=== PATIENT | male | born 1990 | race Caucasian/White ===

== ENCOUNTER 2017-02-11 18:38 | Emergency (ER) | payer BC ==
[~2017-02-11] VITALS: Ht 188 cm; Wt 75.0 kg
[~2017-02-11 18:38] MED LIST: AMLO5 PO; BUME1TAB PO; HYDRA50 PO; LABE200 PO; LEVO50TA4 PO; OMEG1CAP53 PO; PRAV10 PO; SEVEL800 PO; VITA-13 PO; ZOFR4TAB3 PO
[2017-02-11 18:39] VITALS: BP 164/92; PULSE 80; RESP 16; TEMP 97.8; O2SAT 96
[2017-02-11 19:00] VITALS: PULSE 76; RESP 16; O2SAT 98
[2017-02-11] MEDS ORDERED: SODIUM CHLOR 0.9% 1000 ML INJ 1,000 ML IV SCH (19:08)
[2017-02-11] MEDS ORDERED: PROCHLORPERAZINE INJ 10 MG/2 ML VIAL IVS ONE (19:15)
[2017-02-11] MEDS ORDERED: ONDANSETRON HCL 4 MG/2 ML VIAL IVP ONE (19:15)
[2017-02-11] MEDS ORDERED: SODIUM CHLORIDE 0.9% FLUSH 10 ML FLUSH IV FLUSH PRN (19:15)
[2017-02-11] MEDS ORDERED: diphenhydrAMINE HCL 50 MG/ML VIAL IV PUSH ONE (19:15)
--- NOTE | 2017-02-11 19:40 | PD ---
HPI Chief Complaint: GI Complaint Time Seen by Provider: 19:00 Travel History International Travel<30 days: No Contact w/Intl Traveler<30days: No Traveled to known affect area: No [facility] Past Medical History Cancer: No Cardiovascular Problems: No Diabetes: No Diminished Hearing: No Endocrine: No Genitourinary: Yes (Iga Nephropathy) Hepatitis: No Hiatal Hernia: No Immune Disorder: No Musculoskeletal: No Neurologic: No Psychiatric: No Reproductive: No Respiratory: No Immunizations Current: Yes Renal Failure: Yes (chronic kidney disease Stage III) Thyroid Disease: No Past Surgical History Abdominal Surgery: Yes (PD CATHETER PLACEMENT) AICD: No Cardiac Surgery: No Ear Surgery: No Endocrine Surgery: No Eye Surgery: No Genitourinary Surgery: No Gynecologic Surgery: No Joint Replacement: No Oral Surgery: No Pacemaker: No Thoracic Surgery: No Other Surgery: Yes Social History Alcohol Use: Yes ("COUPLE TIMES PER WEEK") Tobacco Use: No (2 years, quit 3 years ago) Substance Use: No Allergies-Medications (Allergen,Severity, Reaction): Coded Allergies: Keflex (Verified Allergy, Unknown, UNKNOWN- A CHILD, 02/11/17) Reported Meds & Prescriptions Reported Meds & Active Scripts Active Reported Vyvanse (Lisdexamfetamine Dimesylate) 30 Mg Cap 30 Mg PO DAILY Velphoro (Sucroferric Oxyhydroxide) 500 Mg Chew 500 Mg CHEW TIDPC Renvela (Sevelamer Carbonate) 800 Mg Tab 240 Mg PO TID Pravastatin 10 Mg Tab 10 Mg PO DAILY [id number] Ethyl Esters 1 Gm Cap 2 Gm PO BID Levothyroxine (Levothyroxine Sodium) 50 Mcg Tab 50 Mcg PO DAILY Labetalol (Labetalol HCl) 300 Mg Tab 300 Mg PO BID Hydralazine (Hydralazine HCl) 50 Mg Tab 50 Mg PO TID Take with a meal Bumetanide 2 Mg Tab 2 Mg PO DAILY Amlodipine (Amlodipine Besylate) 5 Mg Tab 5 Mg PO BID Data Data Last Documented VS Vital Signs Date Time Temp Pulse Resp B/P Pulse Ox O2 Delivery O2 Flow Rate FiO2 02/11/17 19:00 76 16 98 Room Air 02/11/17 18:39 97.8 164/92 Orders Complete Blood Count With Diff (02/11/17 19:08) Comprehensive Metabolic Panel (02/11/17 19:08) Lipase (02/11/17 19:08) Iv Access Insert/Monitor (02/11/17 19:08) Ecg Monitoring (02/11/17 19:08) Oximetry (02/11/17 19:08) Ondansetron Inj (Zofran Inj) (02/11/17 19:15) Sodium Chlor 0.9% 1000 Ml Inj (Ns 1000 M (02/11/17 19:08) Sodium Chloride 0.9% Flush (Ns Flush) (02/11/17 19:15) Magnesium (Mg) (02/11/17 19:08) Phosphorus (Po4) (02/11/17 19:08) Prochlorperazine Inj (Compazine Inj) (02/11/17 19:15) Diphenhydramine Inj (Benadryl Inj) (02/11/17 19:15) Ct Brain W/O Iv Contrast(Rout) (02/11/17 ) Electrocardiogram (02/11/17 ) Sodium Polysty Sulfate Liq (Kayexalate L (02/11/17 20:45) Labs Laboratory Tests Test 02/11/17 19:30 White Blood Count 5.5 TH/MM3 Red Blood Count 2.68 MIL/MM3 Hemoglobin 7.8 GM/DL Hematocrit 24.1 % Mean Corpuscular Volume 90.1 FL Mean Corpuscular Hemoglobin 29.0 PG Mean Corpuscular Hemoglobin 32.2 % Concent Red Cell Distribution Width 14.8 % Platelet Count 153 TH/MM3 Mean Platelet Volume 8.2 FL Neutrophils (%) (Auto) 71.6 % Lymphocytes (%) (Auto) 14.1 % Monocytes (%) (Auto) 11.9 % Eosinophils (%) (Auto) 1.8 % Basophils (%) (Auto) 0.6 % Neutrophils # (Auto) 3.9 TH/MM3 Lymphocytes # (Auto) 0.8 TH/MM3 Monocytes # (Auto) 0.6 TH/MM3 Eosinophils # (Auto) 0.1 TH/MM3 Basophils # (Auto) 0.0 TH/MM3 CBC Comment DIFF FINAL Differential Comment Sodium Level 141 MEQ/L Potassium Level 5.9 MEQ/L Chloride Level 100 MEQ/L Carbon Dioxide Level 26.3 MEQ/L Anion Gap 15 MEQ/L Blood Urea Nitrogen 80 MG/DL Creatinine 22.38 MG/DL Estimat Glomerular Filtration 3 ML/MIN Rate Random Glucose 99 MG/DL Calcium Level 8.8 MG/DL Phosphorus Level 8.3 MG/DL Magnesium Level 3.6 MG/DL Total Bilirubin 0.5 MG/DL Aspartate Amino Transf 10 U/L (AST/SGOT) Alanine Aminotransferase 29 U/L (ALT/SGPT) Alkaline Phosphatase 59 U/L Total Protein 7.1 GM/DL Albumin 3.7 GM/DL Lipase 396 U/L MDM Scripts Promethazine Supp (Phenergan Supp)12.5 Mg Supp12.5 Mg RECTAL Q6H PRN (NAUSEA OR VOMITING) #12 SUPP Ref 0 Prov:Balbir Delgadillo MD 02/11/17 Balbir Delgadillo MD Feb 11, 2017 19:40
[2017-02-11 19:55] LABS: AUTOMATED NEUTROPHIL # 3.9 TH/MM3 (1.8-7.7); BASOPHIL % 0.6 % (0.0-2.0); EOSINOPHIL # 0.1 TH/MM3 (0-0.4); EOSINOPHIL % 1.8 % (0.0-4.0); HEMATOCRIT 24.1 % (39.0-51.0); HEMO FLAGS DIFF FINAL; LYMPH % 14.1 % (9.0-44.0); LYMPHOCYTE # 0.8 TH/MM3 (1.0-4.8); MEAN CELL VOLUME 90.1 FL (80.0-100.0); MEAN CORPUSCULAR HGB CONC 32.2 % (32.0-36.0); MONO % 11.9 % (0.0-8.0); NEUT % 71.6 % (16.0-70.0); PLATELET COUNT 153 TH/MM3 (150-450); RED BLOOD COUNT 2.68 MIL/MM3 (4.50-5.90); RED CELL DISTRIBUTION WIDTH 14.8 % (11.6-17.2); WHITE BLOOD COUNT 5.5 TH/MM3 (4.0-11.0)
[2017-02-11 20:21] LABS: ALKALINE PHOSPHATASE 59 U/L (45-117); ALT (GPT) 29 U/L (12-78); ANION GAP 15 MEQ/L (5-15); AST (GOT) 10 U/L (15-37); BICARBONATE 26.3 MEQ/L (21.0-32.0); BLOOD UREA NITROGEN 80 MG/DL (7-18); CHLORIDE 100 MEQ/L (98-107); GLOMERULAR FILTRATION RATE 3 ML/MIN (>89); MAGNESIUM 3.6 MG/DL (1.5-2.5); POTASSIUM 5.9 MEQ/L (3.5-5.1); SODIUM (NA) 141 MEQ/L (136-145); TOTAL BILIRUBIN ADULT 0.5 MG/DL (0.2-1.0)
[2017-02-11] MEDS ORDERED: HYDR50TA15 PO (20:29)
[2017-02-11] MEDS ORDERED: LEVO50TA4 PO (20:29)
[2017-02-11] MEDS ORDERED: AMLO5TAB2 PO (20:29)
[2017-02-11] MEDS ORDERED: LABE300T PO (20:29)
[2017-02-11] MEDS ORDERED: OMEG1CAP28 PO (20:29)
[2017-02-11] MEDS ORDERED: VYVA30CA5 PO (20:29)
[2017-02-11] MEDS ORDERED: PRAV10TA PO (20:29)
[2017-02-11] MEDS ORDERED: SUCR5CHW CHEW (20:29)
[2017-02-11] MEDS ORDERED: BUME2TAB PO (20:29)
[2017-02-11] MEDS ORDERED: SEVEL800 PO (20:29)
--- NOTE | 2017-02-11 20:29 | RADRPT ---
EXAM DATE/TIME: 02/11/2017 19:58 [facility] COMPARISON: CT BRAIN W/O CONTRAST, December 25, 2015, 16:20. INDICATIONS : Nausea and vomiting with headache and neck pain. RADIATION DOSE: 35.04 CTDIvol (mGy) MEDICAL HISTORY : Chronic kidney disease stage 3. SURGICAL HISTORY : None. ENCOUNTER: Initial ACUITY: 1 day PAIN SCALE: 7/10 LOCATION: cranial TECHNIQUE: Multiple contiguous axial images were obtained of the head. Using automated exposure control and adj ustment of the mA and/or kV according to patient size, radiation dose was kept as low as reasonably a chievable to obtain optimal diagnostic quality images. FINDINGS: CEREBRUM: The ventricles are normal for age. No evidence of midline shift, mass lesion, hemorrhage or acute in farction. No extra-axial fluid collections are seen. POSTERIOR FOSSA: The cerebellum and brainstem are intact. The 4th ventricle is midline. The cerebellopontine angle i s unremarkable. EXTRACRANIAL: The visualized portion of the orbits is intact. SKULL: The calvaria is intact. No evidence of skull fracture. CONCLUSION: Normal examination for a patient of this age. No significant change has occurred. Mikael Castillo MD on February 11, 2017 at 20:26 Board Certified Radiologist. This report was verified electronically.
[2017-02-11] MEDS ORDERED: SODIUM POLYSTYRENE SULFONATE SUSP 15 GM/60 ML CUP PO ONE (20:45)
[2017-02-11] MEDS ORDERED: PROM2SUP RECTAL (20:45)
--- NOTE | 2017-02-11 20:45 | PD ---
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 Patient states has been doing his dialysis. No fevers, no abdominal pain. Patient states his effluent fluid has been clear. Patient states had seen his provider engagement executive Dr. Davis earlier this week and was told his Cr was in excess of 20 and his potassium was 6. Patient states has tried some zofran at home and had minimal relief. States symptoms for past day or so. PFSH Past Medical History Cancer: No Cardiovascular Problems: No Diabetes: No Diminished Hearing: No Endocrine: No Genitourinary: Yes (Iga Nephropathy) Hepatitis: No Hiatal Hernia: No Immune Disorder: No Musculoskeletal: No Neurologic: No Psychiatric: No Reproductive: No Respiratory: No Immunizations Current: Yes Renal Failure: Yes (chronic kidney disease Stage III) Thyroid Disease: No Past Surgical History Abdominal Surgery: Yes (PD CATHETER PLACEMENT) AICD: No Cardiac Surgery: No Ear Surgery: No Endocrine Surgery: No Eye Surgery: No Genitourinary Surgery: No Gynecologic Surgery: No Joint Replacement: No Oral Surgery: No Pacemaker: No Thoracic Surgery: No Other Surgery: Yes Social History Alcohol Use: Yes ("COUPLE TIMES PER WEEK") Tobacco Use: No (2 years, quit 3 years ago) Substance Use: No Allergies-Medications (Allergen,Severity, Reaction): Coded Allergies: Keflex (Verified Allergy, Unknown, UNKNOWN- A CHILD, 02/11/17) Reported Meds & Prescriptions Reported Meds & Active Scripts Active Phenergan (Promethazine HCl) 25 Mg Tab 25 Mg PO Q6H PRN Phenergan Supp (Promethazine HCl) 12.5 Mg Supp 12.5 Mg RECTAL Q6H PRN Reported Vyvanse (Lisdexamfetamine Dimesylate) 30 Mg Cap 30 Mg PO DAILY Velphoro (Sucroferric Oxyhydroxide) 500 Mg Chew 500 Mg CHEW TIDPC Renvela (Sevelamer Carbonate) 800 Mg Tab 240 Mg PO TID Pravastatin 10 Mg Tab 10 Mg PO DAILY [id number]-6-Hiqy Ethyl Esters 1 Gm Cap 2 Gm PO BID Levothyroxine (Levothyroxine Sodium) 50 Mcg Tab 50 Mcg PO DAILY Labetalol (Labetalol HCl) 300 Mg Tab 300 Mg PO BID Hydralazine (Hydralazine HCl) 50 Mg Tab 50 Mg PO TID Take with a meal Bumetanide 2 Mg Tab 2 Mg PO DAILY Amlodipine (Amlodipine Besylate) 5 Mg Tab 5 Mg PO BID Review of Systems Except as stated in HPI: all other systems reviewed are Neg Physical Exam Narrative GENERAL: WD/WN in nad SKIN: Warm and dry. HEAD: Atraumatic. Normocephalic. EYES: Pupils equal and round. No scleral icterus. No injection or drainage. ENT: No nasal bleeding or discharge. Mucous membranes pink and moist. NECK: Trachea midline. No JVD. Kerning's and brudzinski signs negative. No nuchal rigidity. CARDIOVASCULAR: Regular rate and rhythm. RESPIRATORY: No accessory muscle use. Clear to auscultation. Breath sounds equal bilaterally. GASTROINTESTINAL: Abdomen soft, non-tender, nondistended. Hepatic and splenic margins not palpable. Peritoneal dialysis catheter c/d/i MUSCULOSKELETAL: Extremities without clubbing, cyanosis, or edema. No obvious deformities. NEUROLOGICAL: Awake and alert. No obvious cranial nerve deficits. Motor grossly within normal limits. Five out of 5 muscle strength in the arms and legs. Normal speech. PSYCHIATRIC: Appropriate mood and affect; insight and judgment normal. Data Data Last Documented VS Vital Signs Date Time Temp Pulse Resp B/P Pulse Ox O2 Delivery O2 Flow Rate FiO2 02/11/17 19:00 76 16 98 Room Air 02/11/17 18:39 97.8 164/92 Orders Complete Blood Count With Diff (02/11/17 19:08) Comprehensive Metabolic Panel (02/11/17 19:08) Lipase (02/11/17 19:08) Iv Access Insert/Monitor (02/11/17 19:08) Ecg Monitoring (02/11/17 19:08) Oximetry (02/11/17 19:08) Ondansetron Inj (Zofran Inj) (02/11/17 19:15) Sodium Chlor 0.9% 1000 Ml Inj (Ns 1000 M (02/11/17 19:08) Sodium Chloride 0.9% Flush (Ns Flush) (02/11/17 19:15) Magnesium (Mg) (02/11/17 19:08) Phosphorus (Po4) (02/11/17 19:08) Prochlorperazine Inj (Compazine Inj) (02/11/17 19:15) Diphenhydramine Inj (Benadryl Inj) (02/11/17 19:15) Ct Brain W/O Iv Contrast(Rout) (02/11/17 ) Electrocardiogram (02/11/17 ) Sodium Polysty Sulfate Liq (Kayexalate L (02/11/17 20:45) Labs Laboratory Tests Test 02/11/17 19:30 White Blood Count 5.5 TH/MM3 Red Blood Count 2.68 MIL/MM3 Hemoglobin 7.8 GM/DL Hematocrit 24.1 % Mean Corpuscular Volume 90.1 FL Mean Corpuscular Hemoglobin 29.0 PG Mean Corpuscular Hemoglobin 32.2 % Concent Red Cell Distribution Width 14.8 % Platelet Count 153 TH/MM3 Mean Platelet Volume 8.2 FL Neutrophils (%) (Auto) 71.6 % Lymphocytes (%) (Auto) 14.1 % Monocytes (%) (Auto) 11.9 % Eosinophils (%) (Auto) 1.8 % Basophils (%) (Auto) 0.6 % Neutrophils # (Auto) 3.9 TH/MM3 Lymphocytes # (Auto) 0.8 TH/MM3 Monocytes # (Auto) 0.6 TH/MM3 Eosinophils # (Auto) 0.1 TH/MM3 Basophils # (Auto) 0.0 TH/MM3 CBC Comment DIFF FINAL Differential Comment Sodium Level 141 MEQ/L Potassium Level 5.9 MEQ/L Chloride Level 100 MEQ/L Carbon Dioxide Level 26.3 MEQ/L Anion Gap 15 MEQ/L Blood Urea Nitrogen 80 MG/DL Creatinine 22.38 MG/DL Estimat Glomerular Filtration 3 ML/MIN Rate Random Glucose 99 MG/DL Calcium Level 8.8 MG/DL Phosphorus Level 8.3 MG/DL Magnesium Level 3.6 MG/DL Total Bilirubin 0.5 MG/DL Aspartate Amino Transf 10 U/L (AST/SGOT) Alanine Aminotransferase 29 U/L (ALT/SGPT) Alkaline Phosphatase 59 U/L Total Protein 7.1 GM/DL Albumin 3.7 GM/DL Lipase 396 U/L [facility] Medical Decision Making Medical Screen Exam Complete: Yes Emergency Medical Condition: Yes Interpretation(s) EKG shows NSR normal axis with normal intervals. Mildly promiant T Waves in V3 and V4. Otherwise no significant STT abnormlaties. Borderline EKG. Differential Diagnosis Electrolyte abnormalities, pancreatitis, gastritis, gastroenteritis Narrative Course Patient roomed in ED. Benadryl, compazine and zofran given. Fluids cautiously. Labs show Cr of 22, K 5.9 BUN of 80. Hbg of 7.8 Last [address] 02/11/17 0000 Signed Impressions: Service Date/Time: Saturday, February 11, 2017 19:58 - CONCLUSION: Normal examination for a patient of this age. No significant change has occurred. Mikael Castillo MD Discussed with Dr. Shi admissions rn for Dr. Davis the above results and EKG findings. He states patient needs to continue doing home dialysis. No ndication for emergent admission from a nephrology standpoint according to Dr. Shi. Patient abdomen is benign, remainder of his physicial exam WNL Patient stable for discharge. Given Kayexelate prior to discharge at recommendation of Dr. Shi. DIscussed with patient who is feeling better and he wants to go home. Diagnosis Primary Impression: Nausea & vomiting Qualified Code: R11.2 - Nausea and vomiting, intractability of vomiting not specified, unspecified vomiting type Additional Impressions: Headache Hyperkalemia Additional Instructions: Per Dr. Miles Blanco or peritoneal dialysis tonight as scheduled. Follow-up with Dr. Davis on Monday by phone. Med/Other Pt SpecificInfo: Prescription(s) given Scripts Promethazine (Phenergan)25 Mg Tab25 Mg PO Q6H PRN (Nausea/Vomiting) #12 TAB Ref 0 Prov:Balbir Delgadillo MD 02/11/17 Promethazine Supp (Phenergan Supp)12.5 Mg Supp12.5 Mg RECTAL Q6H PRN (NAUSEA OR VOMITING) #12 SUPP Ref 0 Prov:Balbir Delgadillo MD 02/11/17 Disposition: 01 DISCHARGE HOME Condition: Stable Balbir Delgadillo MD Feb 11, 2017 20:45
[2017-02-11] MEDS ORDERED: PROM25TA5 PO (20:50)
--- NOTE | 2017-02-12 14:54 | EKG ---
Date Performed: 02/11/2017 Time Performed: 20:39:15 PTAGE: 26 years EKG: Sinus rhythm Since previous tracing, no significant change noted NORMAL ECG PREVIOUS TRACING : 12/25/2015 17.17 DOCTOR: Darnell Loera Interpretating Date/Time 02/12/2017 14:53:26
[2017-03-09] MEDS ORDERED: AMBI5TAB PO (14:18)
[2017-03-09] MEDS ORDERED: BUPR100T4 PO (14:18)
[2017-03-29] MEDS ORDERED: LOSA100T PO (12:44)
[2017-03-29] MEDS ORDERED: HYDR-3801 PO (12:44)
[2017-03-29] MEDS ORDERED: TEST1INJ3 IM (12:44)
== END 2017-02-11 21:12 | disposition home or self-care (01) ==
LOC: NEPA 18:38
DX: R11.2 Nausea with vomiting, unspecified (principal); E87.5 Hyperkalemia; N18.3 Chronic kidney disease, stage 3 (moderate)
CPT/HCPCS: 70450; 80053; 83690; 83735; 84100; 85025; 93005; 96361; 96374; 96375; 99284; J0780; J1200; J2405; J7030

== ENCOUNTER 2017-03-06 13:21 | Emergency (ER) | payer BC ==
[~2017-03-06] VITALS: Ht 188 cm; Wt 77.7 kg
[~2017-03-06 13:21] MED LIST changes: -AMLO5 PO; +AMLO5TAB2 PO; -BUME1TAB PO; +BUME2TAB PO; +HYDR50TA15 PO; -HYDRA50 PO; -LABE200 PO; +LABE300T PO; +OMEG1CAP28 PO; -OMEG1CAP53 PO; -PRAV10 PO; +PRAV10TA PO; +PROM25TA5 PO; +PROM2SUP RECTAL; +SUCR5CHW CHEW; -VITA-13 PO; +VYVA30CA5 PO; -ZOFR4TAB3 PO
[2017-03-06 13:39] VITALS: BP 146/101; PULSE 73; RESP 16; TEMP 98.7; O2SAT 98
[2017-03-06] MEDS ORDERED: SODIUM CHLORIDE 0.9% FLUSH 10 ML FLUSH IV FLUSH PRN (14:15)
--- NOTE | 2017-03-06 14:33 | PD ---
HPI Chief Complaint: Abdominal Pain Time Seen by Provider: 14:14 Travel History International Travel<30 days: No Contact w/Intl Traveler<30days: No Traveled to known affect area: No History of Present Illness HPI 26-year-old male with history of peritoneal dialysis due to IgA nephropathy, follows up with Dr. Davis, presents to the ER today for 3 days history of nausea, fatigue, left-sided abdominal pain, bloating, which he currently rates at an 8 out of 10. He denies any fevers or any other symptoms. He states that initially he thought that the symptoms was do the fact that he was not able to dialyze out enough fluids, and he tried a higher concentration dialysis fluid without significant improvement last night. He had talked to his dialysis clinic and they had told him to look at the dialysate, and see if it has any cloudiness. He states he looked any was not cloudy, and they stated to him that they do not think that this is secondary to a peritoneal dialysis infection. Modifying Factors: None Associated Signs & Symptoms: Nausea, malaise, left lower quadrant abdominal pain , abdominal bloating Risk Factors: On peritoneal dialysis PFSH Past Medical History Cancer: No Cardiovascular Problems: Yes (htn on meds) Diabetes: No Dialysis: Yes (peritoneal) Diminished Hearing: No Endocrine: No Genitourinary: Yes (Iga Nephropathy) Hepatitis: No Hiatal Hernia: No Immune Disorder: No Musculoskeletal: No Neurologic: No Psychiatric: No Reproductive: No Respiratory: No Immunizations Current: Yes Renal Failure: Yes (chronic kidney disease Stage III) Thyroid Disease: No Influenza Vaccination: Yes ?: Not Past Surgical History Abdominal Surgery: Yes (PD CATHETER PLACEMENT) AICD: No Cardiac Surgery: No Ear Surgery: No Endocrine Surgery: No Eye Surgery: No Genitourinary Surgery: No Gynecologic Surgery: No Joint Replacement: No Oral Surgery: No Pacemaker: No Thoracic Surgery: No Other Surgery: Yes Social History Alcohol Use: Yes ("COUPLE TIMES PER WEEK") Tobacco Use: No (2 years, quit 3 years ago) Substance Use: No Allergies-Medications (Allergen,Severity, Reaction): Coded Allergies: Keflex (Verified Allergy, Unknown, UNKNOWN- A CHILD, 03/06/17) Reported Meds & Prescriptions Reported Meds & Active Scripts Active Reported Vyvanse (Lisdexamfetamine Dimesylate) 30 Mg Cap 30 Mg PO DAILY Velphoro (Sucroferric Oxyhydroxide) 500 Mg Chew 500 Mg CHEW TIDPC Renvela (Sevelamer Carbonate) 800 Mg Tab 240 Mg PO TID Pravastatin 10 Mg Tab 10 Mg PO DAILY Rhyej-3-Awyk Ethyl Esters 1 Gm Cap 2 Gm PO BID Levothyroxine (Levothyroxine Sodium) 50 Mcg Tab 50 Mcg PO DAILY Labetalol (Labetalol HCl) 300 Mg Tab 300 Mg PO BID Hydralazine (Hydralazine HCl) 50 Mg Tab 50 Mg PO TID Take with a meal Bumetanide 2 Mg Tab 2 Mg PO DAILY Amlodipine (Amlodipine Besylate) 5 Mg Tab 5 Mg PO BID Review of Systems Except as stated in HPI: all other systems reviewed are Neg Physical Exam Narrative GENERAL: Young white male patient who is well-developed, awake, alert, oriented 3. SKIN: Focused skin assessment warm/dry. HEAD: Atraumatic. Normocephalic. EYES: Pupils equal and round. No scleral icterus. No injection or drainage. ENT: No nasal bleeding or discharge. Mucous membranes pink and moist. NECK: Trachea midline. No JVD. CARDIOVASCULAR: Regular rate and rhythm. No murmur appreciated. RESPIRATORY: No accessory muscle use. Clear to auscultation. Breath sounds equal bilaterally. GASTROINTESTINAL: Abdomen soft, mild left lower quadrant tenderness without guarding or rebound, nondistended. Hepatic and splenic margins not palpable. . Peritoneal dialysis port in place with no surrounding erythema or drainage. MUSCULOSKELETAL: No obvious deformities. No clubbing. No cyanosis. No edema. NEUROLOGICAL: Awake and alert. No obvious cranial nerve deficits. Motor grossly within normal limits. Normal speech. PSYCHIATRIC: Appropriate mood and affect; insight and judgment normal. Data Data Last Documented VS Vital Signs Date Time Temp Pulse Resp B/P Pulse Ox O2 Delivery O2 Flow Rate FiO2 03/06/17 15:04 67 18 168/97 98 Room Air 03/06/17 13:39 98.7 Orders Complete Blood Count With Diff (03/06/17 14:14) Comprehensive Metabolic Panel (03/06/17 14:14) Lipase (03/06/17 14:14) Iv Access Insert/Monitor (03/06/17 14:14) Ecg Monitoring (03/06/17 14:14) Oximetry (03/06/17 14:14) Sodium Chloride 0.9% Flush (Ns Flush) (03/06/17 14:15) Influenzae A/B Antigen (03/06/17 14:14) Morphine Inj (Morphine Inj) (03/06/17 14:45) Ondansetron Inj (Zofran Inj) (03/06/17 14:45) Ct Abd/Pel W/O Iv Contrast (03/06/17 14:33) Labs Laboratory Tests Test 03/06/17 14:20 White Blood Count 6.3 TH/MM3 Red Blood Count 2.89 MIL/MM3 Hemoglobin 9.5 GM/DL Hematocrit 28.7 % Mean Corpuscular Volume 99.3 FL Mean Corpuscular Hemoglobin 32.8 PG Mean Corpuscular Hemoglobin 33.0 % Concent Red Cell Distribution Width 19.0 % Platelet Count 199 TH/MM3 Mean Platelet Volume 7.4 FL Neutrophils (%) (Auto) 69.4 % Lymphocytes (%) (Auto) 15.0 % Monocytes (%) (Auto) 12.6 % Eosinophils (%) (Auto) 2.3 % Basophils (%) (Auto) 0.7 % Neutrophils # (Auto) 4.5 TH/MM3 Lymphocytes # (Auto) 0.9 TH/MM3 Monocytes # (Auto) 0.8 TH/MM3 Eosinophils # (Auto) 0.1 TH/MM3 Basophils # (Auto) 0.0 TH/MM3 CBC Comment DIFF FINAL Differential Comment Sodium Level 141 MEQ/L Potassium Level 4.9 MEQ/L Chloride Level 104 MEQ/L Carbon Dioxide Level 23.8 MEQ/L Anion Gap 13 MEQ/L Blood Urea Nitrogen 70 MG/DL Creatinine 22.00 MG/DL Estimat Glomerular Filtration 3 ML/MIN Rate Random Glucose 149 MG/DL Calcium Level 8.9 MG/DL Total Bilirubin 0.6 MG/DL Aspartate Amino Transf 11 U/L (AST/SGOT) Alanine Aminotransferase 27 U/L (ALT/SGPT) Alkaline Phosphatase 63 U/L Total Protein 6.5 GM/DL Albumin 3.4 GM/DL Lipase 224 U/L [facility] Medical Decision Making Medical Screen Exam Complete: Yes Emergency Medical Condition: Yes Medical Record Reviewed: Yes Interpretation(s) Laboratory Tests Test 03/06/17 14:20 Red Blood Count 2.89 MIL/MM3 (4.50-5.90) Hemoglobin 9.5 GM/DL (13.0-17.0) Hematocrit 28.7 % (39.0-51.0) Red Cell Distribution Width 19.0 % (11.6-17.2) Monocytes (%) (Auto) 12.6 % (0.0-8.0) Lymphocytes # (Auto) 0.9 TH/MM3 (1.0-4.8) Blood Urea Nitrogen 70 MG/DL (7-18) Creatinine 22.00 MG/DL (0.60-1.30) Estimat Glomerular Filtration 3 ML/MIN (>89) Rate Random Glucose 149 MG/DL (74-106) Aspartate Amino Transf 11 U/L (15-37) (AST/SGOT) Differential Diagnosis Malaise, nausea, left lower quadrant abdominal pain, bloatinggastroenteritis versus electrolyte abnormalities versus worsening renal failure versus SBP versus other acute intra-abdominal processes Narrative Course Lab work did not indicate any significant electrolyte abnormalities although his BUN and creatinine is elevated, likely to be baseline for this patient. His white blood cell count is unremarkable. Influenza is negative. CT scan of the abdomen is otherwise unremarkable. Case was briefly discussed with Dr. 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 Return for any worsening in symptoms as necessary. The plan has been discussed with the patient and he states understanding. Diagnosis Primary Impression: Nausea & vomiting Med/Other Pt SpecificInfo: Prescription(s) given Scripts Hydrocodone-Acetaminophen (Lortab)5-325 Mg Tab1 Tab PO Q6H PRN (PAIN) #10 TAB Ref 0 Prov:Clarke Leiva MD 03/06/17 Ondansetron Odt (Zofran Odt)4 Mg Tab4 Mg SL Q6HR PRN (Nausea/Vomiting) #7 TAB Ref 0 Prov:Clarke Leiva MD 03/06/17 Disposition: 01 DISCHARGE HOME Condition: Stable Clarke Leiva MD Mar 06, 2017 14:33
[2017-03-06 14:36] LABS: CHLORIDE 104 MEQ/L (98-107); POTASSIUM 4.9 MEQ/L (3.5-5.1); SODIUM (NA) 141 MEQ/L (136-145)
[2017-03-06 14:40] LABS: ANION GAP 13 MEQ/L (5-15); BICARBONATE 23.8 MEQ/L (21.0-32.0); BLOOD UREA NITROGEN 70 MG/DL (7-18)
[2017-03-06 14:42] VITALS: BP 171/97; PULSE 76; RESP 18; O2SAT 97
[2017-03-06 14:42] LABS: AUTOMATED NEUTROPHIL # 4.5 TH/MM3 (1.8-7.7); BASOPHIL % 0.7 % (0.0-2.0); EOSINOPHIL # 0.1 TH/MM3 (0-0.4); EOSINOPHIL % 2.3 % (0.0-4.0); HEMATOCRIT 28.7 % (39.0-51.0); HEMO FLAGS DIFF FINAL; LYMPHOCYTE # 0.9 TH/MM3 (1.0-4.8); MEAN CELL VOLUME 99.3 FL (80.0-100.0); MEAN CORPUSCULAR HEMOGLOBIN 32.8 PG (27.0-34.0); MONO % 12.6 % (0.0-8.0); NEUT % 69.4 % (16.0-70.0); PLATELET COUNT 199 TH/MM3 (150-450); RED BLOOD COUNT 2.89 MIL/MM3 (4.50-5.90); WHITE BLOOD COUNT 6.3 TH/MM3 (4.0-11.0)
[2017-03-06 14:43] LABS: ALT (GPT) 27 U/L (12-78); AST (GOT) 11 U/L (15-37)
[2017-03-06 14:45] LABS: TOTAL BILIRUBIN ADULT 0.6 MG/DL (0.2-1.0)
[2017-03-06] MEDS ORDERED: MORPHINE SULFATE 4 MG/ML INJ IV PUSH ONE (14:45)
[2017-03-06] MEDS ORDERED: ONDANSETRON HCL 4 MG/2 ML VIAL IV PUSH ONE (14:45)
[2017-03-06 14:46] LABS: ALKALINE PHOSPHATASE 63 U/L (45-117)
[2017-03-06 14:51] LABS: GLOMERULAR FILTRATION RATE 3 ML/MIN (>89)
[2017-03-06 15:04] VITALS: BP 168/97; PULSE 67; RESP 18; O2SAT 98
--- NOTE | 2017-03-06 15:10 | RADHPO ---
EXAM DATE/TIME: 03/06/2017 14:45 [facility] COMPARISON: CT ABDOMEN & PELVIS W/O CONTRAST, November 22, 2014, 20:49. INDICATIONS : Left lower abdominal pain. ORAL CONTRAST: No oral contrast ingested. RADIATION DOSE: 5.76 CTDIvol (mGy) MEDICAL HISTORY : Renal insufficiency. Hypertension. SURGICAL HISTORY : Peritoneal dialysis. ENCOUNTER: Initial ACUITY: 1 week PAIN SCALE: 5/10 LOCATION: Left lower quadrant TECHNIQUE: Volumetric scanning of the abdomen and pelvis was performed. Using automated exposure control and ad justment of the mA and/or kV according to patient size, radiation dose was kept as low as reasonably achievable to obtain optimal diagnostic quality images. FINDINGS: Abdomen CT: The liver, spleen, pancreas, kidneys, adrenals are unremarkable. There is no evidence for any appreci able pathological adenopathy, free fluid, or bowel obstruction. Pelvic CT: There is no evidence for mass, abscess formation, or any significant adenopathy within the pelvis. Di alysis tube is present with slight fluid within the pelvis.. IMPRESSION: Essentially unremarkable study except for slight fluid in the pelvis probably from th e patient's dialysis. Damien Gonzalez MD on March 06, 2017 at 15:00 Board Certified Radiologist. This report was verified electronically.
[2017-03-06] MEDS ORDERED: ZOFR4TAB3 SL (15:45)
[2017-03-06] MEDS ORDERED: HYDR-3533 PO (15:45)
[2017-03-09] MEDS ORDERED: AMBI5TAB PO (14:18)
[2017-03-09] MEDS ORDERED: BUPR100T4 PO (14:18)
[2017-03-29] MEDS ORDERED: HYDR-3801 PO (12:44)
[2017-03-29] MEDS ORDERED: LOSA100T PO (12:44)
[2017-03-29] MEDS ORDERED: TEST1INJ3 IM (12:44)
== END 2017-03-06 16:09 | disposition home or self-care (01) ==
LOC: PHED 13:21
DX: R11.2 Nausea with vomiting, unspecified (principal); I12.9 Hypertensive chronic kidney disease with stage 1 through stage 4 chronic kidney disease, or unspecified chronic kidney disease; N18.3 Chronic kidney disease, stage 3 (moderate); N02.8 Recurrent and persistent hematuria with other morphologic changes; Z99.2 Dependence on renal dialysis
CPT/HCPCS: 74176; 80053; 83690; 85025; 87804; 96374; 96375; 99284; J2270; J2405

== ENCOUNTER 2017-03-10 07:25 | Day surgery (SDC) | payer BC ==
[~2017-03-10] VITALS: Ht 188 cm; Wt 75.0 kg
[~2017-03-10 07:25] MED LIST changes: +AMBI5TAB PO; +BUPR100T4 PO; +HYDR-3533 PO; +ZOFR4TAB3 SL
[2017-03-10 07:41] VITALS: BP 152/105; PULSE 77; RESP 20; TEMP 98.4; O2SAT 98
[2017-03-10] MEDS ORDERED: FOSR1000 CHEW (07:48)
[2017-03-10] MEDS ORDERED: EPOG1000 (07:48)
[2017-03-10] MEDS ORDERED: ADDE15TA PO (07:48)
[2017-03-10] MEDS ORDERED: ceFAZolin 2 GM PREMIX 50 ML - implanted port/tunneled catheter insertion IV SCH (08:15)
[2017-03-10] MEDS ORDERED: SODIUM CHLORIDE 0.9% 1000 ML IV SCH (08:15)
[2017-03-10] MEDS ORDERED: fentaNYL CITRATE 250 MCG/5 ML AMP ONE (09:17)
[2017-03-10] MEDS ORDERED: MIDAZOLAM HCL 5 MG/5 ML VIAL ONE (09:17)
--- NOTE | 2017-03-10 10:02 | PD.RAD ---
Post Procedure Progress Note Pre Procedure Diagnosis: (1) Acute renal failure superimposed on stage 4 chronic kidney disease Post Procedure Diagnosis: (1) Acute renal failure superimposed on stage 4 chronic kidney disease Procedure Date: Mar 10, 2017 Supervising Radiologist: Gamal Zambrano Proceduralist/Assist: Sarai Hwang, RT(R), Arlene Lepe RT(R)() Anesthesia: Local, Conscious Sedation Plan of Activity Patient to Unit: ROPU Patient Condition: Good See PACS Report for procedural detail/treatment Imaging Evaluation Other Findings: Peritoneal dialysis cath evaluation and manipulation completed Gamal Zambrano MD Mar 10, 2017 10:02
[2017-03-10 10:15] VITALS: BP 164/106; PULSE 77; RESP 18; TEMP 98.4; O2SAT 95
[2017-03-10] MEDS ORDERED: IOHEXOL 350 MG/ML 50 ML BTL (for RAD DIAG) ONE (10:26)
[2017-03-10 10:30] VITALS: BP 184/101; PULSE 63; RESP 16; O2SAT 97
[2017-03-10] MEDS ORDERED: METOPROLOL TARTRATE 5 MG/5 ML VIAL ONE (10:47)
[2017-03-10 11:00] VITALS: BP 173/105; PULSE 73; RESP 18; O2SAT 93
[2017-03-10 11:30] VITALS: BP 163/94; PULSE 79; RESP 18; O2SAT 94
[2017-03-10 12:00] VITALS: BP 179/99; PULSE 72; RESP 18; O2SAT 94
--- NOTE | 2017-03-10 12:57 | RADRPT ---
EXAM DATE/TIME: 03/10/2017 10:02 [facility] COMPARISON: PERITONEOGRAM, February 08, 2016, 7:32. INDICATIONS : evaluation of existing peritoneal dialysis catheter due to issues with lo w drainage. MEDICAL HISTORY : History of HTN, ESRD, IgA neuropathy. SURGICAL HISTORY : HIstory of left ACL repair, PD catheter placement. ENCOUNTER: Initial ACUITY: > 1 year PAIN SCORE: 0/10 FLUORO TIME: 3.8 minutes IMAGE SERIES: 4 SEDATION TIME: 20minutes CONTRAST: 40 cc Omnipaque (iohexol) 350 MEDICATION(S): 1.) 3.5 mg midazolam (Versed) IV 2.) 175 mcg fentanyl (Sublimaze) IV PROCEDURE : 1. Peritoneogram via indwelling peritoneal dialysis catheter. 2. Peritoneal dialysis catheter manipulation with stiff guidewire. The risks, benefits and alternatives to the procedure were explained and verbal and written consent w as obtained. The site was prepped in sterile fashion. Full sterile technique was used, including ca p, mask, sterile gloves and gown and a large sterile sheet. Hand hygiene and 2% chlorhexidine and/or betadine/alcohol prep was utilized per protocol for cutaneous antisepsis. The skin and subcutaneous tissues were infiltrated with local anesthetic solution. Injection of contrast via the patient's peritoneal dialysis catheter demonstrates central loculation of contrast with some extension throughout the activity in. Stiff guidewire was advanced through the peritoneal catheter. The catheter was very difficult to move and was only minimally displaced from its original position. CONCLUSION: Peritoneogram demonstrates central fixation of a peritoneal dialysis catheter with lo culated pockets surrounding it and restriction to generalized peritoneal flow. Manipulation of the peritoneal dialysis catheter resulted only mild change in position. Gamal Zambrano MD on March 10, 2017 at 12:51 Board Certified Radiologist. This report was verified electronically.
[2017-03-29] MEDS ORDERED: LOSA100T PO (12:44)
[2017-03-29] MEDS ORDERED: HYDR-3801 PO (12:44)
[2017-03-29] MEDS ORDERED: TEST1INJ3 IM (12:44)
== END 2017-03-10 12:22 | disposition home or self-care (01) ==
LOC: HROP 07:25 → HRIP 07:40 → HROP 12:22
PROVIDERS: ATTEND Internal Medicine Nephrology
DX: N17.9 Acute kidney failure, unspecified (principal); N18.4 Chronic kidney disease, stage 4 (severe); I12.0 Hypertensive chronic kidney disease with stage 5 chronic kidney disease or end stage renal disease
CPT/HCPCS: 49400; 49999; 99152; 99153; J2250; J3010; Q9967; C1769

== ENCOUNTER → 2017-03-30 | Day surgery (SDC) | payer BC ==
[~2017-03-30] VITALS: Ht 188 cm; Wt 76.9 kg
[~2017-03-30] MED LIST changes: +*HYDROmorphone PF 1 MG VIAL PERIprocedural Use ONLY ONE; +*ONDANSETRON 4 MG VIAL PERIprocedural Use ONLY ONE; +*morphine SULFATE 8 MG/ML PERIprocedure ONLY ONE; +ACETAMINOPHEN/HYDROcodone 325 MG/5 MG TAB PO PRN; +ADDE15TA PO; -AMBI5TAB PO; +AUGM875T3 PO; +BUPIVACAINE HCL PF 0.5% 30 ML VIAL INFIL ONE; -BUPR100T4 PO; +CHLORHEXIDINE GLUCONATE 2 % 1 PACK (2 CLOTHS) TOPICAL PRN; +DEXAMETHASONE SOD PHOS 4 MG/ML VIAL ONE; +DO NOT ADM ANY ANTICOAGULANT DRUGS PRN; +EPOG1000; +FAMC500T PO; +FAMOTIDINE 20 MG/2 ML VIAL ONE; +FOSR1000 CHEW; -HYDR-3533 PO; +HYDR-3801 PO; +INSULIN HUMAN REGULAR 1,000 UNITS/10 ML VIAL SQ PRN; +LACTATED RINGER'S 1000 ML IV PRN; +LOSA100T PO; +METOPROLOL TARTRATE 25 MG TAB PO PRN; +MIDAZOLAM HCL 2 MG/2 ML VIAL ONE; +MORPHINE SULFATE 4 MG/ML INJ IV PUSH PRN; +NEOSTIGMINE 3 MG/3 ML SYR IV ONE; -OMEG1CAP28 PO; +ONDANSETRON HCL 4 MG/2 ML VIAL IV PUSH ONE; +ONDANSETRON HCL 4 MG/2 ML VIAL IV PUSH PRN; +POVIDONE IODINE 5% (ANTISEPSIS KIT) 4 APPLICATIONS EACH NARE PRN; -PROM25TA5 PO; -PROM2SUP RECTAL; +PROPOFOL 200 MG/20 ML AMP IV ONE; +SODIUM CHLORID 0.9% 500 ML IV PRN; -SUCR5CHW CHEW; +TEST1INJ3 IM; -VYVA30CA5 PO; -ZOFR4TAB3 SL; +ceFAZolin 2 GM PREMIX 50 ML IV SCH
[2017-03-30 09:15] VITALS: BP 160/100
[2017-03-30 09:45] LABS: AUTOMATED NEUTROPHIL # 6.1 TH/MM3 (1.8-7.7); BASOPHIL # 0.1 TH/MM3 (0-0.2); BASOPHIL % 1.1 % (0.0-2.0); EOSINOPHIL # 0.3 TH/MM3 (0-0.4); EOSINOPHIL % 3.2 % (0.0-4.0); HEMATOCRIT 37.6 % (39.0-51.0); HEMO FLAGS DIFF FINAL; LYMPH % 14.4 % (9.0-44.0); LYMPHOCYTE # 1.2 TH/MM3 (1.0-4.8); MEAN CELL VOLUME 98.2 FL (80.0-100.0); MEAN CORPUSCULAR HEMOGLOBIN 32.1 PG (27.0-34.0); MEAN CORPUSCULAR HGB CONC 32.7 % (32.0-36.0); MONO % 8.9 % (0.0-8.0); NEUT % 72.4 % (16.0-70.0); PLATELET COUNT 284 TH/MM3 (150-450); RED BLOOD COUNT 3.83 MIL/MM3 (4.50-5.90); RED CELL DISTRIBUTION WIDTH 14.9 % (11.6-17.2); WHITE BLOOD COUNT 8.5 TH/MM3 (4.0-11.0)
[2017-03-30 10:16] LABS: POTASSIUM 5.7 MEQ/L (3.5-5.1)
--- NOTE | 2017-03-30 11:11 | PD.OP ---
Operative Report Date of Surgery: March 30, 2017 Preoperative Diagnosis: malpositioned PD catheter Postoperative Diagnosis: same Procedure: lap repositioning of PD catheter Anesthesia: general Surgeon: Kang Lundberg Data Programmer(s): Katelynn Ferrer Operation and Findings: PD catheter in upper midline abdomen wrapped in omentum. Repositioned in dependent pelvis. Good position and function. EBL less than 5 ml. Kang Lundberg MD March 30, 2017 11:11
[2017-03-30 13:22] VITALS: BP 151/90; PULSE 64; RESP 16; TEMP 98.7; O2SAT 97
--- NOTE | 2017-03-31 13:39 | MP ---
cc: SANDIP LU M.D. DATE OF SURGERY: 03/30/2017. PREOPERATIVE DIAGNOSIS: Malpositioned peritoneal dialysis catheter. POSTOPERATIVE DIAGNOSIS: Malpositioned peritoneal dialysis catheter. OPERATIVE PROCEDURE PERFORMED: Laparoscopic repositioning of peritoneal dialysis catheter. SURGEON: Dr. Sandip Lu. ANESTHESIA: General. INDICATIONS FOR THE PROCEDURE: A very pleasant 26-year-old who had a previous laparoscopic- assisted peritoneal dialysis catheter placement with a suturing of the catheter in the dependent portion of the pelvis. He has had difficulty with it and his catheter on the imaging was found to be in the upper mid-abdomen. It apparently had flipped from its sutured position in the pelvis. Plans were made for laparoscopy and repositioning and possible replacement. INTRAOPERATIVE FINDINGS: A catheter in the upper mid abdomen with omentum stuck all over the end of it. The omentum was relieved of it. It was repositioned in the pelvis and held into the pelvis again with a suture. It functioned well. ESTIMATED BLOOD LOSS: Estimated blood loss was minimal. DESCRIPTION OF THE PROCEDURE IN DETAIL: The patient was identified as You Espinoza and taken to the operating room and placed in the supine position. Sequential compression devices were placed on bilateral lower extremities. Following induction of adequate general endotracheal anesthesia, the patient's abdomen was prepped and draped in the usual sterile fashion with Betadine. Time-out procedure was performed. Following completion time-out procedure to everyone's satisfaction within the room, 0.5% Marcaine with epinephrine was placed at each incision site. Previous laparoscopy incisions were infiltrated with local anesthetic. A left lateral subcostal incision was carried out with a scalpel and dissection continued posteriorly through the fascial muscular layers. The posterior fascia and peritoneum were grasped anteriorly with a hemostat and an opening in the peritoneum made with a scalpel. The 5 mm balloon-tip trocar was placed in the peritoneal cavity and its balloon inflated to C02 insufflation to a level of 15 mmHg ensued. The patient was placed in slight Trendelenburg position and two left-sided 5 mm trocars placed in the peroneal cavity under direct laparoscopic view after incision in the skin with a scalpel at the previous incision sites. The peritoneal dialysis catheter was noted to be within the upper mid abdomen and it was relieved from its attachments to the omentum. A small amount of ooze from the omentum. There was no active bleed. The peritoneal dialysis catheter was placed down into the pelvis and the previously placed suture in the peritoneum was identified. A generous portion of peritoneum around each side of catheter was then used and a #0 Ethibond suture with the suture assistant finance manager device was used to suture the catheter into position. It was tied down snugly around the catheter. There was fluid down in the dependent portion of the pelvis. The catheter was flushed with saline and fluid and CO2 came out of the catheter without any difficulties. The appropriate caps were placed onto the peritoneal dialysis catheter. The trocars were removed under direct visualization. There was no evidence of bleeding from trocar sites. The abdomen was desufflated through the left subcostal port which was then removed. The posterior fascia and peritoneum were closed with a single [id number] 2-0 Vicryl suture. The anterior fascia was closed with a running 2-0 Vicryl. Skin incisions were approximated with 4-0 Monocryl subcuticular sutures. Dressings were applied with Mastisol and half-inch brown Steri-Strips. A Biopatch and 4x4s and a large Tegaderm were placed over the peritoneal dialysis catheter exit site. The patient tolerated the procedure without apparent complication. Sponge, needle and instrument counts were correct at the end of the case. ADDENDUM: Over the omentum where the catheter had been captured by the omentum, an absorbable hemostatic agent, Nagi, was placed. MD TARA Xiao/MIGEL /11:15 AM /1:11 PM [facility]
== END | disposition home or self-care (01) ==
LOC: HSDC 08:23
PROVIDERS: ATTEND Surgery Trauma Surgery
DX: T85.621A Displacement of intraperitoneal dialysis catheter, initial encounter (principal); N18.6 End stage renal disease; I12.0 Hypertensive chronic kidney disease with stage 5 chronic kidney disease or end stage renal disease; Z99.2 Dependence on renal dialysis
CPT/HCPCS: 00790; 49325; 80048; 85025; J0690; J1100; J1170; J2250; J2270; J2405; J2710; J3010

== ENCOUNTER 2017-04-21 04:18 | Emergency (ER) | payer BC ==
[~2017-04-21] VITALS: Ht 182.9 cm; Wt 78.4 kg
[~2017-04-21 04:18] MED LIST changes: -*HYDROmorphone PF 1 MG VIAL PERIprocedural Use ONLY ONE; -*ONDANSETRON 4 MG VIAL PERIprocedural Use ONLY ONE; -*morphine SULFATE 8 MG/ML PERIprocedure ONLY ONE; -ACETAMINOPHEN/HYDROcodone 325 MG/5 MG TAB PO PRN; -AUGM875T3 PO; -BUPIVACAINE HCL PF 0.5% 30 ML VIAL INFIL ONE; -CHLORHEXIDINE GLUCONATE 2 % 1 PACK (2 CLOTHS) TOPICAL PRN; -DEXAMETHASONE SOD PHOS 4 MG/ML VIAL ONE; -DO NOT ADM ANY ANTICOAGULANT DRUGS PRN; -FAMC500T PO; -FAMOTIDINE 20 MG/2 ML VIAL ONE; -INSULIN HUMAN REGULAR 1,000 UNITS/10 ML VIAL SQ PRN; -LACTATED RINGER'S 1000 ML IV PRN; -METOPROLOL TARTRATE 25 MG TAB PO PRN; -MIDAZOLAM HCL 2 MG/2 ML VIAL ONE; -MORPHINE SULFATE 4 MG/ML INJ IV PUSH PRN; -NEOSTIGMINE 3 MG/3 ML SYR IV ONE; -ONDANSETRON HCL 4 MG/2 ML VIAL IV PUSH ONE; -ONDANSETRON HCL 4 MG/2 ML VIAL IV PUSH PRN; -POVIDONE IODINE 5% (ANTISEPSIS KIT) 4 APPLICATIONS EACH NARE PRN; -PROPOFOL 200 MG/20 ML AMP IV ONE; -SODIUM CHLORID 0.9% 500 ML IV PRN; -ceFAZolin 2 GM PREMIX 50 ML IV SCH
[2017-04-21 04:25] VITALS: BP 166/122; PULSE 84; RESP 16; TEMP 97.8; O2SAT 98
[2017-04-21] MEDS ORDERED: FAMC500T PO (04:47)
[2017-04-21] MEDS ORDERED: AUGM875T3 PO (04:48)
[2017-04-21 05:00] VITALS: BP 166/109; PULSE 87; RESP 16
--- NOTE | 2017-04-21 05:00 | PD ---
HPI Chief Complaint: Skin Problem Time Seen by Provider: 04:38 Travel History International Travel<30 days: No Contact w/Intl Traveler<30days: No Traveled to known affect area: No History of Present Illness HPI The patient is a 26-year-old male that developed a sore on the bottom lip 2 weeks ago and it started spreading and spread to the upper lip. It is painful, crusting and limited to the lips, it does not involve the gums. The patient is worried that it might be cancer. He does not smoke. He does not use drugs, specifically he does not use a crack pipe. PFSH Past Medical History Cancer: No Cardiovascular Problems: Yes Diabetes: No Dialysis: Yes (peritoneal) Diminished Hearing: No Endocrine: Yes Genitourinary: Yes (Iga Nephropathy) Hepatitis: No Hiatal Hernia: No Immune Disorder: No Musculoskeletal: No Neurologic: No Psychiatric: Yes (ADD) Reproductive: No Respiratory: No Immunizations Current: Yes Renal Failure: Yes (chronic kidney disease Stage III) Thyroid Disease: Yes ?: Not Past Surgical History Abdominal Surgery: Yes (PD CATHETER PLACEMENT) AICD: No Body Medical Devices: peritoneal dialysis port Cardiac Surgery: No Ear Surgery: No Endocrine Surgery: No Eye Surgery: No Genitourinary Surgery: No Gynecologic Surgery: No Joint Replacement: No Oral Surgery: No Pacemaker: No Thoracic Surgery: No Other Surgery: Yes Social History Alcohol Use: Yes ("COUPLE TIMES PER WEEK") Tobacco Use: No (2 years, quit 3 years ago) Substance Use: No Allergies-Medications (Allergen,Severity, Reaction): Coded Allergies: Keflex (Verified Allergy, Unknown, UNKNOWN- A CHILD, 04/21/17) Reported Meds & Prescriptions Reported Meds & Active Scripts Active Augmentin (Amoxicillin-Clavulanate) 875-125 Mg Tab 1 Tab PO BID Famciclovir 500 Mg Tab 500 Mg PO TID 10 Days Reported Testosterone Cypionate Inj (Testosterone Cypionate) 100 Mg/Ml Inj 200 Mg IM WEEKLY Losartan (Losartan Potassium) 100 Mg Tab 100 Mg PO DAILY Hydralazine (Hydralazine HCl) 100 Mg Tab 100 Mg PO HS Take with meals Epogen Inj (Epoetin Joseph) 10,000 Unit/Ml Inj 40,000 WEEKLY Adderall (Amphetamine-Dextroamphetamine) 15 Mg Tab 15 Mg PO DAILY Avoid late evening doses. Space doses at least 4 to 6 hours if more than once/day dosing. Fosrenol (Lanthanum Carbonate) 1,000 Mg Tab 2,000 Mg CHEW TIDPC Renvela (Sevelamer Carbonate) 800 Mg Tab 3,200 Mg PO TID Pravastatin 10 Mg Tab 10 Mg PO HS Levothyroxine (Levothyroxine Sodium) 50 Mcg Tab 50 Mcg PO DAILY Labetalol (Labetalol HCl) 300 Mg Tab 300 Mg PO TID Hydralazine (Hydralazine HCl) 50 Mg Tab 50 Mg PO BID Take with a meal Bumetanide 2 Mg Tab 2 Mg PO DAILY Amlodipine (Amlodipine Besylate) 5 Mg Tab 5 Mg PO BID Review of Systems Except as stated in HPI: all other systems reviewed are Neg Physical Exam Narrative GENERAL: Well-nourished, well-developed patient in minimal apparent distress with his lip discomfort. His vital signs show blood pressure 166/122 but otherwise normal. SKIN: Focused skin assessment warm/dry. The lower lip shows crusting and a few tiny vesicles and is tender. The upper lip shows an area that touches the lower lip that is starting to get a similar rash. No red streak is noted. The teeth appear to be in good shape and the gums appear to be healthy. HEAD: Normocephalic. EYES: No scleral icterus. No injection or drainage. NECK: Supple, trachea midline. No JVD or lymphadenopathy. CARDIOVASCULAR: Regular rate and rhythm without murmurs, gallops, or rubs. RESPIRATORY: Breath sounds equal bilaterally. No accessory muscle use. GASTROINTESTINAL: Abdomen soft, non-tender, nondistended. MUSCULOSKELETAL: No cyanosis, or edema. BACK: Nontender without obvious deformity. No CVA tenderness. Data Data Last Documented VS Vital Signs Date Time Temp Pulse Resp B/P Pulse Ox O2 Delivery O2 Flow Rate FiO2 04/21/17 04:25 97.8 84 16 166/122 98 MDM Medical Decision Making Medical Screen Exam Complete: Yes Emergency Medical Condition: Yes Medical Record Reviewed: Yes Differential Diagnosis Herpes simplex, bacterial infection, crack pipe burnunlikely, oral cancer unlikely Narrative Course The patient has characteristics that could be both a bacterial infection and herpes simplex. He needs to follow-up with an oral surgeon or a automotive lot attendant. Plan: The patient be given a trial of famciclovir and Augmentin. He should follow-up with an oral surgeon/automotive lot attendant. Diagnosis Primary Impression: Herpes simplex Additional Impression: Infection of lip Additional Instructions: As we discussed, follow-up with an oral surgeon or automotive lot attendant. The Augmentin is twice daily for 10 days and the famciclovir is 3 times a day for 10 days. Med/Other Pt SpecificInfo: Prescription(s) given Scripts Amoxicillin-Clavulanate (Augmentin)875-125 Mg Tab1 Tab PO BID #10 TAB Ref 0 Prov:David Agosto MD 04/21/17 Famciclovir 500 Mg [id number] Mg PO TID 10 Days Ref 0 Prov:David Agosto MD 04/21/17 Disposition: 01 DISCHARGE HOME Condition: Stable David Agosto MD Apr 21, 2017 05:00
[2017-04-21] MEDS ORDERED: AMOXICILLIN/CLAVULANATE K 875 MG TAB PO ONE (05:15)
[2017-04-21] MEDS ORDERED: FAMCICLOVIR 500 MG TAB PO ONE (05:15)
== END 2017-04-21 05:30 | disposition home or self-care (01) ==
LOC: PHED 04:18
DX: B00.1 Herpesviral vesicular dermatitis (principal); L08.9 Local infection of the skin and subcutaneous tissue, unspecified; N18.3 Chronic kidney disease, stage 3 (moderate); E07.9 Disorder of thyroid, unspecified; Z99.2 Dependence on renal dialysis; Z86.79 Personal history of other diseases of the circulatory system; Z87.448 Personal history of other diseases of urinary system; Z87.891 Personal history of nicotine dependence
CPT/HCPCS: 99284

== ENCOUNTER 2017-05-30 17:51 | Inpatient (IN) | payer BC ==
[2017-05-30] VITALS (7 sets, daily range): BP systolic 114–175; BP diastolic 74–79; PULSE 68–83; RESP 10–18; TEMP 99.1; O2SAT 96–100
[~2017-05-30] VITALS: Ht 188 cm; Wt 73.8 kg
[~2017-05-30 17:51] MED LIST changes: -ADDE15TA PO; -FOSR1000 CHEW; +FOSR1000 PO; -HYDR50TA15 PO
[2017-05-30] MEDS ORDERED: SODIUM CHLORIDE 0.9% FLUSH 10 ML FLUSH IVF PRN (18:45)
[2017-05-30] MEDS ORDERED: DEXTROSE 50% IN WATER 50 ML VIAL(D50) IV PUSH ONE (19:00)
[2017-05-30] MEDS ORDERED: SODIUM POLYSTYRENE SULFONATE SUSP 15 GM/60 ML CUP PO ONE (19:00)
[2017-05-30] MEDS ORDERED: CALCIUM GLUCONATE 10% 1 GM/10 ML VIAL SLOW IVP ONE (19:00)
[2017-05-30] MEDS ORDERED: SODIUM BICARBONATE 8.4% SOLN 50 MEQ/50 ML VIAL SLOW IVP ONE (19:00)
--- NOTE | 2017-05-30 19:03 | RADRPT ---
EXAM DATE/TIME: 05/30/2017 18:36 [facility] COMPARISON: CHEST SINGLE AP, July 11, 2013, 23:39. INDICATIONS : Shortness of breath, chest pain and general weakness. MEDICAL HISTORY : None. SURGICAL HISTORY : None. ENCOUNTER: Initial ACUITY: 1 day PAIN SCORE: 0/10 LOCATION: Bilateral chest FINDINGS: A single view of the chest demonstrates the lungs to be symmetrically aerated without evidence of mas s, infiltrate or effusion. The cardiomediastinal contours are unremarkable. Osseous structures are intact. CONCLUSION: Normal examination. Haider Quintanilla Jr., MD on May 30, 2017 at 19:01 Board Certified Radiologist. This report was verified electronically.
[2017-05-30] MEDS ORDERED: HYDR-3799 PO (19:06)
[2017-05-30] MEDS ORDERED: AMLO10TA2 PO (19:06)
[2017-05-30] MEDS ORDERED: PERC7.5T13 PO (19:06)
[2017-05-30] MEDS ORDERED: CLOT10TR PO (19:06)
[2017-05-30] MEDS ORDERED: PRED10 PO (19:06)
[2017-05-30 19:13] LABS: AUTOMATED NEUTROPHIL # 7.5 TH/MM3 (1.8-7.7); BASOPHIL % 0.1 % (0.0-2.0); EOSINOPHIL % 0.1 % (0.0-4.0); HEMATOCRIT 22.8 % (39.0-51.0); HEMO FLAGS DIFF FINAL; LYMPH % 9.8 % (9.0-44.0); LYMPHOCYTE # 0.8 TH/MM3 (1.0-4.8); MEAN CELL VOLUME 87.9 FL (80.0-100.0); MEAN CORPUSCULAR HGB CONC 31.9 % (32.0-36.0); MONO % 2.9 % (0.0-8.0); NEUT % 87.1 % (16.0-70.0); PLATELET COUNT 247 TH/MM3 (150-450); RED BLOOD COUNT 2.59 MIL/MM3 (4.50-5.90); RED CELL DISTRIBUTION WIDTH 15.7 % (11.6-17.2); WHITE BLOOD COUNT 8.6 TH/MM3 (4.0-11.0)
[2017-05-30 19:15] LABS: I-STAT POTASSIUM 8.1 MMOL/L (3.5-4.9); I-STAT SODIUM 131 MMOL/L (138-146)
[2017-05-30] MEDS ORDERED: INSULIN HUMAN REGULAR 1,000 UNITS/10 ML VIAL IV PUSH ONE (19:15)
--- NOTE | 2017-05-30 19:17 | PD ---
HPI Chief Complaint: General Weakness Time Seen by Provider: 18:40 Travel History International Travel<30 days: No Contact w/Intl Traveler<30days: No Traveled to known affect area: No History of Present Illness HPI Patient is a 26-year-old male presenting to the emergency room evaluation of weakness, cramping, nausea, vomiting. Patient states he started feeling nauseated yesterday. He reports being at work today when he began to experience cramping in his legs they started to feel tight and shaky. He states he could not really walk and had to sit for most that time, he began to feel worse called his girlfriend and went home. Patient presents via EMS. 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 He denies any change in the color of his peritoneal dialysis fluid, he denies any fevers. He is currently followed by Dr. Davis. Past medical history also includes hypertension, ADHD, hyperlipidemia, hypothyroidism. His primary care providers Dr. Parker. [facility] Past Medical History ADHD: Yes Autoimmune Disease: Yes (IgA nephropathy) Cancer: No Cardiovascular Problems: Yes High Cholesterol: Yes Diabetes: No Dialysis: Yes (peritoneal) Diminished Hearing: No Gastrointestinal Disorders: No Genitourinary: Yes (Iga Nephropathy) Hepatitis: No Hiatal Hernia: No Hypertension: Yes Immune Disorder: No Musculoskeletal: No Neurologic: No Reproductive: No Respiratory: No Immunizations Current: Yes Renal Failure: Yes (chronic kidney disease Stage III) Thyroid Disease: Yes Tetanus Vaccination: Unknown Influenza Vaccination: Yes ?: Not Past Surgical History Abdominal Surgery: Yes (PD CATHETER PLACEMENT) AICD: No Body Medical Devices: peritoneal dialysis port Cardiac Surgery: No Ear Surgery: No Endocrine Surgery: No Eye Surgery: No Genitourinary Surgery: No Gynecologic Surgery: No Joint Replacement: No Neurologic Surgery: No Oral Surgery: Yes (WISDOM TEETH) Pacemaker: No Thoracic Surgery: No Other Surgery: Yes Social History Alcohol Use: Yes ("ONCE OR TWICE A MONTH") Tobacco Use: No (QUIT FIVE YEARS AGO (2 PACK YEARS)) Substance Use: No Allergies-Medications (Allergen,Severity, Reaction): Coded Allergies: Keflex (Verified Allergy, Unknown, UNKNOWN- A CHILD, 04/21/17) Reported Meds & Prescriptions Reported Meds & Active Scripts Active Reported Prednisone 10 Mg Tab 10 Mg PO DIRECTED Titrating dose x 18 days Percocet (Oxycodone-Acetaminophen) 7.5-325 mg Tab 1 Tab PO Q4H PRN Clotrimazole Kevin (Clotrimazole) 10 Mg Troc 10 Mg PO 5 TIMES A DAY Hydralazine HCl 25 Mg Tablet 50 Mg PO BID Amlodipine (Amlodipine Besylate) 10 Mg Tab 10 Mg PO DAILY Testosterone Cypionate Inj (Testosterone Cypionate) 100 Mg/Ml Inj 200 Mg IM WEEKLY Losartan (Losartan Potassium) 100 Mg Tab 100 Mg PO DAILY Hydralazine (Hydralazine HCl) 100 Mg Tab 100 Mg PO HS Take with meals Fosrenol (Lanthanum Carbonate) 1,000 Mg Tab 1,000 Mg PO TIDPC Renvela (Sevelamer Carbonate) 800 Mg Tab 3,200 Mg PO TID Pravastatin 10 Mg Tab 10 Mg PO HS Levothyroxine (Levothyroxine Sodium) 50 Mcg Tab 50 Mcg PO DAILY Labetalol (Labetalol HCl) 300 Mg Tab 300 Mg PO TID Bumetanide 2 Mg Tab 2 Mg PO DAILY Review of Systems Except as stated in HPI: all other systems reviewed are Neg General / Constitutional: Positive: Chills HENT: No: Headaches, Lightheadedness Cardiovascular: No: Chest Pain or Discomfort Respiratory: Positive: Pleuritic Pain Gastrointestinal: Positive: Nausea, Vomiting, No: Abdominal Pain Musculoskeletal: Positive: Myalgias, Cramping, Pain Neurologic: Positive: Weakness, No: Change in Mentation, Slurred Speech, Paresthesia Physical Exam Narrative GENERAL: Well-developed, well-nourished, alert male. Appears uncomfortable, he is in no acute distress. SKIN: Warm and dry. HEAD: Atraumatic. Normocephalic. EYES: Pupils equal and round. No scleral icterus. No injection or drainage. ENT: No nasal bleeding or discharge. Mucous membranes pink and moist. NECK: Trachea midline. No JVD. CARDIOVASCULAR: Regular rate and rhythm. RESPIRATORY: No accessory muscle use. Clear to auscultation. Breath sounds equal bilaterally. GASTROINTESTINAL: Abdomen soft, non-tender, nondistended. Hepatic and splenic margins not palpable. No peritoneal signs. PD catheter in right upper quadrant , insertion site is without erythema or drainage. MUSCULOSKELETAL: Extremities without clubbing, cyanosis. Trace, nonpitting edema to bilateral feet and ankles. No obvious deformities. Positive pedal pulses. NEUROLOGICAL: Awake and alert. No obvious cranial nerve deficits. Motor grossly within normal limits. Five out of 5 muscle strength in the arms and legs. Normal speech. PSYCHIATRIC: Appropriate mood and affect; insight and judgment normal. Data Data Last Documented VS Vital Signs Date Time Temp Pulse Resp B/P Pulse Ox O2 Delivery O2 Flow Rate FiO2 05/30/17 18:37 96 Nasal Cannula 2 05/30/17 18:37 99.1 68 18 114/77 Orders Electrocardiogram (05/30/17 18:32) B-Type Natriuretic Peptide (05/30/17 18:32) Ckmb (Isoenzyme) Profile (05/30/17 18:32) Complete Blood Count With Diff (05/30/17 18:32) Comprehensive Metabolic Panel (05/30/17 18:32) D-Dimer (05/30/17 18:32) Magnesium (Mg) (05/30/17 18:32) Prothrombin Time / Inr (Pt) (05/30/17 18:32) Act Partial Throm Time (Ptt) (05/30/17 18:32) Troponin I (05/30/17 18:32) Chest, Single Ap (05/30/17 18:32) Ecg Monitoring (05/30/17 18:32) Bilateral Bp Monitoring (05/30/17 18:32) Iv Access Insert/Monitor (05/30/17 18:32) Oximetry (05/30/17 18:32) Oxygen Administration (05/30/17 18:32) Sodium Chloride 0.9% Flush (Ns Flush) (05/30/17 18:45) I-Stat Profile (05/30/17 18:36) I-Stat Creatinine (05/30/17 18:36) Lactic Acid (05/30/17 18:40) Ammonia (05/30/17 18:40) Calcium Gluconate Inj (Calcium Gluconate (05/30/17 19:00) Insulin Human Regular Inj (Novolin R Inj (05/30/17 19:15) Dextrose 50% In Que (Vial) Inj (D50w (Vi (05/30/17 19:00) Sodium Bicarbonate 8.4% Inj (Sodium Bica (05/30/17 19:00) Sodium Polysty Sulfate Liq (Kayexalate L (05/30/17 19:00) CKMB (05/30/17 18:15) CKMB% (05/30/17 18:15) Admit Order (Ed Use Only) (05/30/17 19:57) Labs Laboratory Tests Test 05/30/17 05/30/17 05/30/17 18:15 18:37 18:40 Bedside Hemoglobin 7.8 G/DL Bedside Hematocrit 23.0 % Bedside Sodium 131 MMOL/L Sodium Level 132 MEQ/L Bedside Potassium 8.1 MMOL/L Potassium Level 8.2 MEQ/L Bedside Chloride 99 MMOL/L Chloride Level 94 MEQ/L Carbon Dioxide Level 21.1 MEQ/L Anion Gap 17 MEQ/L Bedside Blood Urea Nitrogen 134 MG/DL Blood Urea Nitrogen 126 MG/DL Creatinine 25.21 MG/DL Bedside Creatinine GREATER THAN 20.0 MG/DL Estimat Glomerular Filtration 2 ML/MIN Rate Bedside Glucose 101 MG/DL Random Glucose 104 MG/DL Lactic Acid Level 1.2 mmol/L Calcium Level 9.7 MG/DL Magnesium Level 3.0 MG/DL Total Bilirubin 0.5 MG/DL Aspartate Amino Transf 17 U/L (AST/SGOT) Alanine Aminotransferase 24 U/L (ALT/SGPT) Alkaline Phosphatase 46 U/L Total Creatine Kinase 658 U/L Troponin I 0.05 NG/ML Total Protein 6.5 GM/DL Albumin 3.5 GM/DL White Blood Count 8.6 TH/MM3 Red Blood Count 2.59 MIL/MM3 Hemoglobin 7.3 GM/DL Hematocrit 22.8 % Mean Corpuscular Volume 87.9 FL Mean Corpuscular Hemoglobin 28.0 PG Mean Corpuscular Hemoglobin 31.9 % Concent Red Cell Distribution Width 15.7 % Platelet Count 247 TH/MM3 Mean Platelet Volume 8.3 FL Neutrophils (%) (Auto) 87.1 % Lymphocytes (%) (Auto) 9.8 % Monocytes (%) (Auto) 2.9 % Eosinophils (%) (Auto) 0.1 % Basophils (%) (Auto) 0.1 % Neutrophils # (Auto) 7.5 TH/MM3 Lymphocytes # (Auto) 0.8 TH/MM3 Monocytes # (Auto) 0.2 TH/MM3 Eosinophils # (Auto) 0.0 TH/MM3 Basophils # (Auto) 0.0 TH/MM3 CBC Comment DIFF FINAL Differential Comment Prothrombin Time 10.8 SEC Prothromb Time International 1.0 RATIO Ratio Activated Partial 20.4 SEC Thromboplast Time D-Dimer Quantitative (PE/DVT) 0.54 MG/L FEU Ammonia 24 MCMOL/L MDM Medical Decision Making Medical Screen Exam Complete: Yes Emergency Medical Condition: Yes Medical Record Reviewed: Yes Interpretation(s) Last Impressions Chest X-Ray 05/30/17 3902 Signed Impressions: Service Date/Time: Tuesday, May 30, 2017 18:36 - CONCLUSION: Normal examination. Haider Quintanilla Jr., MD Laboratory Tests Test 05/30/17 05/30/17 05/30/17 18:15 18:37 18:40 Bedside Hemoglobin 7.8 G/DL Bedside Hematocrit 23.0 % Bedside Sodium 131 MMOL/L Sodium Level 132 MEQ/L Bedside Potassium 8.1 MMOL/L Potassium Level 8.2 MEQ/L Bedside Chloride 99 MMOL/L Chloride Level 94 MEQ/L Carbon Dioxide Level 21.1 MEQ/L Anion Gap 17 MEQ/L Bedside Blood Urea Nitrogen 134 MG/DL Blood Urea Nitrogen 126 MG/DL Creatinine 25.21 MG/DL Bedside Creatinine GREATER THAN 20.0 MG/DL Estimat Glomerular Filtration 2 ML/MIN Rate Bedside Glucose 101 MG/DL Random Glucose 104 MG/DL Lactic Acid Level 1.2 mmol/L Calcium Level 9.7 MG/DL Magnesium Level 3.0 MG/DL Total Bilirubin 0.5 MG/DL Aspartate Amino Transf 17 U/L (AST/SGOT) Alanine Aminotransferase 24 U/L (ALT/SGPT) Alkaline Phosphatase 46 U/L Total Creatine Kinase 658 U/L Troponin I 0.05 NG/ML Total Protein 6.5 GM/DL Albumin 3.5 GM/DL White Blood Count 8.6 TH/MM3 Red Blood Count 2.59 MIL/MM3 Hemoglobin 7.3 GM/DL Hematocrit 22.8 % Mean Corpuscular Volume 87.9 FL Mean Corpuscular Hemoglobin 28.0 PG Mean Corpuscular Hemoglobin 31.9 % Concent Red Cell Distribution Width 15.7 % Platelet Count 247 TH/MM3 Mean Platelet Volume 8.3 FL Neutrophils (%) (Auto) 87.1 % Lymphocytes (%) (Auto) 9.8 % Monocytes (%) (Auto) 2.9 % Eosinophils (%) (Auto) 0.1 % Basophils (%) (Auto) 0.1 % Neutrophils # (Auto) 7.5 TH/MM3 Lymphocytes # (Auto) 0.8 TH/MM3 Monocytes # (Auto) 0.2 TH/MM3 Eosinophils # (Auto) 0.0 TH/MM3 Basophils # (Auto) 0.0 TH/MM3 CBC Comment DIFF FINAL Differential Comment Prothrombin Time 10.8 SEC Prothromb Time International 1.0 RATIO Ratio Activated Partial 20.4 SEC Thromboplast Time D-Dimer Quantitative (PE/DVT) 0.54 MG/L FEU Ammonia 24 MCMOL/L Vital Signs Date Time Temp Pulse Resp B/P Pulse Ox O2 Delivery O2 Flow Rate FiO2 05/30/17 18:37 96 Nasal Cannula 2 05/30/17 18:37 99.1 68 18 114/77 97 Nasal Cannula 2 05/30/17 18:37 96 Nasal Cannula 05/30/17 18:37 78 25 98 Nasal Cannula 2 05/30/17 18:23 99.1 83 18 144/77 98 Differential Diagnosis Electrolyte abnormality versus acute coronary syndrome versus acute on chronic renal failure which is viral syndrome versus other Narrative Course Patient is a 26-year-old male that presented to the emergency via EMS for evaluation of muscle cramping, generalized weakness. He is on peritoneal dialysis to do IgA nephropathy. Patient's vital signs are stable, i-STAT was obtained and potassium level is 8.1. Additional labs ordered and pending. Calcium gluconate, insulin, and dextrose, sodium bicarbonate ordered. Discussed with Dr. Mcqueen, Kayexalate by mouth also ordered. Patient stated to me that he did not want to receive a blood transfusion as it would set him back on the transplant list. CBC with hemoglobin of 7.8 and 23 Chemistry with sodium of 132, potassium 8.2, BUN/creatinine 126/25.21, CK 658 ammonia level is 24, lactic acid 1.2. Chest x-ray shows no acute disease Discussed results of labs with Dr. Davis, he recommended patient be admitted to the ICU to start hemodialysis and requested that a vas catheter be placed. Discussed with Dr. Nuno, admit orders placed. Patient's vital signs remained stable, family at bedside. Discussed plan of care with family and patient, patient became anxious regarding a dialysis catheter being placed. Ativan 0.5 mg IV 1 dose ordered per my attending physician. Diagnosis Primary Impression: Acute renal failure superimposed on stage 4 chronic kidney disease Qualified Code: N17.9 - Acute renal failure superimposed on stage 4 chronic kidney disease, unspecified acute renal failure type Additional Impressions: Hyperkalemia Anemia Qualified Code: N18.6 - Anemia in chronic kidney disease, on chronic dialysis Admitting Information Admitting Physician Requests: Admit Condition: Serious Jolei Bah May 30, 2017 19:17
[2017-05-30 19:31] LABS: APTT (PATIENT) 20.4 SEC (24.3-30.1); PROTHROMBIN TIME - PATIENT 10.8 SEC (9.8-11.6)
[2017-05-30 19:32] LABS: ALT (GPT) 24 U/L (12-78); ANION GAP 17 MEQ/L (5-15); AST (GOT) 17 U/L (15-37); BICARBONATE 21.1 MEQ/L (21.0-32.0); BLOOD UREA NITROGEN 126 MG/DL (7-18); CHLORIDE 94 MEQ/L (98-107); SODIUM (NA) 132 MEQ/L (136-145)
[2017-05-30 19:43] LABS: ALKALINE PHOSPHATASE 46 U/L (45-117); CREATINE KINASE 658 U/L (39-308); GLOMERULAR FILTRATION RATE 2 ML/MIN (>89); TOTAL BILIRUBIN ADULT 0.5 MG/DL (0.2-1.0)
[2017-05-30 19:47] LABS: POTASSIUM 8.2 MEQ/L (3.5-5.1)
[2017-05-30 20:05] LABS: CKMB 10.2 NG/ML (0.5-3.6)
[2017-05-30] MEDS ORDERED: LORazepam 2 MG/ML VIAL IV PUSH ONE (20:15)
[2017-05-30] MEDS ORDERED: ZOLPIDEM TARTRATE 5 MG TAB PO PRN (20:30)
[2017-05-30] MEDS ORDERED: SENNOSIDES 8.6 MG TAB PO PRN (20:30)
[2017-05-30] MEDS ORDERED: BISACODYL 10 MG SUPP RECTAL PRN (20:30)
[2017-05-30] MEDS ORDERED: MAGNESIUM HYDROXIDE SUSP 30 ML CUP PO PRN (20:30)
[2017-05-30] MEDS ORDERED: MISCELLANEOUS NURSING INFORMATION XX SCH (20:30)
[2017-05-30] MEDS ORDERED: SODIUM CHLORIDE 0.9% FLUSH 10 ML FLUSH PRN (20:30)
[2017-05-30] MEDS ORDERED: CHLORHEXIDINE GLUCONATE 2 % 1 PACK (2 CLOTHS) TOP PRN (20:30)
[2017-05-30] MEDS ORDERED: MIDAZOLAM HCL 5 MG/ML VIAL (1 ML) ONE (20:47)
[2017-05-30] MEDS: hydrALAZINE HCL 25 MG TAB PO SCH (20:54)
[2017-05-30] MEDS: hydrALAZINE HCL 100 MG TAB PO SCH (20:54)
[2017-05-30] MEDS: SODIUM CHLORIDE 0.9% FLUSH 10 ML FLUSH SCH (20:57)
[2017-05-30] MEDS: DOCUSATE SODIUM 50 MG/SENNA 8.6 MG TAB PO SCH (21:25)
[2017-05-30] MEDS: HEPARIN SODIUM - SQ 10,000 UNITS/ML VIAL SQ SCH (21:25)
[2017-05-30] MEDS: FAMOTIDINE 20 MG TAB PO SCH (21:25)
[2017-05-30] MEDS: PRAVASTATIN SOD 10 MG TAB PO SCH (21:26)
--- NOTE | 2017-05-30 21:37 | EKG ---
Date Performed: 05/30/2017 Time Performed: 18:29:22 PTAGE: 26 years EKG: Sinus rhythm MODERATE INTRAVENTRICULAR CONDUCTION DELAY ST ELEVATION, PROBABLY EARLY REPOLARIZATION ABNORMAL ECG PREVIOUS TRACING : 02/11/2017 20.39 Compared to prior tracing no significant change DOCTOR: Venus Jefferson Interpretating Date/Time 05/30/2017 21:36:45
--- NOTE | 2017-05-30 21:46 | RADRPT ---
EXAM DATE/TIME: 05/30/2017 21:20 [place] COMPARISON: CHEST SINGLE AP, May 30, 2017, 18:36. INDICATIONS : Post central line placement. MEDICAL HISTORY : None. SURGICAL HISTORY : None. ENCOUNTER: Subsequent ACUITY: 1 day PAIN SCORE: 9/10 LOCATION: Right chest FINDINGS: A single view of the chest demonstrates the lungs to be symmetrically aerated without evidence of mas s, infiltrate or effusion. The cardiomediastinal contours are unremarkable. Osseous structures are intact. A right-sided dialysis catheter with the tip at the cavoatrial junction. No pneumothorax. CONCLUSION: 1. Right sided dialysis catheter in good position. No pneumothorax. Haider Quintanilla Jr., MD on May 30, 2017 at 21:44 Board Certified Radiologist. This report was verified electronically.
--- NOTE | 2017-05-30 22:17 | HHI.HP ---
[facility] Service Critical Care Medicine Primary Care Physician Lowell Parker, DO Admission Diagnosis acute on chronic kidney disease, hyperkalemia, anemia Diagnosis: Travel History International Travel<30 Days: No Contact w/Intl Traveler <30 Da: No Traveled to Known Affected Are: No History of Present Illness 26-year-old male presenting with complaints of weakness, cramping, nausea, vomiting. He is on peritoneal dialysis secondary to IgA nephropathy and expecting the renal transplant within next months. He is a patient at the [facility]. He denies any change in the color of his peritoneal dialysis fluid, he denies any fevers. He is currently followed by Dr. Davis. Past medical history also includes hypertension, ADHD, hyperlipidemia, hypothyroidism. His primary care providers Dr. Parker. Review of Systems Constitutional: DENIES: Diaphoretic episodes, Fatigue, Fever, Weight gain, Weight loss, Chills, Dizziness, Change in appetite, Night Sweats Endocrine: DENIES: Heat/cold intolerance, Polydipsia, Polyuria, Polyphagia Eyes: COMPLAINS OF: Blurred vision, Diplopia, Eye inflammation, Eye pain, Vision loss, Photosensitivity, Double Vision Ears, nose, mouth, throat: DENIES: Tinnitus, Hearing loss, Vertigo, Nasal discharge, Oral lesions, Throat pain, Hoarseness, Ear Pain, Running Nose, Epistaxis, Sinus Pain, Toothache, Odynophagia Respiratory: DENIES: Apneas, Cough, Snoring, Wheezing, Hemoptysis, Sputum production, Shortness of breath Cardiovascular: DENIES: Chest pain, Palpitations, Syncope, Dyspnea on Exertion , PND, Lower Extremity Edema, Orthopnea, Claudication Gastrointestinal: DENIES: Abdominal pain, Black stools, Bloody stools, Constipation, Diarrhea, Nausea, Vomiting, Difficulty Swallowing, Anorexia Genitourinary: DENIES: Sexual dysfunction, Urinary frequency, Urinary incontinence, Urgency, Hematuria, Dysuria, Nocturia, Penile Discharge, Testicular Pain, Testicular Swelling Integumentary: DENIES: Abnormal pigmentation, Nail changes, Pruritus, Rash Hematologic/lymphatic: DENIES: Bruising, Lymphadenopathy Immunologic/allergic: DENIES: Eczema, Urticaria Neurologic: COMPLAINS OF: Poor Balance, DENIES: Abnormal gait, Headache, Localized weakness, Paresthesias, Seizures, Speech Problems, Tremor Psychiatric: COMPLAINS OF: Anxiety, DENIES: Confusion, Mood changes, Depression, Hallucinations, Agitation, Suicidal Ideation, Homicidal Ideation, Delusions Past Family Social History Allergies: Coded Allergies: Keflex (Verified Allergy, Unknown, UNKNOWN- A CHILD, 04/21/17) Past Medical History Hypertension ADHD Hyperlipidemia Hypothyroidism Past Surgical History Peritoneal dialysis catheter placement Reported Medications Reported Meds & Active Scripts Active Reported Prednisone 10 Mg Tab 10 Mg PO DIRECTED Titrating dose x 18 days Percocet (Oxycodone-Acetaminophen) 7.5-325 mg Tab 1 Tab PO Q4H PRN Clotrimazole Kevin (Clotrimazole) 10 Mg Troc 10 Mg PO 5 TIMES A DAY Hydralazine HCl 25 Mg Tablet 50 Mg PO BID Amlodipine (Amlodipine Besylate) 10 Mg Tab 10 Mg PO DAILY Testosterone Cypionate Inj (Testosterone Cypionate) 100 Mg/Ml Inj 200 Mg IM WEEKLY Losartan (Losartan Potassium) 100 Mg Tab 100 Mg PO DAILY Hydralazine (Hydralazine HCl) 100 Mg Tab 100 Mg PO HS Take with meals Fosrenol (Lanthanum Carbonate) 1,000 Mg Tab 1,000 Mg PO TIDPC Renvela (Sevelamer Carbonate) 800 Mg Tab 3,200 Mg PO TID Pravastatin 10 Mg Tab 10 Mg PO HS Levothyroxine (Levothyroxine Sodium) 50 Mcg Tab 50 Mcg PO DAILY Labetalol (Labetalol HCl) 300 Mg Tab 300 Mg PO TID Bumetanide 2 Mg Tab 2 Mg PO DAILY Active Ordered Medications Current Medications Medications (Trade) Dose Ordered Sig/Anny Route PRN Reason Start Time Stop Time Status Last Admin Dose Admin Sodium Chloride (NS Flush) 2 ml UNSCH PRN IVF FLUSH AFTER USING IV ACCESS 05/30/17 18:45 Amlodipine Besylate (Norvasc) 10 mg DAILY PO 05/31/17 09:00 Hydralazine HCl (Apresoline) 100 mg HS PO 05/30/17 21:00 05/30/17 20:54 Hydralazine HCl (Apresoline) 50 mg BID PO 05/30/17 21:00 05/30/17 20:54 Labetalol HCl (Trandate) 300 mg TID PO 05/31/17 09:00 Lanthanum Carbonate (Fosrenol Chew) 1,000 mg TIDPC PO 05/31/17 09:30 Levothyroxine Sodium (Synthroid) 50 mcg DAILY PO 05/31/17 09:00 Oxycodone/ Acetaminophen (Percocet 7.5-325 Mg) 1 tab Q4H PRN PO PAIN 1-10 05/30/17 20:30 Pravastatin Sodium (Pravachol) 10 mg HS PO 05/30/17 21:00 05/30/17 21:26 Prednisone (Deltasone) 10 mg DAILY PO 05/31/17 09:00 Sevelamer Carbonate (Renvela) 3,200 mg TID PO 05/31/17 09:00 Sodium Chloride (NS Flush) 2 ml UNSCH PRN .XX FLUSH AFTER USING IV ACCESS 05/30/17 20:30 Sodium Chloride (NS Flush) 2 ml BID .XX 05/30/17 21:00 05/30/17 20:57 Famotidine (Pepcid) 20 mg Q12HR PO 05/30/17 21:00 05/30/17 21:25 Zolpidem Tartrate (Ambien) 5 mg HS PRN PO INSOMNIA 05/30/17 20:30 Heparin Sodium (Porcine) (Heparin Inj) 5,000 units Q8H SQ 05/30/17 20:30 05/30/17 21:25 Miscellaneous Information 1 Q361D XX 05/30/17 20:30 Chlorhexidine Gluconate (Chlorhexidine 2% Cloth) 3 pack Taper DAILY@04 TOP 05/31/17 04:00 05/27/18 03:59 Chlorhexidine Gluconate (Chlorhexidine 2% Cloth) 3 pack UNSCH PRN TOP HYGIENIC CARE 05/30/17 20:30 Senna/Docusate Sodium (Taitana-Colace) 1 tab BID PO 05/30/17 21:00 05/30/17 21:25 Magnesium Hydroxide (Milk Of Magnesia Liq) 30 ml Q12H PRN PO MILD - MODERATE CONSTIPATION 05/30/17 20:30 Sennosides (Senokot) 17.2 mg Q12H PRN PO MODERATE - SEVERE CONSTIPATION 05/30/17 20:30 Bisacodyl (Dulcolax Supp) 10 mg DAILY PRN RECTAL SEVERE CONSITIPATION 05/30/17 20:30 Lactulose (Lactulose Liq) 30 ml DAILY PRN PO SEVERE CONSITIPATION 05/30/17 20:30 Family History Negative for cancer premature coronary artery disease Social History Nonsmoker nondrinker no illicit drug abuse Physical Exam Vital Signs Vital Signs Date Time Temp Pulse Resp B/P Pulse Ox O2 Delivery O2 Flow Rate FiO2 05/30/17 20:30 74 12 153/79 97 Nasal Cannula 2 05/30/17 20:00 74 17 164/78 98 Nasal Cannula 2 05/30/17 19:30 74 13 152/76 97 Nasal Cannula 2 05/30/17 19:00 74 10 147/74 98 Nasal Cannula 2 05/30/17 18:37 96 Nasal Cannula 2 05/30/17 18:37 99.1 68 18 114/77 97 Nasal Cannula 2 05/30/17 18:37 96 Nasal Cannula 05/30/17 18:37 78 25 98 Nasal Cannula 2 05/30/17 18:23 99.1 83 18 144/77 98 Physical Exam GENERAL: Well-nourished, well-developed patient. SKIN: Warm and dry. HEAD: Normocephalic. EYES: No scleral icterus. No injection or drainage. NECK: Supple, trachea midline. No JVD or lymphadenopathy. CARDIOVASCULAR: Regular rate and rhythm without murmurs, gallops, or rubs. RESPIRATORY: Breath sounds equal bilaterally. No accessory muscle use. GASTROINTESTINAL: Abdomen soft, non-tender, nondistended. MUSCULOSKELETAL: No cyanosis, or edema. BACK: Nontender without obvious deformity. No CVA tenderness. EXTREMITIES: No clubbing cyanosis or edema Laboratory Laboratory Tests Test 05/30/17 05/30/17 05/30/17 18:15 18:37 18:40 Bedside Hemoglobin 7.8 Bedside Hematocrit 23.0 Bedside Sodium 131 Sodium Level 132 Bedside Potassium 8.1 Potassium Level 8.2 Bedside Chloride 99 Chloride Level 94 Carbon Dioxide Level 21.1 Anion Gap 17 Bedside Blood Urea Nitrogen 134 Blood Urea Nitrogen 126 Creatinine 25.21 Bedside Creatinine GREATER THAN 20.0 Estimat Glomerular Filtration 2 Rate Bedside Glucose 101 Random Glucose 104 Lactic Acid Level 1.2 Calcium Level 9.7 Magnesium Level 3.0 Total Bilirubin 0.5 Aspartate Amino Transf 17 (AST/SGOT) Alanine Aminotransferase 24 (ALT/SGPT) Alkaline Phosphatase 46 Total Creatine Kinase 658 Creatine Kinase MB 10.2 Creatine Kinase MB % 1.6 Troponin I 0.05 Total Protein 6.5 Albumin 3.5 White Blood Count 8.6 Red Blood Count 2.59 Hemoglobin 7.3 Hematocrit 22.8 Mean Corpuscular Volume 87.9 Mean Corpuscular Hemoglobin 28.0 Mean Corpuscular Hemoglobin 31.9 Concent Red Cell Distribution Width 15.7 Platelet Count 247 Mean Platelet Volume 8.3 Neutrophils (%) (Auto) 87.1 Lymphocytes (%) (Auto) 9.8 Monocytes (%) (Auto) 2.9 Eosinophils (%) (Auto) 0.1 Basophils (%) (Auto) 0.1 Neutrophils # (Auto) 7.5 Lymphocytes # (Auto) 0.8 Monocytes # (Auto) 0.2 Eosinophils # (Auto) 0.0 Basophils # (Auto) 0.0 CBC Comment DIFF FINAL Differential Comment Prothrombin Time 10.8 Prothromb Time International 1.0 Ratio Activated Partial 20.4 Thromboplast Time D-Dimer Quantitative (PE/DVT) 0.54 B-Type Natriuretic Peptide 1090 Ammonia 24 Result Diagram: 05/30/17183605/30/171814 Imaging Last 24 hours Impressions Chest X-Ray 05/30/172123 Signed Impressions: Service Date/Time: Tuesday, May 30, 2017 21:20 - CONCLUSION: 1. Right sided dialysis catheter in good position. No pneumothorax. Haider Quintanilla Jr., MD Chest X-Ray 05/30/[id number] Signed Impressions: Service Date/Time: Tuesday, May 30, 2017 18:36 - CONCLUSION: Normal examination. Haider Quintanilla Jr., MD Assessment and Plan Assessment and Plan Severe hyperkalemia - Emergent hemodialysis - ICU admission - Monitor telemetry - Monitor electrolytes End-stage renal disease - Dialysis catheter placement - HD per nephrology Hypertension - Norvasc - Clonidine - Hydralazine when necessary - Hold lisinopril due to severe hyperkalemia Hypothyroidism - Levothyroxine per home dose ADHD - Supportive care - Home medications Critical Care: The total critical care time was 35 minutes. Time to perform other separately billable procedures was not included in the critical care time. Ariel Nuno MD May 30, 2017 22:17
[2017-05-31] VITALS (21 sets, daily range): BP systolic 112–178; BP diastolic 64–102; PULSE 70–99; RESP 11–39; TEMP 98.4–99; O2SAT 89–98
--- NOTE | 2017-05-31 00:13 | PD.PROCEDR ---
Procedure Note Procedure Hemodialysis catheter placement A time-out was completed verifying correct patient, procedure, site, positioning , and special equipment if applicable. The patient was placed in a dependent position appropriate for central line placement based on the vein to be cannulated. The patients right neck was prepped and draped in sterile fashion. 1% Lidocaine was used to anesthetize the surrounding skin area. A double lumen hemodialysis catheter was introduced into the the internal jugular vein using the Seldinger technique and under ultrasound guidance. The catheter was threaded smoothly over the guide wire and appropriate blood return was obtained. Each lumen of the catheter was evacuated of air and flushed with sterile saline. The catheter was then sutured in place to the skin and a sterile dressing applied. Perfusion to the extremity distal to the point of catheter insertion was checked and found to be adequate. Estimated Blood Loss: 1ml The patient tolerated the procedure well and there were no complications. Ariel Nuno MD May 31, 2017 00:12
[2017-05-31] MEDS: CHLORHEXIDINE GLUCONATE 2 % 1 PACK (2 CLOTHS) TOP SCH (04:00)
[2017-05-31] MEDS: HEPARIN SODIUM - SQ 10,000 UNITS/ML VIAL SQ SCH ×3 (06:32→21:23)
[2017-05-31 06:41] LABS: AUTOMATED NEUTROPHIL # 7.6 TH/MM3 (1.8-7.7); BASOPHIL % 0.2 % (0.0-2.0); EOSINOPHIL % 0.1 % (0.0-4.0); HEMATOCRIT 21.5 % (39.0-51.0); HEMO FLAGS DIFF FINAL; LYMPH % 15.8 % (9.0-44.0); LYMPHOCYTE # 1.7 TH/MM3 (1.0-4.8); MEAN CELL VOLUME 86.5 FL (80.0-100.0); MEAN CORPUSCULAR HEMOGLOBIN 28.8 PG (27.0-34.0); MEAN CORPUSCULAR HGB CONC 33.3 % (32.0-36.0); MONO % 13.2 % (0.0-8.0); NEUT % 70.7 % (16.0-70.0); PLATELET COUNT 226 TH/MM3 (150-450); RED BLOOD COUNT 2.49 MIL/MM3 (4.50-5.90); RED CELL DISTRIBUTION WIDTH 15.9 % (11.6-17.2); WHITE BLOOD COUNT 10.7 TH/MM3 (4.0-11.0)
[2017-05-31 07:10] LABS: ALKALINE PHOSPHATASE 45 U/L (45-117); ALT (GPT) 26 U/L (12-78); ANION GAP 11 MEQ/L (5-15); AST (GOT) 19 U/L (15-37); BICARBONATE 31.6 MEQ/L (21.0-32.0); BLOOD UREA NITROGEN 67 MG/DL (7-18); CHLORIDE 96 MEQ/L (98-107); GLOMERULAR FILTRATION RATE 4 ML/MIN (>89); MAGNESIUM 2.3 MG/DL (1.5-2.5); POTASSIUM 4.5 MEQ/L (3.5-5.1); SODIUM (NA) 139 MEQ/L (136-145); TOTAL BILIRUBIN ADULT 0.3 MG/DL (0.2-1.0)
[2017-05-31] MEDS: LANTHANUM CARBONATE 500 MG CHEWABLE TABLET PO SCH ×3 (08:20→15:51)
[2017-05-31] MEDS: oxyCODONE/ACETAMINOPHEN 7.5 MG/325 MG TAB PO PRN ×3 (08:20→23:29)
[2017-05-31] MEDS: LEVOTHYROXINE SODIUM 50 MCG TAB PO SCH (08:21)
[2017-05-31] MEDS: DOCUSATE SODIUM 50 MG/SENNA 8.6 MG TAB PO SCH ×2 (08:21→21:00)
[2017-05-31] MEDS: SEVELAMER CARBONATE 800 MG TAB PO SCH ×3 (08:21→15:50)
[2017-05-31] MEDS: FAMOTIDINE 20 MG TAB PO SCH ×2 (08:21→21:21)
[2017-05-31] MEDS: LABETALOL HCL 300 MG TAB PO SCH ×3 (08:21→18:00)
[2017-05-31] MEDS: predniSONE 10 MG TAB PO SCH (08:22)
[2017-05-31] MEDS: hydrALAZINE HCL 25 MG TAB PO SCH ×2 (08:22→21:22)
[2017-05-31] MEDS: SODIUM CHLORIDE 0.9% FLUSH 10 ML FLUSH SCH ×2 (08:23→21:23)
[2017-05-31] MEDS ORDERED: SODIUM CHLOR 0.9% 1000 ML INJ 1,000 ML IV PRN ×2 (09:38)
[2017-05-31] MEDS ORDERED: ONDANSETRON HCL 4 MG/2 ML VIAL IV PRN (09:45)
[2017-05-31] MEDS ORDERED: EPOETIN ALFA 10,000 UNITS/ML VIAL IV PRN (09:45)
[2017-05-31] MEDS ORDERED: HEPARIN SODIUM - IV 10,000 UNITS/10 ML VIAL IVF PRN (09:45)
[2017-05-31] MEDS ORDERED: MANNITOL 12.5 GM/50 ML VIAL IV PRN (09:45)
[2017-05-31] MEDS ORDERED: diphenhydrAMINE HCL 25 MG CAP PO PRN (09:45)
[2017-05-31] MEDS ORDERED: NITROGLYCERIN 0.4 MG SL 25 TABS/BTL SL PRN (09:45)
[2017-05-31] MEDS ORDERED: SODIUM CHLORIDE 0.9% FLUSH 10 ML FLUSH IV FLUSH PRN (09:45)
[2017-05-31] MEDS ORDERED: ALBUMIN HUMAN 25% 25 GM/100 ML BAGP IV PRN (09:45)
[2017-05-31] MEDS ORDERED: GELATIN 12 MM/7 MM FOAM TOP PRN (09:45)
[2017-05-31] MEDS: ACETAMINOPHEN 325 MG TAB PO PRN (11:31)
--- NOTE | 2017-05-31 12:02 | PD.CONS ---
HPI Service Nephrology Consult Requested By Reason for Consult ESRD, hyperkalemia Primary Care Physician Lowell Parker, DO History of Present Illness This is a 26 y/o patient with ESRD whom we follow in PD clinic. He reports for the past few weeks he has been confused, no himself. Yesterday he was at work and his legs were so weak he had to leave, his girlfriend picked him up. They were driving when he began to shake, he did vomit, and she pulled over and called 911. On arrival to ER his labs were abnormal for creatinine of 25, K 8.2. He had a vascath placed and around midnight he was emergently dialyzed. Today his labs are improved, K is 4.5, creatinine nearly 16. He is anxious, family at bedside. He still has some tremors, but is able to rest while on HD again today. We were consulted for management. He is a full code. His Hb is 7.4 , he does not want a blood transfusion for fear of affecting his transplant date. (Ginette Ramsey) Review of Systems Constitutional: COMPLAINS OF: Fatigue Gastrointestinal: COMPLAINS OF: Nausea, Vomiting, DENIES: Abdominal pain Neurologic: COMPLAINS OF: Abnormal gait, Localized weakness, Tremor Psychiatric: COMPLAINS OF: Anxiety (Ginette Ramsey) Past Family Social History Allergies: Coded Allergies: Keflex (Verified Allergy, Unknown, UNKNOWN- A CHILD, 04/21/17) Past Medical History ESRD on PD 2' to IgA nephropathy Hypertension Metabolic bone disorder secondary hyperparathyroidism Hyperlipidemia Hypothyroidism ADHD Past Surgical History PD catheter placement Reported Medications Prednisone 10 Mg Tab 10 Mg PO DIRECTED Titrating dose x 18 days Percocet (Oxycodone-Acetaminophen) 7.5-325 mg Tab 1 Tab PO Q4H PRN Clotrimazole Kevin (Clotrimazole) 10 Mg Troc 10 Mg PO 5 TIMES A DAY Hydralazine HCl 25 Mg Tablet 50 Mg PO BID Amlodipine (Amlodipine Besylate) 10 Mg Tab 10 Mg PO DAILY Testosterone Cypionate Inj (Testosterone Cypionate) 100 Mg/Ml Inj 200 Mg IM WEEKLY Losartan (Losartan Potassium) 100 Mg Tab 100 Mg PO DAILY Hydralazine (Hydralazine HCl) 100 Mg Tab 100 Mg PO HS Take with meals Fosrenol (Lanthanum Carbonate) 1,000 Mg Tab 1,000 Mg PO TIDPC Renvela (Sevelamer Carbonate) 800 Mg Tab 3,200 Mg PO TID Pravastatin 10 Mg Tab 10 Mg PO HS Levothyroxine (Levothyroxine Sodium) 50 Mcg Tab 50 Mcg PO DAILY Labetalol (Labetalol HCl) 300 Mg Tab 300 Mg PO TID Bumetanide 2 Mg Tab 2 Mg PO DAILY Active Ordered Medications Current Medications Medications (Trade) Dose Ordered Sig/Anny Route Start Time Stop Time Status Last Admin (NS Flush) 2 ml UNSCH PRN IVF 05/30/17 18:45 (Norvasc) 10 mg DAILY PO 05/31/17 09:00 05/31/17 08:21 (Apresoline) 100 mg HS PO 05/30/17 21:00 05/30/17 20:54 (Apresoline) 50 mg BID PO 05/30/17 21:00 05/31/17 08:22 (Trandate) 300 mg TID PO 05/31/17 09:00 05/31/17 08:21 (Fosrenol Chew) 1,000 mg TIDPC PO 05/31/17 09:30 05/31/17 08:20 (Synthroid) 50 mcg DAILY PO 05/31/17 09:00 05/31/17 08:21 (Percocet 7.5-325 Mg) 1 tab Q4H PRN PO 05/30/17 20:30 05/31/17 08:20 (Pravachol) 10 mg HS PO 05/30/17 21:00 05/30/17 21:26 (Deltasone) 10 mg DAILY PO 05/31/17 09:00 05/31/17 08:22 (Renvela) 3,200 mg TID PO 05/31/17 09:00 05/31/17 08:21 (NS Flush) 2 ml UNSCH PRN .XX 05/30/17 20:30 05/31/17 08:23 (NS Flush) 2 ml BID .XX 05/30/17 21:00 05/31/17 08:23 (Pepcid) 20 mg Q12HR PO 05/30/17 21:00 05/31/17 08:21 (Ambien) 5 mg HS PRN PO 05/30/17 20:30 (Heparin Inj) 5,000 units Q8H SQ 05/30/17 20:30 05/31/17 06:32 Miscellaneous Information 1 Q361D XX 05/30/17 20:30 (Chlorhexidine 2% Cloth) 3 pack Taper DAILY@04 TOP 05/31/17 04:00 05/27/18 03:59 05/31/17 04:00 (Chlorhexidine 2% Cloth) 3 pack UNSCH PRN TOP 05/30/17 20:30 (Tatiana-Colace) 1 tab BID PO 05/30/17 21:00 05/30/17 21:25 (Milk Of Magnbeverley Liq) 30 ml Q12H PRN PO 05/30/17 20:30 (Senokot) 17.2 mg Q12H PRN PO 05/30/17 20:30 (Dulcolax Supp) 10 mg DAILY PRN RECTAL 05/30/17 20:30 Lactulose 30 ml 30 ml DAILY PRN PO 05/30/17 20:30 (NS 1000 ml Inj) 1,000 ml @ 0 mls/hr Q0M PRN IV 05/31/17 09:38 Heparin Sodium (Porcine) 8000 units 8,000 units UNSCH PRN IVF 05/31/17 09:45 Sodium Chloride 1,000 ml @ 200 mls/hr Q5H PRN IV 05/31/17 09:38 (NS 1000 ml Inj) 1,000 ml @ 0 mls/hr Q0M PRN IV 05/31/17 09:38 (Mannitol Inj) 12.5 gm UNSCH PRN IV 05/31/17 09:45 (Albumin 25% Inj) 25 gm UNSCH PRN IV 05/31/17 09:45 (NS Flush) 5 ml UNSCH PRN IV FLUSH 05/31/17 09:45 (Heparin Inj) UNSCH PRN .XX 05/31/17 09:45 (Gentamicin (Dialysis) Inj) 20 mg UNSCH PRN IV 05/31/17 09:45 (Zofran Inj) 4 mg UNSCH PRN IV 05/31/17 09:45 (Tylenol) 650 mg UNSCH PRN PO 05/31/17 09:45 05/31/17 11:31 (Benadryl) 25 mg UNSCH PRN PO 05/31/17 09:45 (Nitrostat Sl) 0.4 mg UNSCH PRN SL 05/31/17 09:45 (Catapres) 0.1 mg UNSCH PRN PO 05/31/17 09:45 (Epogen Inj) 10,000 units UNSCH PRN IV 05/31/17 09:45 (Gelfoam 12 Mm/7 Mm Top) 1 foam UNSCH PRN TOP 05/31/17 09:45 Family History No hx of renal disorders Social History former smoker no ETOH works as [employer] full code family is involved (Ginette Ramsey) Physical Exam Vital Signs Vital Signs Date Time Temp Pulse Resp B/P Pulse Ox O2 Delivery O2 Flow Rate FiO2 05/31/17 08:55 96 3.00 05/31/17 06:00 84 20 178/86 89 05/31/17 06:00 84 05/31/17 05:30 85 16 93 05/31/17 05:00 86 16 163/86 89 05/31/17 04:41 96 18 156/91 95 05/31/17 04:30 98.5 86 18 94 05/31/17 04:00 87 05/31/17 03:30 99 39 94 05/31/17 03:28 98 14 167/88 94 05/31/17 03:00 92 22 163/87 96 05/31/17 02:45 94 23 169/99 98 05/31/17 02:30 98.7 90 15 163/95 97 05/31/17 01:00 77 17 168/92 95 Nasal Cannula 3 05/30/17 23:00 77 14 175/79 100 Nasal Cannula 3 05/30/17 20:30 74 12 153/79 97 Nasal Cannula 2 05/30/17 20:00 74 17 164/78 98 Nasal Cannula 2 05/30/17 19:30 74 13 152/76 97 Nasal Cannula 2 05/30/17 19:00 74 10 147/74 98 Nasal Cannula 2 05/30/17 18:37 96 Nasal Cannula 2 05/30/17 18:37 99.1 68 18 114/77 97 Nasal Cannula 2 05/30/17 18:37 96 Nasal Cannula 05/30/17 18:37 78 25 98 Nasal Cannula 2 05/30/17 18:23 99.1 83 18 144/77 98 Physical Exam GENERAL: Well-nourished, well-developed young male patient SKIN: Warm and dry. HEAD: Normocephalic. EYES: No scleral icterus. No injection or drainage. NECK: Supple, trachea midline. No JVD or lymphadenopathy. Vacath on right IJ CARDIOVASCULAR: Regular rate and rhythm without murmurs, gallops, or rubs. RESPIRATORY: Breath sounds equal bilaterally. No accessory muscle use. GASTROINTESTINAL: Abdomen soft, non-tender, nondistended. PD catheter benign MUSCULOSKELETAL: No cyanosis, or edema. BACK: Nontender without obvious deformity. No CVA tenderness. EXTREMITIES: No clubbing cyanosis or edema, he has some tremors Laboratory Laboratory Tests Test 05/30/17 05/30/17 05/30/17 05/31/17 18:15 18:37 18:40 06:30 Bedside Hemoglobin 7.8 Bedside Hematocrit 23.0 Bedside Sodium 131 Sodium Level 132 139 Bedside Potassium 8.1 Potassium Level 8.2 4.5 Bedside Chloride 99 Chloride Level 94 96 Carbon Dioxide Level 21.1 31.6 Anion Gap 17 11 Bedside Blood Urea Nitrogen 134 Blood Urea Nitrogen 126 67 Creatinine 25.21 15.93 Bedside Creatinine GREATER THAN 20.0 Estimat Glomerular Filtration 2 4 Rate Bedside Glucose 101 Random Glucose 104 116 Lactic Acid Level 1.2 Calcium Level 9.7 8.9 Magnesium Level 3.0 2.3 Total Bilirubin 0.5 0.3 Aspartate Amino Transf 17 19 (AST/SGOT) Alanine Aminotransferase 24 26 (ALT/SGPT) Alkaline Phosphatase 46 45 Total Creatine Kinase 658 Creatine Kinase MB 10.2 Creatine Kinase MB % 1.6 Troponin I 0.05 Total Protein 6.5 6.2 Albumin 3.5 3.2 White Blood Count 8.6 10.7 Red Blood Count 2.59 2.49 Hemoglobin 7.3 7.2 Hematocrit 22.8 21.5 Mean Corpuscular Volume 87.9 86.5 Mean Corpuscular Hemoglobin 28.0 28.8 Mean Corpuscular Hemoglobin 31.9 33.3 Concent Red Cell Distribution Width 15.7 15.9 Platelet Count 247 226 Mean Platelet Volume 8.3 7.7 Neutrophils (%) (Auto) 87.1 70.7 Lymphocytes (%) (Auto) 9.8 15.8 Monocytes (%) (Auto) 2.9 13.2 Eosinophils (%) (Auto) 0.1 0.1 Basophils (%) (Auto) 0.1 0.2 Neutrophils # (Auto) 7.5 7.6 Lymphocytes # (Auto) 0.8 1.7 Monocytes # (Auto) 0.2 1.4 Eosinophils # (Auto) 0.0 0.0 Basophils # (Auto) 0.0 0.0 CBC Comment DIFF FINAL DIFF FINAL Differential Comment Prothrombin Time 10.8 Prothromb Time International 1.0 Ratio Activated Partial 20.4 Thromboplast Time D-Dimer Quantitative (PE/DVT) 0.54 B-Type Natriuretic Peptide 1090 Ammonia 24 Phosphorus Level 6.8 (Ginette Ramsey) Result Diagram: 05/31/17 0630 05/31/17 0630 Imaging Last 72 hours Impressions Chest X-Ray 05/30/172123 Signed Impressions: Service Date/Time: Tuesday, May 30, 2017 21:20 - CONCLUSION: 1. Right sided dialysis catheter in good position. No pneumothorax. Haider Quintanilla Jr., MD Chest X-Ray 05/30/17 183 Signed Impressions: Service Date/Time: Tuesday, May 30, 2017 18:36 - CONCLUSION: Normal examination. Haider Quintanilla Jr., MD (Ginette Ramsey) Assessment and Plan Problem List: (1) ESRD (end stage renal disease) Plan: formerly on PD but his dialysis is not working will test PD catheter in the meantime but he needs conversion to HD due to uremia, he required catheter manipulation fairly recently vascath was placed 05/30 HD yesterday on a 1Kn bath with 2L UF seen during dialysis today on a 3K, 3hr treatment, 300 BF, goal 3L he will transition to HD while awaiting renal transplant which is set for Jul at [facility], his cousin as agreed to be donor outpatient HD arrangements in process, likely will do nocturnal MWF HD Permcath to be placed tomorrow (06/01) repeat renal panel tomorrow avoid IVF administration high protein diet if allowed to eat D/W patient and family (2) Hyperkalemia Plan: due to inadequate dialysis he was dialyzed on a 1K bath last night, repeat K has improved monitor for recurrence (3) Anemia Plan: due to HTN I will hold Epogen today give a dose tomorrow and with HD treatments (4) Metabolic bone disease Plan: resume Fosrenol 1000 TID PD and Renvela 3200 TID AC intermittently evaluate phosphorous level (5) Hypertensive urgency Plan: continue medications as ordered (Ginette Ramsey) Assessment and Plan patient was seen and examined. Emergently dialyzed yesterday due to life threatening hyperkalemia. Patient reports that he did not miss dialysis treatments. Catheter was functioning well. He did lose most of residual renal function. We had increased dialysis time and dialysis solution volume about 2 months ago. In view of inadequate dialysis with PD, most likely we will have to switch to HD at this point. He is getting ready for kidney transplant which is scheduled for July. His cousin is the donor. Agree with avoiding blood transfusion as much as possible to prevent development of cross reacting antibodies. ( Ti Davis MD) Problem Qualifiers (1) Anemia: Qualified Code: N18.6 - Anemia in chronic kidney disease, on chronic dialysis Ginette Ramsey May 31, 2017 12:02 Ti Daivs MD May 31, 2017 17:04
[2017-05-31] MEDS ORDERED: ceFAZolin 2 GM PREMIX 50 ML IV SCH (12:45)
[2017-05-31] MEDS ORDERED: VANCOMYCIN INJ 1,000 MG in SODIUM CHLOR 0.9% 250 ML INJ 250 ML IV SCH (12:45)
[2017-05-31] MEDS: GENTAMICIN SULFATE (DIALYSIS USE ONLY) 20 MG/2 ML VIAL IV PRN (13:58)
[2017-05-31] MEDS: HEPARIN SODIUM - IV 10,000 UNITS/10 ML VIAL PRN (13:58)
[2017-05-31] MEDS: LOSARTAN 50 MG TAB PO SCH (15:50)
--- NOTE | 2017-05-31 18:54 | HHI.CCPN ---
Subjective Remarks/Hospital Course Hospital Course: 26-year-old male presenting with complaints of weakness, cramping, nausea, vomiting. He is on peritoneal dialysis secondary to IgA nephropathy and expecting the renal transplant within next months. He is a patient at the [facility]. He denies any change in the color of his peritoneal dialysis fluid, he denies any fevers. He is currently followed by Dr. Davis. Past medical history also includes hypertension, ADHD, hyperlipidemia, hypothyroidism. His primary care providers Dr. Parker. Subjective: 05/31: received HD x 2 with resolution of hyperkalemia and symptoms. still somewhat hypertensive. denies complaints. Objective Vital Signs Date Time Temp Pulse Resp B/P Pulse Ox O2 Delivery O2 Flow Rate FiO2 05/31/17 18:00 81 05/31/17 16:00 98.7 11 164/101 94 05/31/17 08:55 3.00 05/31/17 01:00 Nasal Cannula Result Diagram: 05/31/17 0630 05/31/17 0630 Imaging Last 24 hours Impressions Chest X-Ray 05/30/172123 Signed Impressions: Service Date/Time: Tuesday, May 30, 2017 21:20 - CONCLUSION: 1. Right sided dialysis catheter in good position. No pneumothorax. Haider Quintanilla Jr., MD Chest X-Ray 05/30/17 1832 Signed Impressions: Service Date/Time: Tuesday, May 30, 2017 18:36 - CONCLUSION: Normal examination. Haider Quintanilla Jr., MD Objective Remarks GENERAL: Well-nourished, well-developed patient. SKIN: Warm and dry. HEAD: Normocephalic. EYES: No scleral icterus. No injection or drainage. NECK: trachea midline. No JVD CARDIOVASCULAR: Regular rate and rhythm RESPIRATORY: No accessory muscle use. GASTROINTESTINAL: Abdomen soft, non-tender, nondistended. MUSCULOSKELETAL: No cyanosis, or edema. EXTREMITIES: No clubbing cyanosis or edema A/P Assessment and Plan Severe hyperkalemia- resolved. - s/p emergent HD x 2 - daily BMP End-stage renal disease - Dialysis catheter placement 05/30 - HD per nephrology Hypertension - Norvasc - Clonidine - Hydralazine when necessary - add back ARB today. - goal sbp < 180. Hypothyroidism - Levothyroxine per home dose ADHD - Supportive care - Home medications Dispo: transfer out of ICU. consult hospitalist service for ongoing management. Darren Bernal MD May 31, 2017 18:54
[2017-05-31] MEDS: hydrALAZINE HCL 100 MG TAB PO SCH (21:21)
[2017-05-31] MEDS: PRAVASTATIN SOD 10 MG TAB PO SCH (21:24)
[2017-06-01] VITALS (11 sets, daily range): BP systolic 154–187; BP diastolic 82–113; PULSE 70–92; RESP 12–40; TEMP 98.1–98.6; O2SAT 95–98
[2017-06-01] MEDS: CHLORHEXIDINE GLUCONATE 2 % 1 PACK (2 CLOTHS) TOP SCH (04:00)
[2017-06-01] MEDS: cloNIDine HCL 0.1 MG TAB PO PRN ×2 (04:15→23:14)
[2017-06-01] MEDS: HEPARIN SODIUM - SQ 10,000 UNITS/ML VIAL SQ SCH ×2 (04:18→07:39)
[2017-06-01 05:29] LABS: HEMATOCRIT 23.5 % (39.0-51.0); MEAN CORPUSCULAR HEMOGLOBIN 28.4 PG (27.0-34.0); MEAN CORPUSCULAR HGB CONC 33.1 % (32.0-36.0); PLATELET COUNT 204 TH/MM3 (150-450); RED BLOOD COUNT 2.73 MIL/MM3 (4.50-5.90); RED CELL DISTRIBUTION WIDTH 15.9 % (11.6-17.2); REVIEW FLAG FINAL; WHITE BLOOD COUNT 9.8 TH/MM3 (4.0-11.0)
[2017-06-01 05:49] LABS: BICARBONATE 29.8 MEQ/L (21.0-32.0); POTASSIUM 4.1 MEQ/L (3.5-5.1)
[2017-06-01] MEDS: FAMOTIDINE 20 MG TAB PO SCH ×2 (07:35→20:22)
[2017-06-01] MEDS: predniSONE 10 MG TAB PO SCH (07:36)
[2017-06-01] MEDS: SEVELAMER CARBONATE 800 MG TAB PO SCH ×3 (07:36→16:58)
[2017-06-01] MEDS: DOCUSATE SODIUM 50 MG/SENNA 8.6 MG TAB PO SCH ×2 (07:36→20:22)
[2017-06-01] MEDS: LANTHANUM CARBONATE 500 MG CHEWABLE TABLET PO SCH ×3 (07:37→16:58)
[2017-06-01] MEDS: SODIUM CHLORIDE 0.9% FLUSH 10 ML FLUSH SCH ×2 (07:37→20:24)
[2017-06-01] MEDS: LEVOTHYROXINE SODIUM 50 MCG TAB PO SCH (07:37)
[2017-06-01] MEDS: LOSARTAN 50 MG TAB PO SCH (07:38)
[2017-06-01] MEDS: hydrALAZINE HCL 25 MG TAB PO SCH ×2 (07:38→20:23)
[2017-06-01] MEDS: LABETALOL HCL 300 MG TAB PO SCH ×3 (07:44→16:59)
[2017-06-01] MEDS: oxyCODONE/ACETAMINOPHEN 7.5 MG/325 MG TAB PO PRN ×3 (07:44→20:22)
--- NOTE | 2017-06-01 11:02 | HHI.NPPN ---
Subjective General Problems: Anemia, Hypertension Renal Failure: Chronic, Stage V, End Stage Renal Disease Interval History He had hemodialysis Monday and Monday. Due for Permcath placement today. Blood pressure has improved. (Ginette Ramsey) Review of Systems General General Remarks lower extremity weakness, some tremors (Ginette Ramsey) Objective Data Data 05/31/17 06/01/17 19:00 07:00 Intake Total 500 ml 1080 ml Output Total 3500 ml 0 ml Balance -3000 ml 1080 ml Intake Oral 500 ml 1080 ml Output Urine Total 0 ml 0 ml Hemodialysis 3500 ml # Bowel Movements 1 Vital Signs Date Time Temp Pulse Resp B/P Pulse Ox O2 Delivery O2 Flow Rate FiO2 06/01/17 08:02 96 21 06/01/17 04:12 86 13 174/104 97 06/01/17 04:11 79 15 177/101 96 06/01/17 04:00 70 06/01/17 00:17 98.4 87 17 158/82 96 06/01/17 00:00 75 05/31/17 20:03 98.6 73 11 171/99 96 05/31/17 20:00 70 05/31/17 18:00 81 05/31/17 16:00 98.7 72 11 164/101 94 05/31/17 16:00 72 05/31/17 14:00 74 05/31/17 12:00 98.4 80 15 177/102 92 05/31/17 12:00 80 (Ginette Ramsey) -: 06/01/17 0503 06/01/17 0503 Imaging Last Impressions Chest X-Ray 05/30/172123 Signed Impressions: Service Date/Time: Tuesday, May 30, 2017 21:20 - CONCLUSION: 1. Right sided dialysis catheter in good position. No pneumothorax. Haider Quitnanilla Jr., MD Tubes & Lines: Vas-Cath, Tenckhoff Catheter (Ginette Ramsey) Physical Exam General Appearance: Well Developed, Well Nourished, No Acute Distress, Comfortable ( Ginette Ramsey) Eyes Eye Exam: Pupils Equal (Ginette Ramsey) Throat Throat Exam: Oral Mucosa [place] & Moist Throat Remarks he has oral lesions on inside of cheeks, more on left s/p HSV outbreak ( Ginette Ramsey) Neck Neck Exam: Neck Supple (Ginette Ramesy) Pulmonary Resp Exam: Clear Bilaterally, Breath Sounds Equal, No Distress (Ginette Ramsey) Gastrointestinal/Abdomen GI Exam: Soft, Non-Tender, Bowel Sounds Present GI Remarks Pd catheter in place (Ginette Ramsey) Musculoskeletal MS Exam: Joints Intact, Normal Gait, Normal Tone, Good Strength (Ginette Ramsey) Integumentary Skin Exam: Clear, Warm, Dry, Intact (Ginette Ramsey) Extremeties Extremities Exam: No Edema, Pedal Pulses Palpable (Ginette Ramsey) Neurologic Neuro Exam: Alert, Awake, Oriented, Speech Clear, Moving All Extremities ( Ginette Ramsey) Psychiatric Psych Exam: Appropriate Responses (Ginette Ramsey) Assessment/Plan Discussed Condition With: Patient Assessment Summary: Anemia of CKD, Hypertension, End Stage Renal Disease Problem List: (1) ESRD (end stage renal disease) Plan: formerly on PD but his dialysis is not working as he was admitted with uremia and life threatening hyperkalemia PD catheter was tested and it is not malfunctioning in process of converting to HD vascath placed 05/30 it will be exchanged for PermCath today 2L UF on Monday, 3500 ml UF yesterday now on MWF HD schedule, plan to convert to nocturnal HD at [facility], arrangements are in process, likely can start Monday repeat renal panel tomorrow avoid IVF administration high protein, low K diet D/W patient renal transplant which is set for Jul 29 at [facility], his cousin as agreed to be donor (2) Hyperkalemia Plan: due to inadequate dialysis corrected, monitor for recurrence (3) Anemia Plan: start Epogen tomorrow with HD if BP is better (4) Metabolic bone disease Plan: continue Fosrenol 1000 TID PD and Renvela 3200 TID AC phosphorous level is elevated, repeat tomorrow (5) Hypertensive urgency Plan: continue medications as ordered; he is taking Norvasc 10 mg daily Labetalol 300 TID hydralazine 50 in AM, 150 qhs losartan 100 BID (Ginette Ramsey) Plan patient was seen and examined. PermCath placement today. PD catheter is functioning but he is not getting adequate dialysis through PD. Plan is to continue nocturnal HD. He apparently has a donor, and kidney transplant is planned in July. (Ti Davis MD) Problem Qualifiers (1) Anemia: Qualified Code: N18.6 - Anemia in chronic kidney disease, on chronic dialysis Ginette Ramsey Jun 01, 2017 11:01 Ti Davis MD Jun 02, 2017 14:09
[2017-06-01] MEDS ORDERED: MIDAZOLAM HCL 5 MG/5 ML VIAL ONE (12:19)
[2017-06-01] MEDS ORDERED: fentaNYL CITRATE 250 MCG/5 ML AMP ONE (12:19)
[2017-06-01] MEDS ORDERED: LIDOCAINE 1%/EPINEPHrine 1:100,000 SOLN 20 ML VIAL ONE (12:50)
--- NOTE | 2017-06-01 13:12 | HHI.PR ---
Subjective Remarks for permcath placement Objective Vitals Vital Signs Date Time Temp Pulse Resp B/P Pulse Ox O2 Delivery O2 Flow Rate FiO2 06/01/17 08:02 96 21 06/01/17 08:00 98.6 71 14 187/113 96 06/01/17 08:00 81 06/01/17 04:12 86 13 174/104 97 06/01/17 04:11 79 15 177/101 96 06/01/17 04:00 70 06/01/17 00:17 98.4 87 17 158/82 96 06/01/17 00:00 75 05/31/17 20:03 98.6 73 11 171/99 96 05/31/17 20:00 70 05/31/17 18:00 81 05/31/17 16:00 98.7 72 11 164/101 94 05/31/17 16:00 72 05/31/17 14:00 74 I/O 05/31/17 05/31/17 05/31/17 06/01/17 06/01/17 06/01/17 07:00 15:00 23:00 07:00 15:00 23:00 Intake Total 480 ml 500 ml 600 ml 480 ml Output Total 2000 ml 3500 ml 0 ml 0 ml Balance -1520 ml -3000 ml 600 ml 480 ml Intake Oral 480 ml 500 ml 600 ml 480 ml Output Urine Total 0 ml 0 ml 0 ml Hemodialysis 2000 ml 3500 ml # Bowel Movements 1 Result Diagram: 06/01/17 0503 06/01/17 0503 Imaging Last Impressions Chest X-Ray 05/30/172123 Signed Impressions: Service Date/Time: Tuesday, May 30, 2017 21:20 - CONCLUSION: 1. Right sided dialysis catheter in good position. No pneumothorax. Haider Quintanilla Jr., MD Objective Remarks awake and alert, NAD anicteric lungs no rales regular rhythm abdomen soft, nontender extremities no edema Procedures 06/01- permcath A/P Assessment and Plan Severe hyperkalemia- resolved. ESRD Renal transplant candidate- planned for 07/29 Anemia of renal disease - s/p emergent HD on admission - HD per patient - M-W-F - permcath placement - today - on Epogen. Prednisone, Fosrenol, Renvela - Nephrology ff Hypertension urgency - Norvasc 10 mg daily, Labetalol 300 mg tid, Cozaar 100 mg daily, Hydralazine 50 mg bid, 100 mg hs - Clonidine prn, - Hydralazine when necessary -- should improved with HD. continue to adjust meds - goal sbp < 180. Hypothyroidism - Levothyroxine ADHD - Supportive care - Home medications Poly Thompson MD Jun 01, 2017 13:12
[2017-06-01] MEDS ORDERED: SODIUM CHLORIDE 0.9% FLUSH 10 ML FLUSH IVF PRN (13:30)
[2017-06-01] MEDS ORDERED: HEPARIN SODIUM - IV 2,000 UNITS/2 ML VIAL IV FLUSH PRN (13:30)
--- NOTE | 2017-06-01 13:30 | PD.RAD ---
Post Procedure Progress Note Pre Procedure Diagnosis: (1) Acute renal failure superimposed on stage 4 chronic kidney disease Post Procedure Diagnosis: (1) Acute renal failure superimposed on stage 4 chronic kidney disease Procedure Date: Jun 01, 2017 Supervising Radiologist: Haider Quintanilla JR Proceduralist/Assist: Carina Greer, RT(R)(CV), Eliu Casarez RT(R) Anesthesia: Conscious Sedation Plan of Activity Patient to Unit: ROPU Patient Condition: Good See PACS Report for procedural detail/treatment Central Venous Access Device Procedure 1 Right Internal Jugular Hemodialysis Catheter Tunneled Placement dual lumen Romansh: 15 Findings: Placed RIJ permcath. Functions well. Ok to use Plan Remove sutures in 2-3 weeks Jr. Dwight,Haider Pederson MD Jun 01, 2017 13:30
--- NOTE | 2017-06-01 14:43 | RADRPT ---
EXAM DATE/TIME: 06/01/2017 12:33 [facility] COMPARISON: No previous studies available for comparison. INDICATIONS : Patient with history of IgA nephropathy. Patient has failed peritoneal dialysis.. Needs long-term sin lysis access.. MEDICAL HISTORY : 1. HTN 2.Renal failure with dialysis. 3.Anemia 4. ADHD 5. hypothyroidism SURGICAL HISTORY : 1. Peritonial dialysis cath 2. Vas cath ENCOUNTER: Initial ACUITY: 2 days PAIN SCORE: 2/10 LOCATION: Right neck FLUORO TIME: 0.6 minutes IMAGE SERIES: 0 SEDATION TIME: 30 minutes ACCESS: Right internal jugular vein SEDATION: 1.) 5 mg midazolam (Versed) IV 2.) 250 mcg fentanyl (Sublimaze) IV Prophylactic antibiotics were administered with appropriate pre-procedure timing. Vancomycin within 2 hours of procedure, Ancef (or alternative) within 1 hour of procedure. DEVICE: 1. 15 Kinyarwanda dual lumen 23 cm Schultz II Plus catheter PROCEDURE : 1. Ultrasound-guided venipuncture. 2. PermaCath placement. 3. Conscious sedation with continuous EKG and oximetry monitoring. The risks, benefits and alternatives to the procedure were explained and verbal and written consent w as obtained. The site was prepped in sterile fashion. Full sterile technique was used, including ca p, mask, sterile gloves and gown and a large sterile sheet. Hand hygiene and 2% chlorhexidine and/or betadine/alcohol prep was utilized per protocol for cutaneous antisepsis. The skin and subcutaneous tissues were infiltrated with local anesthetic solution. With ultrasound and fluoroscopic guidance a dermatotomy was created over the prescribed vein. A micr opuncture set was used to access the targeted vein and serial dilatation was performed to accept the prescribed length catheter. A subcutaneous tunnel was created in a retrograde fashion the catheter w as pulled through the tunnel. The catheter was flushed and assembled and locked with heparin. The c atheter was sutured in place. Conscious sedation was performed with the prescribed dosages and duration as above in the presence of an independent trained radiology nurse to assist in the monitoring of the patient. EKG and oximetry remained stable throughout the procedure. The patient tolerated the procedure well and there were n o complications. The patient was sent to post anesthesia recovery in stable condition. CONCLUSION: Uncomplicated PermaCath placement as above. Haider Quintanilla Jr., MD on June 01, 2017 at 14:41 Board Certified Radiologist. This report was verified electronically.
--- NOTE | 2017-06-01 16:43 | RADRPT ---
EXAM DATE/TIME: 06/01/2017 14:51 [facility] COMPARISON: No previous studies available for comparison. INDICATIONS : Patient with vas cath needs perm cath. MEDICAL HISTORY : 1. IgA 2. Peritoneal dialysis SURGICAL HISTORY : 1. Peritoneal cath 2vas cath ENCOUNTER: Initial ACUITY: 3 days PAIN SCORE: 2/10 LOCATION: Right neck IMAGE SERIES: 0 PROCEDURE : 1. Temporary central venous catheter removal. The prescribed catheter was removed intact and hemostasis was achieved with direct pressure. The sit e was dressed appropriately. The patient tolerated the procedure well. CONCLUSION: Uncomplicated catheter removal. Haider Quintanilla Jr., MD on June 01, 2017 at 16:38 Board Certified Radiologist. This report was verified electronically.
[2017-06-01] MEDS ORDERED: HYDROmorphone HCL PF 1 MG/ML VIAL IV PUSH ONE ×2 (16:45→21:30)
[2017-06-01] MEDS: PRAVASTATIN SOD 10 MG TAB PO SCH (20:22)
[2017-06-01] MEDS: hydrALAZINE HCL 100 MG TAB PO SCH (20:22)
[2017-06-02] VITALS (7 sets, daily range): BP systolic 155–186; BP diastolic 99–116; PULSE 77–81; RESP 16–18; TEMP 97.4–99; O2SAT 95–98
[2017-06-02] MEDS: oxyCODONE/ACETAMINOPHEN 7.5 MG/325 MG TAB PO PRN ×3 (00:01→12:26)
[2017-06-02] MEDS ORDERED: cloNIDine HCL 0.1 MG TAB PO ONE (00:45)
[2017-06-02] MEDS ORDERED: HYDROmorphone HCL PF 1 MG/ML VIAL IV PUSH ONE (00:45)
[2017-06-02] MEDS: CHLORHEXIDINE GLUCONATE 2 % 1 PACK (2 CLOTHS) TOP SCH (00:58)
[2017-06-02 06:51] LABS: MEAN CELL VOLUME 86.5 FL (80.0-100.0); MEAN CORPUSCULAR HEMOGLOBIN 28.2 PG (27.0-34.0); MEAN CORPUSCULAR HGB CONC 32.6 % (32.0-36.0); PLATELET COUNT 140 TH/MM3 (150-450); RED BLOOD COUNT 2.32 MIL/MM3 (4.50-5.90); RED CELL DISTRIBUTION WIDTH 16.1 % (11.6-17.2); WHITE BLOOD COUNT 11.1 TH/MM3 (4.0-11.0)
[2017-06-02 07:07] LABS: REVIEW FLAG FINAL
[2017-06-02 07:13] LABS: HEMATOCRIT 20.1 % (39.0-51.0)
[2017-06-02 07:43] LABS: BICARBONATE 26.4 MEQ/L (21.0-32.0); POTASSIUM 4.5 MEQ/L (3.5-5.1)
[2017-06-02] MEDS: DOCUSATE SODIUM 50 MG/SENNA 8.6 MG TAB PO SCH ×2 (09:00→20:24)
[2017-06-02] MEDS: LEVOTHYROXINE SODIUM 50 MCG TAB PO SCH (09:00)
--- NOTE | 2017-06-02 09:30 | HHI.NPPN ---
Subjective General Problems: Anemia, Hypertension Renal Failure: Chronic, Stage V, End Stage Renal Disease Interval History Seen during dialysis. His hemoglobin has dropped, he does not want a blood transfusion. (Ginette Ramsey) Review of Systems General General Remarks lower extremity weakness improved (Ginette Ramsey) Objective Data Data 06/01/17 06/02/17 19:00 07:00 Intake Total 969 ml 240 ml Output Total 0 ml Balance 969 ml 240 ml Intake Oral 480 ml 240 ml IV Total 489 ml Output Urine Total 0 ml # Voids 0 # Bowel Movements 2 1 Vital Signs Date Time Temp Pulse Resp B/P Pulse Ox O2 Delivery O2 Flow Rate FiO2 06/02/17 07:53 96 21 06/02/17 07:35 97.6 77 16 165/106 97 06/02/17 04:14 97.4 81 18 171/101 97 06/02/17 00:35 97.6 78 18 186/116 96 06/01/17 22:31 20 06/01/17 21:07 20 06/01/17 20:00 98.2 92 40 175/91 98 06/01/17 20:00 75 06/01/17 19:40 95 06/01/17 16:00 70 06/01/17 16:00 98.1 70 14 154/90 95 06/01/17 12:00 73 06/01/17 12:00 98.4 73 12 155/97 95 (Ginette Ramsey) -: 06/02/17 0557 06/02/17 0557 Imaging Last 72 hours Impressions Central Venous Line 06/01/17 1451 Signed Impressions: Service Date/Time: May 14:51 - CONCLUSION: Uncomplicated catheter removal. Haider Quintanilla Jr., MD Catheter Placement X-Ray 06/01/17 0000 Signed Impressions: Service Date/Time: May 12:33 - CONCLUSION: Uncomplicated PermaCath placement as above. Haider Quintanilla Jr., MD Chest X-Ray 05/30/172123 Signed Impressions: Service Date/Time: Tuesday, May 30, 2017 21:20 - CONCLUSION: 1. Right sided dialysis catheter in good position. No pneumothorax. Haider Quintanilla Jr., MD Chest X-Ray 05/30/17 1832 Signed Impressions: Service Date/Time: Tuesday, May 30, 2017 18:36 - CONCLUSION: Normal examination. 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) Eyes Eye Exam: Pupils Equal (Ginette Ramsey) Throat Throat Exam: Oral Mucosa Z[place] & Moist Throat Remarks he has oral lesions on inside of cheeks, more on left s/p HSV outbreak ( Ginette Ramsey) Neck Neck Exam: Neck Supple (Ginette Ramsey) Pulmonary Resp Exam: Clear Bilaterally, Breath Sounds Equal, No Distress (Ginette Ramsey) Gastrointestinal/Abdomen GI Exam: Soft, Non-Tender, Bowel Sounds Present GI Remarks Pd catheter in place (Ginette Ramsey) Musculoskeletal MS Exam: Joints Intact, Normal Gait, Normal Tone, Good Strength (Ginette Ramsey) Integumentary Skin Exam: Clear, Warm, Dry, Intact (Ginette Ramsey) Extremeties Extremities Exam: No Edema, Pedal Pulses Palpable (Ginette Ramsey) Neurologic Neuro Exam: Alert, Awake, Oriented, Speech Clear, Moving All Extremities ( Ginette Ramsey) Psychiatric Psych Exam: Appropriate Responses (Ginette Ramsey) Assessment/Plan Discussed Condition With: Patient Assessment Summary: Anemia of CKD, Hypertension, End Stage Renal Disease Problem List: (1) ESRD (end stage renal disease) Plan: formerly on PD but his dialysis is not working as he was admitted with uremia and life threatening hyperkalemia PD catheter was tested and it is not malfunctioning Now on HD MWF vascath removed, Permcath placed 06/01 seen during dialysis today on a 3K, 350 BFR, goal 2500 ml plan to convert to nocturnal HD at [facility], arrangements are in process, likely can start Monday avoid IVF administration high protein, low K diet D/W patient renal transplant which is set for [address] [facility], his cousin as agreed to be donor (2) Hyperkalemia Plan: due to inadequate dialysis corrected, monitor for recurrence (3) Anemia Plan: given Epogen with HD minimize lab draws in future if able (4) Metabolic bone disease Plan: he is on high doses of phosphate binder, continue Fosrenol 1000 TID PD and Renvela 3200 TID AC phosphorous level is elevated (5) Hypertensive urgency Plan: continue medications as ordered; he is taking Norvasc 10 mg daily Labetalol 300 TID hydralazine 50 in AM, 150 qhs losartan 100 BID given PRN clonidine as well (Ginette Ramsey) Plan patient was seen and examined. Nocturnal HD at [facility]. Increase the dose of Epogen. Obtain iron studies. (Ti Davis MD) Problem Qualifiers (1) Anemia: Qualified Code: N18.6 - Anemia in chronic kidney disease, on chronic dialysis Ginette Ramsey Jun 02, 2017 09:30 Ti Davis MD Jun 02, 2017 14:15
--- NOTE | 2017-06-02 09:55 | HHI.PR ---
Subjective Remarks tolerated hemodialysis complains of pain on the upper chest wall previous Vas cath site- Objective Vitals Vital Signs Date Time Temp Pulse Resp B/P Pulse Ox O2 Delivery O2 Flow Rate FiO2 06/02/17 07:53 96 21 06/02/17 07:35 97.6 77 16 165/106 97 06/02/17 04:14 97.4 81 18 171/101 97 06/02/17 00:35 97.6 78 18 186/116 96 06/01/17 22:31 20 06/01/17 21:07 20 06/01/17 20:00 98.2 92 40 175/91 98 06/01/17 20:00 75 06/01/17 19:40 95 06/01/17 16:00 70 06/01/17 16:00 98.1 70 14 154/90 95 06/01/17 12:00 73 06/01/17 12:00 98.4 73 12 155/97 95 I/O 06/01/17 06/01/17 06/01/17 06/02/17 06/02/17 06/02/17 07:00 15:00 23:00 07:00 15:00 23:00 Intake Total 480 ml 969 ml 240 ml Output Total 0 ml 0 ml Balance 480 ml 969 ml 240 ml Intake Oral 480 ml 480 ml 240 ml IV Total 489 ml Output Urine Total 0 ml 0 ml # Voids 0 # Bowel Movements 2 1 0 Result Diagram: 06/02/17 0557 06/02/17 0557 Imaging Last Impressions Central Venous Line 06/01/17 1451 Signed Impressions: Service Date/Time: May 14:51 - CONCLUSION: Uncomplicated catheter removal. Haider Quintanilla Jr., MD Catheter Placement X-Ray 06/01/17 0000 Signed Impressions: Service Date/Time: May 12:33 - CONCLUSION: Uncomplicated PermaCath placement as above. Haider Quintanilla Jr., MD Chest X-Ray 05/30/172123 Signed Impressions: Service Date/Time: Tuesday, May 30, 2017 21:20 - CONCLUSION: 1. Right sided dialysis catheter in good position. No pneumothorax. 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 Procedures 06/01- permcath A/P Assessment and Plan Severe hyperkalemia- resolved. ESRD Renal transplant candidate- planned for 07/29 Anemia of renal disease - s/p emergent HD on admission - HD per patient - M-W-F - permcath placement - 06/01 - on Epogen during HD. - . Prednisone, Fosrenol, Renvela - Nephrology ff Hypertension urgency - Norvasc 10 mg daily, Labetalol 300 mg tid, cozaar 100 mg daily, Hydralazine 100 mg tid - Clonidine prn, - Hydralazine when necessary -- should improved with HD. continue to adjust meds, pain contributing factor - Add clonidine 0.1 mg po bid - goal sbp < 180. Right side prev VAS cath site pain Permcath site pain, shoulder/infraclavicular pain - tender to touch,- slight swelling- maybe a small heamtoma or slight trauma when pulled out -d/w HD nurse- cath functioning well - d/w patient and family that we will observe. Prn pain meds - HD nurse will come up and assess site - do imaging studies if needed - prn pain meds Hypothyroidism - Levothyroxine ADHD - Supportive care - Home medications Poly Thompson MD Jun 02, 2017 09:55
[2017-06-02] MEDS: cloNIDine HCL 0.1 MG TAB PO SCH ×2 (10:00→20:24)
[2017-06-02] MEDS: HEPARIN SODIUM - IV 10,000 UNITS/10 ML VIAL PRN (11:07)
[2017-06-02] MEDS: GENTAMICIN SULFATE (DIALYSIS USE ONLY) 20 MG/2 ML VIAL IV PRN (11:08)
[2017-06-02] MEDS: SODIUM CHLOR 0.9% 1000 ML INJ 1,000 ML IV PRN (11:08)
[2017-06-02] MEDS: cloNIDine HCL 0.1 MG TAB PO PRN (11:48)
[2017-06-02] MEDS: oxyCODONE/ACETAMINOPHEN 10 MG/325 MG TAB PO PRN ×3 (13:32→22:10)
[2017-06-02] MEDS: LABETALOL HCL 300 MG TAB PO SCH ×2 (13:33→17:46)
[2017-06-02] MEDS: SEVELAMER CARBONATE 800 MG TAB PO SCH ×2 (13:34→17:49)
[2017-06-02] MEDS: LANTHANUM CARBONATE 500 MG CHEWABLE TABLET PO SCH ×2 (13:35→17:49)
[2017-06-02] MEDS: LOSARTAN 50 MG TAB PO SCH (13:40)
[2017-06-02] MEDS: FAMOTIDINE 20 MG TAB PO SCH ×2 (13:40→20:24)
[2017-06-02] MEDS: SODIUM CHLORIDE 0.9% FLUSH 10 ML FLUSH SCH ×2 (13:53→20:25)
[2017-06-02] MEDS ORDERED: HYDROmorphone HCL PF 1 MG/ML VIAL IV PUSH PRN (14:00)
[2017-06-02] MEDS: hydrALAZINE HCL 100 MG TAB PO SCH (17:48)
[2017-06-02] MEDS: PRAVASTATIN SOD 10 MG TAB PO SCH (20:24)
[2017-06-03] VITALS (8 sets, daily range): BP systolic 159–194; BP diastolic 87–109; PULSE 71–85; RESP 16–20; TEMP 96–99.4; O2SAT 96–99
[2017-06-03] MEDS: cloNIDine HCL 0.1 MG TAB PO PRN (02:36)
[2017-06-03] MEDS: oxyCODONE/ACETAMINOPHEN 10 MG/325 MG TAB PO PRN ×4 (02:36→20:24)
[2017-06-03] MEDS: CHLORHEXIDINE GLUCONATE 2 % 1 PACK (2 CLOTHS) TOP SCH (04:00)
[2017-06-03 06:52] LABS: MEAN CELL VOLUME 87.9 FL (80.0-100.0); MEAN CORPUSCULAR HEMOGLOBIN 28.7 PG (27.0-34.0); MEAN CORPUSCULAR HGB CONC 32.7 % (32.0-36.0); PLATELET COUNT 101 TH/MM3 (150-450); RED BLOOD COUNT 2.11 MIL/MM3 (4.50-5.90); WHITE BLOOD COUNT 10.2 TH/MM3 (4.0-11.0)
[2017-06-03 06:59] LABS: ANION GAP 9 MEQ/L (5-15); BICARBONATE 29.1 MEQ/L (21.0-32.0); BLOOD UREA NITROGEN 63 MG/DL (7-18); CHLORIDE 99 MEQ/L (98-107); GLOMERULAR FILTRATION RATE 5 ML/MIN (>89); POTASSIUM 4.5 MEQ/L (3.5-5.1); SODIUM (NA) 137 MEQ/L (136-145); TRANSFERRIN IRON PROFILE 169 MG/DL (200-360)
[2017-06-03 07:14] LABS: REVIEW FLAG FINAL
[2017-06-03 07:15] LABS: HEMATOCRIT 18.5 % (39.0-51.0)
[2017-06-03] MEDS: LANTHANUM CARBONATE 500 MG CHEWABLE TABLET PO SCH ×3 (08:46→18:16)
[2017-06-03] MEDS: SEVELAMER CARBONATE 800 MG TAB PO SCH ×3 (08:46→18:00)
[2017-06-03] MEDS: DOCUSATE SODIUM 50 MG/SENNA 8.6 MG TAB PO SCH ×2 (08:47→20:25)
[2017-06-03] MEDS: hydrALAZINE HCL 100 MG TAB PO SCH ×3 (08:47→18:15)
[2017-06-03] MEDS: FAMOTIDINE 20 MG TAB PO SCH ×2 (08:48→20:25)
[2017-06-03] MEDS: LEVOTHYROXINE SODIUM 50 MCG TAB PO SCH (08:48)
[2017-06-03] MEDS: LOSARTAN 50 MG TAB PO SCH (08:48)
[2017-06-03] MEDS: LABETALOL HCL 300 MG TAB PO SCH ×3 (08:48→18:15)
[2017-06-03] MEDS: cloNIDine HCL 0.1 MG TAB PO SCH ×2 (08:48→20:25)
[2017-06-03] MEDS: SODIUM CHLORIDE 0.9% FLUSH 10 ML FLUSH SCH ×2 (08:53→20:26)
--- NOTE | 2017-06-03 10:17 | HHI.PR ---
Subjective Remarks complains of right shoulder pain- with increase pain with arm/shoulder movements mild swelling- no overlying erythema Objective Vitals Vital Signs Date Time Temp Pulse Resp B/P Pulse Ox O2 Delivery O2 Flow Rate FiO2 06/03/17 08:30 99.4 85 20 194/106 96 06/03/17 04:50 97.1 82 18 187/109 99 06/03/17 00:55 99.0 80 18 177/100 99 06/02/17 20:50 99.0 80 18 180/99 98 06/02/17 20:20 80 06/02/17 15:50 99.0 77 16 155/99 95 I/O 06/02/17 06/02/17 06/02/17 06/03/17 06/03/17 06/03/17 06:59 14:59 22:59 06:59 14:59 22:59 Intake Total 240 ml 480 ml 360 ml 480 ml Balance 240 ml 480 ml 360 ml 480 ml Intake Oral 240 ml 480 ml 360 ml 480 ml # Voids 0 0 # Bowel Movements 0 0 Result Diagram: 06/03/17 0554 06/03/17 0554 Imaging Last Impressions Central Venous Line 06/01/17 1451 Signed Impressions: Service Date/Time: May 14:51 - CONCLUSION: Uncomplicated catheter removal. Haider Quintanilla Jr., MD Catheter Placement X-Ray 06/01/17 0000 Signed Impressions: Service Date/Time: May 12:33 - CONCLUSION: Uncomplicated PermaCath placement as above. Haider Quintanilla Jr., MD Chest X-Ray 05/30/174 Signed Impressions: Service Date/Time: Tuesday, May 30, 2017 21:20 - CONCLUSION: 1. Right sided dialysis catheter in good position. No pneumothorax. 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 shulder decrease range of motion , tender ? mild swelling Procedures 06/01- permcath A/P Assessment and Plan 26 years old male Hyperkalemia on admission- resolved on HD ESRD Renal transplant candidate- planned for 07/29 Anemia of renal disease - HD per Nephrology - permcath placement - 06/01 - on Epogen during HD. - . Prednisone, Fosrenol, Renvela - Nephrology ff Hypertension urgency - Norvasc 10 mg daily, Labetalol 300 mg tid, cozaar 100 mg daily, Hydralazine 100 mg tid - Clonidine prn, - Hydralazine when necessary -- should improved with HD. continue to adjust meds, pain contributing factor - clonidine 0.1 mg po bid - goal sbp < 180.. monitor and adjust Right side prev VAS cath site pain. Right shoulder pain Permcath site pain, shoulder/infraclavicular pain - tender to touch,- slight swelling- maybe a small hematoma or slight trauma when pulled out- will get an MRI of the shoulder -d/w HD nurse- cath functioning well - d/w patient and family that we will observe. Prn pain meds - HD nurse will come up and assess site - do imaging studies if needed - prn pain meds - PT consult after imaging studies Hypothyroidism - Levothyroxine ADHD - Supportive care - Home medications Poly Thompson MD Jun 03, 2017 10:17
--- NOTE | 2017-06-03 13:27 | RADRPT ---
EXAM DATE/TIME: 06/03/2017 12:35 [facility] COMPARISON: No previous studies available for comparison. INDICATIONS : Right shoulder pain. MEDICAL HISTORY : Hypertension. Renal failure, chronic. SURGICAL HISTORY : Permacath placement. ENCOUNTER: Initial ACUITY: 1 day PAIN SCORE: 5/10 LOCATION: Right shoulder TECHNIQUE: Multiplanar, multisequence MRI examination was performed without contrast. FINDINGS: ROTATOR CUFF: The supraspinatus, infraspinatus, subscapularis, and teres minor tendons are intact. LABRUM: Labrum is within normal limits. MARROW/CARTILAGE: Bone marrow signal is homogeneous. Glenohumeral joint articular cartilage is within normal limits. OTHER: Acromioclavicular joint is within normal limits. Acromion is Type 1 (flat). Proximal biceps tendon is intact. CONCLUSION: No acute disease. Intact rotator cuff. No evidence of significant arthropathy, soft tissue swelling or bone marrow edema. Gamal Zambrano MD on June 03, 2017 at 13:19 Board Certified Radiologist. This report was verified electronically.
--- NOTE | 2017-06-03 16:58 | HHI.NPPN ---
Subjective General Problems: Anemia, Hypertension Renal Failure: Chronic, Stage V, End Stage Renal Disease Additional Remarks feels tired Review of Systems General General Remarks lower extremity weakness improved Objective Data Data 06/02/17 06/03/17 19:00 07:00 Intake Total 480 ml 840 ml Balance 480 ml 840 ml Intake Oral 480 ml 840 ml # Voids 0 # Bowel Movements 0 Vital Signs Date Time Temp Pulse Resp B/P Pulse Ox O2 Delivery O2 Flow Rate FiO2 06/03/17 12:10 96.0 77 20 159/90 96 06/03/17 08:30 99.4 85 20 194/106 96 06/03/17 04:50 97.1 82 18 187/109 99 06/03/17 00:55 99.0 80 18 177/100 99 06/02/17 20:50 99.0 80 18 180/99 98 06/02/17 20:20 80 -: 06/03/17 0554 06/03/17 0554 Tubes & Lines: Vas-Cath, Tenckhoff Catheter Physical Exam General Appearance: Well Developed, Well Nourished, No Acute Distress, Comfortable Eyes Eye Exam: Pupils Equal Throat Throat Exam: Oral Mucosa [place] & Moist Neck Neck Exam: Neck Supple Pulmonary Resp Exam: Clear Bilaterally, Breath Sounds Equal, No Distress Gastrointestinal/Abdomen GI Exam: Soft, Non-Tender, Bowel Sounds Present Musculoskeletal MS Exam: Joints Intact, Normal Gait, Normal Tone, Good Strength Integumentary Skin Exam: Clear, Warm, Dry, Intact Extremeties Extremities Exam: No Edema, Pedal Pulses Palpable Neurologic Neuro Exam: Alert, Awake, Oriented, Speech Clear, Moving All Extremities Psychiatric Psych Exam: Appropriate Responses Assessment/Plan Discussed Condition With: Patient Assessment Summary: Anemia of CKD, Hypertension, End Stage Renal Disease Problem List: (1) ESRD (end stage renal disease) Plan: formerly on PD but his dialysis is not working as he was admitted with uremia and life threatening hyperkalemia PD catheter was tested and it is not malfunctioning Now on HD MWF vascath removed, PermCath placed 06/01 refusing PRBC Hb 6 Reduce phlebotomy no need for daily checks he may change his decision, he states he is awaiting kidney transplant and he is afraid he will get Antibodies I told him he has critical low value, I did agreed that he may develop antibodies but Epogen may take longer to work iron studies do not show depletion plan to convert to nocturnal HD at [facility], arrangements are in process, likely can start Monday high protein, low K diet D/W patient renal transplant which is set for Jul 29 at [facility], his cousin as agreed to be donor (2) Hyperkalemia Plan: due to inadequate dialysis corrected, monitor for recurrence (3) Anemia Plan: given Epogen with HD minimize lab draws in future if able (4) Metabolic bone disease Plan: he is on high doses of phosphate binder, continue Fosrenol 1000 TID PD and Renvela 3200 TID AC phosphorous level is elevated (5) Hypertensive urgency Plan: continue medications as ordered; he is taking Norvasc 10 mg daily Labetalol 300 TID hydralazine 50 in AM, 150 qhs losartan 100 BID given PRN clonidine as well Problem Qualifiers (1) Anemia: Qualified Code: N18.6 - Anemia in chronic kidney disease, on chronic dialysis Carlos Eduardo Shi MD Jun 03, 2017 16:58
[2017-06-03] MEDS: PRAVASTATIN SOD 10 MG TAB PO SCH (20:24)
[2017-06-04] VITALS (12 sets, daily range): BP systolic 154–201; BP diastolic 91–114; PULSE 66–98; RESP 17–19; TEMP 97.4–101.5; O2SAT 88–98
[2017-06-04] MEDS: oxyCODONE/ACETAMINOPHEN 10 MG/325 MG TAB PO PRN ×2 (02:40→13:08)
[2017-06-04] MEDS: CHLORHEXIDINE GLUCONATE 2 % 1 PACK (2 CLOTHS) TOP SCH (04:00)
[2017-06-04] MEDS: DOCUSATE SODIUM 50 MG/SENNA 8.6 MG TAB PO SCH ×2 (08:30→21:29)
[2017-06-04] MEDS: LABETALOL HCL 300 MG TAB PO SCH ×3 (08:30→18:41)
[2017-06-04] MEDS: hydrALAZINE HCL 100 MG TAB PO SCH ×3 (08:30→18:41)
[2017-06-04] MEDS: LEVOTHYROXINE SODIUM 50 MCG TAB PO SCH (08:30)
[2017-06-04] MEDS: LOSARTAN 50 MG TAB PO SCH (08:31)
[2017-06-04] MEDS: FAMOTIDINE 20 MG TAB PO SCH ×2 (08:31→21:29)
[2017-06-04] MEDS: cloNIDine HCL 0.1 MG TAB PO SCH ×2 (08:31→21:29)
[2017-06-04] MEDS: SEVELAMER CARBONATE 800 MG TAB PO SCH ×3 (08:34→18:00)
[2017-06-04] MEDS: LANTHANUM CARBONATE 500 MG CHEWABLE TABLET PO SCH ×3 (08:34→18:30)
[2017-06-04] MEDS: SODIUM CHLORIDE 0.9% FLUSH 10 ML FLUSH SCH ×2 (08:37→21:33)
--- NOTE | 2017-06-04 10:02 | HHI.PR ---
Subjective Remarks feels and looks better received a unit of RBC up on the chair right shoulder pain with range of motion complains of minimal cough Objective Vitals Vital Signs Date Time Temp Pulse Resp B/P Pulse Ox O2 Delivery O2 Flow Rate FiO2 06/04/17 09:00 180/94 06/04/17 08:00 97.6 86 18 201/114 96 06/04/17 03:30 98.2 70 17 166/97 97 06/04/17 01:00 98.3 66 17 159/96 98 06/04/17 00:45 98.3 70 17 159/97 98 06/04/17 00:30 97.4 72 17 175/92 98 06/04/17 00:00 97.4 72 17 175/92 98 06/03/17 20:00 71 06/03/17 19:35 97.1 74 17 171/87 98 06/03/17 16:30 97.8 73 16 169/99 98 06/03/17 12:10 96.0 77 20 159/90 96 I/O 06/03/17 06/03/17 06/03/17 06/04/17 06/04/17 06/04/17 07:00 15:00 23:00 07:00 15:00 23:00 Intake Total 480 ml 360 ml 440 ml 720 ml Output Total 0 ml Balance 480 ml 360 ml 440 ml 720 ml Intake Oral 480 ml 360 ml 440 ml 720 ml Output Urine Total 0 ml # Voids 0 0 # Bowel Movements 0 0 0 Result Diagram: 06/03/17 0554 06/03/17 0554 Imaging Last Impressions Shoulder MRI 06/03/17 0000 Signed Impressions: Service Date/Time: Saturday, June 03, 2017 12:35 - CONCLUSION: No acute disease. Intact rotator cuff. No evidence of significant arthropathy, soft tissue swelling or bone marrow edema. Gamal Zambrano MD Central Venous Line 06/01/17 1451 Signed Impressions: Service Date/Time: May 14:51 - CONCLUSION: Uncomplicated catheter removal. Haider Quintanilla Jr., MD Catheter Placement X-Ray 06/01/17 0000 Signed Impressions: Service Date/Time: May 12:33 - CONCLUSION: Uncomplicated PermaCath placement as above. Haider Quintanilla Jr., MD Chest X-Ray 7/11/17 2124 Signed Impressions: Service Date/Time: Tuesday, May 30, 2017 21:20 - CONCLUSION: 1. Right sided dialysis catheter in good position. No pneumothorax. Haider Quintanilla Jr., MD Objective Remarks awake and alert, NAD anicteric right chest wall- vas cath previous - no erythema perm cath site- tender to touch no right shoulder tenderness, no swelling, pain with range of motion/elevation lungs no rales regular rhythm abdomen soft, nontender Lower extremities no edema Procedures 06/01- permcath A/P Assessment and Plan 26 years old male Hyperkalemia on admission- resolved on HD ESRD Renal transplant candidate- planned for 07/29 Anemia of renal disease- Hemoglobin 6.0 feels weak - HD per Nephrology. patient received 1 unit of RBC yesterday 06/03 - permcath placement - 06/01 - on Epogen during HD. - . Prednisone, Fosrenol, Renvela - Nephrology ff - limit blood draws - check CBC Hypertension urgency - Norvasc 10 mg daily, Labetalol 300 mg tid, cozaar 100 mg daily, Hydralazine 100 mg tid - Clonidine prn, - Hydralazine when necessary -- should improved with HD. continue to adjust meds, pain contributing factor - clonidine 0.1 mg po bid - goal sbp < 180.. monitor and adjust Right side prev VAS cath site pain. Permcath site pain, shoulder/infraclavicular pain - tender to touch,- slight swelling- maybe a small hematoma or slight trauma when pulled out- will get an MRI of the shoulder cath functioning well - d/w patient and family that we will observe. Prn pain meds - HD nurse will come up and assess site Right shoulder pain- with range of motion -- MRI shoulder negative. I think with the perm cath in right side- patient being careful with moving and now starting to have limitation by babying it will get PT to evaluate and do range of motion exercise - prn pain meds - PT consult after imaging studies Hypothyroidism - Levothyroxine ADHD - Supportive care - Home medications Poly Thompson MD Jun 04, 2017 10:02
--- NOTE | 2017-06-04 14:21 | HHI.NPPN ---
Subjective General Problems: Anemia, Hypertension Renal Failure: Chronic, Stage V, End Stage Renal Disease Additional Remarks feels tired Review of Systems General General Remarks lower extremity weakness improved Objective Data Data 06/03/17 06/04/17 19:00 07:00 Intake Total 360 ml 440 ml Output Total 0 ml Balance 360 ml 440 ml Intake Oral 360 ml 440 ml Output Urine Total 0 ml # Voids 0 # Bowel Movements 0 0 Vital Signs Date Time Temp Pulse Resp B/P Pulse Ox O2 Delivery O2 Flow Rate FiO2 06/04/17 12:00 99.0 84 18 183/91 93 06/04/17 09:00 180/94 06/04/17 08:00 97.6 86 18 201/114 96 06/04/17 03:30 98.2 70 17 166/97 97 06/04/17 01:00 98.3 66 17 159/96 98 06/04/17 00:45 98.3 70 17 159/97 98 06/04/17 00:30 97.4 72 17 175/92 98 06/04/17 00:00 97.4 72 17 175/92 98 06/03/17 20:00 71 06/03/17 19:35 97.1 74 17 171/87 98 06/03/17 16:30 97.8 73 16 169/99 98 -: 06/03/17 0554 06/03/17 0554 Tubes & Lines: Vas-Cath, Tenckhoff Catheter Physical Exam General Appearance: Well Developed, Well Nourished, No Acute Distress, Comfortable Eyes Eye Exam: Pupils Equal Throat Throat Exam: Oral Mucosa [place] & Moist Neck Neck Exam: Neck Supple Pulmonary Resp Exam: Clear Bilaterally, Breath Sounds Equal, No Distress Gastrointestinal/Abdomen GI Exam: Soft, Non-Tender, Bowel Sounds Present Musculoskeletal MS Exam: Joints Intact, Normal Gait, Normal Tone, Good Strength Integumentary Skin Exam: Clear, Warm, Dry, Intact Extremeties Extremities Exam: No Edema, Pedal Pulses Palpable Neurologic Neuro Exam: Alert, Awake, Oriented, Speech Clear, Moving All Extremities Psychiatric Psych Exam: Appropriate Responses Assessment/Plan Discussed Condition With: Patient Assessment Summary: Anemia of CKD, Hypertension, End Stage Renal Disease Problem List: (1) ESRD (end stage renal disease) Plan: formerly on PD but his dialysis is not working as he was admitted with uremia and life threatening hyperkalemia PD catheter was tested and it is not malfunctioning Now on HD MWF vascath removed, PermCath placed 06/01 given 1 unit PRBC Hb 6 Reduce phlebotomy will order CBC/BMP in am iron studies do not show depletion plan to convert to nocturnal HD at [facility], arrangements are in process, likely can start Monday high protein, low K diet D/W patient renal transplant which is set for [address] [facility], his cousin as agreed to be donor Dr. Davis to follow (2) Hyperkalemia Plan: due to inadequate dialysis corrected, monitor for recurrence (3) Anemia Plan: given Epogen with HD minimize lab draws in future if able (4) Metabolic bone disease Plan: he is on high doses of phosphate binder, continue Fosrenol 1000 TID PD and Renvela 3200 TID AC phosphorous level is elevated (5) Hypertensive urgency Plan: continue medications as ordered; he is taking Norvasc 10 mg daily Labetalol 300 TID hydralazine 50 in AM, 150 qhs losartan 100 BID given PRN clonidine as well Problem Qualifiers (1) Anemia: Qualified Code: N18.6 - Anemia in chronic kidney disease, on chronic dialysis Carlos Eduardo Shi MD Jun 04, 2017 14:21
[2017-06-04 15:25] LABS: HEMATOCRIT 21.4 % (39.0-51.0); MEAN CELL VOLUME 84.6 FL (80.0-100.0); PLATELET COUNT 105 TH/MM3 (150-450); RED BLOOD COUNT 2.53 MIL/MM3 (4.50-5.90); RED CELL DISTRIBUTION WIDTH 15.7 % (11.6-17.2); REVIEW FLAG FINAL; WHITE BLOOD COUNT 17.8 TH/MM3 (4.0-11.0)
--- NOTE | 2017-06-04 16:17 | RADRPT ---
EXAM DATE/TIME: 06/04/2017 15:28 [place] COMPARISON: CHEST SINGLE AP, May 30, 2017, 21:20. INDICATIONS : Cough. MEDICAL HISTORY : Hypertension. Renal failure, chronic. SURGICAL HISTORY : Permacath placement. ENCOUNTER: Subsequent ACUITY: 4 - 6 days PAIN SCORE: 0/10 LOCATION: Bilateral chest FINDINGS: There is airspace consolidation right lung base not present previously. Marked a right IJ Heart and m ediastinum are unremarkable for technique. CONCLUSION: Interval development of right lower lobe pneumonia. Damien Gonzalez MD on June 04, 2017 at 16:14 Board Certified Radiologist. This report was verified electronically.
[2017-06-04] MEDS ORDERED: VANCOMYCIN INJ 1,000 MG in SODIUM CHLOR 0.9% 250 ML INJ 250 ML IV SCH (20:00)
[2017-06-04] MEDS: PRAVASTATIN SOD 10 MG TAB PO SCH (21:29)
[2017-06-04] MEDS: LEVOFLOXACIN 500 MG PREMIX INJ 100 ML IV SCH (21:32)
[2017-06-04] MEDS: ACETAMINOPHEN 325 MG TAB PO PRN (22:07)
[2017-06-04 22:18] LABS: BLOOD GAS HCO3 22 mmol/L (22-26); BLOOD GAS METHEMOGLOBIN 1.1 % (0-2); BLOOD GAS O2 HGB SATURATION 89 % (90-100); BLOOD GAS OXYGEN CONTENT 10.9 Vol % (12.0-20.0); BLOOD GAS PCO2 35 mmHg (38-42); BLOOD GAS PO2 67 mmHg (61-120); BLOOD GAS TOTAL HGB 8.7 G/DL (12.0-16.0); CRITICAL VALUE YES; TEMP CORR TO 98.6
[2017-06-04 22:19] LABS: DRAW SITE LT RADIAL; LITER FLOW 8 L/M; NUMBER OF ARTERIAL PUNCTURES 1; OXYGEN DEVICE SIMPLE MASK; STAT YES; ULNAR PULSE PRESENT
[2017-06-04] MEDS: RESP: ALBUTEROL 2.5 MG/IPRATROPIUM 0.5 MG NEB (PRN) INH (22:28)
--- NOTE | 2017-06-04 23:18 | HHI.PR ---
Addendum to Inpatient Note Addendum Reason: Additional Documentation Additional Information At 22:00 patient began to have low o2 sats with increased lethargy and shortness of breath. I then went and seen and examined patient at bedside. Patient was placed on a simple mask, given tylenol for 101 temp and ABG ordered. ABG shows PH 7.4, co2 35, o2 89 hco3 22, non rebreather was applied and a duoneb was given. At 22:45 RN called and stated patient still had an O2 sat of 88. I placed a transfer to the unit to be watched closer and ordered Bipap and scheduled duonebs. Chest x ray reviewed shows right lower lobe pneumonia. If needed I will consult car pusher. Liyah Thompson Jun 04, 2017 23:18
[2017-06-05] VITALS (18 sets, daily range): BP systolic 141–170; BP diastolic 81–98; PULSE 84–99; RESP 12–31; TEMP 98.4–99.9; O2SAT 93–97
[2017-06-05] MEDS: CHLORHEXIDINE GLUCONATE 2 % 1 PACK (2 CLOTHS) TOP SCH (04:00)
[2017-06-05] MEDS: RESP: ALBUTEROL 2.5 MG/IPRATROPIUM 0.5 MG NEB (SCH) NEB ×4 (04:18→20:42)
[2017-06-05] MEDS: hydrALAZINE HCL 100 MG TAB PO SCH ×3 (09:00→17:42)
[2017-06-05] MEDS: SEVELAMER CARBONATE 800 MG TAB PO SCH ×4 (09:00→17:46)
[2017-06-05] MEDS: LABETALOL HCL 300 MG TAB PO SCH ×3 (09:00→17:42)
--- NOTE | 2017-06-05 09:05 | HHI.PR ---
Subjective Remarks last night- acute shortness of breath and desaturated had hemoptysis- per patient "lots blood with yellowish sputum" T max 101 transfered to [facility] 7-% 02 mask now doing well on 02 NC 2 L no further episodes of hemotpysis Objective Vitals Vital Signs Date Time Temp Pulse Resp B/P Pulse Ox O2 Delivery O2 Flow Rate FiO2 06/05/17 07:00 98 Simple Mask 75 06/05/17 06:00 86 06/05/17 04:00 99.7 85 24 170/89 96 06/05/17 04:00 85 06/05/17 03:00 86 25 169/91 97 06/05/17 03:00 86 06/05/17 02:02 89 12 168/94 97 06/05/17 02:00 89 06/05/17 01:00 99.8 84 24 160/84 94 06/05/17 00:00 99 06/04/17 23:45 93 High Flow Nasal Cannula 25.00 70 06/04/17 22:50 Simple Mask 8.00 06/04/17 22:32 92 Simple Mask 10.00 06/04/17 22:30 Non-Rebreather 15.00 06/04/17 21:30 Nasal Cannula 3.00 06/04/17 20:50 101.5 98 19 176/99 88 06/04/17 19:38 Room Air 06/04/17 16:00 99.8 86 18 154/94 93 06/04/17 12:00 99.0 84 18 183/91 93 I/O 06/04/17 06/04/17 06/04/17 06/05/17 06/05/17 06/05/17 07:00 15:00 23:00 07:00 15:00 23:00 Intake Total 1320 ml 240 ml 152 ml Output Total 0 ml 0 ml Balance 1320 ml 240 ml 152 ml Intake Oral 1320 ml 240 ml IV Total 152 ml Output Urine Total 0 ml 0 ml # Voids 0 0 # Bowel Movements 0 0 0 Result Diagram: 06/04/17 1500 06/03/17 0554 Imaging Last Impressions Chest X-Ray 06/04/17 0000 Signed Impressions: Service Date/Time: Sunday, June 04, 2017 15:28 - CONCLUSION: Interval development of right lower lobe pneumonia. Damien Gonzalez MD Shoulder MRI 06/03/17 0000 Signed Impressions: Service Date/Time: Saturday, June 03, 2017 12:35 - CONCLUSION: No acute disease. Intact rotator cuff. No evidence of significant arthropathy, soft tissue swelling or bone marrow edema. Gamal Zambrano MD Central Venous Line 06/01/17 1451 Signed Impressions: Service Date/Time: May 14:51 - CONCLUSION: Uncomplicated catheter removal. Haider Quintanilla Jr., MD Catheter Placement X-Ray 06/01/17 0000 Signed Impressions: Service Date/Time: May 12:33 - CONCLUSION: Uncomplicated PermaCath placement as above. Haider Quintanilla Jr., MD Objective Remarks awake and alert, NAD anicteric right chest wall- vas cath previous - no erythema perm cath site- tender to touch no right shoulder tenderness, no swelling, pain with better range of motion/ elevation lungs no rales, occasinal rhonchi regular rhythm abdomen soft, nontender Lower extremities no edema Procedures 06/01- permcath A/P Assessment and Plan 26 years old male admitted for Hyperkalemia 05/30- resolved on HD ESRD Renal transplant candidate- planned for 07/29 Anemia of renal disease- Hemoglobin 6.0 feels weak - HD per Nephrology. patient received 1 unit of RBC yesterday 06/03 - permcath placement - 06/01 - on Epogen during HD. - . Prednisone, Fosrenol, Renvela - Nephrology ff - limit blood draws Hypertension urgency - Norvasc 10 mg daily, Labetalol 300 mg tid, cozaar 100 mg daily, Hydralazine 100 mg tid - Clonidine prn, - Hydralazine when necessary -- should improved with HD. continue to adjust meds, pain contributing factor - clonidine 0.1 mg po bid - goal sbp < 180.. monitor and adjust Sepsis- New infiltrate- ?Right lower lobe with hemoptysis + leukocytosis - on Levaquin + Flagyl- started 06/04 -ID consult for recommendation =check sputum studies, blood culture Acute respiratory Failure- high 02 requirement-06/04- better now on NC- episodes of hemoptysis New infiltrate on XRay. duonebs -Pulmonary consult- evaluate for need for bronchoscopy - pulmonary management Right side prev VAS cath site pain. Permcath site pain, shoulder/infraclavicular pain - tender to touch,- slight swelling- maybe a small hematoma or slight trauma when pulled out- will get an MRI of the shoulder cath functioning well - d/w patient and family that we will observe. Prn pain meds Right shoulder pain- with range of motion -- MRI shoulder negative. I think with the perm cath in right side- patient being careful with moving and now starting to have limitation by babying it will get PT to evaluate and do range of motion exercise - prn pain meds - PT ff Hypothyroidism - Levothyroxine ADHD - Supportive care - Home medications Poly Thompson MD Jun 05, 2017 09:05 Poly Thompson MD Jun 05, 2017 09:05
[2017-06-05] MEDS: LANTHANUM CARBONATE 500 MG CHEWABLE TABLET PO SCH ×4 (09:30→17:46)
[2017-06-05] MEDS: SODIUM CHLORIDE 0.9% FLUSH 10 ML FLUSH SCH ×2 (10:16→20:17)
[2017-06-05] MEDS: cloNIDine HCL 0.1 MG TAB PO SCH ×2 (10:16→20:17)
--- NOTE | 2017-06-05 10:39 | HHI.NPPN ---
Subjective General Problems: Anemia, Hypertension Renal Failure: Chronic, Stage V, End Stage Renal Disease Interval History He became hypoxic and was transferred to [facility]. Seen during dialysis. He is being treated for RLL pneumonia. (Ginette Ramsey) Review of Systems General Constitutional: Fever, Chills (Ginette Ramsey) Respiratory Lungs: Cough (Ginette Ramsey) Objective Data Data 06/04/17 06/05/17 19:00 07:00 Intake Total 1320 ml 392 ml Output Total 0 ml 0 ml Balance 1320 ml 392 ml Intake Oral 1320 ml 240 ml IV Total 152 ml Output Urine Total 0 ml 0 ml # Voids 0 0 # Bowel Movements 0 0 Vital Signs Date Time Temp Pulse Resp B/P Pulse Ox O2 Delivery O2 Flow Rate FiO2 06/05/17 10:02 95 Nasal Cannula 2.00 06/05/17 07:00 98 Simple Mask 75 06/05/17 06:00 86 06/05/17 04:00 99.7 85 24 170/89 96 06/05/17 04:00 85 06/05/17 03:00 86 25 169/91 97 06/05/17 03:00 86 06/05/17 02:02 89 12 168/94 97 06/05/17 02:00 89 06/05/17 01:00 99.8 84 24 160/84 94 06/05/17 00:00 99 06/04/17 23:45 93 High Flow Nasal Cannula 25.00 70 06/04/17 22:50 Simple Mask 8.00 06/04/17 22:32 92 Simple Mask 10.00 06/04/17 22:30 Non-Rebreather 15.00 06/04/17 21:30 Nasal Cannula 3.00 06/04/17 20:50 101.5 98 19 176/99 88 06/04/17 19:38 Room Air 06/04/17 16:00 99.8 86 18 154/94 93 06/04/17 12:00 99.0 84 18 183/91 93 (Ginette Ramsey) -: 06/04/17 1500 06/03/17 0554 Imaging Last 72 hours Impressions Chest X-Ray 06/04/17 0000 Signed Impressions: Service Date/Time: Sunday, June 04, 2017 15:28 - CONCLUSION: Interval development of right lower lobe pneumonia. Damien Gonzalez MD Shoulder MRI 06/03/17 0000 Signed Impressions: Service Date/Time: Saturday, June 03, 2017 12:35 - CONCLUSION: No acute disease. Intact rotator cuff. No evidence of significant arthropathy, soft tissue swelling or bone marrow edema. Gamal Zambrano MD Tubes & Lines: Vas-Cath, Tenckhoff Catheter (RoxyGinette B. CHEMICAL LABORATORY ASSISTANT) Physical Exam General Appearance: Well Developed, Well Nourished, No Acute Distress, Comfortable ( Roxy,Ginette B. CHEMICAL LABORATORY ASSISTANT) Eyes Eye Exam: Pupils Equal (Roxy,Ginette B. CHEMICAL LABORATORY ASSISTANT) Throat Throat Exam: Oral Mucosa [place] & Moist (Roxy,Ginette B. CHEMICAL LABORATORY ASSISTANT) Neck Neck Exam: Neck Supple (Roxy,Ginette B. CHEMICAL LABORATORY ASSISTANT) Pulmonary Resp Exam: Breath Sounds Equal, No Distress, Crackles, Decreased Bases Resp Remarks right lower rales (Roxy,Ginette B. CHEMICAL LABORATORY ASSISTANT) Gastrointestinal/Abdomen GI Exam: Soft, Non-Tender, Bowel Sounds Present GI Remarks Pd catheter in place (Roxy,Ginette B. CHEMICAL LABORATORY ASSISTANT) Musculoskeletal MS Exam: Joints Intact, Normal Gait, Normal Tone, Good Strength (Roxy, Ginette B. CHEMICAL LABORATORY ASSISTANT) Integumentary Skin Exam: Clear, Warm, Dry, Intact (Roxy,Ginette B. CHEMICAL LABORATORY ASSISTANT) Extremeties Extremities Exam: No Edema, Pedal Pulses Palpable (Roxy,Gintete B. CHEMICAL LABORATORY ASSISTANT) Neurologic Neuro Exam: Alert, Awake, Oriented, Speech Clear, Moving All Extremities ( Roxy,Ginette B. CHEMICAL LABORATORY ASSISTANT) Psychiatric Psych Exam: Appropriate Responses (Roxy,Ginette B. CHEMICAL LABORATORY ASSISTANT) Assessment/Plan Discussed Condition With: Patient Assessment Summary: Anemia of CKD, Hypertension, End Stage Renal Disease Problem List: (1) ESRD (end stage renal disease) Plan: formerly on PD but his dialysis is not working as he was admitted with uremia and life threatening hyperkalemia PD catheter was tested and it is not malfunctioning Now on HD MWF, seen during dialysis on a 2K, 350 BFR, ogal 4500 ml PermCath placed 06/01 plan to convert to nocturnal HD at [facility], arrangements are in process on high protein, low K diet renal transplant which is set for Jul 29 at [facility], his cousin as agreed to be donor (2) Anemia Plan: he was transfused for Hb of 6, repeat improved but still anemic Epogen with HD, high dose minimize lab draws in future if able (3) Pneumonia Plan: symptomatic with fevers, shortness of breath, hypoxia on Levaquin and vancomycin on oxygen, ween when able monitor clinically (4) Hypertensive urgency Plan: continue medications as ordered; he is taking Norvasc 10 mg daily Labetalol 300 TID hydralazine 50 in AM, 150 qhs losartan 100 BID given PRN clonidine as well (5) Metabolic bone disease Plan: he is on high doses of phosphate binder, continue Fosrenol 1000 TID PD and Renvela 3200 TID AC phosphorous level is elevated (6) Hyperkalemia Plan: due to inadequate dialysis corrected, monitor for recurrence (Ginette Ramsey) Problem List: (1) ESRD (end stage renal disease) Plan: formerly on PD but his dialysis is not working as he was admitted with uremia and life threatening hyperkalemia PD catheter was tested and it is not malfunctioning Now on HD MWF, seen during dialysis on a 2K, 350 BFR, ogal 4500 ml PermCath placed 06/01 plan to convert to nocturnal HD at [facility], arrangements are in process on high protein, low K diet renal transplant which is set for Jul 29 at [facility], his cousin as agreed to be donor (2) Anemia Plan: he was transfused for Hb of 6, repeat improved but still anemic Epogen with HD, high dose minimize lab draws in future if able (3) Pneumonia Plan: symptomatic with fevers, shortness of breath, hypoxia on Levaquin and vancomycin on oxygen, ween when able monitor clinically (4) Hypertensive urgency Plan: continue medications as ordered; he is taking Norvasc 10 mg daily Labetalol 300 TID hydralazine 50 in AM, 150 qhs losartan 100 BID given PRN clonidine as well (5) Metabolic bone disease Plan: he is on high doses of phosphate binder, continue Fosrenol 1000 TID PD and Renvela 3200 TID AC phosphorous level is elevated (6) Hyperkalemia Plan: due to inadequate dialysis corrected, monitor for recurrence Plan patient was seen and examined. Unfortunately developed pneumonia. Received 1 unit of PRBC over the weekend. Now on antibiotics to treat pneumonia. Dialysis today as above. Continue to monitor his status. (Ti Davis MD) Problem Qualifiers (1) Anemia: Qualified Code: N18.6 - Anemia in chronic kidney disease, on chronic dialysis Ginette Ramsey Jun 05, 2017 10:39 Ti Davis MD Jun 05, 2017 11:04
[2017-06-05] MEDS: EPOETIN ALFA 10,000 UNITS/ML VIAL IV PRN (10:48)
[2017-06-05] MEDS: HEPARIN SODIUM - IV 10,000 UNITS/10 ML VIAL PRN (10:49)
[2017-06-05] MEDS: GENTAMICIN SULFATE (DIALYSIS USE ONLY) 20 MG/2 ML VIAL IV PRN (10:49)
--- NOTE | 2017-06-05 11:27 | PD.CONS ---
History of Present Illness Service Infectious disease Consult Requested By Dr Stephanie Thompson Reason for Consult Evaluate patient with sepsis, leukocytosis Primary Care Physician Lowell Parker, Diagnoses: History of Present Illness Patient is a 26-year-old male, admitted to the hospital for evaluation of generalized weakness, cramping, nausea and vomiting. 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 He is currently in the waiting list for renal transplant and follows up at the [facility]. On presentation patient was found to have severe hyperkalemia with a potassium of 8.2. Patient was emergently started on hemodialysis. Last night, he started having fevers, and his WBC went up to 17, 000 this morning. He was actually transferred to the intensive care unit last night because his saturation went down and he was complaining of shortness of breath.. Patient currently states that his breathing is okay. He is on nasal O2. He is undergoing hemodialysis this morning. Patient is anuric. He denies any abdominal pain. No nausea or vomiting. He has been coughing and bringing up fernandez blood-tinged sputum. Patient also has some chest discomfort on the middle of his chest when he coughs. His chest x-ray showing a new right lower lobe infiltrate. Infectious disease consultation has been requested to evaluate the patient with sepsis and leukocytosis. Review of Systems Constitutional: COMPLAINS OF: Fever, Chills Eyes: DENIES: Eye pain Ears, nose, mouth, throat: DENIES: Nasal discharge, Oral lesions, Throat pain, Ear Pain, Running Nose Respiratory: COMPLAINS OF: Cough, Hemoptysis, Sputum production, DENIES: Shortness of breath Cardiovascular: COMPLAINS OF: Chest pain, DENIES: Palpitations, Syncope Gastrointestinal: COMPLAINS OF: Constipation, DENIES: Abdominal pain, Diarrhea , Nausea, Vomiting, Difficulty Swallowing Musculoskeletal: DENIES: Joint pain, Muscle aches, Joint Swelling, Back pain Integumentary: DENIES: Rash Hematologic/lymphatic: DENIES: Bruising Immunologic/allergic: DENIES: Urticaria Neurologic: DENIES: Headache, Localized weakness Psychiatric: DENIES: Confusion, Hallucinations Past Family Social History Allergies: Coded Allergies: Keflex (Verified Allergy, Unknown, UNKNOWN- A CHILD, 04/21/17) Past Medical History Hypertension ADHD Hyperlipidemia Hypothyroidism ESRD on PD since Dec 2015 Past Surgical History Placement of a Tenckhoff catheter for PD Active Ordered Medications Tylenol Albumin Albuterol Norvasc Dulcolax Clonidine Benadryl Epogen Pepcid Heparin Hydralazine Dilaudid Labetalol Lactulose Fosrenol Levaquin Synthroid Cozaar MOM Mannitol SL NTG Zofran Percocet Pravachol [place]-Colace Senokot Renvela Vancomycin Family History Noncontributory Social History No smoking No alcohol abuse No illicit drugs Physical Exam Vital Signs Vital Signs Date Time Temp Pulse Resp B/P Pulse Ox O2 Delivery O2 Flow Rate FiO2 06/05/17 10:02 95 Nasal Cannula 2.00 06/05/17 07:00 98 Simple Mask 75 06/05/17 06:00 86 06/05/17 04:00 99.7 85 24 170/89 96 06/05/17 04:00 85 06/05/17 03:00 86 25 169/91 97 06/05/17 03:00 86 06/05/17 02:02 89 12 168/94 97 06/05/17 02:00 89 06/05/17 01:00 99.8 84 24 160/84 94 06/05/17 00:00 99 06/04/17 23:45 93 High Flow Nasal Cannula 25.00 70 06/04/17 22:50 Simple Mask 8.00 06/04/17 22:32 92 Simple Mask 10.00 06/04/17 22:30 Non-Rebreather 15.00 06/04/17 21:30 Nasal Cannula 3.00 06/04/17 20:50 101.5 98 19 176/99 88 06/04/17 19:38 Room Air 06/04/17 16:00 99.8 86 18 154/94 93 06/04/17 12:00 99.0 84 18 183/91 93 Physical Exam GENERAL: Patient is a well-nourished, well-developed young CM, awake and alert, not in respiratory distress. SKIN: Warm and dry. No generalized rash, no ecchymoses and no evidence of embolic lesions. Skin looks sallow HEAD: Atraumatic. Normocephalic. No temporal wasting, or tenderness. EYES: [place] conjunctiva. No petechia or hemorrhage. Pupils equal, round and reactive to light. Extraocular movements full and intact. No scleral icterus. No injection or drainage. EARS, NOSE AND THROAT: Nose without bleeding or purulent nasal discharge. No sinus tenderness. Mucous membranes pink and moist. No oral lesions noted. No exudate. No oral thrush. NECK: Trachea midline. Supple and not tender, no meningeal signs CARDIOVASCULAR: Regular rate and rhythm. No murmurs, rubs or gallops heard RESPIRATORY: Clear to auscultation. Breath sounds equal bilaterally. No rales , wheezing or rhonchi. Decreased at bases ABDOMEN: Soft, non-tender, nondistended. Bowel sounds present and normoactive. No guarding. No rebound. No organomegaly. EXTREMITIES: No clubbing, cyanosis, or edema.No joint effusion, has good ROM. No calf tenderness. Well perfused and warm. NEUROLOGICAL: Awake and alert. Cranial nerves grossly intact. Motor grossly within normal limits. PSYCHIATRIC: Normal affect, calm and cooperative. LINE: Permacath R upper chest with blood at dressing, no evidence of infection Laboratory Laboratory Tests Test 06/04/17 06/04/17 15:00 22:00 White Blood Count 17.8 Red Blood Count 2.53 Hemoglobin 7.1 Hematocrit 21.4 Mean Corpuscular Volume 84.6 Mean Corpuscular Hemoglobin 28.0 Mean Corpuscular Hemoglobin 33.0 Concent Red Cell Distribution Width 15.7 Platelet Count 105 Mean Platelet Volume 8.6 Blood Gas Puncture Site LT RADIAL Blood Gas Patient Temperature 98.6 Blood Gas HCO3 22 Blood Gas Base Excess -2.0 Blood Gas Oxygen Saturation 89 Arterial Blood pH 7.41 Arterial Blood Partial 35 Pressure CO2 Arterial Blood Partial 67 Pressure O2 Arterial Blood Oxygen Content 10.9 Arterial Blood 0.0 Carboxyhemoglobin Arterial Blood Methemoglobin 1.1 Blood Gas Hemoglobin 8.7 Oxygen Delivery Device SIMPLE MASK Blood Gas Liter Flow 8 Result Diagram: 06/04/17 1500 06/03/17 0554 Imaging RADIOLOGY STUDIES/FILMS REVIEWED Chest X-Ray 06/04/17 0000 Signed Impressions: Service Date/Time: Sunday, June 04, 2017 15:28 - CONCLUSION: Interval development of right lower lobe pneumonia. Damien Gonzalez MD Shoulder MRI 06/03/17 0000 Signed Impressions: Service Date/Time: Saturday, June 03, 2017 12:35 - CONCLUSION: No acute disease. Intact rotator cuff. No evidence of significant arthropathy, soft tissue swelling or bone marrow edema. Gamal Zambrano MD Central Venous Line 06/01/17 1451 Signed Impressions: Service Date/Time: May 14:51 - CONCLUSION: Uncomplicated catheter removal. Haider Quintanilla Jr., MD Catheter Placement X-Ray 06/01/17 0000 Signed Impressions: Service Date/Time: , June 01, 2017 12:33 - CONCLUSION: Uncomplicated PermaCath placement as above. 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
[2017-06-05 12:52] LABS: AUTOMATED NEUTROPHIL # 25.4 TH/MM3 (1.8-7.7); BASOPHIL # 0.1 TH/MM3 (0-0.2); BASOPHIL % 0.3 % (0.0-2.0); EOSINOPHIL % 0.1 % (0.0-4.0); LYMPH % 2.3 % (9.0-44.0); LYMPHOCYTE # 0.6 TH/MM3 (1.0-4.8); MEAN CELL VOLUME 85.1 FL (80.0-100.0); MEAN CORPUSCULAR HEMOGLOBIN 27.7 PG (27.0-34.0); MEAN CORPUSCULAR HGB CONC 32.5 % (32.0-36.0); NEUT % 91.3 % (16.0-70.0); PLATELET COUNT 136 TH/MM3 (150-450); RED BLOOD COUNT 2.47 MIL/MM3 (4.50-5.90); RED CELL DISTRIBUTION WIDTH 15.3 % (11.6-17.2); WHITE BLOOD COUNT 27.9 TH/MM3 (4.0-11.0)
[2017-06-05 12:57] LABS: HEMO FLAGS DIFF FINAL
[2017-06-05] MEDS: FAMOTIDINE 20 MG TAB PO SCH ×2 (13:08→20:17)
[2017-06-05] MEDS: LOSARTAN 50 MG TAB PO SCH (13:08)
[2017-06-05] MEDS: DOCUSATE SODIUM 50 MG/SENNA 8.6 MG TAB PO SCH ×2 (13:08→20:18)
[2017-06-05 13:22] LABS: BICARBONATE 27.8 MEQ/L (21.0-32.0); POTASSIUM 4.3 MEQ/L (3.5-5.1)
[2017-06-05] MEDS: LEVOTHYROXINE SODIUM 50 MCG TAB PO SCH (13:29)
[2017-06-05] MEDS: VANCOMYCIN INJ 1,000 MG in SODIUM CHLOR 0.9% 250 ML INJ 250 ML IV SCH (13:37)
[2017-06-05] MEDS: PRAVASTATIN SOD 10 MG TAB PO SCH (20:18)
[2017-06-06] VITALS (14 sets, daily range): BP systolic 129–157; BP diastolic 60–88; PULSE 79–100; RESP 15–24; TEMP 97.9–101.1; O2SAT 89–99
[2017-06-06] MEDS: ACETAMINOPHEN 325 MG TAB PO PRN ×2 (00:40→16:08)
[2017-06-06] MEDS: RESP: ALBUTEROL 2.5 MG/IPRATROPIUM 0.5 MG NEB (SCH) NEB ×4 (03:05→21:09)
[2017-06-06] MEDS: CHLORHEXIDINE GLUCONATE 2 % 1 PACK (2 CLOTHS) TOP SCH (04:00)
--- NOTE | 2017-06-06 07:59 | MB ---
cc: ZENAIDA GAINES ALFEA DATE OF CONSULTATION: 06/05/[address] Thompson REASON FOR CONSULTATION Evaluation for pneumonia and hemoptysis. HISTORY OF PRESENT ILLNESS Mr. Espinoza is a pleasant 26-year-old male who has a history of end-stage renal disease since November of 2015 due to IgA nephropathy. He was initially on peritoneal dialysis. He started having worsening of his renal function and his potassium was very high. The patient was brought to the hospital. He started on hemodialysis , he was on PD before. He also had fever and cough with blood-tinged sputum. He did not have any nausea or vomiting. No chest pain. He had a work-up done. His chest x-ray shows developing right lower lobe pneumonia. His WBC count is 27.9, hemoglobin 6.8, hematocrit 21, MCV 85, platelet count 136. INR is 1.0. Sodium 137, potassium 4.3, chloride 95, CO2 27, BUN 62, creatinine 11.24. PAST MEDICAL HISTORY End-stage renal disease due to IgA nephropathy with hypertension. He was on peritoneal dialysis. MEDICATIONS He is currently takin. Vancomycin IV. 2. Albuterol/Atrovent nebulizer treatment. 3. Levaquin q.48h. 4. Famotidine 10 mg a day. 5. Epogen 15,000 units. 6. Hydralazine 100 mg three times a day. 7. Hydromorphone p.r.n. 8. Fosrenol 1000 mg three times a day. 9. Amlodipine 10 mg a day. 10.Labetalol 300 mg three times a day. 11.Levothyroxine 50 mcg a day. 12.Renvela 3200 mg three times a day. 13.Pravastatin 10 mg a day. ALLERGIES KEFLEX. SOCIAL HISTORY He is single, lives with his girlfriend and her parents. No history of smoking. Drinks socially. 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 FAMILY HISTORY Noncontributory. REVIEW OF SYSTEMS Denies any weight loss. No headache or dizziness. No malignancy. No DVT or pulmonary embolism. PHYSICAL EXAMINATION GENERAL: A well-built, well-nourished male, not in acute distress. VITAL SIGNS: Blood pressure 151/86, heart rate 86, respirations 16, temperature 99.4. HEENT: Pupils are equal and reactive to light. Oral mucosa and nasal mucosa are normal. NECK: Supple. JVP not raised. CHEST: Equal bilaterally. He has rales at the right base. CARDIOVASCULAR: S1, S2 normal. ABDOMEN: Benign. EXTREMITIES: No edema. IMPRESSION 1. Right lung pneumonia. 2. Leukocytosis. 3. End-stage renal disease. He was on peritoneal dialysis, now on hemodialysis. 4. Mild hemoptysis. 5. Anemia. PLAN Discussed with patient. Will continue antibiotic, check his cultures. Supplement his oxygen. Hemoptysis is mild, will monitor. Further treatment will depend on the course in the hospital. Thank you, Dr. Thompson, for this consultation. Zenaida Gaines MD ADA/BT /7:54 PM /7:48 AM LESVIA
[2017-06-06] MEDS: DOCUSATE SODIUM 50 MG/SENNA 8.6 MG TAB PO SCH ×2 (09:00→20:08)
--- NOTE | 2017-06-06 10:14 | HHI.NPPN ---
Subjective General Problems: Anemia, Hypertension Renal Failure: Chronic, Stage V, End Stage Renal Disease Interval History Sitting up in bed. He had dialysis yesterday without incident. He has been seen by pulmonary and ID. (Ginette Ramsey) Review of Systems General Constitutional: Fever, Chills (Ginette Ramsey) Respiratory Lungs: Cough (Ginette Ramsey) Objective Data Data 06/05/17 06/06/17 19:00 07:00 Intake Total 730 ml 360 ml Output Total 4500 ml 0 ml Balance -3770 ml 360 ml Intake Oral 480 ml 360 ml IV Total 250 ml 0 ml Output Urine Total 0 ml Hemodialysis 4500 ml # Bowel Movements 0 Vital Signs Date Time Temp Pulse Resp B/P Pulse Ox O2 Delivery O2 Flow Rate FiO2 06/06/17 07:59 94 Venturi Mask 6.00 50 06/06/17 07:00 94 Nasal Cannula 75 06/06/17 06:00 79 06/06/17 04:00 83 06/06/17 04:00 99.7 80 24 150/87 89 06/06/17 02:00 89 06/06/17 00:00 101.1 87 20 157/88 93 06/06/17 00:00 100 06/05/17 22:00 85 06/05/17 21:38 95 Venturi Mask 6.00 50 06/05/17 20:46 95 High Flow Nasal Cannula 25.00 70 06/05/17 20:00 99.7 94 31 141/81 93 06/05/17 20:00 94 06/05/17 19:00 90 Venturi Mask 50 06/05/17 18:00 92 06/05/17 16:00 99.4 86 21 151/86 94 06/05/17 16:00 86 06/05/17 14:00 84 06/05/17 12:00 85 06/05/17 12:00 98.4 85 21 167/98 97 (Ginette Ramsey) -: 06/05/17 1215 06/05/17 1215 Microbiology 06/05/17 Aerobic Blood Culture, Received Pending 06/05/17 Anaerobic Blood Culture, Received Pending 06/05/17 Aerobic Blood Culture, Received Pending 06/05/17 Anaerobic Blood Culture, Received Pending 06/05/17 Gram Stain - Final, Resulted 06/05/17 Sputum Culture, Resulted Pending 06/05/17 Aerobic Blood Culture, Received Pending 06/05/17 Anaerobic Blood Culture, Received Pending 06/05/17 Aerobic Blood Culture - Final, Resulted QNS - SEE ANAEROBE REPORT 06/05/17 Anaerobic Blood Culture, Resulted Pending Imaging Last Impressions Chest X-Ray 06/04/17 0000 Signed Impressions: Service Date/Time: Sunday, June 04, 2017 15:28 - CONCLUSION: Interval development of right lower lobe pneumonia. Damien Gonzalez MD Shoulder MRI 06/03/17 0000 Signed Impressions: Service Date/Time: Saturday, June 03, 2017 12:35 - CONCLUSION: No acute disease. Intact rotator cuff. No evidence of significant arthropathy, soft tissue swelling or bone marrow edema. Gamal Zambrano MD Central Venous Line 06/01/17 1451 Signed Impressions: Service Date/Time: May 14:51 - CONCLUSION: Uncomplicated catheter removal. Haider Quintanilla Jr., MD Catheter Placement X-Ray 06/01/17 0000 Signed Impressions: Service Date/Time: , June 01, 2017 12:33 - CONCLUSION: Uncomplicated PermaCath placement as above. Haider Quintanilla Jr., MD Tubes & Lines: Perma-Cath, Tenckhoff Catheter (Ginette Ramsey. TREASURER) Physical Exam General Appearance: Well Developed, Well Nourished, No Acute Distress, Comfortable ( Ginette Ramsey B. TREASURER) Eyes Eye Exam: Pupils Equal (Ginette Ramsey BNahomy TREASURER) Throat Throat Exam: Oral Mucosa [place] & Moist (Ginette Ramsey B. TREASURER) Neck Neck Exam: Neck Supple (Ginette Ramsey B. TREASURER) Pulmonary Resp Exam: Breath Sounds Equal, No Distress, Crackles, Decreased Bases Resp Remarks right lower rales (Ginette Ramsey B. TREASURER) Gastrointestinal/Abdomen GI Exam: Soft, Non-Tender, Bowel Sounds Present GI Remarks Pd catheter in place (Ginette Ramsey B. TREASURER) Musculoskeletal MS Exam: Joints Intact, Normal Gait, Normal Tone, Good Strength (Ginette Ramsey B. TREASURER) Integumentary Skin Exam: Clear, Warm, Dry, Intact (Ginette Ramsey) Extremeties Extremities Exam: No Edema, Pedal Pulses Palpable (Ginette Ramsey) Neurologic Neuro Exam: Alert, Awake, Oriented, Speech Clear, Moving All Extremities ( Ginette Ramsey) Psychiatric Psych Exam: Appropriate Responses (Ginette Ramsey) Assessment/Plan Discussed Condition With: Patient Assessment Summary: Anemia of CKD, Hypertension, End Stage Renal Disease Problem List: (1) ESRD (end stage renal disease) Plan: Now on HD MWF, 4500 ml fluid removal yesterday PermCath placed 06/01 plan to convert to nocturnal HD at [facility], arrangements are in process on high protein, low K diet obtain intermittent metabolic profile avoid IVF renal transplant which is set for Jul 29 at [facility], his cousin as agreed to be donor (2) Anemia Plan: persistent anemia, he has been transfused on Epogen with HD, high dose he is not deficient of iron minimize lab draws in future if able (3) Pneumonia Plan: ID and pulmonary have been consulted on Levaquin and vancomycin with HD on oxygen, ween when able monitor clinically (4) Hypertensive urgency Plan: continue medications as ordered; he is taking Norvasc 10 mg daily Labetalol 300 TID hydralazine 50 in AM, 150 qhs losartan 100 BID given PRN clonidine as well (5) Metabolic bone disease Plan: he is on high doses of phosphate binder, continue Fosrenol 1000 TID PD and Renvela 3200 TID AC phosphorous level is elevated (6) Hyperkalemia Plan: due to inadequate dialysis corrected, monitor for recurrence (Ginette Ramsey) Plan patient was seen and examined. Complains of shortness of breath. Likely needs more blood transfusion. (Ti Davis MD) Problem Qualifiers (1) Anemia: Qualified Code: N18.6 - Anemia in chronic kidney disease, on chronic dialysis Ginette Ramsey Jun 06, 2017 10:14 Ti Davis MD Jun 07, 2017 08:47
[2017-06-06] MEDS: SODIUM CHLORIDE 0.9% FLUSH 10 ML FLUSH SCH ×2 (10:50→20:03)
[2017-06-06] MEDS: LOSARTAN 50 MG TAB PO SCH (10:50)
[2017-06-06] MEDS: LABETALOL HCL 300 MG TAB PO SCH ×3 (10:50→18:46)
[2017-06-06] MEDS: LANTHANUM CARBONATE 500 MG CHEWABLE TABLET PO SCH ×3 (10:51→18:30)
[2017-06-06] MEDS: FAMOTIDINE 20 MG TAB PO SCH ×2 (10:51→20:08)
[2017-06-06] MEDS: cloNIDine HCL 0.1 MG TAB PO SCH ×2 (10:51→20:08)
[2017-06-06] MEDS: SEVELAMER CARBONATE 800 MG TAB PO SCH ×3 (10:51→18:00)
[2017-06-06] MEDS: LEVOTHYROXINE SODIUM 50 MCG TAB PO SCH (10:51)
[2017-06-06] MEDS: hydrALAZINE HCL 100 MG TAB PO SCH ×3 (10:51→18:46)
--- NOTE | 2017-06-06 13:00 | HHI.PR ---
Subjective Remarks Patient in bed, appears in nad. Says he doesn't feel improved since yesterday. He feels very tired as the days goes. He is able to eat no nausea or vomiting. No diarrhea or constipation. Denies fever or chills Objective Vitals Vital Signs Date Time Temp Pulse Resp B/P Pulse Ox O2 Delivery O2 Flow Rate FiO2 06/06/17 07:59 94 Venturi Mask 6.00 50 06/06/17 07:00 94 Nasal Cannula 75 06/06/17 06:00 79 06/06/17 04:00 83 06/06/17 04:00 99.7 80 24 150/87 89 06/06/17 02:00 89 06/06/17 00:00 101.1 87 20 157/88 93 06/06/17 00:00 100 06/05/17 22:00 85 06/05/17 21:38 95 Venturi Mask 6.00 50 06/05/17 20:46 95 High Flow Nasal Cannula 25.00 70 06/05/17 20:00 99.7 94 31 141/81 93 06/05/17 20:00 94 06/05/17 19:00 90 Venturi Mask 50 06/05/17 18:00 92 06/05/17 16:00 99.4 86 21 151/86 94 06/05/17 16:00 86 06/05/17 14:00 84 I/O 06/05/17 06/05/17 06/05/17 06/06/17 06/06/17 06/06/17 07:00 15:00 23:00 07:00 15:00 23:00 Intake Total 152 ml 730 ml 240 ml 120 ml Output Total 0 ml 4500 ml 0 ml 0 ml Balance 152 ml -3770 ml 240 ml 120 ml Intake Oral 480 ml 240 ml 120 ml IV Total 152 ml 250 ml 0 ml 0 ml Output Urine Total 0 ml 0 ml 0 ml Hemodialysis 4500 ml # Bowel Movements 0 0 0 Result Diagram: 06/05/17 1215 06/05/17 1215 Imaging Last Impressions Chest X-Ray 06/04/17 0000 Signed Impressions: Service Date/Time: Sunday, June 04, 2017 15:28 - CONCLUSION: Interval development of right lower lobe pneumonia. Damien Gonzalez MD Shoulder MRI 06/03/17 0000 Signed Impressions: Service Date/Time: Saturday, June 03, 2017 12:35 - CONCLUSION: No acute disease. Intact rotator cuff. No evidence of significant arthropathy, soft tissue swelling or bone marrow edema. Gamal Zambrano MD Central Venous Line 06/01/17 1451 Signed Impressions: Service Date/Time: May 14:51 - CONCLUSION: Uncomplicated catheter removal. Haider Quintanilla Jr., MD Catheter Placement X-Ray 06/01/17 0000 Signed Impressions: Service Date/Time: May 12:33 - CONCLUSION: Uncomplicated PermaCath placement as above. Haider Quintanilla Jr., MD Objective Remarks GENERAL: young 26 yo male, in bed, awake and alert, appears in NAD CARDIOVASCULAR: Regular rate and rhythm. Right chest wall- vas cath previous - no erythema RESPIRATORY: No accessory muscle use. Occasional rhonchi. GASTROINTESTINAL: Abdomen soft, non-tender, nondistended. Hepatic and splenic margins not palpable. MUSCULOSKELETAL: Perm cath site- tender to touch. Extremities without clubbing, cyanosis, or edema. No obvious deformities. NEUROLOGICAL: Awake and alert. No obvious cranial nerve deficits. Normal speech. Procedures 06/01- permcath A/P Assessment and Plan 26 years old male admitted for Hyperkalemia 05/30- resolved on HD ESRD Renal transplant candidate- planned for 07/29 Anemia of renal disease- Hemoglobin 6.0 feels weak - HD per Nephrology. patient received 1 unit of RBC yesterday 06/03 - S/P Permcath placement - 06/01 - on Epogen during HD. - On Prednisone, Fosrenol, Renvela - Nephrology ff - limit blood draws Hypertension urgency - Norvasc 10 mg daily, Labetalol 300 mg tid, cozaar 100 mg daily, Hydralazine 100 mg tid - Clonidine prn, - Hydralazine when necessary -- should improved with HD. continue to adjust meds, pain contributing factor - clonidine 0.1 mg po bid - goal sbp < 180.. monitor and adjust Sepsis- New infiltrate- ?Right lower lobe with hemoptysis + leukocytosis - on Levaquin + Flagyl- started 06/04 -ID consult for recommendation =check sputum studies, blood culture Acute respiratory Failure- high 02 requirement-06/04- better now on NC- episodes of hemoptysis New infiltrate on XRay. duonebs -Pulmonary consult- evaluate for need for bronchoscopy - pulmonary management Right side prev VAS cath site pain. Permcath site pain, shoulder/infraclavicular pain - tender to touch,- slight swelling- maybe a small hematoma or slight trauma when pulled out- will get an MRI of the shoulder cath functioning well - d/w patient and family that we will observe. Prn pain meds Right shoulder pain- with range of motion -- MRI shoulder negative. I think with the perm cath in right side- patient being careful with moving and now starting to have limitation by babying it will get PT to evaluate and do range of motion exercise - prn pain meds - PT ff Hypothyroidism - Levothyroxine ADHD - Supportive care - Continue home medications DC plan: pending improvement and clearance from Deepa Delatorre MD Jun 06, 2017 13:00
--- NOTE | 2017-06-06 14:23 | HHI.IDPN ---
Subjective Subjective Remarks Patient is a 26-year-old male, admitted to the hospital for evaluation of generalized weakness, cramping, nausea and vomiting. 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 He is currently in the waiting list for renal transplant and follows up at the [facility]. On presentation patient was found to have severe hyperkalemia with a potassium of 8.2. Patient was emergently started on hemodialysis. Last night, he started having fevers, and his WBC went up to 17, 000 this morning. He was actually transferred to the intensive care unit last night because his saturation went down and he was complaining of shortness of breath.. Patient currently states that his breathing is okay. He is on nasal O2. He is undergoing hemodialysis this morning. Patient is anuric. He denies any abdominal pain. No nausea or vomiting. He has been coughing and bringing up fernandez blood-tinged sputum. Patient also has some chest discomfort on the middle of his chest when he coughs. His chest x-ray showing a new right lower lobe infiltrate. Notes reviewed Fever overnight, better this morning C/O tired Sputum normal racquel BC negative Had HD yesterday Antibiotics Vanco Levaquin Lines Permacath Past Medical History Hypertension ADHD Hyperlipidemia Hypothyroidism ESRD on PD since Dec 2015 Past Surgical History Placement of a Tenckhoff catheter for PD Allergies: Coded Allergies: Keflex (Verified Allergy, Unknown, UNKNOWN- A CHILD, 04/21/17) Objective . Vital Signs Date Time Temp Pulse Resp B/P Pulse Ox O2 Delivery O2 Flow Rate FiO2 06/06/17 07:59 94 Venturi Mask 6.00 50 06/06/17 07:00 94 Nasal Cannula 75 06/06/17 06:00 79 06/06/17 04:00 83 06/06/17 04:00 99.7 80 24 150/87 89 06/06/17 02:00 89 06/06/17 00:00 101.1 87 20 157/88 93 06/06/17 00:00 100 06/05/17 22:00 85 06/05/17 21:38 95 Venturi Mask 6.00 50 06/05/17 20:46 95 High Flow Nasal Cannula 25.00 70 06/05/17 20:00 99.7 94 31 141/81 93 7/17/17 20:00 94 06/05/17 19:00 90 Venturi Mask 50 06/05/17 18:00 92 06/05/17 16:00 99.4 86 21 151/86 94 06/05/17 16:00 86 06/05/17 06/05/17 06/06/17 15:00 23:00 07:00 Intake Total 730 ml 240 ml 120 ml Output Total 4500 ml 0 ml 0 ml Balance -3770 ml 240 ml 120 ml Intake Oral 480 ml 240 ml 120 ml IV Total 250 ml 0 ml 0 ml Output Urine Total 0 ml 0 ml Hemodialysis 4500 ml # Bowel Movements 0 0 . Laboratory Tests Test 06/04/17 06/05/17 15:00 12:15 White Blood Count 17.8 TH/MM3 27.9 TH/MM3 Red Blood Count 2.53 MIL/MM3 2.47 MIL/MM3 Hemoglobin 7.1 GM/DL 6.8 GM/DL Hematocrit 21.4 % 21.0 % Mean Corpuscular Volume 84.6 FL 85.1 FL Mean Corpuscular Hemoglobin 28.0 PG 27.7 PG Mean Corpuscular Hemoglobin 33.0 % 32.5 % Concent Red Cell Distribution Width 15.7 % 15.3 % Platelet Count 105 TH/MM3 136 TH/MM3 Mean Platelet Volume 8.6 FL 8.4 FL Neutrophils (%) (Auto) 91.3 % Lymphocytes (%) (Auto) 2.3 % Monocytes (%) (Auto) 6.0 % Eosinophils (%) (Auto) 0.1 % Basophils (%) (Auto) 0.3 % Neutrophils # (Auto) 25.4 TH/MM3 Lymphocytes # (Auto) 0.6 TH/MM3 Monocytes # (Auto) 1.7 TH/MM3 Eosinophils # (Auto) 0.0 TH/MM3 Basophils # (Auto) 0.1 TH/MM3 CBC Comment DIFF FINAL Differential Comment Laboratory Tests Test 06/05/17 06/06/17 12:15 12:57 Sodium Level 137 MEQ/L Potassium Level 4.3 MEQ/L Chloride Level 95 MEQ/L Carbon Dioxide Level 27.8 MEQ/L Anion Gap 14 MEQ/L Blood Urea Nitrogen 62 MG/DL Creatinine 11.24 MG/DL Estimat Glomerular Filtration 6 ML/MIN Rate Random Glucose 105 MG/DL Calcium Level 9.0 MG/DL Phosphorus Level 7.1 MG/DL Microbiology Date/Time Procedure Status Source Growth 06/05/17 11:12 Aerobic Blood Culture - Preliminary Resulted Blood Peripheral NO GROWTH IN 1 DAY 06/05/17 11:12 Anaerobic Blood Culture - Preliminary Resulted Blood Peripheral NO GROWTH IN 1 DAY 06/05/17 11:12 Aerobic Blood Culture - Preliminary Resulted Blood Peripheral NO GROWTH IN 1 DAY 06/05/17 11:12 Anaerobic Blood Culture - Preliminary Resulted Blood Peripheral NO GROWTH IN 1 DAY 06/05/17 11:15 Gram Stain - Final Resulted Sputum Expectorated Sputum 06/05/17 11:15 Sputum Culture - Preliminary Resulted Sputum Expectorated Sputum HEAVY GROWTH NORMAL RESPIRATORY RACQUEL... 06/05/17 12:10 Aerobic Blood Culture - Preliminary Resulted Blood Other NO GROWTH IN 1 DAY 06/05/17 12:10 Anaerobic Blood Culture - Preliminary Resulted Blood Other NO GROWTH IN 1 DAY 06/05/17 12:15 Aerobic Blood Culture - Final Resulted Blood Other QNS - SEE ANAEROBE REPORT 06/05/17 12:15 Anaerobic Blood Culture - Preliminary Resulted Blood Other NO GROWTH IN 1 DAY Imaging Chest X-Ray 06/04/17 0000 Signed Impressions: Service Date/Time: Sunday, June 04, 2017 15:28 - CONCLUSION: Interval development of right lower lobe pneumonia. Damien Gonzalez MD Shoulder MRI 06/03/17 0000 Signed Impressions: Service Date/Time: Saturday, June 03, 2017 12:35 - CONCLUSION: No acute disease. Intact rotator cuff. No evidence of significant arthropathy, soft tissue swelling or bone marrow edema. Gamal Zambrano MD Central Venous Line 06/01/17 1451 Signed Impressions: Service Date/Time: May 14:51 - CONCLUSION: Uncomplicated catheter removal. Haider Quintanilla Jr., MD Catheter Placement X-Ray 06/01/17 0000 Signed Impressions: Service Date/Time: May 12:33 - CONCLUSION: Uncomplicated PermaCath placement as above. Haider Quintanilla Jr., MD Physical Exam GENERAL: awake and alert, not in respiratory distress. SKIN: Warm and dry. No generalized rash, no ecchymoses and no evidence of embolic lesions. HEAD: Atraumatic. Normocephalic. No temporal wasting, or tenderness. EYES: [place] conjunctiva. No petechia or hemorrhage. Pupils equal, round and reactive to light. Extraocular movements full and intact. No scleral icterus. No injection or drainage. EARS, NOSE AND THROAT: Nose without bleeding or purulent nasal discharge. Mucous membranes pink and moist. No oral lesions noted. NECK: Trachea midline. Supple and not tender, no meningeal signs CARDIOVASCULAR: Regular rate and rhythm. No murmurs, rubs or gallops heard RESPIRATORY: Clear to auscultation. Breath sounds equal bilaterally. No rales , wheezing or rhonchi. Decreased at bases ABDOMEN: Soft, non-tender, nondistended. Bowel sounds present and normoactive. No guarding. No rebound. No organomegaly. EXTREMITIES: No clubbing, cyanosis, or edema.No joint effusion, has good ROM. No calf tenderness. Well perfused and warm. NEUROLOGICAL: Awake and alert. Cranial nerves grossly intact. Motor grossly within normal limits. PSYCHIATRIC: Normal affect, calm and cooperative. LINE: Permacath R upper chest with blood at dressing, no evidence of infection Assessment & Plan Remarks IMPRESSION Sepsis likely due to new PNA Leukocytosis due to PNA ESRD previously on PD, now on HD for severe hyperkalemia on admission IgA nephropathy causing ESRD RECOMMENDATION Follow C/S Continue Vanco Continue Levaquin Monitor temps Check CBC in AM Monitor progress Karla Abbott MD Jun 06, 2017 14:23
[2017-06-06] MEDS: LACTULOSE SYRUP 20 GM/30 ML CUP PO PRN (16:22)
--- NOTE | 2017-06-06 18:54 | HHI.PR ---
Subjective Remarks 26 YOWM with ESRD, on HD, sepsis, PN Hemoptysis resolved No fever On VM Objective Vital Signs Vital Signs Date Time Temp Pulse Resp B/P Pulse Ox O2 Delivery O2 Flow Rate FiO2 06/06/17 18:00 80 06/06/17 16:00 97.9 94 21 129/67 95 06/06/17 16:00 94 06/06/17 14:00 80 06/06/17 12:00 98.6 91 22 151/82 96 06/06/17 12:00 91 06/06/17 10:00 85 06/06/17 08:00 99.5 90 15 150/84 99 06/06/17 08:00 90 06/06/17 07:59 94 Venturi Mask 6.00 50 06/06/17 07:00 94 Nasal Cannula 75 06/06/17 06:00 79 06/06/17 04:00 83 06/06/17 04:00 99.7 80 24 150/87 89 06/06/17 02:00 89 06/06/17 00:00 101.1 87 20 157/88 93 06/06/17 00:00 100 06/05/17 22:00 85 06/05/17 21:38 95 Venturi Mask 6.00 50 06/05/17 20:46 95 High Flow Nasal Cannula 25.00 70 06/05/17 20:00 99.7 94 31 141/81 93 06/05/17 20:00 94 06/05/17 19:00 90 Venturi Mask 50 I/O 06/05/17 06/05/17 06/05/17 06/06/17 06/06/17 06/06/17 07:00 15:00 23:00 07:00 15:00 23:00 Intake Total 152 ml 730 ml 240 ml 120 ml 360 ml Output Total 0 ml 4500 ml 0 ml 0 ml Balance 152 ml -3770 ml 240 ml 120 ml 360 ml Intake Oral 480 ml 240 ml 120 ml 360 ml IV Total 152 ml 250 ml 0 ml 0 ml Output Urine Total 0 ml 0 ml 0 ml Hemodialysis 4500 ml # Bowel Movements 0 0 0 Result Diagram: 06/05/17 1215 06/05/17 1215 Objective Remarks GENERAL: WBWN WM.NAD SKIN: Warm and dry. HEAD: Normocephalic. EYES: No scleral icterus. No injection or drainage. NECK: Supple, trachea midline. No JVD or lymphadenopathy. CARDIOVASCULAR: Regular rate and rhythm without murmurs, gallops, or rubs. RESPIRATORY: Breath sounds equal bilaterally. No accessory muscle use. Rales right lung base GASTROINTESTINAL: Abdomen soft, non-tender, nondistended. PD Cathetor MUSCULOSKELETAL: No cyanosis, or edema. BACK: Nontender without obvious deformity. No CVA tenderness. A/P Assessment and Plan Sepsis Pneumonia Hemoptysis resolved ESRD, now on HD Leucocytosis IGA Nephropathy. PLAN: Supplement 02 to keep sat >92% Abx Vanco and Levaquin Check cultures Monitor CBC DW pt and his GM Tyler Sheehan MD Jun 06, 2017 18:54
[2017-06-06] MEDS: LEVOFLOXACIN 500 MG PREMIX INJ 100 ML IV SCH (20:03)
[2017-06-06] MEDS: PRAVASTATIN SOD 10 MG TAB PO SCH (20:08)
[2017-06-07] VITALS (15 sets, daily range): BP systolic 136–177; BP diastolic 72–105; PULSE 72–97; RESP 32–47; TEMP 98.2–99.1; O2SAT 88–96
[2017-06-07] MEDS: ACETAMINOPHEN 325 MG TAB PO PRN ×2 (00:05→17:24)
[2017-06-07] MEDS: RESP: ALBUTEROL 2.5 MG/IPRATROPIUM 0.5 MG NEB (SCH) NEB ×4 (03:35→21:26)
[2017-06-07] MEDS: CHLORHEXIDINE GLUCONATE 2 % 1 PACK (2 CLOTHS) TOP SCH (04:00)
[2017-06-07 05:48] LABS: AUTOMATED NEUTROPHIL # 7.8 TH/MM3 (1.8-7.7); BASOPHIL # 0.1 TH/MM3 (0-0.2); BASOPHIL % 0.7 % (0.0-2.0); EOSINOPHIL # 0.1 TH/MM3 (0-0.4); EOSINOPHIL % 1.1 % (0.0-4.0); LYMPH % 9.6 % (9.0-44.0); MEAN CELL VOLUME 86.6 FL (80.0-100.0); MEAN CORPUSCULAR HEMOGLOBIN 28.7 PG (27.0-34.0); MEAN CORPUSCULAR HGB CONC 33.1 % (32.0-36.0); MONO % 14.9 % (0.0-8.0); NEUT % 73.7 % (16.0-70.0); PLATELET COUNT 176 TH/MM3 (150-450); RED BLOOD COUNT 1.93 MIL/MM3 (4.50-5.90); RED CELL DISTRIBUTION WIDTH 15.7 % (11.6-17.2); WHITE BLOOD COUNT 10.5 TH/MM3 (4.0-11.0)
[2017-06-07 06:19] LABS: BICARBONATE 26.8 MEQ/L (21.0-32.0); HEMO FLAGS AUTO DIFF; MAGNESIUM 2.5 MG/DL (1.5-2.5); POTASSIUM 4.8 MEQ/L (3.5-5.1)
[2017-06-07 06:22] LABS: HEMATOCRIT 16.7 % (39.0-51.0)
[2017-06-07] MEDS: SODIUM CHLOR 0.9% 1000 ML INJ 1,000 ML IV PRN (08:18)
[2017-06-07] MEDS: GENTAMICIN SULFATE (DIALYSIS USE ONLY) 20 MG/2 ML VIAL IV PRN (08:19)
[2017-06-07] MEDS: VANCOMYCIN INJ 1,000 MG in SODIUM CHLOR 0.9% 250 ML INJ 250 ML IV SCH (08:19)
[2017-06-07] MEDS: HEPARIN SODIUM - IV 10,000 UNITS/10 ML VIAL PRN (08:19)
[2017-06-07] MEDS: EPOETIN ALFA 10,000 UNITS/ML VIAL IV PRN (08:20)
[2017-06-07] MEDS: LABETALOL HCL 300 MG TAB PO SCH ×3 (09:00→17:24)
[2017-06-07] MEDS: hydrALAZINE HCL 100 MG TAB PO SCH ×3 (09:00→17:24)
--- NOTE | 2017-06-07 10:18 | HHI.NPPN ---
Subjective General Problems: Anemia, Hypertension Renal Failure: Chronic, Stage V, End Stage Renal Disease Interval History Seen during dialysis this morning. He has worsening anemia, is currently being transfused. (Ginette Ramsey) Review of Systems General Constitutional: Fever, Chills (Ginette Ramsey) Respiratory Lungs: Cough (Ginette Ramsey) Objective Data Data 06/06/17 06/07/17 19:00 07:00 Intake Total 360 ml 820 ml Output Total 0 ml Balance 360 ml 820 ml Intake Oral 360 ml 720 ml IV Total 100 ml Output Urine Total 0 ml # Bowel Movements 0 Vital Signs Date Time Temp Pulse Resp B/P Pulse Ox O2 Delivery O2 Flow Rate FiO2 06/07/17 08:07 88 Venturi Mask 6.00 35 06/07/17 06:00 97 06/07/17 04:00 98.2 72 35 148/72 93 06/07/17 04:00 75 06/07/17 02:20 96 Nasal Cannula 4.00 06/07/17 02:00 79 06/07/17 00:00 90 06/07/17 00:00 99.1 80 32 136/74 93 06/06/17 22:00 87 06/06/17 21:09 92 Venturi Mask 6.00 50 06/06/17 20:00 98.7 79 24 133/60 98 06/06/17 20:00 79 06/06/17 19:00 96 Venturi Mask 50 06/06/17 18:00 80 06/06/17 16:00 97.9 94 21 129/67 95 06/06/17 16:00 94 06/06/17 14:00 80 06/06/17 12:00 98.6 91 22 151/82 96 06/06/17 12:00 91 (Ginette Ramsey) -: 06/07/17 0418 06/07/17 0418 Imaging Last Impressions Chest X-Ray 06/04/17 0000 Signed Impressions: Service Date/Time: Sunday, June 04, 2017 15:28 - CONCLUSION: Interval development of right lower lobe pneumonia. Damien Gonzalez MD Shoulder MRI 06/03/17 0000 Signed Impressions: Service Date/Time: Saturday, June 03, 2017 12:35 - CONCLUSION: No acute disease. Intact rotator cuff. No evidence of significant arthropathy, soft tissue swelling or bone marrow edema. Gamal Zambrano MD Central Venous Line 06/01/17 1451 Signed Impressions: Service Date/Time: May 14:51 - CONCLUSION: Uncomplicated catheter removal. Haider Quintanilla Jr., MD Catheter Placement X-Ray 06/01/17 0000 Signed Impressions: Service Date/Time: May 12:33 - CONCLUSION: Uncomplicated PermaCath placement as above. Haider Quintanilla Jr., MD Tubes & Lines: Perma-Cath, Tenckhoff Catheter (Ginette Ramsey B. SENIOR GEOTECHNICAL ENGINEER) Physical Exam General Appearance: Well Developed, Well Nourished, No Acute Distress, Comfortable ( Ginette Ramsey B. SENIOR GEOTECHNICAL ENGINEER) Eyes Eye Exam: Pupils Equal (Ginette Ramsey B. SENIOR GEOTECHNICAL ENGINEER) Throat Throat Exam: Oral Mucosa [place] & Moist (Ginette Ramsey B. SENIOR GEOTECHNICAL ENGINEER) Neck Neck Exam: Neck Supple (Ginette Ramsey B. SENIOR GEOTECHNICAL ENGINEER) Pulmonary Resp Exam: Breath Sounds Equal, No Distress, Crackles, Decreased Bases Resp Remarks right lower rales (Ginette Ramsey B. SENIOR GEOTECHNICAL ENGINEER) Gastrointestinal/Abdomen GI Exam: Soft, Non-Tender, Bowel Sounds Present GI Remarks Pd catheter in place (Ginette Ramsey B. SENIOR GEOTECHNICAL ENGINEER) Musculoskeletal MS Exam: Joints Intact, Normal Gait, Normal Tone, Good Strength (Ginette Ramsey B. SENIOR GEOTECHNICAL ENGINEER) Integumentary Skin Exam: Clear, Warm, Dry, Intact (Ginette Ramsey B. SENIOR GEOTECHNICAL ENGINEER) Extremeties Extremities Exam: No Edema, Pedal Pulses Palpable (Ginette Ramsey B. SENIOR GEOTECHNICAL ENGINEER) Neurologic Neuro Exam: Alert, Awake, Oriented, Speech Clear, Moving All Extremities ( Ginette Ramsey B. SENIOR GEOTECHNICAL ENGINEER) Psychiatric Psych Exam: Appropriate Responses (Ginette Ramsey) Assessment/Plan Discussed Condition With: Patient Assessment Summary: Anemia of CKD, Hypertension, End Stage Renal Disease Assessment Remarks hyperphosphatemia Problem List: (1) ESRD (end stage renal disease) Plan: PermCath placed 06/01 Seen during dialysis on a 2K, 350 BFR, goal 3L due to high BUN, we will increase dialysis duration to 4 hours for better clearance continue HD per MWF schedule plan to convert to nocturnal HD at [facility], arrangements are in process on high protein, low K diet obtain intermittent metabolic profile avoid IVF renal transplant which is set for Jul 29 at [facility], his cousin as agreed to be donor (2) Anemia Plan: he has severe anemia despite high doses of Epogen ordered 2 units PRBC to be given during HD CT abd/pelvis ordered to rule out bleeding hematology has been consulted for their opinion, possible bone marrow disorder minimize lab draws in future if able (3) Pneumonia Plan: ID and pulmonary are following on Levaquin, also vancomycin with HD on oxygen, ween when able monitor clinically (4) Hypertensive urgency Plan: BP is stable, continue medications as ordered; he is taking Norvasc 10 mg daily Labetalol 300 TID hydralazine 50 in AM, 150 qhs losartan 100 BID given PRN clonidine as well (5) Metabolic bone disease Plan: phosphorus level elevated but improving, he is on high doses of phosphate binder Continue Fosrenol 1000 TID PD and Renvela 3200 TID AC discussed foods to avoid during hospitalization obtain intermittent phosphorous level (6) Hyperkalemia Plan: due to inadequate dialysis corrected, monitor for recurrence (Ginette Ramsey) Plan patient was seen and examined during dialysis. Concerned about continued anemia. CT chest and abdomen ordered. No retroperitoneal bleeding in the CT. No evidence of iron deficiency. Relatively resistant to Epogen. Will get Hematology opinion. Blood transfusion today. (Ti Davis MD) Problem Qualifiers (1) Anemia: Qualified Code: N18.6 - Anemia in chronic kidney disease, on chronic dialysis Ginette Ramsey Jun 07, 2017 10:18 Ti Davis MD Jun 07, 2017 19:42
[2017-06-07 11:10] LABS: SCAN/DIFF AUTO DIFF CONFIRMED
--- NOTE | 2017-06-07 11:35 | HHI.PR ---
Subjective Remarks The patient is in bed, sleepy. Says he feels very tired. He is tachycardic. However denies palpitations. No shortness of breath or chest pain no change in vision. No nausea, vomiting, diarrhea or constipation. Says he is able to eat. He is noted with low hemoglobin currently receiving transfusion with dialysis. He denies having any fever or chills. No abdominal pain. Objective Vitals Vital Signs Date Time Temp Pulse Resp B/P Pulse Ox O2 Delivery O2 Flow Rate FiO2 06/07/17 08:07 88 Venturi Mask 6.00 35 06/07/17 06:00 97 06/07/17 04:00 98.2 72 35 148/72 93 06/07/17 04:00 75 06/07/17 02:20 96 Nasal Cannula 4.00 06/07/17 02:00 79 06/07/17 00:00 90 06/07/17 00:00 99.1 80 32 136/74 93 06/06/17 22:00 87 06/06/17 21:09 92 Venturi Mask 6.00 50 06/06/17 20:00 98.7 79 24 133/60 98 06/06/17 20:00 79 06/06/17 19:00 96 Venturi Mask 50 06/06/17 18:00 80 06/06/17 16:00 97.9 94 21 129/67 95 06/06/17 16:00 94 06/06/17 14:00 80 06/06/17 12:00 98.6 91 22 151/82 96 06/06/17 12:00 91 I/O 06/06/17 06/06/17 06/06/17 06/07/17 06/07/17 06/07/17 06:59 14:59 22:59 06:59 14:59 22:59 Intake Total 120 ml 360 ml 580 ml 240 ml Output Total 0 ml 0 ml 0 ml Balance 120 ml 360 ml 580 ml 240 ml Intake Oral 120 ml 360 ml 480 ml 240 ml IV Total 0 ml 100 ml 0 ml Output Urine Total 0 ml 0 ml 0 ml # Bowel Movements 0 0 0 Result Diagram: 06/07/17 0418 06/07/17 0418 Imaging Last Impressions Chest X-Ray 06/04/17 0000 Signed Impressions: Service Date/Time: Sunday, June 04, 2017 15:28 - CONCLUSION: Interval development of right lower lobe pneumonia. Damien Gonzalez MD Shoulder MRI 06/03/17 0000 Signed Impressions: Service Date/Time: Saturday, June 03, 2017 12:35 - CONCLUSION: No acute disease. Intact rotator cuff. No evidence of significant arthropathy, soft tissue swelling or bone marrow edema. Gamal Zambrano MD Central Venous Line 06/01/17 1451 Signed Impressions: Service Date/Time: May 14:51 - CONCLUSION: Uncomplicated catheter removal. Haider Quintanilla Jr., MD Catheter Placement X-Ray 06/01/17 0000 Signed Impressions: Service Date/Time: May 12:33 - CONCLUSION: Uncomplicated PermaCath placement as above. Haider Quintanilla Jr., MD Objective Remarks GENERAL: young 26 yo male, in bed, awake and alert, appears in NAD CARDIOVASCULAR: Regular rate and rhythm. Right chest wall- vas cath previous - no erythema RESPIRATORY: No accessory muscle use. Occasional rhonchi. GASTROINTESTINAL: Abdomen soft, non-tender, nondistended. Hepatic and splenic margins not palpable. MUSCULOSKELETAL: Perm cath site- tender to touch. Extremities without clubbing, cyanosis, or edema. No obvious deformities. NEUROLOGICAL: Awake and alert. No obvious cranial nerve deficits. Normal speech. Procedures 06/01- permcath A/P Assessment and Plan 26 years old male admitted for Hyperkalemia 05/30- resolved on HD ESRD Renal transplant candidate- planned for 07/29 Anemia of renal disease- Hemoglobin 5.6 feels weak. Recdeiving blood transfusion with HD 2U PRBC 06/07 - HD per Nephrology. patient received 1 unit of RBC 06/03. 2 U PRBC 06/07 - S/P Permcath placement - 06/01 - on Epogen during HD. - On Prednisone, Fosrenol, Renvela - Nephrology ff - limit blood draws Hypertension urgency - Norvasc 10 mg daily, Labetalol 300 mg tid, cozaar 100 mg daily, Hydralazine 100 mg tid - Clonidine prn, - Hydralazine when necessary -- should improved with HD. continue to adjust meds, pain contributing factor - clonidine 0.1 mg po bid - goal sbp < 180.. monitor and adjust Sepsis- New infiltrate- ?Right lower lobe with hemoptysis + leukocytosis - on Levaquin + Flagyl- started 06/04 -ID consult for recommendation =check sputum studies, blood culture Acute respiratory Failure- high 02 requirement-06/04- better now on NC- episodes of hemoptysis New infiltrate on XRay. duonebs -Pulmonary consult- evaluate for need for bronchoscopy - pulmonary management Right side prev VAS cath site pain. Permcath site pain, shoulder/infraclavicular pain - tender to touch,- slight swelling- maybe a small hematoma or slight trauma when pulled out- will get an MRI of the shoulder cath functioning well - d/w patient and family that we will observe. Prn pain meds Right shoulder pain- with range of motion -- MRI shoulder negative. I think with the perm cath in right side- patient being careful with moving and now starting to have limitation by babying it will get PT to evaluate and do range of motion exercise - prn pain meds - PT ff Hypothyroidism - Levothyroxine ADHD - Supportive care - Continue home medications DC plan: pending improvement and clearance from Deepa Delatorre MD Jun 07, 2017 11:35
--- NOTE | 2017-06-07 11:58 | HHI.IDPN ---
Subjective Subjective Remarks Patient is a 26-year-old male, admitted to the hospital for evaluation of generalized weakness, cramping, nausea and vomiting. 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 He is currently in the waiting list for renal transplant and follows up at the [facility]. On presentation patient was found to have severe hyperkalemia with a potassium of 8.2. Patient was emergently started on hemodialysis. Last night, he started having fevers, and his WBC went up to 17, 000 this morning. He was actually transferred to the intensive care unit last night because his saturation went down and he was complaining of shortness of breath.. Patient currently states that his breathing is okay. He is on nasal O2. He is undergoing hemodialysis this morning. Patient is anuric. He denies any abdominal pain. No nausea or vomiting. He has been coughing and bringing up fernandez blood-tinged sputum. Patient also has some chest discomfort on the middle of his chest when he coughs. His chest x-ray showing a new right lower lobe infiltrate. Notes reviewed Last fever more than 24 hours ago Having HD Less phlegm Not SOB No other complaints Sputum normal racquel BC negative Hgb down to 5 - getting transfused WBC down to normal Antibiotics Vanco Levaquin Lines Permacath Past Medical History Hypertension ADHD Hyperlipidemia Hypothyroidism ESRD on PD since Dec 2015 Past Surgical History Placement of a Tenckhoff catheter for PD Allergies: Coded Allergies: Keflex (Verified Allergy, Unknown, UNKNOWN- A CHILD, 04/21/17) Objective . Vital Signs Date Time Temp Pulse Resp B/P Pulse Ox O2 Delivery O2 Flow Rate FiO2 06/07/17 08:07 88 Venturi Mask 6.00 35 06/07/17 06:00 97 06/07/17 04:00 98.2 72 35 148/72 93 06/07/17 04:00 75 06/07/17 02:20 96 Nasal Cannula 4.00 06/07/17 02:00 79 06/07/17 00:00 90 06/07/17 00:00 99.1 80 32 136/74 93 06/06/17 22:00 87 06/06/17 21:09 92 Venturi Mask 6.00 50 06/06/17 20:00 98.7 79 24 133/60 98 06/06/17 20:00 79 06/06/17 19:00 96 Venturi Mask 50 06/06/17 18:00 80 06/06/17 16:00 97.9 94 21 129/67 95 06/06/17 16:00 94 06/06/17 14:00 80 06/06/17 12:00 98.6 91 22 151/82 96 06/06/17 12:00 91 06/06/17 06/06/17 06/07/17 15:00 23:00 07:00 Intake Total 360 ml 580 ml 240 ml Output Total 0 ml 0 ml Balance 360 ml 580 ml 240 ml Intake Oral 360 ml 480 ml 240 ml IV Total 100 ml 0 ml Output Urine Total 0 ml 0 ml # Bowel Movements 0 0 . Laboratory Tests Test 06/05/17 06/07/17 12:15 04:18 White Blood Count 27.9 TH/MM3 10.5 TH/MM3 Red Blood Count 2.47 MIL/MM3 1.93 MIL/MM3 Hemoglobin 6.8 GM/DL 5.5 GM/DL Hematocrit 21.0 % 16.7 % Mean Corpuscular Volume 85.1 FL 86.6 FL Mean Corpuscular Hemoglobin 27.7 PG 28.7 PG Mean Corpuscular Hemoglobin 32.5 % 33.1 % Concent Red Cell Distribution Width 15.3 % 15.7 % Platelet Count 136 TH/MM3 176 TH/MM3 Mean Platelet Volume 8.4 FL 8.3 FL Neutrophils (%) (Auto) 91.3 % 73.7 % Lymphocytes (%) (Auto) 2.3 % 9.6 % Monocytes (%) (Auto) 6.0 % 14.9 % Eosinophils (%) (Auto) 0.1 % 1.1 % Basophils (%) (Auto) 0.3 % 0.7 % Neutrophils # (Auto) 25.4 TH/MM3 7.8 TH/MM3 Lymphocytes # (Auto) 0.6 TH/MM3 1.0 TH/MM3 Monocytes # (Auto) 1.7 TH/MM3 1.6 TH/MM3 Eosinophils # (Auto) 0.0 TH/MM3 0.1 TH/MM3 Basophils # (Auto) 0.1 TH/MM3 0.1 TH/MM3 CBC Comment DIFF FINAL AUTO DIFF Differential Comment AUTO DIFF CONFIRMED Laboratory Tests Test 06/05/17 06/06/17 06/07/17 12:15 12:57 04:18 Sodium Level 137 MEQ/L 133 MEQ/L Potassium Level 4.3 MEQ/L 4.8 MEQ/L Chloride Level 95 MEQ/L 93 MEQ/L Carbon Dioxide Level 27.8 MEQ/L 26.8 MEQ/L Anion Gap 14 MEQ/L 13 MEQ/L Blood Urea Nitrogen 62 MG/DL 97 MG/DL Creatinine 11.24 MG/DL 17.76 MG/DL Estimat Glomerular Filtration 6 ML/MIN 3 ML/MIN Rate Random Glucose 105 MG/DL 96 MG/DL Calcium Level 9.0 MG/DL 9.0 MG/DL Phosphorus Level 7.1 MG/DL Magnesium Level 2.5 MG/DL Microbiology Date/Time Procedure Status Source Growth 06/05/17 11:12 Aerobic Blood Culture - Preliminary Resulted Blood Peripheral NO GROWTH IN 2 DAYS 06/05/17 11:12 Anaerobic Blood Culture - Preliminary Resulted Blood Peripheral NO GROWTH IN 2 DAYS 06/05/17 11:12 Aerobic Blood Culture - Preliminary Resulted Blood Peripheral NO GROWTH IN 2 DAYS 06/05/17 11:12 Anaerobic Blood Culture - Preliminary Resulted Blood Peripheral NO GROWTH IN 2 DAYS 06/05/17 11:15 Gram Stain - Final Complete Sputum Expectorated Sputum 06/05/17 11:15 Sputum Culture - Final Complete Sputum Expectorated Sputum HEAVY GROWTH NORMAL RESPIRATORY RACQUEL 06/05/17 12:10 Aerobic Blood Culture - Preliminary Resulted Blood Other NO GROWTH IN 2 DAYS 06/05/17 12:10 Anaerobic Blood Culture - Preliminary Resulted Blood Other NO GROWTH IN 2 DAYS 06/05/17 12:15 Aerobic Blood Culture - Final Resulted Blood Other QNS - SEE ANAEROBE REPORT 06/05/17 12:15 Anaerobic Blood Culture - Preliminary Resulted Blood Other NO GROWTH IN 2 DAYS Imaging Chest X-Ray 06/04/17 0000 Signed Impressions: Service Date/Time: Sunday, June 04, 2017 15:28 - CONCLUSION: Interval development of right lower lobe pneumonia. K. Eliu Gonzalez MD Shoulder MRI 06/03/17 0000 Signed Impressions: Service Date/Time: Saturday, June 03, 2017 12:35 - CONCLUSION: No acute disease. Intact rotator cuff. No evidence of significant arthropathy, soft tissue swelling or bone marrow edema. Gamal Zambrano MD Central Venous Line 06/01/17 1451 Signed Impressions: Service Date/Time: May 14:51 - CONCLUSION: Uncomplicated catheter removal. Haider Quintanilla Jr., MD Catheter Placement X-Ray 06/01/17 0000 Signed Impressions: Service Date/Time: May 12:33 - CONCLUSION: Uncomplicated PermaCath placement as above. Haider Quintanilla Jr., MD Physical Exam GENERAL: awake and alert, not in respiratory distress. SKIN: Warm and dry. No generalized rash, no ecchymoses and no evidence of embolic lesions. HEAD: Atraumatic. Normocephalic. No temporal wasting, or tenderness. EYES: [place] conjunctiva. No petechia or hemorrhage. Pupils equal, round and reactive to light. Extraocular movements full and intact. No scleral icterus. No injection or drainage. EARS, NOSE AND THROAT: Nose without bleeding or purulent nasal discharge. Mucous membranes pink and moist. No oral lesions noted. NECK: Trachea midline. Supple and not tender, no meningeal signs CARDIOVASCULAR: Regular rate and rhythm. No murmurs, rubs or gallops heard RESPIRATORY: Clear to auscultation. Breath sounds equal bilaterally. No rales , wheezing or rhonchi. Decreased at bases ABDOMEN: Soft, non-tender, nondistended. Bowel sounds present and normoactive. No guarding. No rebound. No organomegaly. EXTREMITIES: No clubbing, cyanosis, or edema.No joint effusion, has good ROM. No calf tenderness. Well perfused and warm. NEUROLOGICAL: Awake and alert. Cranial nerves grossly intact. Motor grossly within normal limits. PSYCHIATRIC: Normal affect, calm and cooperative. LINE: Permacath R upper chest with blood at dressing, no evidence of infection Assessment & Plan Remarks IMPRESSION Sepsis likely due to new PNA Leukocytosis due to PNA ESRD previously on PD, now on HD for severe hyperkalemia on admission IgA nephropathy causing ESRD RECOMMENDATION Follow C/S Continue Vanco - if temps stays down, will stop Vanco - he is getting dose today Continue Levaquin - give until 06/10 Monitor temps Monitor progress Karla Abbott MD Jun 07, 2017 11:58
[2017-06-07] MEDS: LANTHANUM CARBONATE 500 MG CHEWABLE TABLET PO SCH ×3 (12:39→17:24)
[2017-06-07] MEDS: SEVELAMER CARBONATE 800 MG TAB PO SCH ×3 (12:39→17:24)
[2017-06-07] MEDS: LOSARTAN 50 MG TAB PO SCH (12:39)
[2017-06-07] MEDS: LEVOTHYROXINE SODIUM 50 MCG TAB PO SCH (12:39)
[2017-06-07] MEDS: cloNIDine HCL 0.1 MG TAB PO SCH ×2 (12:40→22:07)
[2017-06-07] MEDS: DOCUSATE SODIUM 50 MG/SENNA 8.6 MG TAB PO SCH ×2 (12:40→22:07)
[2017-06-07] MEDS: FAMOTIDINE 20 MG TAB PO SCH ×2 (12:40→22:07)
[2017-06-07] MEDS: SODIUM CHLORIDE 0.9% FLUSH 10 ML FLUSH SCH ×2 (12:41→22:08)
[2017-06-07] MEDS: LEVOFLOXACIN 500 MG TAB PO SCH (12:57)
--- NOTE | 2017-06-07 15:42 | RADRPT ---
EXAM DATE/TIME: 06/07/2017 15:23 [facility] COMPARISON: CT ABDOMEN & PELVIS W/O CONTRAST, March 06, 2017, 14:45. INDICATIONS : Chronic kidney disease, hemoptysis. ORAL CONTRAST: No oral contrast ingested. RADIATION DOSE: 9.94 CTDIvol (mGy) ; Combined studies - Thorax/Abdomen/Pelvis MEDICAL HISTORY : Hypertension. Diabetes mellitus type 2. dialysis patient SURGICAL HISTORY : Appendectomy. PD catheter,Permcath ENCOUNTER: Subsequent ACUITY: 4 - 6 days PAIN SCALE: 3/10 LOCATION: upper quadrant TECHNIQUE: Volumetric scanning of the abdomen and pelvis was performed. Using automated exposure control and ad justment of the mA and/or kV according to patient size, radiation dose was kept as low as reasonably achievable to obtain optimal diagnostic quality images. DICOM format image data is available electro nically for review and comparison. FINDINGS: LOWER LUNGS: Significant infiltrate throughout the lungs particularly throughout the right middle lobe. Tiny left pleural effusion. LIVER: Homogeneous density without lesion. There is no dilation of the biliary tree. No calcified gallston es. SPLEEN: Normal size without lesion. PANCREAS: Within normal limits. KIDNEYS: Normal in size and shape. There is no mass, stone, or hydronephrosis. ADRENAL GLANDS: Within normal limits. VASCULAR: There is no aortic aneurysm. BOWEL/MESENTERY: The stomach, small bowel, and colon demonstrate no acute abnormality. There is no free intraperitone al air or fluid. ABDOMINAL WALL: Within normal limits. RETROPERITONEUM: There is no lymphadenopathy. BLADDER: No wall thickening or mass. Peritoneal catheter coiling in the lower pelvis. REPRODUCTIVE: Within normal limits. INGUINAL: There is no lymphadenopathy or hernia. MUSCULOSKELETAL: Within normal limits for patient age. CONCLUSION: The abdomen and pelvis are unremarkable with a peritoneal dialysis catheter. The patient does have de nse infiltrates in lungs particularly the right middle lobe. Tiny bilateral pleural effusions. Elian Larsen MD on June 07, 2017 at 15:38 Board Certified Radiologist. This report was verified electronically.
--- NOTE | 2017-06-07 15:53 | RADRPT ---
EXAM DATE/TIME: 06/07/2017 15:23 [facility] COMPARISON: CHEST SINGLE AP, June 04, 2017, 15:28. INDICATIONS : Chronic kidney disease, hemoptysis. RADIATION DOSE: 9.94 CTDIvol (mGy) ; Combined studies - Thorax/Abdomen/Pelvis MEDICAL HISTORY : Hypertension. Diabetes mellitus type 2. dialysis patient SURGICAL HISTORY : Appendectomy. PD catheter placed, Permcath ENCOUNTER: Subsequent ACUITY: 4 - 6 days PAIN SCALE: 3/10 LOCATION: chest TECHNIQUE: Volumetric scanning of the chest was performed. Using automated exposure control and adjustment of t he mA and/or kV according to patient size, radiation dose was kept as low as reasonably achievable to obtain optimal diagnostic quality images. DICOM format image data is available electronically for r eview and comparison. Follow-up recommendations for incidentally detected pulmonary nodules are based at a minimum on nodul e size and patient risk factors according to Fleischner Society Guidelines. FINDINGS: LUNGS: Multifocal areas of consolidation greatest within the right upper lobe and right middle lobe and also to a lesser degree right lower lobe. There are some patchy densities in the left upper lobe and left lower lobe. PLEURAE: Tiny right pleural effusion. There is no pleural thickening or pleural effusion on the left. MEDIASTINUM: The heart and great vessels demonstrate no acute abnormality. There are some small reactive lymph no mango throughout the mediastinum. Vascular catheter with tip in the cavoatrial junction. AXILLAE: Within normal limits. No lymphadenopathy. MUSCULOSKELETAL: Within normal limits for patient age. MISCELLANEOUS: The visualized upper abdominal organs demonstrate no acute abnormality. CONCLUSION: 1. Multifocal consolidation greater throughout the right upper and right middle lobes and to a lesser degree right lower lobe. 2. Patchy densities in the left upper lobe and left lower lobe. Alexis Melendez MD on June 07, 2017 at 15:49 Board Certified Radiologist. This report was verified electronically.
--- NOTE | 2017-06-07 18:14 | HHI.PR ---
Subjective Remarks 26 YOWM with ESRD, on HD, sepsis, PN Hemoptysis resolved No fever On NC Had HD, received PRBC 2 units Objective Vital Signs Vital Signs Date Time Temp Pulse Resp B/P Pulse Ox O2 Delivery O2 Flow Rate FiO2 06/07/17 08:07 88 Venturi Mask 6.00 35 06/07/17 06:00 97 06/07/17 04:00 98.2 72 35 148/72 93 06/07/17 04:00 75 06/07/17 02:20 96 Nasal Cannula 4.00 06/07/17 02:00 79 06/07/17 00:00 90 06/07/17 00:00 99.1 80 32 136/74 93 06/06/17 22:00 87 06/06/17 21:09 92 Venturi Mask 6.00 50 06/06/17 20:00 98.7 79 24 133/60 98 06/06/17 20:00 79 06/06/17 19:00 96 Venturi Mask 50 I/O 06/06/17 06/06/17 06/06/17 06/07/17 06/07/17 06/07/17 06:59 14:59 22:59 06:59 14:59 22:59 Intake Total 120 ml 360 ml 580 ml 240 ml Output Total 0 ml 0 ml 0 ml 3500 ml Balance 120 ml 360 ml 580 ml 240 ml -3500 ml Intake Oral 120 ml 360 ml 480 ml 240 ml IV Total 0 ml 100 ml 0 ml Output Urine Total 0 ml 0 ml 0 ml Hemodialysis 3500 ml # Bowel Movements 0 0 0 Result Diagram: 06/07/17 0418 06/07/17 041 Objective Remarks GENERAL: WBWN WM.NAD SKIN: Warm and dry. HEAD: Normocephalic. EYES: No scleral icterus. No injection or drainage. NECK: Supple, trachea midline. No JVD or lymphadenopathy. CARDIOVASCULAR: Regular rate and rhythm without murmurs, gallops, or rubs. RESPIRATORY: Breath sounds equal bilaterally. No accessory muscle use. Rales right lung base GASTROINTESTINAL: Abdomen soft, non-tender, nondistended. PD Cathetor MUSCULOSKELETAL: No cyanosis, or edema. BACK: Nontender without obvious deformity. No CVA tenderness. A/P Assessment and Plan Sepsis Pneumonia Hemoptysis resolved ESRD, now on HD Leucocytosis IGA Nephropathy. PLAN: Supplement 02 to keep sat >92% Abx Marco Ao and Maximesonyuin Had HD today Monitor CBC Tyler Sheehan MD Jun 07, 2017 18:14
[2017-06-07 20:31] LABS: RETIC % 1.7 % (0.4-3.0); REVIEW FLAG FINAL
--- NOTE | 2017-06-07 20:57 | MB ---
cc: ERMIAS LUCAS M.D. DATE OF CONSULTATION 06/07/[address] Menchaca. REASON FOR CONSULTATION Hematology consulted to render opinion regarding patient with worsening anemia. HISTORY OF PRESENT ILLNESS The patient is a very pleasant 26-year-old male with history of IgA nephropathy and end-stage renal disease admitted with generalized weakness, abdominal cramp and nausea, vomiting. He has been on peritoneal dialysis since December of 2015 when he presented he has a very elevated potassium level 8.2. He subsequently developed respiratory distress with fever and admitted to the Intensive Care Unit for pneumonia. He was started on hemodialysis. He has been getting Epogen with hemodialysis. During the hospital stay he had developed significant anemia. He received one unit of packed blood cells transfusion June 03 and received another 2 units today. He still is feeling tired. He has not has a bowel movement since last . He has no prior history of GI bleed. He denies any chest pain. He denies shortness of breath. He denies significant cough. He does not make any urine. PAST MEDICAL HISTORY 1. End-stage renal disease due to IgA nephropathy; he is awaiting kidney transplant. 2. Hypertension. 3. Hyperlipidemia. 4. Hypothyroidism. 5. ADHD. PAST SURGICAL HISTORY 1. Peritoneal catheter placement. 2. Perma-Cath placement. FAMILY HISTORY Noncontributory. SOCIAL HISTORY Denies tobacco or alcohol use. ALLERGIES NO KNOWN DRUG ALLERGIES. CURRENT MEDICATIONS 1. Levaquin. 2. Vancomycin. 3. DuoNeb. 4. Pepcid. 5. Epogen 15,000 units three times a week. 6. Hydralazine. 7. Clonidine. 8. Cozaar. 9. Fosrenol. 10. Amlodipine. 11. Labetalol. 12. Levothyroxine. 13. Renvela. 14. Pravastatin. REVIEW OF SYSTEMS CONSTITUTIONAL: As above. EYES: As above. Denies any blurred vision, double vision. EAR, NOSE, AND THROAT: Denies any mouth sores or voice changes. CARDIOVASCULAR: Denies any chest pressure, palpitations. RESPIRATORY: As above. GASTROINTESTINAL: Denies any nausea or vomiting or abdominal pain at this time He has not had a bowel movement since last . GENITOURINARY: He is not making any urine. MUSCULOSKELETAL: Negative. HEMATOLOGIC: As above. ENDOCRINE: Negative. DERMATOLOGIC: Negative. PSYCHIATRIC: Negative. NEUROLOGICAL: Negative. PHYSICAL EXAMINATION VITAL SIGNS: Temperature 98.2, blood pressure 140/72, O2 saturation 88% on venturi mask. GENERAL: He is alert and oriented times three, in no acute distress. HEENT: Atraumatic, normocephalic. Pupils equal, round and reactive to light. Extraocular muscles intact. No scleral icterus. Oropharynx dry mucosa, no lesion, no thrush, no mucositis. NECK: No thyromegaly, no palpable mass. LYMPHATICS: No palpable cervical, clavicular, axillary or inguinal lymph nodes. CARDIOVASCULAR: Regular S1, S2. No murmur. LUNGS: Basilar crackles more prominent on the right side. No wheezing. ABDOMEN: Soft, nontender. Peritoneal catheter noted. EXTREMITIES: No clubbing, cyanosis or edema. BACK: No paravertebral tenderness. SKIN: No rash or petechiae. The right neck Formacath site no erythema. NEUROLOGIC: Examination is nonfocal. LABORATORY DATA Reviewed. ASSESSMENT 1. Acute on chronic anemia. He has anemia due to end-stage renal disease. He has been getting Epogen with hemodialysis. He also received iron injection in the past but he could not remember when. He presented to the hospital with hemoglobin of 7.3. It trended down to 6 on June 03 and he received one unit of packed blood cell transfusion. Today it trended down to 5.5 and he received two more units of packed red blood cell transfusion. There is no apparent bleeding noted. He has not had a bowel movement since last . But he has no prior history of GI bleed. He has had a baseline anemia due to end-stage renal disease. He developed worsening anemia likely due to sepsis and bone marrow suppression. His recent iron study showed elevated ferritin level but it is difficult to interpret in the setting of sepsis. I am going to have pathology review his peripheral smear. We will check his vitamin study. We will check stool occult blood. We will also check for hemolysis but I think is less likely as his total bilirubin was normal few days ago. For now I recommend continue Epogen and transfusion as needed. If his anemia does not continue to improve after resolution of the infection we may have to consider bone marrow biopsy for further evaluation but I doubt that he has primary bone marrow disorder. 2. Leukocytosis due to sepsis. His white blood cell count has trended back down to normal. 3. Mild thrombocytopenia due to sepsis and consumptive process. His platelet counts have trended back up. 4. Sepsis / pneumonia currently on antibiotics. 5. Respiratory failure due to pneumonia. 6. End-stage renal disease due to IgA nephropathy. He presented with hyperkalemia and now on hemodialysis. 7. Hypertension, stable. 8. hyperlipidemia. 9. Hypothyroidism. RECOMMENDATIONS 1. Proceed with lab work outlined as above. 2. I agree with transfusion as needed if hemoglobin is less than 7. 3. Continue Epogen per nephrology. 4. Monitor CBC. Thank you Dr. Menchaca for asking me to see this patient. I will follow the patient with you. MD JARAD Moncada/LARRY /4:44 PM /8:31 PM LESVIA
[2017-06-07 22:05] LABS: INDIRECT BILIRUBIN 0.5 MG/DL (0.0-0.8); TOTAL BILIRUBIN ADULT 0.7 MG/DL (0.2-1.0)
[2017-06-07] MEDS: PRAVASTATIN SOD 10 MG TAB PO SCH (22:07)
[2017-06-08] VITALS (22 sets, daily range): BP systolic 142–171; BP diastolic 83–109; PULSE 63–106; RESP 18–58; TEMP 98–98.8; O2SAT 82–96
[2017-06-08] MEDS: cloNIDine HCL 0.1 MG TAB PO PRN (01:12)
[2017-06-08] MEDS: hydrALAZINE HCL 20 MG/ML VIAL IV PUSH PRN ×6 (03:22→22:26)
[2017-06-08] MEDS: RESP: ALBUTEROL 2.5 MG/IPRATROPIUM 0.5 MG NEB (SCH) NEB ×4 (03:35→21:55)
[2017-06-08] MEDS: CHLORHEXIDINE GLUCONATE 2 % 1 PACK (2 CLOTHS) TOP SCH (04:00)
--- NOTE | 2017-06-08 08:56 | HHI.NPPN ---
Subjective General Problems: Anemia, Hypertension Renal Failure: Chronic, Stage V, End Stage Renal Disease Interval History He feels much better today. He is on room air. No distress. No fever. Review of Systems General Constitutional: Fatigue Objective Data Data 06/07/17 06/08/17 19:00 07:00 Intake Total 200 ml 500 ml Output Total 3500 ml Balance -3300 ml 500 ml Intake Oral 200 ml 500 ml IV Total 0 ml Output Urine Total 0 ml Hemodialysis 3500 ml # Bowel Movements 0 1 Vital Signs Date Time Temp Pulse Resp B/P Pulse Ox O2 Delivery O2 Flow Rate FiO2 06/08/17 07:45 Nasal Cannula 3.50 06/08/17 06:00 79 06/08/17 04:00 98.6 79 18 167/101 93 06/08/17 04:00 79 06/08/17 02:00 75 06/08/17 00:00 95 06/08/17 00:00 98.5 95 58 167/96 91 06/07/17 22:00 80 06/07/17 21:27 94 Nasal Cannula 3.50 06/07/17 20:00 98.3 79 166/97 94 06/07/17 20:00 79 06/07/17 19:00 94 Nasal Cannula 3.50 06/07/17 18:00 85 06/07/17 16:00 99.1 80 169/105 06/07/17 16:00 80 06/07/17 14:00 90 06/07/17 12:00 98.2 85 47 177/97 93 06/07/17 12:00 85 06/07/17 10:00 82 -: 06/07/17 0418 06/07/17 0418 Tubes & Lines: Perma-Cath, Tenckhoff Catheter Physical Exam General Appearance: Well Developed, Well Nourished, No Acute Distress, Comfortable Eyes Eye Exam: Pupils Equal Throat Throat Exam: Oral Mucosa Waterproof & Moist Neck Neck Exam: Neck Supple Pulmonary Resp Exam: Breath Sounds Equal, No Distress, Crackles, Decreased Bases Cardiology CV Exam: Regular, Normal Sinus Rhythm, Good Perfusion Gastrointestinal/Abdomen GI Exam: Soft, Non-Tender, Bowel Sounds Present Musculoskeletal MS Exam: Joints Intact, Normal Gait, Normal Tone, Good Strength Integumentary Skin Exam: Clear, Warm, Dry, Intact Extremeties Extremities Exam: No Edema, Pedal Pulses Palpable Neurologic Neuro Exam: Alert, Awake, Oriented, Speech Clear, Moving All Extremities Psychiatric Psych Exam: Appropriate Responses Assessment/Plan Discussed Condition With: Patient Assessment Summary: Anemia of CKD, Hypertension, End Stage Renal Disease Problem List: (1) ESRD (end stage renal disease) Plan: PermCath placed 06/01 Dialysis will be continued MWF. Needs at least 4 hours of dialysis while hospitalized. He will be transitioned to nocturnal dialysis at [facility]. Living related renal transplant is planned at [place] in July. (2) Anemia Plan: Received a total of 3 units of PRBC during this admission. Epogen dose increased. Has relative Epo resistance, likely secondary to inflammation, infection. Hematology note reviewed, appreciated. No evidence of iron deficiency at this time. Continue Epogen. Minimize blood draws. (3) Pneumonia Plan: ID and pulmonary are following On Levaquin, Vancomycin to be stopped. (4) Hypertensive urgency Plan: BP control is not adequate. May need more fluid removal. Add Clonidine 0.1 mg PO BID. (5) Metabolic bone disease Plan: phosphorus level elevated but improving, he is on high doses of phosphate binder Continue Fosrenol 1000 TID and Renvela 3200 TID AC discussed foods to avoid during hospitalization obtain intermittent phosphorous level (6) Hyperkalemia Plan: Improved. Problem Qualifiers (1) Anemia: Qualified Code: N18.6 - Anemia in chronic kidney disease, on chronic dialysis Ti Davis MD Jun 08, 2017 08:56
--- NOTE | 2017-06-08 09:36 | HHI.PR ---
Subjective Remarks In bed, says he feels some improvement since yesterday . He is also complaining of dry cough, encouraged incentive spirometry. No fever or chills. No n/v/d/c. No change in vision or focal deficit. No bleeding. Still feels tired. Was not up in the chair at all. Objective Vitals Vital Signs Date Time Temp Pulse Resp B/P Pulse Ox O2 Delivery O2 Flow Rate FiO2 06/08/17 07:45 Nasal Cannula 3.50 06/08/17 06:00 79 06/08/17 04:00 98.6 79 18 167/101 93 06/08/17 04:00 79 06/08/17 02:00 75 06/08/17 00:00 95 06/08/17 00:00 98.5 95 58 167/96 91 06/07/17 22:00 80 06/07/17 21:27 94 Nasal Cannula 3.50 06/07/17 20:00 98.3 79 166/97 94 06/07/17 20:00 79 06/07/17 19:00 94 Nasal Cannula 3.50 06/07/17 18:00 85 06/07/17 16:00 99.1 80 169/105 06/07/17 16:00 80 06/07/17 14:00 90 06/07/17 12:00 98.2 85 47 177/97 93 06/07/17 12:00 85 06/07/17 10:00 82 I/O 06/07/17 06/07/17 06/07/17 06/08/17 06/08/17 06/08/17 07:00 15:00 23:00 07:00 15:00 23:00 Intake Total 240 ml 200 ml 200 ml 300 ml Output Total 0 ml 3500 ml Balance 240 ml -3300 ml 200 ml 300 ml Intake Oral 240 ml 200 ml 200 ml 300 ml IV Total 0 ml 0 ml Output Urine Total 0 ml 0 ml Hemodialysis 3500 ml # Bowel Movements 0 0 1 Result Diagram: 06/07/17 0418 06/07/17 0418 Imaging Last Impressions Chest CT 06/07/17 0000 Signed Impressions: Service Date/Time: Wednesday, June 07, 2017 15:23 - CONCLUSION: 1. Multifocal consolidation greater throughout the right upper and right middle lobes and to a lesser degree right lower lobe. 2. Patchy densities in the left upper lobe and left lower lobe. Alexis Melendez MD Abdomen/Pelvis CT 06/07/17 0000 Signed Impressions: Service Date/Time: Wednesday, June 07, 2017 15:23 - CONCLUSION: The abdomen and pelvis are unremarkable with a peritoneal dialysis catheter. The patient does have dense infiltrates in lungs particularly the right middle lobe. Tiny bilateral pleural effusions. Elian Larsen MD Chest X-Ray 06/04/17 0000 Signed Impressions: Service Date/Time: Sunday, June 04, 2017 15:28 - CONCLUSION: Interval development of right lower lobe pneumonia. Damien Gonzalez MD Shoulder MRI 06/03/17 0000 Signed Impressions: Service Date/Time: Monday, June 03, 2017 12:35 - CONCLUSION: No acute disease. Intact rotator cuff. No evidence of significant arthropathy, soft tissue swelling or bone marrow edema. Gamal Zambrano MD Central Venous Line 06/01/17 1451 Signed Impressions: Service Date/Time: May 14:51 - CONCLUSION: Uncomplicated catheter removal. Haider Quintanilla Jr., MD Catheter Placement X-Ray 06/01/17 0000 Signed Impressions: Service Date/Time: May 12:33 - CONCLUSION: Uncomplicated PermaCath placement as above. Haider Quintanilla Jr., MD Objective Remarks GENERAL: young 26 yo male, in bed, awake and alert, appears in NAD CARDIOVASCULAR: Regular rate and rhythm. Right chest wall- vas cath previous - no erythema RESPIRATORY: No accessory muscle use. Occasional rhonchi. GASTROINTESTINAL: Abdomen soft, non-tender, nondistended. Hepatic and splenic margins not palpable. MUSCULOSKELETAL: Perm cath site- tender to touch. Extremities without clubbing, cyanosis, or edema. No obvious deformities. NEUROLOGICAL: Awake and alert. No obvious cranial nerve deficits. Normal speech. Procedures 06/01- permcath A/P Assessment and Plan 26 years old male admitted for Hyperkalemia 05/30- resolved on HD ESRD Renal transplant candidate- planned for 07/29 Anemia of renal disease- Hemoglobin 5.6 feels weak. Received blood transfusion with HD 2U PRBC 06/07 - HD per Nephrology. patient received 1 unit of RBC 06/03. 2 U PRBC 06/07 - S/P Permcath placement - 06/01 - on Epogen during HD. Epogen was increased by nephrology - On Prednisone, Fosrenol, Renvela - Nephrology ff - limit blood draws Hypertension urgency - Norvasc 10 mg daily, Labetalol 300 mg tid, cozaar 100 mg daily, Hydralazine 100 mg tid - Clonidine prn, - Hydralazine when necessary -- should improved with HD. continue to adjust meds, pain contributing factor - clonidine 0.1 mg po bid - goal sbp < 180.. monitor and adjust Sepsis- New infiltrate- ?Right lower lobe with hemoptysis + leukocytosis - on Levaquin + Flagyl- started 06/04 -ID consult for recommendation =check sputum studies, blood culture Acute respiratory Failure- high 02 requirement-06/04- better now on NC- episodes of hemoptysis New infiltrate on XRay. duonebs -Pulmonary consult- evaluate for need for bronchoscopy - pulmonary management Right side prev VAS cath site pain. Permcath site pain, shoulder/infraclavicular pain - tender to touch,- slight swelling- maybe a small hematoma or slight trauma when pulled out- will get an MRI of the shoulder cath functioning well - d/w patient and family that we will observe. Prn pain meds Right shoulder pain- with range of motion -- MRI shoulder negative. I think with the perm cath in right side- patient being careful with moving and now starting to have limitation by babying it will get PT to evaluate and do range of motion exercise - prn pain meds - PT ff Hypothyroidism - Levothyroxine ADHD - Supportive care - Continue home medications DC plan: pending improvement and clearance from Deepa Delatorre MD Jun 08, 2017 09:36
--- NOTE | 2017-06-08 09:37 | HHI.IDPN ---
Subjective Subjective Remarks Patient is a 26-year-old male, admitted to the hospital for evaluation of generalized weakness, cramping, nausea and vomiting. 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 He is currently in the waiting list for renal transplant and follows up at the [facility]. On presentation patient was found to have severe hyperkalemia with a potassium of 8.2. Patient was emergently started on hemodialysis. Last night, he started having fevers, and his WBC went up to 17, 000 this morning. He was actually transferred to the intensive care unit last night because his saturation went down and he was complaining of shortness of breath.. Patient currently states that his breathing is okay. He is on nasal O2. He is undergoing hemodialysis this morning. Patient is anuric. He denies any abdominal pain. No nausea or vomiting. He has been coughing and bringing up fernandez blood-tinged sputum. Patient also has some chest discomfort on the middle of his chest when he coughs. His chest x-ray showing a new right lower lobe infiltrate. Notes reviewed Temps staying normal Sats 90-95% on RA Has cough not much phlegm Coughing is better Not SOB No other complaints Feels better Having HD Antibiotics Vanco Levaquin Lines Permacath Past Medical History Hypertension ADHD Hyperlipidemia Hypothyroidism ESRD on PD since Dec 2015 Past Surgical History Placement of a Tenckhoff catheter for PD Allergies: Coded Allergies: Keflex (Verified Allergy, Unknown, UNKNOWN- A CHILD, 04/21/17) Objective . Vital Signs Date Time Temp Pulse Resp B/P Pulse Ox O2 Delivery O2 Flow Rate FiO2 06/08/17 07:45 Nasal Cannula 3.50 06/08/17 06:00 79 06/08/17 04:00 98.6 79 18 167/101 93 06/08/17 04:00 79 06/08/17 02:00 75 06/08/17 00:00 95 06/08/17 00:00 98.5 95 58 167/96 91 06/07/17 22:00 80 06/07/17 21:27 94 Nasal Cannula 3.50 06/07/17 20:00 98.3 79 166/97 94 06/07/17 20:00 79 06/07/17 19:00 94 Nasal Cannula 3.50 06/07/17 18:00 85 06/07/17 16:00 99.1 80 169/105 06/07/17 16:00 80 06/07/17 14:00 90 06/07/17 12:00 98.2 85 47 177/97 93 06/07/17 12:00 85 06/07/17 10:00 82 06/07/17 06/07/17 06/08/17 15:00 23:00 07:00 Intake Total 200 ml 200 ml 300 ml Output Total 3500 ml Balance -3300 ml 200 ml 300 ml Intake Oral 200 ml 200 ml 300 ml IV Total 0 ml Output Urine Total 0 ml Hemodialysis 3500 ml # Bowel Movements 0 1 . Laboratory Tests Test 06/07/17 06/07/17 04:18 19:59 White Blood Count 10.5 TH/MM3 Red Blood Count 1.93 MIL/MM3 Hemoglobin 5.5 GM/DL Hematocrit 16.7 % Mean Corpuscular Volume 86.6 FL Mean Corpuscular Hemoglobin 28.7 PG Mean Corpuscular Hemoglobin 33.1 % Concent Red Cell Distribution Width 15.7 % Platelet Count 176 TH/MM3 Mean Platelet Volume 8.3 FL Neutrophils (%) (Auto) 73.7 % Lymphocytes (%) (Auto) 9.6 % Monocytes (%) (Auto) 14.9 % Eosinophils (%) (Auto) 1.1 % Basophils (%) (Auto) 0.7 % Neutrophils # (Auto) 7.8 TH/MM3 Lymphocytes # (Auto) 1.0 TH/MM3 Monocytes # (Auto) 1.6 TH/MM3 Eosinophils # (Auto) 0.1 TH/MM3 Basophils # (Auto) 0.1 TH/MM3 CBC Comment AUTO DIFF Differential Comment AUTO DIFF CONFIRMED Blood Smear Pathologist Review Reticulocyte Count 1.7 % Absolute Reticulocyte Count 44.2 MIL/L Haptoglobin 308 MG/DL Laboratory Tests Test 06/06/17 06/07/17 06/07/17 12:57 04:18 19:59 Phosphorus Level 7.1 MG/DL Sodium Level 133 MEQ/L Potassium Level 4.8 MEQ/L Chloride Level 93 MEQ/L Carbon Dioxide Level 26.8 MEQ/L Anion Gap 13 MEQ/L Blood Urea Nitrogen 97 MG/DL Creatinine 17.76 MG/DL Estimat Glomerular Filtration 3 ML/MIN Rate Random Glucose 96 MG/DL Calcium Level 9.0 MG/DL Magnesium Level 2.5 MG/DL Total Bilirubin 0.7 MG/DL Direct Bilirubin 0.2 MG/DL Indirect Bilirubin 0.5 MG/DL Aspartate Amino Transf 18 U/L (AST/SGOT) Alanine Aminotransferase 14 U/L (ALT/SGPT) Alkaline Phosphatase 72 U/L Lactate Dehydrogenase 292 U/L C-Reactive Protein 14.00 MG/DL Total Protein 6.4 GM/DL Albumin 2.7 GM/DL Vitamin B12 Level 610 PG/ML Folate 5.7 NG/ML Microbiology Date/Time Procedure Status Source Growth 06/05/17 11:12 Aerobic Blood Culture - Preliminary Resulted Blood Peripheral NO GROWTH IN 2 DAYS 06/05/17 11:12 Anaerobic Blood Culture - Preliminary Resulted Blood Peripheral NO GROWTH IN 2 DAYS 06/05/17 11:12 Aerobic Blood Culture - Preliminary Resulted Blood Peripheral NO GROWTH IN 2 DAYS 06/05/17 11:12 Anaerobic Blood Culture - Preliminary Resulted Blood Peripheral NO GROWTH IN 2 DAYS 06/05/17 11:15 Gram Stain - Final Complete Sputum Expectorated Sputum 06/05/17 11:15 Sputum Culture - Final Complete Sputum Expectorated Sputum HEAVY GROWTH NORMAL RESPIRATORY AAKASH 06/05/17 12:10 Aerobic Blood Culture - Preliminary Resulted Blood Other NO GROWTH IN 2 DAYS 06/05/17 12:10 Anaerobic Blood Culture - Preliminary Resulted Blood Other NO GROWTH IN 2 DAYS 06/05/17 12:15 Aerobic Blood Culture - Final Resulted Blood Other QNS - SEE ANAEROBE REPORT 06/05/17 12:15 Anaerobic Blood Culture - Preliminary Resulted Blood Other NO GROWTH IN 2 DAYS Imaging Chest X-Ray 06/04/17 0000 Signed Impressions: Service Date/Time: Sunday, June 04, 2017 15:28 - CONCLUSION: Interval development of right lower lobe pneumonia. KNahomy Gonzalez MD Shoulder MRI 06/03/17 0000 Signed Impressions: Service Date/Time: Saturday, June 03, 2017 12:35 - CONCLUSION: No acute disease. Intact rotator cuff. No evidence of significant arthropathy, soft tissue swelling or bone marrow edema. Gamal Zambrano MD Central Venous Line 06/01/17 1451 Signed Impressions: Service Date/Time: , June 01, 2017 14:51 - CONCLUSION: Uncomplicated catheter removal. Haider Quintanilla Jr., MD Catheter Placement X-Ray 06/01/17 0000 Signed Impressions: Service Date/Time: May 12:33 - CONCLUSION: Uncomplicated PermaCath placement as above. Haider Quintanilla Jr., MD Physical Exam GENERAL: awake and alert, not in respiratory distress. SKIN: Warm and dry. No generalized rash, no ecchymoses and no evidence of embolic lesions. HEAD: Atraumatic. Normocephalic. No temporal wasting, or tenderness. EYES: Amasa conjunctiva. No petechia or hemorrhage. No scleral icterus. No injection or drainage. EARS, NOSE AND THROAT: Nose without bleeding or purulent nasal discharge. Mucous membranes pink and moist. No oral lesions noted. NECK: Trachea midline. Supple and not tender, no meningeal signs CARDIOVASCULAR: Regular rate and rhythm. No murmurs, rubs or gallops heard RESPIRATORY: Clear to auscultation. Breath sounds equal bilaterally. No rales , wheezing or rhonchi. Decreased at bases ABDOMEN: Soft, non-tender, nondistended. Bowel sounds present and normoactive. No guarding. No rebound. No organomegaly. EXTREMITIES: No clubbing, cyanosis, or edema.No joint effusion, has good ROM. No calf tenderness. Well perfused and warm. NEUROLOGICAL: Awake and alert. Cranial nerves grossly intact. Motor grossly within normal limits. PSYCHIATRIC: Normal affect, calm and cooperative. LINE: Permacath R upper chest with blood at dressing, no evidence of infection Assessment & Plan Remarks IMPRESSION Sepsis likely due to new PNA. better Leukocytosis due to PNA, resolved ESRD previously on PD, now on HD for severe hyperkalemia on admission IgA nephropathy causing ESRD RECOMMENDATION Stop Vancomycin Continue Levaquin - give until 06/10 Monitor temps Monitor progress Clinically improving Explained plan to the patient Karla Abbott MD Jun 08, 2017 09:37
[2017-06-08] MEDS: SEVELAMER CARBONATE 800 MG TAB PO SCH ×3 (10:05→17:12)
[2017-06-08] MEDS: LANTHANUM CARBONATE 500 MG CHEWABLE TABLET PO SCH ×3 (10:05→17:12)
[2017-06-08] MEDS: cloNIDine HCL 0.1 MG TAB PO SCH ×4 (10:07→21:00)
[2017-06-08] MEDS: DOCUSATE SODIUM 50 MG/SENNA 8.6 MG TAB PO SCH ×2 (10:08→20:16)
[2017-06-08] MEDS: LEVOTHYROXINE SODIUM 50 MCG TAB PO SCH (10:08)
[2017-06-08] MEDS: FAMOTIDINE 20 MG TAB PO SCH ×2 (10:08→20:16)
[2017-06-08] MEDS: SODIUM CHLORIDE 0.9% FLUSH 10 ML FLUSH SCH ×2 (10:10→20:15)
[2017-06-08] MEDS: hydrALAZINE HCL 100 MG TAB PO SCH ×3 (10:10→17:11)
[2017-06-08] MEDS: LOSARTAN 50 MG TAB PO SCH (11:00)
[2017-06-08] MEDS: LABETALOL HCL 300 MG TAB PO SCH ×3 (11:05→17:11)
--- NOTE | 2017-06-08 14:47 | PD.ONC.PN ---
Subjective Subjective Remarks Feels better today. SOB/cough improved. Objective Data Date Time Temp Pulse Resp B/P Pulse Ox O2 Delivery O2 Flow Rate FiO2 06/08/17 07:45 Nasal Cannula 3.50 06/08/17 06:00 79 06/08/17 04:00 98.6 79 18 167/101 93 06/08/17 04:00 79 06/08/17 02:00 75 06/08/17 00:00 95 06/08/17 00:00 98.5 95 58 167/96 91 06/07/17 22:00 80 06/07/17 21:27 94 Nasal Cannula 3.50 06/07/17 20:00 98.3 79 166/97 94 06/07/17 20:00 79 06/07/17 19:00 94 Nasal Cannula 3.50 06/07/17 18:00 85 06/07/17 16:00 99.1 80 169/105 06/07/17 16:00 80 06/08/17 06/08/17 06/08/17 06:59 14:59 22:59 Intake Total 300 ml Balance 300 ml Result Diagram: 06/07/17 0418 06/07/17 0418 Laboratory Results Laboratory Tests Test 06/07/17 19:59 Blood Smear Pathologist Review Reticulocyte Count 1.7 % Absolute Reticulocyte Count 44.2 MIL/L Haptoglobin 308 MG/DL Total Bilirubin 0.7 MG/DL Direct Bilirubin 0.2 MG/DL Indirect Bilirubin 0.5 MG/DL Aspartate Amino Transf 18 U/L (AST/SGOT) Alanine Aminotransferase 14 U/L (ALT/SGPT) Alkaline Phosphatase 72 U/L Lactate Dehydrogenase 292 U/L C-Reactive Protein 14.00 MG/DL Total Protein 6.4 GM/DL Albumin 2.7 GM/DL Vitamin B12 Level 610 PG/ML Folate 5.7 NG/ML Blood Type O POSITIVE Direct Antiglobulin Test NEGATIVE (Mau) Administered Medications Medications (Trade) Dose Ordered Sig/Anny Route PRN Reason Start Time Stop Time Status Last Admin Dose Admin Amlodipine Besylate (Norvasc) 10 mg DAILY PO 05/31/17 09:00 06/08/17 10:08 Labetalol HCl (Trandate) 300 mg TID PO 05/31/17 09:00 06/08/17 13:19 Lanthanum Carbonate (Fosrenol Chew) 1,000 mg TIDPC PO 05/31/17 09:30 06/08/17 13:30 Pravastatin Sodium (Pravachol) 10 mg HS PO 05/30/17 21:00 06/07/17 22:07 Sevelamer Carbonate (Renvela) 3,200 mg TID PO 05/31/17 09:00 06/08/17 13:19 Sodium Chloride (NS Flush) 2 ml UNSCH PRN .XX FLUSH AFTER USING IV ACCESS 05/30/17 20:30 05/31/17 08:23 Sodium Chloride (NS Flush) 2 ml BID .XX 05/30/17 21:00 06/08/17 10:10 Heparin Sodium (Porcine) (Heparin Inj) 5,000 units Q8H SQ 05/30/17 20:30 Hold 05/31/17 21:23 Chlorhexidine Gluconate (Chlorhexidine 2% Cloth) Taper DAILY@04 TOP 05/31/17 04:00 05/27/18 03:59 06/08/17 04:00 Senna/Docusate Sodium (Tatiana-Colace) 1 tab BID PO 05/30/17 21:00 06/08/17 10:08 Lactulose 30 ml 30 ml DAILY PRN PO SEVERE CONSITIPATION 05/30/17 20:30 06/06/17 16:22 Sodium Chloride (NS 1000 ml Inj) 1,000 ml @ 0 mls/hr Q0M PRN IV For Prime & Rinse Back 05/31/17 09:38 06/07/17 08:18 Heparin Sodium (Porcine) (Heparin Inj) UNSCH PRN .XX WITH DIALYSIS 05/31/17 09:45 06/07/17 08:19 Gentamicin Sulfate (Gentamicin (Dialysis) Inj) 20 mg UNSCH PRN IV WITH DIALYSIS 05/31/17 09:45 06/07/17 08:19 Acetaminophen (Tylenol) 650 mg UNSCH PRN PO for headach, pain, temp > 101F 05/31/17 09:45 06/07/17 17:24 Clonidine (Catapres) 0.1 mg UNSCH PRN PO for BP > 180/100 X 2 readings 05/31/17 09:45 06/08/17 01:12 Losartan Potassium (Cozaar) 100 mg DAILY PO 05/31/17 15:00 06/08/17 11:00 Clonidine (Catapres) 0.1 mg Q12HR PO 06/02/17 10:00 06/08/17 10:07 Oxycodone/ Acetaminophen (Percocet 10-325 Mg) 1 tab Q4H PRN PO PAIN SCALE 4 TO 10 06/02/17 12:45 06/04/17 13:08 Hydralazine HCl (Apresoline) 100 mg TID PO 06/02/17 14:00 06/08/17 13:19 Epoetin Joseph (Epogen Inj) 15,000 units UNSCH PRN IV WITH DIALYSIS 06/02/17 14:15 06/07/17 08:20 Famotidine (Pepcid) 10 mg Q12HR PO 06/02/17 21:00 06/08/17 10:08 Levofloxacin (Levaquin) 500 mg Q48H PO 06/07/17 12:00 06/11/17 23:00 06/07/17 12:57 Hydralazine HCl (Apresoline Inj) 10 mg Q30M PRN IV PUSH bp>160/90 06/08/17 03:15 06/08/17 13:59 Clonidine (Catapres) 0.1 mg Q12HR PO 06/08/17 10:00 06/08/17 11:00 Objective Remarks GENERAL: Well-nourished, well-developed patient. SKIN: Warm and dry. HEAD: Normocephalic. EYES: No scleral icterus. No injection or drainage. NECK: Supple, trachea midline. No JVD or lymphadenopathy. LYMPHATIC: No adenopathy. CARDIOVASCULAR: Regular rate and rhythm without murmurs. RESPIRATORY: Breath sounds equal bilaterally. No accessory muscle use. GASTROINTESTINAL: Abdomen soft, non-tender, nondistended. EXTREMITIES: No cyanosis, or edema. MUSCULOSKELETAL: Adequate muscle tone. NEUROLOGICAL: No obvious focal deficit. Awake, alert, and oriented x3. PSYCHIATRIC: Appropriate mood and affect; insight and judgment normal. Assessment/Plan Assessment 1. Acute on chronic anemia. He has anemia due to end-stage renal disease. He has been getting Epogen with hemodialysis. He also received iron injection in the past but he could not remember when. He presented to the hospital with hemoglobin of 7.3. It trended down to 6 on June 03 and he received one unit of packed blood cell transfusion. It trended down to 5.5 06/07 and he received two more units of packed red blood cell transfusion. There is no apparent bleeding noted. He has no prior history of GI bleed. He has had a baseline anemia due to end-stage renal disease. He developed worsening anemia likely due to sepsis and bone marrow suppression. His recent iron study showed elevated ferritin level but it is difficult to interpret in the setting of sepsis. 06/08 No evidence of hemolysis or vitamin deficiency. Stool occult blood pending 2. Leukocytosis due to sepsis. His white blood cell count has trended back down to normal. 3. Mild thrombocytopenia due to sepsis and consumptive process. His platelet counts have trended back up. 4. Sepsis / pneumonia currently on antibiotics. 5. Respiratory failure due to pneumonia. Improving. 6. End-stage renal disease due to IgA nephropathy. He presented with hyperkalemia and now on hemodialysis. Plan RECOMMENDATIONS 1. Monitor CBC. 2. Transfusion as needed if hemoglobin is less than 7. 3. Continue Epogen per nephrology. Omar Monge MD Jun 08, 2017 14:47
--- NOTE | 2017-06-08 15:04 | HHI.PR ---
Subjective Remarks 26 YOWM with ESRD, on HD, sepsis, PN Hemoptysis resolved No fever On NC Breathing better Not using 02 Objective Vital Signs Vital Signs Date Time Temp Pulse Resp B/P Pulse Ox O2 Delivery O2 Flow Rate FiO2 06/08/17 07:45 Nasal Cannula 3.50 06/08/17 06:00 79 06/08/17 04:00 98.6 79 18 167/101 93 06/08/17 04:00 79 06/08/17 02:00 75 06/08/17 00:00 95 06/08/17 00:00 98.5 95 58 167/96 91 06/07/17 22:00 80 06/07/17 21:27 94 Nasal Cannula 3.50 06/07/17 20:00 98.3 79 166/97 94 06/07/17 20:00 79 06/07/17 19:00 94 Nasal Cannula 3.50 06/07/17 18:00 85 06/07/17 16:00 99.1 80 169/105 06/07/17 16:00 80 I/O 06/07/17 06/07/17 06/07/17 06/08/17 06/08/17 06/08/17 07:00 15:00 23:00 07:00 15:00 23:00 Intake Total 240 ml 200 ml 200 ml 300 ml Output Total 0 ml 3500 ml Balance 240 ml -3300 ml 200 ml 300 ml Intake Oral 240 ml 200 ml 200 ml 300 ml IV Total 0 ml 0 ml Output Urine Total 0 ml 0 ml Hemodialysis 3500 ml # Bowel Movements 0 0 1 Result Diagram: 06/07/17 0418 06/07/17 0418 Objective Remarks GENERAL: WBWN WM.NAD SKIN: Warm and dry. HEAD: Normocephalic. EYES: No scleral icterus. No injection or drainage. NECK: Supple, trachea midline. No JVD or lymphadenopathy. CARDIOVASCULAR: Regular rate and rhythm without murmurs, gallops, or rubs. RESPIRATORY: Breath sounds equal bilaterally. No accessory muscle use. Rales right lung base GASTROINTESTINAL: Abdomen soft, non-tender, nondistended. PD Cathetor MUSCULOSKELETAL: No cyanosis, or edema. BACK: Nontender without obvious deformity. No CVA tenderness. A/P Assessment and Plan Sepsis Pneumonia Hemoptysis resolved ESRD, now on HD Leucocytosis IGA Nephropathy. PLAN: Supplement 02 to keep sat >92% Abx Vanco and Levaquin Monitor CBC Stable from pulm standpoint Tyler Sheehan MD Jun 08, 2017 15:04
[2017-06-08] MEDS: oxyCODONE/ACETAMINOPHEN 10 MG/325 MG TAB PO PRN ×2 (17:11→21:22)
[2017-06-08] MEDS: PRAVASTATIN SOD 10 MG TAB PO SCH (20:15)
[2017-06-09] VITALS (16 sets, daily range): BP systolic 142–174; BP diastolic 79–105; PULSE 67–88; RESP 12–18; TEMP 97.9–98.5; O2SAT 91–98
[2017-06-09] MEDS: cloNIDine HCL 0.1 MG TAB PO SCH ×5 (01:14→21:00)
[2017-06-09] MEDS: hydrALAZINE HCL 20 MG/ML VIAL IV PUSH PRN ×4 (01:14→22:09)
[2017-06-09] MEDS: oxyCODONE/ACETAMINOPHEN 10 MG/325 MG TAB PO PRN ×2 (01:21→05:27)
[2017-06-09] MEDS: CHLORHEXIDINE GLUCONATE 2 % 1 PACK (2 CLOTHS) TOP SCH (04:00)
[2017-06-09] MEDS: RESP: ALBUTEROL 2.5 MG/IPRATROPIUM 0.5 MG NEB (PRN) INH (04:34)
[2017-06-09] MEDS: LEVOTHYROXINE SODIUM 50 MCG TAB PO SCH (05:17)
[2017-06-09 05:31] LABS: AUTOMATED NEUTROPHIL # 3.3 TH/MM3 (1.8-7.7); BASOPHIL # 0.1 TH/MM3 (0-0.2); EOSINOPHIL # 0.1 TH/MM3 (0-0.4); EOSINOPHIL % 2.6 % (0.0-4.0); HEMO FLAGS DIFF FINAL; MEAN CORPUSCULAR HEMOGLOBIN 28.3 PG (27.0-34.0); MEAN CORPUSCULAR HGB CONC 33.3 % (32.0-36.0); MONO % 18.8 % (0.0-8.0); NEUT % 59.6 % (16.0-70.0); PLATELET COUNT 250 TH/MM3 (150-450); RED CELL DISTRIBUTION WIDTH 16.5 % (11.6-17.2); WHITE BLOOD COUNT 5.6 TH/MM3 (4.0-11.0)
[2017-06-09] MEDS: DOCUSATE SODIUM 50 MG/SENNA 8.6 MG TAB PO SCH ×2 (08:15→20:40)
[2017-06-09] MEDS: LOSARTAN 50 MG TAB PO SCH (08:15)
[2017-06-09] MEDS: hydrALAZINE HCL 100 MG TAB PO SCH ×3 (08:15→18:27)
[2017-06-09] MEDS: LABETALOL HCL 300 MG TAB PO SCH ×3 (08:15→18:27)
[2017-06-09] MEDS: SEVELAMER CARBONATE 800 MG TAB PO SCH ×3 (08:16→18:00)
[2017-06-09] MEDS: SODIUM CHLORIDE 0.9% FLUSH 10 ML FLUSH SCH ×2 (08:16→20:38)
[2017-06-09] MEDS: LANTHANUM CARBONATE 500 MG CHEWABLE TABLET PO SCH ×3 (08:16→18:27)
[2017-06-09] MEDS: FAMOTIDINE 20 MG TAB PO SCH ×2 (08:16→20:40)
--- NOTE | 2017-06-09 09:44 | HHI.IDPN ---
Subjective Subjective Remarks Patient is a 26-year-old male, admitted to the hospital for evaluation of generalized weakness, cramping, nausea and vomiting. 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 He is currently in the waiting list for renal transplant and follows up at the [facility]. On presentation patient was found to have severe hyperkalemia with a potassium of 8.2. Patient was emergently started on hemodialysis. Last night, he started having fevers, and his WBC went up to 17, 000 this morning. He was actually transferred to the intensive care unit last night because his saturation went down and he was complaining of shortness of breath.. Patient currently states that his breathing is okay. He is on nasal O2. He is undergoing hemodialysis this morning. Patient is anuric. He denies any abdominal pain. No nausea or vomiting. He has been coughing and bringing up fernandez blood-tinged sputum. Patient also has some chest discomfort on the middle of his chest when he coughs. His chest x-ray showing a new right lower lobe infiltrate. Notes reviewed Temps staying normal Sats 90-95% on RA Breathing is better Having HD this morning Not SOB No other complaints Hgb up to 7 Antibiotics Levaquin Lines Permacath Past Medical History Hypertension ADHD Hyperlipidemia Hypothyroidism ESRD on PD since Dec 2015 Past Surgical History Placement of a Tenckhoff catheter for PD Allergies: Coded Allergies: Keflex (Verified Allergy, Unknown, UNKNOWN- A CHILD, 04/21/17) Objective . Vital Signs Date Time Temp Pulse Resp B/P Pulse Ox O2 Delivery O2 Flow Rate FiO2 06/09/17 06:27 18 06/09/17 06:00 73 06/09/17 04:00 71 06/09/17 04:00 98.1 71 18 160/97 94 06/09/17 02:00 71 06/09/17 00:00 72 06/09/17 00:00 97.9 72 16 163/88 95 06/08/17 22:00 66 06/08/17 21:55 Nasal Cannula 3.50 06/08/17 20:00 63 06/08/17 20:00 98.0 63 18 143/90 94 06/08/17 19:00 95 Nasal Cannula 3.00 06/08/17 18:00 73 142/83 06/08/17 17:14 75 159/96 96 06/08/17 17:00 69 163/100 82 06/08/17 16:00 98.3 77 159/90 06/08/17 15:00 79 155/95 06/08/17 14:00 78 156/101 06/08/17 13:58 78 171/105 06/08/17 13:24 80 161/94 91 06/08/17 13:00 77 161/102 06/08/17 12:00 106 151/83 06/08/17 11:00 87 165/99 96 06/08/17 09:53 86 169/109 06/08/17 06/08/17 06/09/17 15:00 23:00 07:00 Intake Total 550 ml 240 ml Output Total 0 ml 0 ml Balance 550 ml 240 ml Intake Oral 540 ml 240 ml IV Total 10 ml 0 ml Output Urine Total 0 ml 0 ml # Bowel Movements 0 0 . Laboratory Tests Test 06/07/17 06/09/17 19:59 04:41 Blood Smear Pathologist Review Reticulocyte Count 1.7 % Absolute Reticulocyte Count 44.2 MIL/L Haptoglobin 308 MG/DL White Blood Count 5.6 TH/MM3 Red Blood Count 2.70 MIL/MM3 Hemoglobin 7.7 GM/DL Hematocrit 23.0 % Mean Corpuscular Volume 85.0 FL Mean Corpuscular Hemoglobin 28.3 PG Mean Corpuscular Hemoglobin 33.3 % Concent Red Cell Distribution Width 16.5 % Platelet Count 250 TH/MM3 Mean Platelet Volume 8.0 FL Neutrophils (%) (Auto) 59.6 % Lymphocytes (%) (Auto) 18.0 % Monocytes (%) (Auto) 18.8 % Eosinophils (%) (Auto) 2.6 % Basophils (%) (Auto) 1.0 % Neutrophils # (Auto) 3.3 TH/MM3 Lymphocytes # (Auto) 1.0 TH/MM3 Monocytes # (Auto) 1.0 TH/MM3 Eosinophils # (Auto) 0.1 TH/MM3 Basophils # (Auto) 0.1 TH/MM3 CBC Comment DIFF FINAL Differential Comment Laboratory Tests Test 06/07/17 19:59 Total Bilirubin 0.7 MG/DL Direct Bilirubin 0.2 MG/DL Indirect Bilirubin 0.5 MG/DL Aspartate Amino Transf 18 U/L (AST/SGOT) Alanine Aminotransferase 14 U/L (ALT/SGPT) Alkaline Phosphatase 72 U/L Lactate Dehydrogenase 292 U/L C-Reactive Protein 14.00 MG/DL Total Protein 6.4 GM/DL Albumin 2.7 GM/DL Vitamin B12 Level 610 PG/ML Folate 5.7 NG/ML Imaging Chest X-Ray 06/04/17 0000 Signed Impressions: Service Date/Time: Sunday, June 04, 2017 15:28 - CONCLUSION: Interval development of right lower lobe pneumonia. KNahomy Gonzalez MD Shoulder MRI 06/03/17 0000 Signed Impressions: Service Date/Time: Saturday, June 03, 2017 12:35 - CONCLUSION: No acute disease. Intact rotator cuff. No evidence of significant arthropathy, soft tissue swelling or bone marrow edema. Gamal Zambrano MD Central Venous Line 06/01/17 1451 Signed Impressions: Service Date/Time: , June 01, 2017 14:51 - CONCLUSION: Uncomplicated catheter removal. Haider Quintanilla Jr., MD Catheter Placement X-Ray 06/01/17 0000 Signed Impressions: Service Date/Time: May 12:33 - CONCLUSION: Uncomplicated PermaCath placement as above. Haider Quintanilla Jr., MD Physical Exam GENERAL: awake and alert, not in respiratory distress. SKIN: Warm and dry. No generalized rash HEAD: Atraumatic. Normocephalic. No temporal wasting, or tenderness. EYES: [place] conjunctiva. No petechia or hemorrhage. No scleral icterus. No injection or drainage. EARS, NOSE AND THROAT: Nose without bleeding or purulent nasal discharge. Mucous membranes pink and moist. No oral lesions noted. NECK: Trachea midline. Supple and not tender, no meningeal signs CARDIOVASCULAR: Regular rate and rhythm. No murmurs, rubs or gallops heard RESPIRATORY: Clear to auscultation. No rales, wheezing or rhonchi. Decreased at bases ABDOMEN: Soft, non-tender, nondistended. Bowel sounds present and normoactive. No guarding. No rebound. No organomegaly. EXTREMITIES: No clubbing, cyanosis, or edema. No joint effusion, has good ROM. No calf tenderness. Well perfused and warm. NEUROLOGICAL: Non-focal. PSYCHIATRIC: Normal affect, calm and cooperative. LINE: Permacath R upper chest with blood at dressing, no evidence of infection Assessment & Plan Remarks IMPRESSION Sepsis likely due to new PNA. better Leukocytosis due to PNA, resolved ESRD previously on PD, now on HD for severe hyperkalemia on admission IgA nephropathy causing ESRD RECOMMENDATION Continue Levaquin - give until 06/10 - end date ordered in [employer] Monitor temps Monitor progress Clinically improving Patient is clinically stable and doing well from ID standpoint I will be available prn Please call if with any new ID issue or question Karla Abbott MD Jun 09, 2017 09:44
[2017-06-09] MEDS: GENTAMICIN SULFATE (DIALYSIS USE ONLY) 20 MG/2 ML VIAL IV PRN (10:18)
[2017-06-09] MEDS: HEPARIN SODIUM - IV 10,000 UNITS/10 ML VIAL PRN (10:18)
[2017-06-09] MEDS: EPOETIN ALFA 10,000 UNITS/ML VIAL IV PRN (10:18)
[2017-06-09] MEDS: SODIUM CHLOR 0.9% 1000 ML INJ 1,000 ML IV PRN (10:19)
--- NOTE | 2017-06-09 10:35 | RADRPT ---
EXAM DATE/TIME: 06/09/2017 09:52 [place] COMPARISON: CT THORAX W/O CONTRAST, June 07, 2017, 15:23. CHEST SINGLE AP, June 04, 2017, 15:28. INDICATIONS : Coughing, short of breath MEDICAL HISTORY : Diabetes mellitus type II. Hypertension dialysis patient SURGICAL HISTORY : Appendectomy. PD catheter, Permcath ENCOUNTER: Subsequent ACUITY: 1 week PAIN SCORE: 3/10 LOCATION: Bilateral chest FINDINGS: Portable AP view of the chest demonstrates a normal-sized cardiac silhouette. Tunneled right IJ dialy sis catheter remains present with tips in the right atrium. There is airspace consolidation in the ri ght mid and lower lung zone. No pleural effusion or pneumothorax is identified. CONCLUSION: Persistent but slightly improved airspace consolidation in the right mid and lower lung zone. Lowell Byrd MD on June 09, 2017 at 10:32 Board Certified Radiologist. This report was verified electronically.
--- NOTE | 2017-06-09 12:58 | HHI.PR ---
Subjective Remarks The patient was seen earlier today, he appears sleepy. He is getting dialysis. He doesn't feel short of breath at this time. However he feels very tired. No lightheadedness. Denies nausea, vomiting, diarrhea or constipation. No fever or chills. Has a nonproductive cough. Shortness of breath at baseline, however worse especially with movement. Hemoglobin 7.6 today Objective Vitals Vital Signs Date Time Temp Pulse Resp B/P Pulse Ox O2 Delivery O2 Flow Rate FiO2 06/09/17 11:00 76 153/99 06/09/17 10:18 21 06/09/17 10:00 78 151/100 06/09/17 09:00 67 174/105 06/09/17 08:15 98.2 72 164/105 94 06/09/17 08:00 Nasal Cannula 2.00 06/09/17 07:00 71 151/91 06/09/17 06:27 18 06/09/17 06:00 73 06/09/17 04:00 71 06/09/17 04:00 98.1 71 18 160/97 94 06/09/17 02:00 71 06/09/17 00:00 72 06/09/17 00:00 97.9 72 16 163/88 95 06/08/17 22:00 66 06/08/17 21:55 Nasal Cannula 3.50 06/08/17 20:00 63 06/08/17 20:00 98.0 63 18 143/90 94 06/08/17 19:00 95 Nasal Cannula 3.00 06/08/17 18:00 73 142/83 06/08/17 17:14 75 159/96 96 06/08/17 17:00 69 163/100 82 06/08/17 16:00 98.3 77 159/90 06/08/17 15:00 79 155/95 06/08/17 14:00 78 156/101 06/08/17 13:58 78 171/105 06/08/17 13:24 80 161/94 91 06/08/17 13:00 77 161/102 I/O 06/08/17 06/08/17 06/08/17 06/09/17 06/09/17 06/09/17 07:00 15:00 23:00 07:00 15:00 23:00 Intake Total 300 ml 550 ml 240 ml Output Total 0 ml 0 ml Balance 300 ml 550 ml 240 ml Intake Oral 300 ml 540 ml 240 ml IV Total 10 ml 0 ml Output Urine Total 0 ml 0 ml # Bowel Movements 0 0 Result Diagram: 06/09/17 0441 06/07/17 0418 Imaging Last Impressions Chest X-Ray 06/09/17 0000 Signed Impressions: Service Date/Time: Friday, June 09, 2017 09:52 - CONCLUSION: Persistent but slightly improved airspace consolidation in the right mid and lower lung zone. Lowell Byrd MD Chest CT 06/07/17 0000 Signed Impressions: Service Date/Time: Wednesday, June 07, 2017 15:23 - CONCLUSION: 1. Multifocal consolidation greater throughout the right upper and right middle lobes and to a lesser degree right lower lobe. 2. Patchy densities in the left upper lobe and left lower lobe. Alexis Melendez MD Abdomen/Pelvis CT 06/07/17 0000 Signed Impressions: Service Date/Time: Wednesday, June 07, 2017 15:23 - CONCLUSION: The abdomen and pelvis are unremarkable with a peritoneal dialysis catheter. The patient does have dense infiltrates in lungs particularly the right middle lobe. Tiny bilateral pleural effusions. Elian Larsen MD Shoulder MRI 06/03/17 0000 Signed Impressions: Service Date/Time: Saturday, June 03, 2017 12:35 - CONCLUSION: No acute disease. Intact rotator cuff. No evidence of significant arthropathy, soft tissue swelling or bone marrow edema. Gamal Zambrano MD Central Venous Line 06/01/17 1451 Signed Impressions: Service Date/Time: May 14:51 - CONCLUSION: Uncomplicated catheter removal. Haider Quintanilla Jr., MD Catheter Placement X-Ray 06/01/17 0000 Signed Impressions: Service Date/Time: May 12:33 - CONCLUSION: Uncomplicated PermaCath placement as above. Haider Quintanilla Jr., MD Objective Remarks GENERAL: young 26 yo male, in bed, awake and alert, appears in NAD CARDIOVASCULAR: Regular rate and rhythm. Right chest wall- vas cath previous - no erythema RESPIRATORY: No accessory muscle use. Occasional rhonchi. GASTROINTESTINAL: Abdomen soft, non-tender, nondistended. Hepatic and splenic margins not palpable. MUSCULOSKELETAL: Perm cath site- tender to touch. Extremities without clubbing, cyanosis, or edema. No obvious deformities. NEUROLOGICAL: Awake and alert. No obvious cranial nerve deficits. Normal speech. Procedures 06/01- permcath A/P Assessment and Plan 26 years old male admitted for Hyperkalemia 05/30- resolved on HD ESRD Renal transplant candidate- planned for 07/29 Anemia of renal disease- Hemoglobin 5.6 feels weak. Received blood transfusion with HD 2U PRBC 06/07 - HD per Nephrology. patient received 1 unit of RBC 06/03. 2 U PRBC 06/07 - S/P Permcath placement - 06/01 - on Epogen during HD. Epogen was increased by nephrology - On Prednisone, Fosrenol, Renvela - Nephrology ff - limit blood draws Hypertension urgency - Norvasc 10 mg daily, Labetalol 300 mg tid, cozaar 100 mg daily, Hydralazine 100 mg tid - Clonidine prn, - Hydralazine when necessary -- should improved with HD. continue to adjust meds, pain contributing factor - clonidine 0.1 mg po bid - goal sbp < 180.. monitor and adjust Sepsis- New infiltrate- ?Right lower lobe with hemoptysis + leukocytosis - on Levaquin + Flagyl- started 06/04 -ID consult for recommendation =check sputum studies, blood culture Acute respiratory Failure- high 02 requirement-06/04- better now on NC- episodes of hemoptysis New infiltrate on XRay. duonebs -Pulmonary consult- evaluate for need for bronchoscopy - pulmonary management Right side prev VAS cath site pain. Permcath site pain, shoulder/infraclavicular pain - tender to touch,- slight swelling- maybe a small hematoma or slight trauma when pulled out- will get an MRI of the shoulder cath functioning well - d/w patient and family that we will observe. Prn pain meds Right shoulder pain- with range of motion -- MRI shoulder negative. I think with the perm cath in right side- patient being careful with moving and now starting to have limitation by babying it will get PT to evaluate and do range of motion exercise - prn pain meds - PT ff Hypothyroidism - Levothyroxine ADHD - Supportive care - Continue home medications DC plan: pending improvement and clearance from Deepa Delatorre MD Jun 09, 2017 12:58
--- NOTE | 2017-06-09 13:25 | PD.ONC.PN ---
Subjective Subjective Remarks Afebrile overnight. Patient just back from dialysis. He received epogen with dialysis. He states "I feel fine." Objective Data Date Time Temp Pulse Resp B/P Pulse Ox O2 Delivery O2 Flow Rate FiO2 06/09/17 11:00 76 153/99 06/09/17 10:18 21 06/09/17 10:00 78 151/100 06/09/17 09:00 67 174/105 06/09/17 08:15 98.2 72 164/105 94 06/09/17 08:00 Nasal Cannula 2.00 06/09/17 07:00 71 151/91 06/09/17 06:27 18 06/09/17 06:00 73 06/09/17 04:00 71 06/09/17 04:00 98.1 71 18 160/97 94 06/09/17 02:00 71 06/09/17 00:00 72 06/09/17 00:00 97.9 72 16 163/88 95 06/08/17 22:00 66 06/08/17 21:55 Nasal Cannula 3.50 06/08/17 20:00 63 06/08/17 20:00 98.0 63 18 143/90 94 06/08/17 19:00 95 Nasal Cannula 3.00 06/08/17 18:00 73 142/83 06/08/17 17:14 75 159/96 96 06/08/17 17:00 69 163/100 82 06/08/17 16:00 98.3 77 159/90 06/08/17 15:00 79 155/95 06/08/17 14:00 78 156/101 06/08/17 13:58 78 171/105 06/08/17 13:24 80 161/94 91 06/09/17 06/09/17 06/09/17 07:00 15:00 23:00 Intake Total 240 ml Output Total 0 ml 5000 ml Balance 240 ml -5000 ml Result Diagram: 06/09/17 0441 06/07/17 0418 Laboratory Results Laboratory Tests Test 06/09/17 04:41 White Blood Count 5.6 TH/MM3 Red Blood Count 2.70 MIL/MM3 Hemoglobin 7.7 GM/DL Hematocrit 23.0 % Mean Corpuscular Volume 85.0 FL Mean Corpuscular Hemoglobin 28.3 PG Mean Corpuscular Hemoglobin 33.3 % Concent Red Cell Distribution Width 16.5 % Platelet Count 250 TH/MM3 Mean Platelet Volume 8.0 FL Neutrophils (%) (Auto) 59.6 % Lymphocytes (%) (Auto) 18.0 % Monocytes (%) (Auto) 18.8 % Eosinophils (%) (Auto) 2.6 % Basophils (%) (Auto) 1.0 % Neutrophils # (Auto) 3.3 TH/MM3 Lymphocytes # (Auto) 1.0 TH/MM3 Monocytes # (Auto) 1.0 TH/MM3 Eosinophils # (Auto) 0.1 TH/MM3 Basophils # (Auto) 0.1 TH/MM3 CBC Comment DIFF FINAL Differential Comment Imaging Studies Last 24 hours Impressions Chest X-Ray 06/09/17 0000 Signed Impressions: Service Date/Time: Friday, June 09, 2017 09:52 - CONCLUSION: Persistent but slightly improved airspace consolidation in the right mid and lower lung zone. Lowell Byrd MD Administered Medications Medications (Trade) Dose Ordered Sig/Anny Route PRN Reason Start Time Stop Time Status Last Admin Dose Admin Amlodipine Besylate (Norvasc) 10 mg DAILY PO 05/31/17 09:00 06/09/17 08:15 Labetalol HCl (Trandate) 300 mg TID PO 05/31/17 09:00 06/09/17 08:15 Lanthanum Carbonate (Fosrenol Chew) 1,000 mg TIDPC PO 05/31/17 09:30 06/08/17 13:30 Pravastatin Sodium (Pravachol) 10 mg HS PO 05/30/17 21:00 06/08/17 20:15 Sevelamer Carbonate (Renvela) 3,200 mg TID PO 05/31/17 09:00 06/08/17 13:19 Sodium Chloride (NS Flush) 2 ml UNSCH PRN .XX FLUSH AFTER USING IV ACCESS 05/30/17 20:30 05/31/17 08:23 Sodium Chloride (NS Flush) 2 ml BID .XX 05/30/17 21:00 06/09/17 08:16 Heparin Sodium (Porcine) (Heparin Inj) 5,000 units Q8H SQ 05/30/17 20:30 Hold 05/31/17 21:23 Chlorhexidine Gluconate (Chlorhexidine 2% Cloth) Taper DAILY@04 TOP 05/31/17 04:00 05/27/18 03:59 06/09/17 04:00 Senna/Docusate Sodium (Tatiana-Colace) 1 tab BID PO 05/30/17 21:00 06/09/17 08:15 Lactulose 30 ml 30 ml DAILY PRN PO SEVERE CONSITIPATION 05/30/17 20:30 06/06/17 16:22 Sodium Chloride (NS 1000 ml Inj) 1,000 ml @ 0 mls/hr Q0M PRN IV For Prime & Rinse Back 05/31/17 09:38 06/09/17 10:19 Heparin Sodium (Porcine) (Heparin Inj) UNSCH PRN .XX WITH DIALYSIS 05/31/17 09:45 06/09/17 10:18 Gentamicin Sulfate (Gentamicin (Dialysis) Inj) 20 mg UNSCH PRN IV WITH DIALYSIS 05/31/17 09:45 06/09/17 10:18 Ondansetron HCl (Zofran Inj) 4 mg UNSCH PRN IV WITH DIALYSIS 05/31/17 09:45 06/08/17 20:15 Acetaminophen (Tylenol) 650 mg UNSCH PRN PO for headach, pain, temp > 101F 05/31/17 09:45 06/07/17 17:24 Clonidine (Catapres) 0.1 mg UNSCH PRN PO for BP > 180/100 X 2 readings 05/31/17 09:45 06/08/17 01:12 Losartan Potassium (Cozaar) 100 mg DAILY PO 05/31/17 15:00 06/09/17 08:15 Clonidine (Catapres) 0.1 mg Q12HR PO 06/02/17 10:00 06/09/17 01:14 Oxycodone/ Acetaminophen (Percocet 10-325 Mg) 1 tab Q4H PRN PO PAIN SCALE 4 TO 10 06/02/17 12:45 06/09/17 05:27 Hydralazine HCl (Apresoline) 100 mg TID PO 06/02/17 14:00 06/09/17 08:15 Epoetin Joseph (Epogen Inj) 15,000 units UNSCH PRN IV WITH DIALYSIS 06/02/17 14:15 06/09/17 10:18 Famotidine (Pepcid) 10 mg Q12HR PO 06/02/17 21:00 06/09/17 08:16 Levofloxacin (Levaquin) 500 mg Q48H PO 06/07/17 12:00 06/11/17 23:00 06/07/17 12:57 Hydralazine HCl (Apresoline Inj) 10 mg Q30M PRN IV PUSH bp>160/90 06/08/17 03:15 06/09/17 05:17 Clonidine (Catapres) 0.1 mg Q12HR PO 06/08/17 10:00 06/08/17 20:26 Levothyroxine Sodium (Synthroid) 50 mcg DAILY@06 PO 06/09/17 06:00 06/09/17 05:17 Objective Remarks GENERAL: Young man, upright in bed in nad SKIN: Warm and dry. right SC in place, no bleeding. HEAD: Normocephalic. EYES: No injection or drainage. NECK: Supple, trachea midline. CARDIOVASCULAR: Regular rate and rhythm. RESPIRATORY: Breath sounds equal bilaterally. No accessory muscle use. GASTROINTESTINAL: Abdomen soft, non-tender, nondistended. EXTREMITIES: No cyanosis NEUROLOGICAL: No obvious focal deficit. Awake, alert, and oriented x3. Assessment/Plan Problem List: (1) Acute on chronic anemia Status: Acute Plan: --recommend transfusion if hgb less than 7 -- has anemia due to end-stage renal disease. -- Epogen with hemodialysis. --no apparent bleeding noted. no prior history of GI bleed. --has had a baseline anemia due to end-stage renal disease and developed worsening anemia likely due to sepsis and bone marrow suppression. --No evidence of hemolysis or vitamin deficiency. Stool occult blood pending (2) Sepsis Status: Acute Plan: --Sepsis / pneumonia --currently on antibiotics. Assessment 26-year-old male with history of IgA nephropathy and end-stage renal disease admitted with generalized weakness, abdominal cramp and nausea, vomiting. He has been on peritoneal dialysis since December of 2015 when he presented he has a very elevated potassium level 8.2. He subsequently developed respiratory distress with fever and admitted to the Intensive Care Unit for pneumonia. He was started on hemodialysis. He has been getting Epogen with hemodialysis. During the hospital stay he had developed significant anemia. h/o End-stage renal disease due to IgA nephropathy; he is awaiting kidney transplant. Hypertension. Hyperlipidemia. Hypothyroidism. ADHD. Plan 1. monitor CBC 2. supportive care 3. continue Epogen 4. transfuse if hgb less than 7 Attending Statement The exam, history, and the medical decision-making described in the above note were completed with the assistance of the mid-level provider. I reviewed and agree with the findings presented. I attest that I had a [id number] encounter with the patient on the same day, and personally performed and documented my assessment and findings in the medical record. Feeling better. SOB/COUGH improved. Hgb up to 7.7 after transfusion. Anemia likely due to ESRD and sepsis. Continue to monitor CBC and transfuse if Hgb <7. Continue Epogen with dialysis. Genesis Kurtz Jun 09, 2017 13:25 Omar Monge MD Jun 09, 2017 14:35
--- NOTE | 2017-06-09 13:53 | HHI.NPPN ---
Subjective General Problems: Anemia, Hypertension Renal Failure: Chronic, Stage V, End Stage Renal Disease Interval History Dialyzed earlier today. He was sleeping soundly. He is afebrile and feeling better. (Ginette Ramsey) Review of Systems General Constitutional: Fatigue (Ginette Ramsey) Objective Data Data 06/08/17 06/09/17 19:00 07:00 Intake Total 370 ml 420 ml Output Total 0 ml 0 ml Balance 370 ml 420 ml Intake Oral 360 ml 420 ml IV Total 10 ml 0 ml Output Urine Total 0 ml 0 ml # Bowel Movements 0 0 Vital Signs Date Time Temp Pulse Resp B/P Pulse Ox O2 Delivery O2 Flow Rate FiO2 06/09/17 11:00 76 153/99 06/09/17 10:18 21 06/09/17 10:00 78 151/100 06/09/17 09:00 67 174/105 06/09/17 08:15 98.2 72 164/105 94 06/09/17 08:00 Nasal Cannula 2.00 06/09/17 07:00 71 151/91 06/09/17 06:27 18 06/09/17 06:00 73 06/09/17 04:00 71 06/09/17 04:00 98.1 71 18 160/97 94 06/09/17 02:00 71 06/09/17 00:00 72 06/09/17 00:00 97.9 72 16 163/88 95 06/08/17 22:00 66 06/08/17 21:55 Nasal Cannula 3.50 06/08/17 20:00 63 06/08/17 20:00 98.0 63 18 143/90 94 06/08/17 19:00 95 Nasal Cannula 3.00 06/08/17 18:00 73 142/83 06/08/17 17:14 75 159/96 96 06/08/17 17:00 69 163/100 82 06/08/17 16:00 98.3 77 159/90 06/08/17 15:00 79 155/95 06/08/17 14:00 78 156/101 06/08/17 13:58 78 171/105 (Ginette Ramsey) -: 06/09/17 0441 06/07/17 0418 Imaging Last 72 hours Impressions Chest X-Ray 06/09/17 0000 Signed Impressions: Service Date/Time: Friday, June 09, 2017 09:52 - CONCLUSION: Persistent but slightly improved airspace consolidation in the right mid and lower lung zone. Lowell Byrd MD Chest CT 06/07/17 0000 Signed Impressions: Service Date/Time: Wednesday, June 07, 2017 15:23 - CONCLUSION: 1. Multifocal consolidation greater throughout the right upper and right middle lobes and to a lesser degree right lower lobe. 2. Patchy densities in the left upper lobe and left lower lobe. Alexis Melendez MD Abdomen/Pelvis CT 06/07/17 0000 Signed Impressions: Service Date/Time: Wednesday, June 07, 2017 15:23 - CONCLUSION: The abdomen and pelvis are unremarkable with a peritoneal dialysis catheter. The patient does have dense infiltrates in lungs particularly the right middle lobe. Tiny bilateral pleural effusions. Elian Larsen MD Tubes & Lines: Perma-Cath, Tenckhoff Catheter (Ginette Ramsey B. [employer]EM[employer]) Physical Exam General Appearance: Well Developed, Well Nourished, No Acute Distress, Comfortable ( RoxyGinette B. [employer]EM[employer]) Eyes Eye Exam: Pupils Equal (RoxyGinette B. [employer]) Throat Throat Exam: Oral Mucosa [place] & Moist (RoxyGinette B. [employer] FOREM[employer]) Neck Neck Exam: Neck Supple (RoxyGinette B. [employer] FOREM[employer]) Pulmonary Resp Exam: Breath Sounds Equal, No Distress, Crackles, Decreased Bases Resp Remarks right lower rales (RoxyGinette B. [employer]EM[employer]) Cardiology CV Exam: Regular, Normal Sinus Rhythm, Good Perfusion (RoxyGinette B. [employer]EM[employer]) Gastrointestinal/Abdomen GI Exam: Soft, Non-Tender, Bowel Sounds Present GI Remarks Pd catheter in place (RoxyGinette B. [employer] FOREM[employer]) Musculoskeletal MS Exam: Joints Intact, Normal Gait, Normal Tone, Good Strength (Roxy Ginette B. [employer]IAL FOREM[employer]) Integumentary Skin Exam: Clear, Warm, Dry, Intact (RoxyGinette B. [employer]EM[employer]) Extremeties Extremities Exam: No Edema, Pedal Pulses Palpable (Ginette Ramsey B. [employer] FOREM[employer]) Neurologic Neuro Exam: Alert, Awake, Oriented, Speech Clear, Moving All Extremities ( Ginette Ramsey) Psychiatric Psych Exam: Appropriate Responses (Ginette Ramsey) Assessment/Plan Discussed Condition With: Patient Assessment Summary: Anemia of CKD, Hypertension, End Stage Renal Disease Problem List: (1) ESRD (end stage renal disease) Plan: PermCath placed 06/01 Dialysis will be continued MWF. He does 4 hour treatments while hospitalized. Needs at least 4 hours of dialysis while hospitalized. He will be transitioned to nocturnal dialysis at [facility]. Arrangements are complete. Living related renal transplant is planned at [place] in July. (2) Anemia Plan: Received a total of 3 units of PRBC during this admission. Continue Epogen, may have resistance. Hematology note reviewed, appreciated. No evidence of iron deficiency Minimize blood draws. hematology has evaluated, follow CBC (3) Pneumonia Plan: ID and pulmonary are following On Levaquin only. (4) Hypertensive urgency Plan: increased fluid removal with HD today medications changed, he is on hydralazine and clonidine (5) Metabolic bone disease Plan: Continue Fosrenol 1000 TID and Renvela 3200 TID AC discussed foods to avoid during hospitalization obtain intermittent phosphorous level (6) Hyperkalemia Plan: Improved. (Ginette Ramsey) Plan patient was seen and examined. Agree with above assessment and plan. (Ti Davis MD) Problem Qualifiers (1) Anemia: Qualified Code: N18.6 - Anemia in chronic kidney disease, on chronic dialysis Ginette Ramsey Jun 09, 2017 13:53 Ti Davis MD Jun 09, 2017 14:13
[2017-06-09] MEDS: LEVOFLOXACIN 500 MG TAB PO SCH (15:29)
--- NOTE | 2017-06-09 18:12 | HHI.PR ---
Subjective Remarks 26 YOWM with ESRD, on HD, sepsis, PN Hemoptysis resolved No fever On NC Had HD today, tired Breathing better Objective Vital Signs Vital Signs Date Time Temp Pulse Resp B/P Pulse Ox O2 Delivery O2 Flow Rate FiO2 06/09/17 17:00 78 152/86 96 06/09/17 16:00 98.4 81 156/89 06/09/17 15:17 84 159/101 91 06/09/17 13:00 75 15 169/102 98 06/09/17 12:00 68 12 157/100 94 06/09/17 11:00 76 153/99 06/09/17 10:18 21 06/09/17 10:00 78 151/100 06/09/17 09:00 67 174/105 06/09/17 08:15 98.2 72 164/105 94 06/09/17 08:00 Nasal Cannula 2.00 06/09/17 07:00 71 151/91 06/09/17 06:27 18 06/09/17 06:00 73 06/09/17 04:00 71 06/09/17 04:00 98.1 71 18 160/97 94 06/09/17 02:00 71 06/09/17 00:00 72 06/09/17 00:00 97.9 72 16 163/88 95 06/08/17 22:00 66 06/08/17 21:55 Nasal Cannula 3.50 06/08/17 20:00 63 06/08/17 20:00 98.0 63 18 143/90 94 06/08/17 19:00 95 Nasal Cannula 3.00 I/O 06/08/17 06/08/17 06/08/17 06/09/17 06/09/17 06/09/17 06:59 14:59 22:59 06:59 14:59 22:59 Intake Total 300 ml 550 ml 240 ml 360 ml Output Total 0 ml 0 ml 5000 ml 0 ml Balance 300 ml 550 ml 240 ml -5000 ml 360 ml Intake Oral 300 ml 540 ml 240 ml 360 ml IV Total 10 ml 0 ml 0 ml Output Urine Total 0 ml 0 ml 0 ml Emesis 0 ml Hemodialysis 5000 ml # Bowel Movements 0 0 0 Result Diagram: 06/09/17 0441 06/07/17 0418 Objective Remarks GENERAL: WBWN WM.NAD SKIN: Warm and dry. HEAD: Normocephalic. EYES: No scleral icterus. No injection or drainage. NECK: Supple, trachea midline. No JVD or lymphadenopathy. CARDIOVASCULAR: Regular rate and rhythm without murmurs, gallops, or rubs. RESPIRATORY: Breath sounds equal bilaterally. No accessory muscle use. Rales right lung base GASTROINTESTINAL: Abdomen soft, non-tender, nondistended. PD Cathetor MUSCULOSKELETAL: No cyanosis, or edema. BACK: Nontender without obvious deformity. No CVA tenderness. A/P Assessment and Plan Sepsis Pneumonia Hemoptysis resolved ESRD, now on HD Leucocytosis IGA Nephropathy. PLAN: Supplement 02 to keep sat >92% Abx Levaquin until 06/10 Monitor CBC Stable from pulm standpoint Available prn over weekend. Tyler Sheehan MD Jun 09, 2017 18:12
[2017-06-09] MEDS: LACTULOSE SYRUP 20 GM/30 ML CUP PO PRN (18:27)
[2017-06-09] MEDS: PRAVASTATIN SOD 10 MG TAB PO SCH (20:40)
[2017-06-10] VITALS (13 sets, daily range): BP systolic 137–180; BP diastolic 82–123; PULSE 66–88; RESP 16–20; TEMP 97.9–98.5; O2SAT 92–97
[2017-06-10] MEDS: hydrALAZINE HCL 20 MG/ML VIAL IV PUSH PRN ×4 (00:15→22:16)
[2017-06-10] MEDS: oxyCODONE/ACETAMINOPHEN 10 MG/325 MG TAB PO PRN ×3 (00:16→20:30)
[2017-06-10] MEDS: CHLORHEXIDINE GLUCONATE 2 % 1 PACK (2 CLOTHS) TOP SCH (04:00)
[2017-06-10] MEDS: LEVOTHYROXINE SODIUM 50 MCG TAB PO SCH (05:04)
[2017-06-10] MEDS: cloNIDine HCL 0.1 MG TAB PO SCH ×4 (09:00→21:00)
--- NOTE | 2017-06-10 09:29 | HHI.PR ---
Subjective Remarks Pt complains of a mild headache 3/10 at this time. no blurry vision, no CP/SOB/N /V Still had a cough but much improved. Objective Vitals Vital Signs Date Time Temp Pulse Resp B/P Pulse Ox O2 Delivery O2 Flow Rate FiO2 06/10/17 08:34 92 06/10/17 06:00 80 06/10/17 04:00 98.1 75 16 180/123 96 06/10/17 04:00 75 06/10/17 02:00 80 06/10/17 01:16 16 06/10/17 00:00 76 06/10/17 00:00 98.0 76 18 172/106 97 06/09/17 22:00 75 06/09/17 20:00 88 06/09/17 20:00 98.5 88 16 142/79 95 06/09/17 19:00 94 Nasal Cannula 2.00 06/09/17 17:00 78 152/86 96 06/09/17 16:00 98.4 81 156/89 06/09/17 15:17 84 159/101 91 06/09/17 13:00 75 15 169/102 98 06/09/17 12:00 68 12 157/100 94 06/09/17 11:00 76 153/99 06/09/17 10:18 21 06/09/17 10:00 78 151/100 I/O 06/09/17 06/09/17 06/09/17 06/10/17 06/10/17 06/10/17 07:00 15:00 23:00 07:00 15:00 23:00 Intake Total 240 ml 600 ml 120 ml Output Total 0 ml 5000 ml 0 ml 0 ml Balance 240 ml -5000 ml 600 ml 120 ml Intake Oral 240 ml 600 ml 120 ml IV Total 0 ml 0 ml 0 ml Output Urine Total 0 ml 0 ml 0 ml Emesis 0 ml Hemodialysis 5000 ml # Bowel Movements 0 0 0 Result Diagram: 06/09/17 0441 06/07/17 0418 Imaging Last Impressions Chest X-Ray 06/09/17 0000 Signed Impressions: Service Date/Time: Friday, June 09, 2017 09:52 - CONCLUSION: Persistent but slightly improved airspace consolidation in the right mid and lower lung zone. Lowell Byrd MD Chest CT 06/07/17 0000 Signed Impressions: Service Date/Time: Wednesday, June 07, 2017 15:23 - CONCLUSION: 1. Multifocal consolidation greater throughout the right upper and right middle lobes and to a lesser degree right lower lobe. 2. Patchy densities in the left upper lobe and left lower lobe. Alexis Melendez MD Abdomen/Pelvis CT 06/07/17 0000 Signed Impressions: Service Date/Time: Wednesday, June 07, 2017 15:23 - CONCLUSION: The abdomen and pelvis are unremarkable with a peritoneal dialysis catheter. The patient does have dense infiltrates in lungs particularly the right middle lobe. Tiny bilateral pleural effusions. Elian Larsen MD Shoulder MRI 06/03/17 0000 Signed Impressions: Service Date/Time: Saturday, June 03, 2017 12:35 - CONCLUSION: No acute disease. Intact rotator cuff. No evidence of significant arthropathy, soft tissue swelling or bone marrow edema. Gamal Zambrano MD Central Venous Line 06/01/17 1451 Signed Impressions: Service Date/Time: May 14:51 - CONCLUSION: Uncomplicated catheter removal. Haider Quintanilla Jr., MD Catheter Placement X-Ray 06/01/17 0000 Signed Impressions: Service Date/Time: , June 01, 2017 12:33 - CONCLUSION: Uncomplicated PermaCath placement as above. Haider Quintanilla Jr., MD Objective Remarks GENERAL: young 26 yo male, in bed, awake and alert, playing video games EYES: EOMI NECK: Trachea midline CARDIOVASCULAR: Regular rate and rhythm. Right chest wall- vas cath previous - no erythema RESPIRATORY: No accessory muscle use. clear bilaterally, no wheezing GASTROINTESTINAL: Abdomen soft, non-tender, nondistended. MUSCULOSKELETAL: Perm cath site- tender to touch. Extremities without edema. No obvious deformities. NEUROLOGICAL: Awake and alert. No obvious cranial nerve deficits. Normal speech. Procedures 06/01- permcath A/P Assessment and Plan 26 years old male admitted for Hyperkalemia 05/30- resolved on HD ESRD Renal transplant candidate- planned for 07/29 Anemia of renal disease- Hemoglobin 5.6 feels weak. Received blood transfusion with HD 2U PRBC 06/07 - HD per Nephrology. s/p 3 units PRBC. H&H today pending. - S/P Permcath placement - 06/01 - on Epogen during HD. Epogen was increased by nephrology - On Prednisone, Fosrenol, Renvela - BP's not well controlled. Looks like he hasn't yet received BP meds this morning. - Nephrology ff - limit blood draws therefore will not order labwork tomorrow. Hypertension urgency - Norvasc 10 mg daily, Labetalol 300 mg tid, cozaar 100 mg daily, Hydralazine 100 mg tid - Clonidine 0.1mg po BID and prn- Hydralazine when necessary - goal sbp < 180. monitor and adjust Sepsis- New infiltrate- ?Right lower lobe with hemoptysis + leukocytosis - on Levaquin + Flagyl- started 06/04 and end date per ID is 06/10 - Appreciate recs from ID - sputum cx neg Acute respiratory Failure- high 02 requirement-06/04- much better now on NC- episodes of hemoptysis -Pulmonary following and has signed off, available prn. will consult RT for walk test Right side prev VAS cath site pain. Permcath site pain, shoulder/infraclavicular pain - tender to touch,- slight swelling- maybe a small hematoma or slight trauma when pulled out- MRI neg cath functioning well observe for now. Prn pain meds Right shoulder pain- with range of motion -- MRI shoulder negative. PT eval. - prn pain meds Hypothyroidism - Levothyroxine ADHD - Supportive care - Continue home medications Discharge Planning awaiting final recs from nephrology. BP's still elevated, Pt needs his AM meds today. f/u on H&H today anticipate d/c later today or tomorrow. Princess Lugo MD Jun 10, 2017 09:29 DC plan: pending improvement and clearance from nephPrincess Holliday MD Jun 10, 2017 09:29
[2017-06-10 09:57] LABS: HEMATOCRIT 24.7 % (39.0-51.0); REVIEW FLAG FINAL
[2017-06-10] MEDS: SODIUM CHLORIDE 0.9% FLUSH 10 ML FLUSH SCH ×2 (10:03→20:33)
[2017-06-10] MEDS: LABETALOL HCL 300 MG TAB PO SCH ×3 (10:04→17:29)
[2017-06-10] MEDS: LANTHANUM CARBONATE 500 MG CHEWABLE TABLET PO SCH ×3 (10:04→17:32)
[2017-06-10] MEDS: SEVELAMER CARBONATE 800 MG TAB PO SCH ×3 (10:04→17:32)
[2017-06-10] MEDS: LOSARTAN 50 MG TAB PO SCH (10:04)
[2017-06-10] MEDS: hydrALAZINE HCL 100 MG TAB PO SCH ×3 (10:05→17:29)
[2017-06-10] MEDS: DOCUSATE SODIUM 50 MG/SENNA 8.6 MG TAB PO SCH ×2 (10:05→20:30)
[2017-06-10] MEDS: FAMOTIDINE 20 MG TAB PO SCH ×2 (10:06→20:31)
[2017-06-10] MEDS: LACTULOSE SYRUP 20 GM/30 ML CUP PO PRN (10:49)
--- NOTE | 2017-06-10 11:20 | HHI.NPPN ---
Subjective General Problems: Anemia, Hypertension Renal Failure: Chronic, Stage V, End Stage Renal Disease Additional Remarks Patient is alert, no SOB, no abd. pain. Review of Systems General Constitutional: Fatigue Objective Data Data 06/09/17 06/10/17 18:59 06:59 Intake Total 360 ml 360 ml Output Total 5000 ml 0 ml Balance -4640 ml 360 ml Intake Oral 360 ml 360 ml IV Total 0 ml 0 ml Output Urine Total 0 ml 0 ml Emesis 0 ml Hemodialysis 5000 ml # Bowel Movements 0 0 Vital Signs Date Time Temp Pulse Resp B/P Pulse Ox O2 Delivery O2 Flow Rate FiO2 06/10/17 08:34 92 06/10/17 07:00 94 Room Air 06/10/17 06:00 80 06/10/17 04:00 98.1 75 16 180/123 96 06/10/17 04:00 75 06/10/17 02:00 80 06/10/17 01:16 16 06/10/17 00:00 76 06/10/17 00:00 98.0 76 18 172/106 97 06/09/17 22:00 75 06/09/17 20:00 88 06/09/17 20:00 98.5 88 16 142/79 95 06/09/17 19:00 94 Nasal Cannula 2.00 06/09/17 17:00 78 152/86 96 06/09/17 16:00 98.4 81 156/89 06/09/17 15:17 84 159/101 91 06/09/17 13:00 75 15 169/102 98 06/09/17 12:00 68 12 157/100 94 -: 06/10/17 0925 06/07/17 0418 Tubes & Lines: Perma-Cath, Tenckhoff Catheter Physical Exam General Appearance: Well Developed, Well Nourished, No Acute Distress, Comfortable Eyes Eye Exam: Pupils Equal Throat Throat Exam: Oral Mucosa [place] & Moist Neck Neck Exam: Neck Supple Pulmonary Resp Exam: Breath Sounds Equal, No Distress, Crackles, Decreased Bases Cardiology CV Exam: Regular, Normal Sinus Rhythm, Good Perfusion Gastrointestinal/Abdomen GI Exam: Soft, Non-Tender, Bowel Sounds Present Musculoskeletal MS Exam: Joints Intact, Normal Gait, Normal Tone, Good Strength Integumentary Skin Exam: Clear, Warm, Dry, Intact Extremeties Extremities Exam: No Edema, Pedal Pulses Palpable Neurologic Neuro Exam: Alert, Awake, Oriented, Speech Clear, Moving All Extremities Psychiatric Psych Exam: Appropriate Responses Assessment/Plan Discussed Condition With: Patient Assessment Summary: Anemia of CKD, Hypertension, End Stage Renal Disease Problem List: (1) ESRD (end stage renal disease) Plan: PermCath placed 06/01 Dialysis will be continued MWF. He does 4 hour treatments while hospitalized. Needs at least 4 hours of dialysis while hospitalized. He will be transitioned to nocturnal dialysis at [facility]. Arrangements are complete. Living related renal transplant is planned at [place] in July. Still has Perm Cath. Possible D/C. (2) Anemia Plan: Received a total of 3 units of PRBC during this admission. Continue Epogen, may have resistance. Hematology note reviewed, appreciated. No evidence of iron deficiency Minimize blood draws. hematology has evaluated, follow CBC (3) Pneumonia Plan: ID and pulmonary are following On Levaquin only. (4) Hypertensive urgency Plan: increased fluid removal with HD today medications changed, he is on hydralazine and clonidine (5) Metabolic bone disease Plan: Continue Fosrenol 1000 TID and Renvela 3200 TID AC discussed foods to avoid during hospitalization obtain intermittent phosphorous level (6) Hyperkalemia Plan: Improved. Problem Qualifiers (1) Anemia: Qualified Code: N18.6 - Anemia in chronic kidney disease, on chronic dialysis Rubia Lane MD Jun 10, 2017 11:20
[2017-06-10] MEDS: PRAVASTATIN SOD 10 MG TAB PO SCH (20:31)
[2017-06-11] VITALS (13 sets, daily range): BP systolic 137–191; BP diastolic 72–111; PULSE 69–82; RESP 16–18; TEMP 98–100.3; O2SAT 93–97
[2017-06-11] MEDS: CHLORHEXIDINE GLUCONATE 2 % 1 PACK (2 CLOTHS) TOP SCH (04:00)
[2017-06-11] MEDS: hydrALAZINE HCL 20 MG/ML VIAL IV PUSH PRN ×2 (04:15→06:09)
[2017-06-11] MEDS: LEVOTHYROXINE SODIUM 50 MCG TAB PO SCH (05:02)
[2017-06-11] MEDS: cloNIDine HCL 0.1 MG TAB PO PRN (05:03)
[2017-06-11] MEDS: LABETALOL HCL 300 MG TAB PO SCH ×3 (08:41→17:45)
[2017-06-11] MEDS: hydrALAZINE HCL 100 MG TAB PO SCH ×3 (08:41→17:45)
[2017-06-11] MEDS: DOCUSATE SODIUM 50 MG/SENNA 8.6 MG TAB PO SCH ×2 (08:41→22:03)
[2017-06-11] MEDS: cloNIDine HCL 0.1 MG TAB PO SCH ×4 (08:41→22:03)
[2017-06-11] MEDS: LOSARTAN 50 MG TAB PO SCH (08:41)
[2017-06-11] MEDS: oxyCODONE/ACETAMINOPHEN 10 MG/325 MG TAB PO PRN ×2 (08:42→22:02)
[2017-06-11] MEDS: FAMOTIDINE 20 MG TAB PO SCH ×2 (08:42→22:03)
[2017-06-11] MEDS: SODIUM CHLORIDE 0.9% FLUSH 10 ML FLUSH SCH ×2 (08:42→21:00)
[2017-06-11] MEDS: SEVELAMER CARBONATE 800 MG TAB PO SCH ×3 (08:42→17:44)
[2017-06-11] MEDS: LANTHANUM CARBONATE 500 MG CHEWABLE TABLET PO SCH ×3 (08:43→17:45)
--- NOTE | 2017-06-11 09:10 | HHI.PR ---
Subjective Remarks No acute events overnight. BP 193/111 this am. Patient complains of a chronic LAMA , denies visual changes. Reports some soreness in his right shoulder since having perm cath placed. Objective Vitals Vital Signs Date Time Temp Pulse Resp B/P Pulse Ox O2 Delivery O2 Flow Rate FiO2 06/11/17 08:05 95 Non-Rebreather 06/11/17 07:00 95 Room Air 06/11/17 06:00 77 06/11/17 04:00 99.6 74 16 191/111 95 06/11/17 04:00 74 06/11/17 02:00 77 06/11/17 00:00 98.0 74 16 149/93 96 06/11/17 00:00 74 06/10/17 22:14 16 06/10/17 22:00 69 06/10/17 20:00 74 06/10/17 20:00 98.4 74 16 137/82 95 06/10/17 19:00 Room Air 06/10/17 18:00 77 06/10/17 16:00 66 06/10/17 16:00 98.5 66 18 142/90 97 06/10/17 14:00 88 06/10/17 12:00 97.9 84 20 148/87 96 06/10/17 12:00 84 06/10/17 10:00 83 I/O 06/10/17 06/10/17 06/10/17 06/11/17 06/11/17 06/11/17 06:59 14:59 22:59 06:59 14:59 22:59 Intake Total 120 ml 421 ml 200 ml 50 ml Output Total 0 ml 0 ml 0 ml Balance 120 ml 421 ml 200 ml 50 ml Intake Oral 120 ml 421 ml 200 ml 50 ml IV Total 0 ml Output Urine Total 0 ml 0 ml 0 ml Stool Total 0 ml 0 ml # Bowel Movements 0 1 Result Diagram: 06/10/17 0925 06/07/17 0418 Objective Remarks GENERAL: young 26 yo male, in bed, awake and alert, playing video games EYES: EOMI NECK: Trachea midline CARDIOVASCULAR: Regular rate and rhythm. Right chest wall- vas cath previous - no erythema RESPIRATORY: No accessory muscle use. clear bilaterally, no wheezing GASTROINTESTINAL: Abdomen soft, non-tender, nondistended. MUSCULOSKELETAL: Perm cath site- tender to touch. Extremities without edema. No obvious deformities. NEUROLOGICAL: Awake and alert. No obvious cranial nerve deficits. Normal speech. Procedures 06/01- permcath A/P Assessment and Plan 26 years old male admitted for Hyperkalemia 05/30- resolved on HD ESRD Renal transplant candidate- planned for 07/29 Anemia of renal disease- Hemoglobin 5.6 feels weak. Received blood transfusion with HD 2U PRBC 06/07. S/p total 3 units PRBCs - HD per Nephrology. s/p 3 units PRBC. H&H stable - S/P Permcath placement - 06/01 - on Epogen during HD. Epogen was increased by nephrology - On Prednisone, Fosrenol, Renvela - BP remains uncontrolled. Increase Clonidine to q8h. - Nephrology ff - limit blood draws Hypertension urgency - Norvasc 10 mg daily, Labetalol 300 mg tid, cozaar 100 mg daily, Hydralazine 100 mg tid - Clonidine 0.1mg increased as above - goal sbp < 180. monitor and adjust - appreciate Nephrology recommendations Sepsis- New infiltrate- ?Right lower lobe with hemoptysis + leukocytosis - on Levaquin + Flagyl- started 06/04 and end date per ID is 06/11 - Appreciate recs from ID - sputum cx neg Acute respiratory Failure- high 02 requirement-06/04- no longer requiring O2 -Pulmonary following and has signed off, available prn. -Walk test completed, no O2 needed Right side prev VAS cath site pain. Permcath site pain, shoulder/infraclavicular pain - tender to touch,- slight swelling- maybe a small hematoma or slight trauma when pulled out- MRI neg. Improving. cath functioning well observe for now. Prn pain meds Right shoulder pain- with range of motion -- MRI shoulder negative. PT eval. - prn pain meds Hypothyroidism - Levothyroxine ADHD - Supportive care - Continue home medications Discharge Planning Patient cleared for discharge once BP controlled Aleta Meyers MD R3 Jun 11, 2017 09:09
--- NOTE | 2017-06-11 10:41 | HHI.NPPN ---
Subjective General Problems: Anemia, Hypertension Renal Failure: Chronic, Stage V, End Stage Renal Disease Additional Remarks Patient is alert, no headache, no dizziness, no SOB. Review of Systems General Constitutional: Fatigue Objective Data Data 06/10/17 06/11/17 19:00 07:00 Intake Total 421 ml 250 ml Output Total 0 ml Balance 421 ml 250 ml Intake Oral 421 ml 250 ml Output Urine Total 0 ml Stool Total 0 ml # Bowel Movements 1 Vital Signs Date Time Temp Pulse Resp B/P Pulse Ox O2 Delivery O2 Flow Rate FiO2 06/11/17 10:00 74 06/11/17 08:05 95 Non-Rebreather 06/11/17 08:00 82 06/11/17 08:00 98.8 82 16 157/91 97 06/11/17 07:00 95 Room Air 06/11/17 06:00 77 06/11/17 04:00 99.6 74 16 191/111 95 06/11/17 04:00 74 06/11/17 02:00 77 06/11/17 00:00 98.0 74 16 149/93 96 06/11/17 00:00 74 06/10/17 22:14 16 06/10/17 22:00 69 06/10/17 20:00 74 06/10/17 20:00 98.4 74 16 137/82 95 06/10/17 19:00 Room Air 06/10/17 18:00 77 06/10/17 16:00 66 06/10/17 16:00 98.5 66 18 142/90 97 06/10/17 14:00 88 06/10/17 12:00 97.9 84 20 148/87 96 06/10/17 12:00 84 -: 06/10/17 0925 06/07/17 0418 Microbiology 06/10/17 Stool Occult Blood (PARESH) - Final, Complete HEMOCCULT NEGATIVE Tubes & Lines: Perma-Cath, Tenckhoff Catheter Physical Exam General Appearance: Well Developed, Well Nourished, No Acute Distress, Comfortable Eyes Eye Exam: Pupils Equal Throat Throat Exam: Oral Mucosa [place] & Moist Neck Neck Exam: Neck Supple Pulmonary Resp Exam: Breath Sounds Equal, No Distress, Crackles, Decreased Bases Cardiology CV Exam: Regular, Normal Sinus Rhythm, Good Perfusion Gastrointestinal/Abdomen GI Exam: Soft, Non-Tender, Bowel Sounds Present Musculoskeletal MS Exam: Joints Intact, Normal Gait, Normal Tone, Good Strength Integumentary Skin Exam: Clear, Warm, Dry, Intact Extremeties Extremities Exam: No Edema, Pedal Pulses Palpable Neurologic Neuro Exam: Alert, Awake, Oriented, Speech Clear, Moving All Extremities Psychiatric Psych Exam: Appropriate Responses Assessment/Plan Discussed Condition With: Patient Assessment Summary: Anemia of CKD, Hypertension, End Stage Renal Disease Problem List: (1) ESRD (end stage renal disease) Plan: PermCath placed 06/01 Dialysis will be continued MWF. He does 4 hour treatments while hospitalized. Needs at least 4 hours of dialysis while hospitalized. He will be transitioned to nocturnal dialysis at [facility]. Arrangements are complete. Living related renal transplant is planned at [place] in July. Still has Perm Cath. Possible D/C tomorrow. HD will be in AM, Dr. Davis will follow from tomorrow. (2) Anemia Plan: Received a total of 3 units of PRBC during this admission. Continue Epogen, may have resistance. Hematology note reviewed, appreciated. No evidence of iron deficiency Minimize blood draws. hematology has evaluated, follow CBC (3) Pneumonia Plan: ID and pulmonary are following On Levaquin only. (4) Hypertensive urgency Plan: BP was elevated at night, now added Clonidine. Continue other meds. (5) Metabolic bone disease Plan: Continue Fosrenol 1000 TID and Renvela 3200 TID AC discussed foods to avoid during hospitalization obtain intermittent phosphorous level (6) Hyperkalemia Plan: Improved. Problem Qualifiers (1) Anemia: Qualified Code: N18.6 - Anemia in chronic kidney disease, on chronic dialysis Rubia Lane MD Jun 11, 2017 10:41
[2017-06-11] MEDS: LEVOFLOXACIN 500 MG TAB PO SCH (12:12)
[2017-06-11] MEDS: PRAVASTATIN SOD 10 MG TAB PO SCH (22:06)
[2017-06-12] VITALS (26 sets, daily range): BP systolic 140–169; BP diastolic 71–110; PULSE 60–103; RESP 16–20; TEMP 97.5–98.8; O2SAT 95–97
[2017-06-12] MEDS: hydrALAZINE HCL 20 MG/ML VIAL IV PUSH PRN ×4 (02:02→22:51)
[2017-06-12] MEDS: CHLORHEXIDINE GLUCONATE 2 % 1 PACK (2 CLOTHS) TOP SCH (04:00)
[2017-06-12] MEDS: oxyCODONE/ACETAMINOPHEN 10 MG/325 MG TAB PO PRN ×3 (04:12→16:55)
[2017-06-12] MEDS: LEVOTHYROXINE SODIUM 50 MCG TAB PO SCH (05:14)
[2017-06-12] MEDS: cloNIDine HCL 0.1 MG TAB PO SCH ×3 (05:14→22:47)
--- NOTE | 2017-06-12 07:34 | PD.ONC.PN ---
Subjective Subjective Remarks No bleeding. No CP/SOB. Mild headache. Objective Data Date Time Temp Pulse Resp B/P Pulse Ox O2 Delivery O2 Flow Rate FiO2 06/12/17 07:00 95 Non-Rebreather 06/12/17 06:00 68 06/12/17 04:00 97.9 70 20 154/99 95 06/12/17 04:00 70 06/12/17 02:00 93 06/12/17 00:00 69 06/12/17 00:00 98.7 69 20 151/103 95 06/11/17 22:00 77 06/11/17 20:00 76 06/11/17 20:00 100.3 76 16 137/90 95 06/11/17 19:00 95 Non-Rebreather 06/11/17 18:00 71 06/11/17 16:00 69 06/11/17 16:00 98.4 69 16 146/89 97 06/11/17 14:00 72 06/11/17 12:00 98.1 79 18 143/72 96 06/11/17 12:00 79 06/11/17 10:00 74 06/11/17 08:05 95 Non-Rebreather 06/11/17 08:00 82 06/11/17 08:00 98.8 82 16 157/91 97 06/12/17 06/12/17 06/12/17 07:00 15:00 23:00 Intake Total 100 ml Output Total 0 ml Balance 100 ml Result Diagram: 06/10/1725 Culture Results Microbiology Date/Time Procedure Status Source Growth 06/10/17 14:00 Stool Occult Blood (PARESH) - Final Complete Stool Stool HEMOCCULT NEGATIVE Administered Medications Medications (Trade) Dose Ordered Sig/Anny Route PRN Reason Start Time Stop Time Status Last Admin Dose Admin Amlodipine Besylate (Norvasc) 10 mg DAILY PO 05/31/17 09:00 06/11/17 08:41 Labetalol HCl (Trandate) 300 mg TID PO 05/31/17 09:00 06/11/17 17:45 Lanthanum Carbonate (Fosrenol Chew) 1,000 mg TIDPC PO 05/31/17 09:30 06/11/17 17:45 Pravastatin Sodium (Pravachol) 10 mg HS PO 05/30/17 21:00 06/11/17 22:06 Sevelamer Carbonate (Renvela) 3,200 mg TID PO 05/31/17 09:00 06/11/17 17:44 Sodium Chloride (NS Flush) 2 ml UNSCH PRN .XX FLUSH AFTER USING IV ACCESS 05/30/17 20:30 05/31/17 08:23 Sodium Chloride (NS Flush) 2 ml BID .XX 05/30/17 21:00 06/11/17 21:00 Heparin Sodium (Porcine) (Heparin Inj) 5,000 units Q8H SQ 05/30/17 20:30 Hold 05/31/17 21:23 Chlorhexidine Gluconate (Chlorhexidine 2% Cloth) Taper DAILY@04 TOP 05/31/17 04:00 05/27/18 03:59 06/12/17 04:00 Senna/Docusate Sodium (Tatiana-Colace) 1 tab BID PO 05/30/17 21:00 06/11/17 22:03 Lactulose 30 ml 30 ml DAILY PRN PO SEVERE CONSITIPATION 05/30/17 20:30 06/10/17 10:49 Sodium Chloride (NS 1000 ml Inj) 1,000 ml @ 0 mls/hr Q0M PRN IV For Prime & Rinse Back 05/31/17 09:38 06/09/17 10:19 Heparin Sodium (Porcine) (Heparin Inj) UNSCH PRN .XX WITH DIALYSIS 05/31/17 09:45 06/09/17 10:18 Gentamicin Sulfate (Gentamicin (Dialysis) Inj) 20 mg UNSCH PRN IV WITH DIALYSIS 05/31/17 09:45 06/09/17 10:18 Ondansetron HCl (Zofran Inj) 4 mg UNSCH PRN IV WITH DIALYSIS 05/31/17 09:45 06/08/17 20:15 Acetaminophen (Tylenol) 650 mg UNSCH PRN PO for headach, pain, temp > 101F 05/31/17 09:45 06/07/17 17:24 Clonidine (Catapres) 0.1 mg UNSCH PRN PO for BP > 180/100 X 2 readings 05/31/17 09:45 06/11/17 05:03 Losartan Potassium (Cozaar) 100 mg DAILY PO 05/31/17 15:00 06/11/17 08:41 Oxycodone/ Acetaminophen (Percocet 10-325 Mg) 1 tab Q4H PRN PO PAIN SCALE 4 TO 10 06/02/17 12:45 06/12/17 04:12 Hydralazine HCl (Apresoline) 100 mg TID PO 06/02/17 14:00 06/11/17 17:45 Epoetin Joseph (Epogen Inj) 15,000 units UNSCH PRN IV WITH DIALYSIS 06/02/17 14:15 06/09/17 10:18 Hydromorphone HCl (Dilaudid Pf Inj) 0.2 mg Q4H PRN IV PUSH PAIN SCALE 7 TO 10 06/02/17 14:00 06/10/17 13:23 Famotidine (Pepcid) 10 mg Q12HR PO 06/02/17 21:00 06/11/17 22:03 Hydralazine HCl (Apresoline Inj) 10 mg Q30M PRN IV PUSH bp>160/90 06/08/17 03:15 06/12/17 05:14 Levothyroxine Sodium (Synthroid) 50 mcg DAILY@06 PO 06/09/17 06:00 06/12/17 05:14 Clonidine (Catapres) 0.1 mg Q8HR PO 06/11/17 14:00 06/12/17 05:14 Objective Remarks GENERAL: Well-nourished, well-developed patient. SKIN: Warm and dry. HEAD: Normocephalic. EYES: No scleral icterus. No injection or drainage. NECK: Supple, trachea midline. No JVD or lymphadenopathy. LYMPHATIC: No adenopathy. CARDIOVASCULAR: Regular rate and rhythm without murmurs. RESPIRATORY: Breath sounds equal bilaterally. No accessory muscle use. GASTROINTESTINAL: Abdomen soft, non-tender, nondistended. EXTREMITIES: No cyanosis, or edema. MUSCULOSKELETAL: Adequate muscle tone. NEUROLOGICAL: No obvious focal deficit. Awake, alert, and oriented x3. PSYCHIATRIC: Appropriate mood and affect; insight and judgment normal. Assessment/Plan Problem List: (1) Acute on chronic anemia Status: Acute Plan: --recommend transfusion if hgb less than 7, Hgb was stable 2 days ago. -- has anemia due to end-stage renal disease. -- Epogen with hemodialysis. --no apparent bleeding noted. no prior history of GI bleed. --has had a baseline anemia due to end-stage renal disease and developed worsening anemia likely due to sepsis and bone marrow suppression. --No evidence of hemolysis or vitamin deficiency. Stool occult blood pending (2) Sepsis Status: Acute Plan: --Sepsis / pneumonia, resolving --currently on antibiotics. Assessment 26-year-old male with history of IgA nephropathy and end-stage renal disease admitted with generalized weakness, abdominal cramp and nausea, vomiting. He has been on peritoneal dialysis since December of 2015 when he presented he has a very elevated potassium level 8.2. He subsequently developed respiratory distress with fever and admitted to the Intensive Care Unit for pneumonia. He was started on hemodialysis. He has been getting Epogen with hemodialysis. During the hospital stay he had developed significant anemia. h/o End-stage renal disease due to IgA nephropathy; he is awaiting kidney transplant. Hypertension. Hyperlipidemia. Hypothyroidism. ADHD. Plan 1. monitor CBC. 2. supportive care 3. continue Epogen per nephrology 4. transfuse if hgb less than 7 Omar Monge MD Jun 12, 2017 07:34
[2017-06-12] MEDS: SODIUM CHLORIDE 0.9% FLUSH 10 ML FLUSH SCH ×2 (09:00→21:04)
[2017-06-12] MEDS: SEVELAMER CARBONATE 800 MG TAB PO SCH ×3 (09:00→15:04)
[2017-06-12] MEDS: LANTHANUM CARBONATE 500 MG CHEWABLE TABLET PO SCH ×3 (09:30→18:18)
[2017-06-12] MEDS: EPOETIN ALFA 10,000 UNITS/ML VIAL IV PRN (10:20)
[2017-06-12] MEDS: HEPARIN SODIUM - IV 10,000 UNITS/10 ML VIAL PRN (10:20)
[2017-06-12] MEDS: GENTAMICIN SULFATE (DIALYSIS USE ONLY) 20 MG/2 ML VIAL IV PRN (10:21)
[2017-06-12] MEDS: SODIUM CHLOR 0.9% 1000 ML INJ 1,000 ML IV PRN (10:21)
--- NOTE | 2017-06-12 10:55 | HHI.PR ---
Subjective Remarks Follow up ESRD on HD/ 06/12/17-Patient seen and examined; currently receiving HD; no headache or shortness of breath. Denies any acute event overnight.BP slightly up Objective Vitals Vital Signs Date Time Temp Pulse Resp B/P Pulse Ox O2 Delivery O2 Flow Rate FiO2 06/12/17 08:49 97.7 06/12/17 08:48 96 21 06/12/17 07:00 95 Non-Rebreather 06/12/17 06:00 68 06/12/17 04:00 97.9 70 20 154/99 95 06/12/17 04:00 70 06/12/17 02:00 93 06/12/17 00:00 69 06/12/17 00:00 98.7 69 20 151/103 95 06/11/17 22:00 77 06/11/17 20:00 76 06/11/17 20:00 100.3 76 16 137/90 95 06/11/17 19:00 95 Non-Rebreather 06/11/17 18:00 71 06/11/17 16:00 69 06/11/17 16:00 98.4 69 16 146/89 97 06/11/17 14:00 72 06/11/17 12:00 98.1 79 18 143/72 96 06/11/17 12:00 79 I/O 06/11/17 06/11/17 06/11/17 06/12/17 06/12/17 06/12/17 06:59 14:59 22:59 06:59 14:59 22:59 Intake Total 50 ml 480 ml 200 ml 100 ml Output Total 0 ml 0 ml 0 ml Balance 50 ml 480 ml 200 ml 100 ml Intake Oral 50 ml 480 ml 200 ml 100 ml Output Urine Total 0 ml 0 ml 0 ml Stool Total 0 ml 0 ml 0 ml Result Diagram: 06/10/17 0925 Imaging Last Impressions Chest X-Ray 06/09/17 0000 Signed Impressions: Service Date/Time: Friday, June 09, 2017 09:52 - CONCLUSION: Persistent but slightly improved airspace consolidation in the right mid and lower lung zone. Lowell Byrd MD Chest CT 06/07/17 0000 Signed Impressions: Service Date/Time: Wednesday, June 07, 2017 15:23 - CONCLUSION: 1. Multifocal consolidation greater throughout the right upper and right middle lobes and to a lesser degree right lower lobe. 2. Patchy densities in the left upper lobe and left lower lobe. Alexis Melendez MD Abdomen/Pelvis CT 06/07/17 0000 Signed Impressions: Service Date/Time: Wednesday, June 07, 2017 15:23 - CONCLUSION: The abdomen and pelvis are unremarkable with a peritoneal dialysis catheter. The patient does have dense infiltrates in lungs particularly the right middle lobe. Tiny bilateral pleural effusions. Elian Larsen MD Shoulder MRI 06/03/17 0000 Signed Impressions: Service Date/Time: Saturday, June 03, 2017 12:35 - CONCLUSION: No acute disease. Intact rotator cuff. No evidence of significant arthropathy, soft tissue swelling or bone marrow edema. Gamal Zambrano MD Central Venous Line 06/01/17 1451 Signed Impressions: Service Date/Time: , June 01, 2017 14:51 - CONCLUSION: Uncomplicated catheter removal. Haider Quintanilla Jr., MD Catheter Placement X-Ray 06/01/17 0000 Signed Impressions: Service Date/Time: May 12:33 - CONCLUSION: Uncomplicated PermaCath placement as above. Haider Quintanilla Jr., MD Objective Remarks GENERAL: NAD and supervisor hand workers to HD machine SKIN: Warm and dry. HEAD: Normocephalic. EYES: No scleral icterus. No injection or drainage. NECK: Supple, trachea midline. No JVD or lymphadenopathy. CARDIOVASCULAR: tachy Regular rate and rhythm without murmurs, gallops, or rubs. RESPIRATORY: Breath sounds equal bilaterally. No accessory muscle use. GASTROINTESTINAL: Abdomen soft, non-tender, nondistended. MUSCULOSKELETAL: No cyanosis, or edema. BACK: Nontender without obvious deformity. No CVA tenderness. Procedures 06/01- permcath A/P Problem List: (1) ESRD (end stage renal disease) ICD Code: N18.6 Status: Acute (2) IgA nephropathy ICD Code: N02.8 Status: Acute Assessment and Plan 26 yrs old man with: Hyperkalemia 05/30- resolved on HD ESRD Renal transplant candidate- planned for 07/28 Anemia of renal disease- S/p total 3 units PRBCs - HD per Nephrology. s/p 3 units PRBC. H&H stable - S/P Permcath placement - 06/01 - on Epogen during HD. - On Prednisone, Fosrenol, Renvela -Continue with current BP meds Hypertension urgency - Norvasc 10 mg daily, Labetalol 300 mg tid, Cozaar 100 mg daily, Hydralazine 100 mg tid and Clonidine 0.1 mg Q8H Sepsis- New infiltrate- ?Right lower lobe with hemoptysis + leukocytosis - s/p Levaquin + Flagyl - Appreciate recs from ID - sputum cx neg Acute respiratory Failure- high 02 requirement-06/04- no longer requiring O2 -Pulmonary following and has signed off, available prn. -Walk test completed, no O2 needed Right side prev VAS cath site pain. observe for now. Prn pain meds Right shoulder pain- with range of motion -- MRI shoulder negative. PT eval. - prn pain meds Hypothyroidism - Levothyroxine ADHD - Supportive care - Continue home medications Alexis Ortega MD Jun 12, 2017 10:55 ADHD - Supportive care - Continue home medications Alexis Ortega MD Jun 12, 2017 10:55
--- NOTE | 2017-06-12 11:37 | HHI.NPPN ---
Subjective General Problems: Anemia, Hypertension Renal Failure: Chronic, Stage V, End Stage Renal Disease Interval History Seen during dialysis. Blood pressure is still elevated. (Ginette Ramsey ) Review of Systems General Constitutional: Fatigue (Ginette Ramsey) Objective Data Data 06/11/17 06/12/17 18:59 06:59 Intake Total 480 ml 300 ml Output Total 0 ml Balance 480 ml 300 ml Intake Oral 480 ml 300 ml Output Urine Total 0 ml Stool Total 0 ml Vital Signs Date Time Temp Pulse Resp B/P Pulse Ox O2 Delivery O2 Flow Rate FiO2 06/12/17 08:49 97.7 06/12/17 08:48 96 21 06/12/17 07:00 95 Non-Rebreather 06/12/17 06:00 68 06/12/17 04:00 97.9 70 20 154/99 95 06/12/17 04:00 70 06/12/17 02:00 93 06/12/17 00:00 69 06/12/17 00:00 98.7 69 20 151/103 95 06/11/17 22:00 77 06/11/17 20:00 76 06/11/17 20:00 100.3 76 16 137/90 95 06/11/17 19:00 95 Non-Rebreather 06/11/17 18:00 71 06/11/17 16:00 69 06/11/17 16:00 98.4 69 16 146/89 97 06/11/17 14:00 72 06/11/17 12:00 98.1 79 18 143/72 96 06/11/17 12:00 79 (Ginette Ramsey) -: 06/10/17 0925 Tubes & Lines: Perma-Cath, Tenckhoff Catheter (Ginette Ramsey) Physical Exam General Appearance: Well Developed, Well Nourished, No Acute Distress, Comfortable ( Ginette Ramsey) Eyes Eye Exam: Pupils Equal (Ginette Ramsey) Throat Throat Exam: Oral Mucosa [place] & Moist (Ginette Ramsey) Neck Neck Exam: Neck Supple (Ginette Ramsey) Pulmonary Resp Exam: Breath Sounds Equal, No Distress, Crackles, Decreased Bases Resp Remarks right lower rales (Ginette Ramsey) Cardiology CV Exam: Regular, Normal Sinus Rhythm, Good Perfusion (Ginette Ramsey) Gastrointestinal/Abdomen GI Exam: Soft, Non-Tender, Bowel Sounds Present GI Remarks Pd catheter in place (Ginette Rasmey) Musculoskeletal MS Exam: Joints Intact, Normal Gait, Normal Tone, Good Strength (Ginette Ramsey) Integumentary Skin Exam: Clear, Warm, Dry, Intact (Ginette Ramsey) Extremeties Extremities Exam: No Edema, Pedal Pulses Palpable (Ginette Ramsey) Neurologic Neuro Exam: Alert, Awake, Oriented, Speech Clear, Moving All Extremities ( Ginette Ramsey) Psychiatric Psych Exam: Appropriate Responses (Ginette Ramsey) Assessment/Plan Discussed Condition With: Patient Assessment Summary: Anemia of CKD, Hypertension, End Stage Renal Disease Problem List: (1) ESRD (end stage renal disease) Plan: Shanelle placed 06/01 Seen during dialysis today on a 2K, 350 BFR, goal 5L Dialysis will be continued MWF. He does 4 hour treatments while hospitalized. He will be transitioned to nocturnal dialysis at [facility]. Arrangements are complete. Living related renal transplant is planned at [place] in July. (2) Anemia Plan: Received a total of 3 units of PRBC during this admission. Continue Epogen, may have resistance. Hematology note reviewed, appreciated. No evidence of iron deficiency check CBC in AM, otherwise avoid daily lab draws (3) Pneumonia Plan: ID and pulmonary are following On Levaquin only. (4) Hypertensive urgency Plan: on clonidine, hydralazine, losartan, labetalol minoxidil 2.5 mg BID added (5) Metabolic bone disease Plan: Continue Fosrenol 1000 TID and Renvela 3200 TID AC discussed foods to avoid during hospitalization obtain intermittent phosphorous level (6) Hyperkalemia Plan: Improved. Plan cleared for discharge if other consultants are in agreement, to start outpatient HD on monday (Ginette Ramsey) Plan patient was seen and examined. We will add Minoxidil for hypertension which is still poorly controlled. (Ti Davis MD) Problem Qualifiers (1) Anemia: Qualified Code: N18.6 - Anemia in chronic kidney disease, on chronic dialysis Ginette RamseyP Jun 12, 2017 11:37 Ti Davis MD Jun 12, 2017 16:37
[2017-06-12] MEDS: LOSARTAN 50 MG TAB PO SCH (12:19)
[2017-06-12] MEDS: DOCUSATE SODIUM 50 MG/SENNA 8.6 MG TAB PO SCH ×2 (12:20→21:03)
[2017-06-12] MEDS: FAMOTIDINE 20 MG TAB PO SCH ×2 (12:20→21:03)
[2017-06-12] MEDS: LABETALOL HCL 300 MG TAB PO SCH ×3 (12:20→18:15)
[2017-06-12] MEDS: hydrALAZINE HCL 100 MG TAB PO SCH ×3 (12:23→18:16)
[2017-06-12] MEDS: MINOXIDIL 2.5 MG TAB PO SCH ×2 (16:05→21:03)
--- NOTE | 2017-06-12 19:44 | HHI.PR ---
Subjective Remarks 26 YOWM with ESRD, on HD, sepsis, PN Hemoptysis resolved No fever Had HD today, tired has Headache Breathing better Objective Vital Signs Vital Signs Date Time Temp Pulse Resp B/P Pulse Ox O2 Delivery O2 Flow Rate FiO2 06/12/17 18:42 69 06/12/17 18:28 97.5 75 20 158/96 96 06/12/17 17:00 70 152/91 06/12/17 16:00 70 153/85 06/12/17 15:00 84 149/90 06/12/17 14:00 78 140/71 06/12/17 13:00 103 146/85 06/12/17 12:15 73 163/98 06/12/17 12:00 98.4 06/12/17 11:27 67 166/104 06/12/17 11:00 69 163/100 06/12/17 10:30 74 160/110 06/12/17 10:00 72 159/103 06/12/17 09:15 60 159/103 06/12/17 08:49 97.7 06/12/17 08:48 96 21 06/12/17 08:45 66 163/97 06/12/17 08:37 67 165/92 06/12/17 08:00 69 06/12/17 07:00 95 Non-Rebreather 06/12/17 07:00 91 06/12/17 07:00 99 Room Air 06/12/17 06:00 68 06/12/17 04:00 97.9 70 20 154/99 95 06/12/17 04:00 70 06/12/17 02:00 93 06/12/17 00:00 69 06/12/17 00:00 98.7 69 20 151/103 95 06/11/17 22:00 77 06/11/17 20:00 76 06/11/17 20:00 100.3 76 16 137/90 95 I/O 06/11/17 06/11/17 06/11/17 06/12/17 06/12/17 06/12/17 07:00 15:00 23:00 07:00 15:00 23:00 Intake Total 50 ml 480 ml 200 ml 100 ml 240 ml Output Total 0 ml 0 ml 0 ml 5000 ml 0 ml Balance 50 ml 480 ml 200 ml 100 ml -5000 ml 240 ml Intake Oral 50 ml 480 ml 200 ml 100 ml 240 ml Output Urine Total 0 ml 0 ml 0 ml 0 ml Stool Total 0 ml 0 ml 0 ml 0 ml Hemodialysis 5000 ml Result Diagram: 06/10/17 0925 Objective Remarks GENERAL: WBWN WM.NAD SKIN: Warm and dry. HEAD: Normocephalic. EYES: No scleral icterus. No injection or drainage. NECK: Supple, trachea midline. No JVD or lymphadenopathy. CARDIOVASCULAR: Regular rate and rhythm without murmurs, gallops, or rubs. RESPIRATORY: Breath sounds equal bilaterally. No accessory muscle use. Rales right lung base GASTROINTESTINAL: Abdomen soft, non-tender, nondistended. PD Cathetor MUSCULOSKELETAL: No cyanosis, or edema. BACK: Nontender without obvious deformity. No CVA tenderness. A/P Assessment and Plan Sepsis Pneumonia Hemoptysis resolved ESRD, now on HD Leucocytosis IGA Nephropathy. PLAN: Supplement 02 to keep sat >92% Monitor CBC Stable from pulm standpoint Tyler Sheehan MD Jun 12, 2017 19:44
[2017-06-12] MEDS: PRAVASTATIN SOD 10 MG TAB PO SCH (21:02)
[2017-06-13] VITALS: BP 162/94; PULSE 79; RESP 17; TEMP 98.4; O2SAT 98
[2017-06-13] MEDS: CHLORHEXIDINE GLUCONATE 2 % 1 PACK (2 CLOTHS) TOP SCH (03:26)
[2017-06-13 04:00] VITALS: BP 160/87; PULSE 89; RESP 17; TEMP 99; O2SAT 98
[2017-06-13] MEDS: LEVOTHYROXINE SODIUM 50 MCG TAB PO SCH (06:18)
[2017-06-13] MEDS: cloNIDine HCL 0.1 MG TAB PO SCH ×2 (06:18→13:17)
[2017-06-13 08:00] VITALS: BP 165/98; PULSE 79; RESP 18; TEMP 97.6; O2SAT 95
[2017-06-13 08:10] VITALS: O2SAT 98
[2017-06-13 08:28] LABS: AUTOMATED NEUTROPHIL # 3.7 TH/MM3 (1.8-7.7); BASOPHIL # 0.1 TH/MM3 (0-0.2); EOSINOPHIL # 0.2 TH/MM3 (0-0.4); EOSINOPHIL % 2.8 % (0.0-4.0); HEMATOCRIT 24.3 % (39.0-51.0); HEMO FLAGS DIFF FINAL; LYMPH % 17.3 % (9.0-44.0); LYMPHOCYTE # 1.1 TH/MM3 (1.0-4.8); MEAN CELL VOLUME 86.3 FL (80.0-100.0); MEAN CORPUSCULAR HGB CONC 32.5 % (32.0-36.0); MONO % 18.6 % (0.0-8.0); NEUT % 60.3 % (16.0-70.0); PLATELET COUNT 421 TH/MM3 (150-450); RED BLOOD COUNT 2.81 MIL/MM3 (4.50-5.90); RED CELL DISTRIBUTION WIDTH 17.7 % (11.6-17.2); WHITE BLOOD COUNT 6.1 TH/MM3 (4.0-11.0)
[2017-06-13] MEDS: SEVELAMER CARBONATE 800 MG TAB PO SCH ×2 (09:00→12:07)
[2017-06-13] MEDS: SODIUM CHLORIDE 0.9% FLUSH 10 ML FLUSH SCH (09:22)
[2017-06-13] MEDS: FAMOTIDINE 20 MG TAB PO SCH (09:22)
[2017-06-13] MEDS: LOSARTAN 50 MG TAB PO SCH (09:22)
[2017-06-13] MEDS: DOCUSATE SODIUM 50 MG/SENNA 8.6 MG TAB PO SCH (09:22)
[2017-06-13] MEDS: hydrALAZINE HCL 100 MG TAB PO SCH ×2 (09:22→12:07)
[2017-06-13] MEDS: LABETALOL HCL 300 MG TAB PO SCH ×2 (09:22→12:07)
[2017-06-13] MEDS: MINOXIDIL 2.5 MG TAB PO SCH (09:22)
[2017-06-13] MEDS: LANTHANUM CARBONATE 500 MG CHEWABLE TABLET PO SCH ×2 (09:24→12:07)
[2017-06-13] MEDS: oxyCODONE/ACETAMINOPHEN 10 MG/325 MG TAB PO PRN (09:26)
[2017-06-13 09:55] VITALS: PULSE 72
--- NOTE | 2017-06-13 10:38 | HHI.NPPN ---
Subjective General Problems: Anemia, Hypertension Renal Failure: Chronic, Stage V, End Stage Renal Disease Interval History Moved out of ICU. Anticipating discharge. (Ginette Ramsey) Review of Systems General Constitutional: Fatigue (Ginette Ramsey) Objective Data Data 06/12/17 06/13/17 19:00 07:00 Intake Total 240 ml 330 ml Output Total 5000 ml 0 ml Balance -4760 ml 330 ml Intake Oral 240 ml 330 ml Output Urine Total 0 ml 0 ml Stool Total 0 ml Hemodialysis 5000 ml # Bowel Movements 0 Vital Signs Date Time Temp Pulse Resp B/P Pulse Ox O2 Delivery O2 Flow Rate FiO2 06/13/17 09:55 72 06/13/17 09:53 Room Air 06/13/17 08:10 98 21 06/13/17 08:00 97.6 79 18 165/98 95 06/13/17 04:00 99.0 89 17 160/87 98 06/13/17 00:00 98.4 79 17 162/94 98 06/12/17 21:00 78 06/12/17 21:00 Room Air 06/12/17 20:00 98.8 76 16 169/97 97 06/12/17 18:42 69 06/12/17 18:28 97.5 75 20 158/96 96 06/12/17 17:00 70 152/91 06/12/17 16:00 70 153/85 06/12/17 15:00 84 149/90 06/12/17 14:00 78 140/71 06/12/17 13:00 103 146/85 06/12/17 12:15 73 163/98 06/12/17 12:00 98.4 06/12/17 11:27 67 166/104 06/12/17 11:00 69 163/100 (Ginette Ramsey) -: 06/13/17 0757 Tubes & Lines: Perma-Cath, Tenckhoff Catheter (Ginette Ramsey) Physical Exam General Appearance: Well Developed, Well Nourished, No Acute Distress, Comfortable ( Ginette Ramsey) Eyes Eye Exam: Pupils Equal (Ginette Ramsey) Throat Throat Exam: Oral Mucosa [place] & Moist (Ginette Ramsey) Neck Neck Exam: Neck Supple (Ginette Ramsey) Pulmonary Resp Exam: Breath Sounds Equal, No Distress, Crackles, Decreased Bases Resp Remarks right lower rales, improving (Ginette Ramsey) Cardiology CV Exam: Regular, Normal Sinus Rhythm, Good Perfusion (Ginette Ramsey) Gastrointestinal/Abdomen GI Exam: Soft, Non-Tender, Bowel Sounds Present GI Remarks Pd catheter in place (Ginette Ramsey) Musculoskeletal MS Exam: Joints Intact, Normal Gait, Normal Tone, Good Strength (Ginette Ramsey) Integumentary Skin Exam: Clear, Warm, Dry, Intact (Ginette Ramsey) Extremeties Extremities Exam: No Edema, Pedal Pulses Palpable (Ginette Ramsey) Neurologic Neuro Exam: Alert, Awake, Oriented, Speech Clear, Moving All Extremities ( Ginette Ramsey) Psychiatric Psych Exam: Appropriate Responses (Ginette Ramsey) Assessment/Plan Discussed Condition With: Patient Assessment Summary: Anemia of CKD, Hypertension, End Stage Renal Disease Problem List: (1) ESRD (end stage renal disease) Plan: PermCath placed 06/01 [facility] dialysis, on 4 hr treatments while hospitalized 5L UF yesterday, tolerated well needs nutritional support He will be transitioned to nocturnal dialysis at [facility] ([facility]). Arrangements are complete. Living related renal transplant is planned at [place] in July. (2) Anemia Plan: Received a total of 3 units of PRBC during this admission. Continue Epogen, may have resistance. Hematology note reviewed, appreciated. not iron deficient (3) Pneumonia Plan: he is off antibiotics clinically improving ID and pulmonary have followed (4) Hypertensive urgency Plan: on clonidine 0.1 mg TID hydralazine 100 mg TID losartan 100 mg daily labetalol 300 mg TID minoxidil 2.5 mg BID (5) Metabolic bone disease Plan: Continue Fosrenol 1000 TID and Renvela 3200 TID AC discussed foods to avoid during hospitalization (6) Hyperkalemia Plan: Improved. (Ginette Ramsey) Plan patient was seen and examined. Minoxidil was initiated yesterday. BP control is not ideal, continue fluid removal with dialysis, continue antihypertensives, patient can be discharged from renal standpoint. (Ti Davis MD) Problem Qualifiers (1) Anemia: Qualified Code: N18.6 - Anemia in chronic kidney disease, on chronic dialysis Ginette RamseyP Jun 13, 2017 10:38 Ti Davis MD Jun 13, 2017 11:04
--- NOTE | 2017-06-13 11:17 | HHI.PR ---
Subjective Remarks Follow up ESRD on HD/ 06/12/17-Patient seen and examined; currently receiving HD; no headache or shortness of breath. Denies any acute event overnight.BP slightly up 06/13/17-patient seen and examined, stable and no complaint today. BP stable Objective Vitals Vital Signs Date Time Temp Pulse Resp B/P Pulse Ox O2 Delivery O2 Flow Rate FiO2 06/13/17 09:55 72 06/13/17 09:53 Room Air 06/13/17 08:10 98 21 06/13/17 08:00 97.6 79 18 165/98 95 06/13/17 04:00 99.0 89 17 160/87 98 06/13/17 00:00 98.4 79 17 162/94 98 06/12/17 21:00 78 06/12/17 21:00 Room Air 06/12/17 20:00 98.8 76 16 169/97 97 06/12/17 18:42 69 06/12/17 18:28 97.5 75 20 158/96 96 06/12/17 17:00 70 152/91 06/12/17 16:00 70 153/85 06/12/17 15:00 84 149/90 06/12/17 14:00 78 140/71 06/12/17 13:00 103 146/85 06/12/17 12:15 73 163/98 06/12/17 12:00 98.4 06/12/17 11:27 67 166/104 I/O 06/12/17 06/12/17 06/12/17 06/13/17 06/13/17 06/13/17 07:00 15:00 23:00 07:00 15:00 23:00 Intake Total 100 ml 520 ml 50 ml Output Total 0 ml 5000 ml 0 ml 0 ml Balance 100 ml -5000 ml 520 ml 50 ml Intake Oral 100 ml 520 ml 50 ml Output Urine Total 0 ml 0 ml 0 ml Stool Total 0 ml 0 ml Hemodialysis 5000 ml # Bowel Movements 0 0 Result Diagram: 06/13/17 0757 Imaging Last Impressions Chest X-Ray 06/09/17 0000 Signed Impressions: Service Date/Time: Friday, June 09, 2017 09:52 - CONCLUSION: Persistent but slightly improved airspace consolidation in the right mid and lower lung zone. Lowell Byrd MD Chest CT 06/07/17 0000 Signed Impressions: Service Date/Time: Wednesday, June 07, 2017 15:23 - CONCLUSION: 1. Multifocal consolidation greater throughout the right upper and right middle lobes and to a lesser degree right lower lobe. 2. Patchy densities in the left upper lobe and left lower lobe. Alexis Melendez MD Abdomen/Pelvis CT 06/07/17 0000 Signed Impressions: Service Date/Time: Wednesday, June 07, 2017 15:23 - CONCLUSION: The abdomen and pelvis are unremarkable with a peritoneal dialysis catheter. The patient does have dense infiltrates in lungs particularly the right middle lobe. Tiny bilateral pleural effusions. Elian Larsen MD Shoulder MRI 06/03/17 0000 Signed Impressions: Service Date/Time: Saturday, June 03, 2017 12:35 - CONCLUSION: No acute disease. Intact rotator cuff. No evidence of significant arthropathy, soft tissue swelling or bone marrow edema. Gamal Zambrano MD Central Venous Line 06/01/17 1451 Signed Impressions: Service Date/Time: May 14:51 - CONCLUSION: Uncomplicated catheter removal. Haider Quintanilla Jr., MD Catheter Placement X-Ray 06/01/17 0000 Signed Impressions: Service Date/Time: , June 01, 2017 12:33 - CONCLUSION: Uncomplicated PermaCath placement as above. Haider Quintanilla Jr., MD Objective Remarks GENERAL: NAD SKIN: Warm and dry. HEAD: Normocephalic. EYES: No scleral icterus. No injection or drainage. NECK: Supple, trachea midline. No JVD or lymphadenopathy. CARDIOVASCULAR: tachy Regular rate and rhythm without murmurs, gallops, or rubs. RESPIRATORY: Breath sounds equal bilaterally. No accessory muscle use. GASTROINTESTINAL: Abdomen soft, non-tender, nondistended. MUSCULOSKELETAL: No cyanosis, or edema. BACK: Nontender without obvious deformity. No CVA tenderness. Procedures 06/01- permcath A/P Problem List: (1) ESRD (end stage renal disease) ICD Code: N18.6 Status: Acute (2) IgA nephropathy ICD Code: N02.8 Status: Acute (3) Acute on chronic anemia Status: Acute (4) Pneumonia ICD Code: J18.9 Status: Acute (5) Sepsis ICD Code: A41.9 Status: Acute (6) Hyperkalemia ICD Code: E87.5 Status: Acute (7) Metabolic bone disease ICD Code: E88.9 Status: Acute Assessment and Plan 26 yrs old man with: Hyperkalemia 05/30- resolved on HD ESRD Renal transplant candidate- planned for 07/28 Anemia of renal disease- S/p total 3 units PRBCs - HD per Nephrology. s/p 3 units PRBC. H&H stable - S/P Permcath placement - 06/01 - on Epogen during HD. - On Prednisone, Fosrenol, Renvela -Continue with current BP meds -He has been clear for discharge by nephrology Hypertension urgency - Norvasc 10 mg daily, Labetalol 300 mg tid, Cozaar 100 mg daily, Hydralazine 100 mg tid and Clonidine 0.1 mg Q8H and minoxidil 2.5 mg twice a day Sepsis- New infiltrate- ?Right lower lobe with hemoptysis + leukocytosis - s/p Levaquin + Flagyl - Appreciate recs from ID - sputum cx neg Acute respiratory Failure- high 02 requirement-06/04- no longer requiring O2 -Pulmonary following and has signed off, available prn. -Walk test completed, no O2 needed Right side prev VAS cath site pain. Resolved Right shoulder pain- with range of motion -- MRI shoulder negative. PT eval. - prn pain meds Hypothyroidism - Levothyroxine ADHD - Supportive care - Continue home medications Alexis Ortega MD Jun 13, 2017 11:17
[2017-06-13] MEDS ORDERED: HYDR-3801 PO (11:22)
[2017-06-13] MEDS ORDERED: MINO2.5T PO (11:22)
[2017-06-13] MEDS ORDERED: CLON.1 PO (11:22)
--- NOTE | 2017-06-13 11:26 | HHI.DS ---
Discharge Summary Admission Date May 30, 2017 at 19:58 Discharge Date: Jun 13, 2017 Admitting Diagnosis acute on chronic kidney disease, hyperkalemia, anemia (1) ESRD (end stage renal disease) ICD Code: N18.6 (2) IgA nephropathy ICD Code: N02.8 (3) Acute on chronic anemia (4) Pneumonia ICD Code: J18.9 (5) Sepsis ICD Code: A41.9 (6) Hyperkalemia ICD Code: E87.5 (7) Metabolic bone disease ICD Code: E88.9 Procedures 06/01- permcath Brief History - From Admission 26-year-old male presenting with complaints of weakness, cramping, nausea, vomiting. He is on peritoneal dialysis secondary to IgA nephropathy and expecting the renal transplant within next months. He is a patient at the [facility]. He denies any change in the color of his peritoneal dialysis fluid, he denies any fevers. He is currently followed by Dr. Davis. Past medical history also includes hypertension, ADHD, hyperlipidemia, hypothyroidism. His primary care providers Dr. Parker. CBC/BMP: 06/13/17 0757 Significant Findings Laboratory Tests Test 06/13/17 07:57 Red Blood Count 2.81 MIL/MM3 (4.50-5.90) Hemoglobin 7.9 GM/DL (13.0-17.0) Hematocrit 24.3 % (39.0-51.0) Red Cell Distribution Width 17.7 % (11.6-17.2) Monocytes (%) (Auto) 18.6 % (0.0-8.0) Monocytes # (Auto) 1.1 TH/MM3 (0-0.9) Imaging Last Impressions Chest X-Ray 06/09/17 0000 Signed Impressions: Service Date/Time: Friday, June 09, 2017 09:52 - CONCLUSION: Persistent but slightly improved airspace consolidation in the right mid and lower lung zone. Lowell Byrd MD Chest CT 06/07/17 0000 Signed Impressions: Service Date/Time: Wednesday, June 07, 2017 15:23 - CONCLUSION: 1. Multifocal consolidation greater throughout the right upper and right middle lobes and to a lesser degree right lower lobe. 2. Patchy densities in the left upper lobe and left lower lobe. Alexis Melendez MD Abdomen/Pelvis CT 06/07/17 0000 Signed Impressions: Service Date/Time: Wednesday, June 07, 2017 15:23 - CONCLUSION: The abdomen and pelvis are unremarkable with a peritoneal dialysis catheter. The patient does have dense infiltrates in lungs particularly the right middle lobe. Tiny bilateral pleural effusions. Elian Larsen MD Shoulder MRI 06/03/17 0000 Signed Impressions: Service Date/Time: Saturday, June 03, 2017 12:35 - CONCLUSION: No acute disease. Intact rotator cuff. No evidence of significant arthropathy, soft tissue swelling or bone marrow edema. Gamal Zambrano MD Central Venous Line 06/01/17 1451 Signed Impressions: Service Date/Time: , June 01, 2017 14:51 - CONCLUSION: Uncomplicated catheter removal. Haider Quintanilla Jr., MD Catheter Placement X-Ray 06/01/17 0000 Signed Impressions: Service Date/Time: , June 01, 2017 12:33 - CONCLUSION: Uncomplicated PermaCath placement as above. Haider Quintanilla Jr., MD PE at Discharge GENERAL: NAD SKIN: Warm and dry. HEAD: Normocephalic. EYES: No scleral icterus. No injection or drainage. NECK: Supple, trachea midline. No JVD or lymphadenopathy. CARDIOVASCULAR: tachy Regular rate and rhythm without murmurs, gallops, or rubs. RESPIRATORY: Breath sounds equal bilaterally. No accessory muscle use. GASTROINTESTINAL: Abdomen soft, non-tender, nondistended. MUSCULOSKELETAL: No cyanosis, or edema. BACK: Nontender without obvious deformity. No CVA tenderness. Hospital Course Patient was admitted's secondary to sepsis due to pneumonia for which she was treated with IV antibiotic which was subsequently switched to by mouth by infectious disease specialist. Nephrology was also consulted and patient's was switched from peritoneal dialysis to hemodialysis. Blood pressure was achieved with multiple antihypertensive medications which were adjusted accordingly throughout hospitalization. Patient was transfused 3 units packed red blood cell. Electrolytes abnormalities including hyperkalemia were corrected. DVT and GI prophylaxis were provided Pt Condition on Discharge: Stable Discharge Disposition: Discharge Home Discharge Time: > 30 minutes Discharge Instructions DIET: Follow Instructions for: Renal Failure Diet Activities you can perform: Regular-No Restrictions Follow up Referrals: Nephrology PCP Follow-up - 1 Week New Medications: Clonidine (Catapres) 0.1 Mg Tab 0.1 MG PO Q8HR Blood Pressure Management #90 TAB Hydralazine (Hydralazine) 100 Mg Tab 100 MG PO TID Blood Pressure Management #90 TAB Minoxidil (Minoxidil) 2.5 Mg Tab 2.5 MG PO BID Blood Pressure Management #60 TAB Continued Medications: Amlodipine (Amlodipine) 10 Mg Tab 10 MG PO DAILY Blood Pressure Management #30 Ref 0 TAB Labetalol (Labetalol) 300 Mg Tab 300 MG PO TID Blood Pressure Management Ref 0 TAB Lanthanum (Fosrenol) 1,000 Mg Tab 1000 MG PO TIDPC Reduce Phosphorous #90 Ref 0 TAB Levothyroxine (Levothyroxine) 50 Mcg Tab 50 MCG PO DAILY Thyroid #30 Ref 0 TAB Losartan (Losartan) 100 Mg Tab 100 MG PO DAILY Blood Pressure Management #30 Ref 0 TAB Oxycodone-Acetaminophen (Percocet) 7.5-325 mg Tab 1 TAB PO Q4H PRN PAIN Ref 0 TAB Pravastatin (Pravastatin) 10 Mg Tab 10 MG PO HS Cholesterol Management #30 Ref 0 TAB Prednisone (Prednisone) 10 Mg Tab 10 MG PO DIRECTED Titrating dose x 18 days Ref 0 TAB Sevelamer Carbonate (Renvela) 800 Mg Tab 3200 MG PO TID Control phosphorous levels #90 Ref 0 TAB Testosterone Cypionate Inj (Testosterone Cypionate Inj) 100 Mg/Ml Inj 200 MG IM WEEKLY Hormone Replacement #1 Ref 0 INJECTION Discontinued Medications: Bumetanide (Bumetanide) 2 Mg Tab 2 MG PO DAILY Ref 0 TAB Clotrimazole Deb (Clotrimazole Deb) 10 Mg Troc 10 MG PO 5 TIMES A DAY Fungal Infection Ref 0 DEB Hydralazine (Hydralazine) 100 Mg Tab 100 MG PO HS Take with meals Blood Pressure Management Ref 0 TAB Hydralazine HCl (Hydralazine HCl) 25 Mg Tablet 50 MG PO BID Blood Pressure Management #60 Ref 0 TAB Alexis Ortega MD Jun 13, 2017 11:26
[2017-06-13 12:00] VITALS: BP 174/99; PULSE 78; RESP 18; TEMP 97.8; O2SAT 96
[2017-06-13] MEDS: hydrALAZINE HCL 20 MG/ML VIAL IV PUSH PRN (12:07)
--- NOTE | 2017-06-13 16:59 | PD.ONC.PN ---
Subjective Subjective Remarks Late entry. Saw pt in the am. Feeling well. No CP/SOB. Objective Data Date Time Temp Pulse Resp B/P Pulse Ox O2 Delivery O2 Flow Rate FiO2 06/13/17 12:00 97.8 78 18 174/99 96 06/13/17 09:55 72 06/13/17 09:53 Room Air 06/13/17 08:10 98 21 06/13/17 08:00 97.6 79 18 165/98 95 06/13/17 04:00 99.0 89 17 160/87 98 06/13/17 00:00 98.4 79 17 162/94 98 06/12/17 21:00 78 06/12/17 21:00 Room Air 06/12/17 20:00 98.8 76 16 169/97 97 06/12/17 18:42 69 06/12/17 18:28 97.5 75 20 158/96 96 06/12/17 17:00 70 152/91 Result Diagram: 06/13/17 0757 Laboratory Results Laboratory Tests Test 06/13/17 07:57 White Blood Count 6.1 TH/MM3 Red Blood Count 2.81 MIL/MM3 Hemoglobin 7.9 GM/DL Hematocrit 24.3 % Mean Corpuscular Volume 86.3 FL Mean Corpuscular Hemoglobin 28.0 PG Mean Corpuscular Hemoglobin 32.5 % Concent Red Cell Distribution Width 17.7 % Platelet Count 421 TH/MM3 Mean Platelet Volume 7.4 FL Neutrophils (%) (Auto) 60.3 % Lymphocytes (%) (Auto) 17.3 % Monocytes (%) (Auto) 18.6 % Eosinophils (%) (Auto) 2.8 % Basophils (%) (Auto) 1.0 % Neutrophils # (Auto) 3.7 TH/MM3 Lymphocytes # (Auto) 1.1 TH/MM3 Monocytes # (Auto) 1.1 TH/MM3 Eosinophils # (Auto) 0.2 TH/MM3 Basophils # (Auto) 0.1 TH/MM3 CBC Comment DIFF FINAL Differential Comment Objective Remarks GENERAL: Well-nourished, well-developed patient. SKIN: Warm and dry. HEAD: Normocephalic. EYES: No scleral icterus. No injection or drainage. NECK: Supple, trachea midline. No JVD or lymphadenopathy. LYMPHATIC: No adenopathy. CARDIOVASCULAR: Regular rate and rhythm without murmurs. RESPIRATORY: Breath sounds equal bilaterally. No accessory muscle use. GASTROINTESTINAL: Abdomen soft, non-tender, nondistended. EXTREMITIES: No cyanosis, or edema. MUSCULOSKELETAL: Adequate muscle tone. NEUROLOGICAL: No obvious focal deficit. Awake, alert, and oriented x3. PSYCHIATRIC: Appropriate mood and affect; insight and judgment normal. Assessment/Plan Problem List: (1) Acute on chronic anemia Status: Acute Plan: --Hgb stable at 7.9. EPO 711. May have relative resistant to epogen due to recent sepsis. --recommend transfusion if hgb less than 7, Hgb was stable 2 days ago. -- has anemia due to end-stage renal disease. -- Epogen with hemodialysis. --no apparent bleeding noted. no prior history of GI bleed. --has had a baseline anemia due to end-stage renal disease and developed worsening anemia likely due to sepsis and bone marrow suppression. --No evidence of hemolysis or vitamin deficiency. Stool occult blood pending (2) Sepsis Status: Resolved Plan: --Sepsis / pneumonia, resolving --currently on antibiotics. Assessment 26-year-old male with history of IgA nephropathy and end-stage renal disease admitted with generalized weakness, abdominal cramp and nausea, vomiting. He has been on peritoneal dialysis since December of 2015 when he presented he has a very elevated potassium level 8.2. He subsequently developed respiratory distress with fever and admitted to the Intensive Care Unit for pneumonia. He was started on hemodialysis. He has been getting Epogen with hemodialysis. During the hospital stay he had developed significant anemia. h/o End-stage renal disease due to IgA nephropathy; he is awaiting kidney transplant. Hypertension. Hyperlipidemia. Hypothyroidism. ADHD. Plan 1. monitor CBC. 2. supportive care 3. continue Epogen per nephrology 4. transfuse if hgb less than 7 Omar Mogne MD Jun 13, 2017 16:59
--- NOTE | 2017-06-13 19:44 | HHI.PR ---
Subjective Remarks 26 YOWM with ESRD, on HD, sepsis, PN Hemoptysis resolved No fever Breathing better Ambulates Objective Vital Signs Vital Signs Date Time Temp Pulse Resp B/P Pulse Ox O2 Delivery O2 Flow Rate FiO2 06/13/17 12:00 97.8 78 18 174/99 96 06/13/17 09:55 72 06/13/17 09:53 Room Air 06/13/17 08:10 98 21 06/13/17 08:00 97.6 79 18 165/98 95 06/13/17 04:00 99.0 89 17 160/87 98 06/13/17 00:00 98.4 79 17 162/94 98 06/12/17 21:00 78 06/12/17 21:00 Room Air 06/12/17 20:00 98.8 76 16 169/97 97 I/O 06/12/17 06/12/17 06/12/17 06/13/17 06/13/17 06/13/17 07:00 15:00 23:00 07:00 15:00 23:00 Intake Total 100 ml 520 ml 50 ml Output Total 0 ml 5000 ml 0 ml 0 ml Balance 100 ml -5000 ml 520 ml 50 ml Intake Oral 100 ml 520 ml 50 ml Output Urine Total 0 ml 0 ml 0 ml Stool Total 0 ml 0 ml Hemodialysis 5000 ml # Bowel Movements 0 0 Result Diagram: 06/13/17 0757 Objective Remarks GENERAL: WBWN WM.NAD SKIN: Warm and dry. HEAD: Normocephalic. EYES: No scleral icterus. No injection or drainage. NECK: Supple, trachea midline. No JVD or lymphadenopathy. CARDIOVASCULAR: Regular rate and rhythm without murmurs, gallops, or rubs. RESPIRATORY: Breath sounds equal bilaterally. No accessory muscle use. Rales right lung base GASTROINTESTINAL: Abdomen soft, non-tender, nondistended. PD Cathetor MUSCULOSKELETAL: No cyanosis, or edema. BACK: Nontender without obvious deformity. No CVA tenderness. A/P Assessment and Plan Sepsis Pneumonia Hemoptysis resolved ESRD, now on HD Leucocytosis IGA Nephropathy. PLAN: Monitor CBC Stable from pulm standpoint Stable on RA Tyler Sheehan MD Jun 13, 2017 19:44
== END 2017-06-13 13:58 | disposition home or self-care (01) | DRG 640 ==
LOC: NEPE 17:51 → NEDA 19:58 → NEDH 23:58 → HIMN 05-31 02:20 → N06B 06-01 23:49 → HIMN 06-04 23:45 → N04A 06-12 17:17
PROVIDERS: ADMIT Hospitalist; ATTEND Hospitalist
PROC: 02HV33Z Insertion of Infusion Device into Superior Vena Cava, Percutaneous Approach (ICD-10-PCS; 2017-05-30)
PROC: B543ZZA Ultrasonography of Right Jugular Veins, Guidance (ICD-10-PCS; 2017-05-30)
PROC: 5A1D60Z (ICD-10-PCS; principal; 2017-05-31)
PROC: 02H633Z Insertion of Infusion Device into Right Atrium, Percutaneous Approach (ICD-10-PCS; 2017-06-01)
PROC: B543ZZA Ultrasonography of Right Jugular Veins, Guidance (ICD-10-PCS; 2017-06-01)
PROC: 30233N1 Transfusion of Nonautologous Red Blood Cells into Peripheral Vein, Percutaneous Approach (ICD-10-PCS; 2017-06-04)
DX: E87.5 Hyperkalemia (principal); J18.9 Pneumonia, unspecified organism; J96.01 Acute respiratory failure with hypoxia; A41.9 Sepsis, unspecified organism; Z76.82 Awaiting organ transplant status; E88.89 Other specified metabolic disorders; I12.0 Hypertensive chronic kidney disease with stage 5 chronic kidney disease or end stage renal disease; N18.6 End stage renal disease; N25.81 Secondary hyperparathyroidism of renal origin; R04.2 Hemoptysis; N02.8 Recurrent and persistent hematuria with other morphologic changes; D69.59 Other secondary thrombocytopenia; E03.9 Hypothyroidism, unspecified; I16.0 Hypertensive urgency; D63.1 Anemia in chronic kidney disease; E78.5 Hyperlipidemia, unspecified; R51 Headache; M25.511 Pain in right shoulder; F90.9 Attention-deficit hyperactivity disorder, unspecified type; Z87.891 Personal history of nicotine dependence; Z88.1 Allergy status to other antibiotic agents; Z99.2 Dependence on renal dialysis
CPT/HCPCS: 36430; 36558; 36600; 71010; 71250; 73221; 74176; 76937; 77001; 80048; 80053; 80069; 80076; 82140; 82272; 82435; 82550; 82552; 82565; 82607; 82668; 82728; 82746; 82805; 82947; 83010; 83540; 83550; 83605; 83615; 83735; 83880; 83921; 84100; 84132; 84295; 84484; 84520; 85014; 85018; 85025; 85027; 85044; 85060; 85379; 85610; 85730; 86140; 86850; 86880; 86900; 86901; 86920; 87040; 87070; 87205; 87340; 87641; 90935; 93005; 94150; 94620; 94640; 94664; 96365; 96374; 96375; 99152; 99153; C1750; C1769; J0360; J0610; J0690; J1170; J1580; J1644; J1815; J1956; J2060; J2250; J2405; J3010; J3370; J7030; J7050; J7512; P9016; Q4081

== ENCOUNTER 2017-06-20 02:56 | Emergency (ER) | payer BC ==
[~2017-06-20] VITALS: Ht 188 cm; Wt 76.8 kg
[~2017-06-20 02:56] MED LIST changes: +AMLO10TA2 PO; -AMLO5TAB2 PO; -BUME2TAB PO; +CLON.1 PO; -EPOG1000; +MINO2.5T PO; +PERC7.5T13 PO; +PRED10 PO
[2017-06-20 03:11] VITALS: BP 156/98; PULSE 89; RESP 12; TEMP 99.3; O2SAT 96
[2017-06-20] MEDS ORDERED: MORPHINE SULFATE 4 MG/ML INJ IV PUSH ONE (03:45)
[2017-06-20 04:05] VITALS: BP 156/98; PULSE 89; RESP 18; TEMP 99.3; O2SAT 96
[2017-06-20 04:08] LABS: AUTOMATED NEUTROPHIL # 4.9 TH/MM3 (1.8-7.7); BASOPHIL % 0.7 % (0.0-2.0); EOSINOPHIL # 0.1 TH/MM3 (0-0.4); EOSINOPHIL % 1.7 % (0.0-4.0); HEMATOCRIT 26.4 % (39.0-51.0); HEMO FLAGS DIFF FINAL; LYMPH % 17.3 % (9.0-44.0); LYMPHOCYTE # 1.2 TH/MM3 (1.0-4.8); MEAN CELL VOLUME 88.7 FL (80.0-100.0); MEAN CORPUSCULAR HGB CONC 32.6 % (32.0-36.0); MONO % 12.1 % (0.0-8.0); NEUT % 68.2 % (16.0-70.0); PLATELET COUNT 530 TH/MM3 (150-450); RED BLOOD COUNT 2.98 MIL/MM3 (4.50-5.90); RED CELL DISTRIBUTION WIDTH 19.5 % (11.6-17.2); WHITE BLOOD COUNT 7.1 TH/MM3 (4.0-11.0)
[2017-06-20 04:15] LABS: CHLORIDE 104 MEQ/L (98-107); POTASSIUM 3.7 MEQ/L (3.5-5.1); SODIUM (NA) 140 MEQ/L (136-145)
[2017-06-20 04:19] LABS: ANION GAP 9 MEQ/L (5-15); BICARBONATE 27.3 MEQ/L (21.0-32.0); BLOOD UREA NITROGEN 9 MG/DL (7-18)
--- NOTE | 2017-06-20 04:21 | RADRPT ---
EXAM DATE/TIME: 06/20/2017 03:47 [facility] COMPARISON: CHEST SINGLE AP, June 09, 2017, 9:52. INDICATIONS : Chest pain. MEDICAL HISTORY : Hypertension. Chronic kidney disease. SURGICAL HISTORY : Port placement. ENCOUNTER: Initial ACUITY: 1 day PAIN SCORE: 7/10 LOCATION: Right chest FINDINGS: PA and lateral views of the chest demonstrate the lungs to be symmetrically aerated without evidence of mass, infiltrate or effusion. The cardiomediastinal contours are unremarkable. The right sided do uble lumen central venous line remains in place. Osseous structures are intact. CONCLUSION: No acute disease. The previously noted right-sided pneumonia has cleared. Napoleon Dejesus MD on June 20, 2017 at 4:19 Board Certified Radiologist. This report was verified electronically.
[2017-06-20 04:22] LABS: ALT (GPT) 18 U/L (12-78); AST (GOT) 27 U/L (15-37)
[2017-06-20 04:23] LABS: GLOMERULAR FILTRATION RATE 17 ML/MIN (>89)
[2017-06-20 04:24] LABS: TOTAL BILIRUBIN ADULT 0.4 MG/DL (0.2-1.0)
[2017-06-20 04:25] LABS: ALKALINE PHOSPHATASE 66 U/L (45-117)
[2017-06-20] MEDS ORDERED: HYDROmorphone HCL PF 1 MG/ML VIAL IV PUSH ONE (05:00)
[2017-06-20 05:33] VITALS: BP 191/117; PULSE 69; RESP 18; O2SAT 96
--- NOTE | 2017-06-20 05:51 | PD ---
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 He says the pain started during dialysis and lasted for the last 2 hours of dialysis. He continues to have pain there. He says this happened once before a week ago during dialysis. He denies any fevers. He has not had any discoloration of the skin near the port. There was no issues receiving dialysis today. He says that dialysis Center gave him 3 Tylenol and told him to come to the ER. PFSH Past Medical History ADHD: Yes Autoimmune Disease: Yes (IgA nephropathy) Cancer: No Cardiovascular Problems: Yes High Cholesterol: Yes Diabetes: No Dialysis: Yes (peritoneal) Diminished Hearing: No Endocrine: Yes Gastrointestinal Disorders: No Genitourinary: Yes (Iga Nephropathy) Hepatitis: No Hiatal Hernia: No Hypertension: Yes (and chol) Immune Disorder: No Medical other: No Musculoskeletal: No Neurologic: No Psychiatric: Yes (ADD) Reproductive: No Respiratory: No Immunizations Current: Yes Renal Failure: Yes (chronic kidney disease Stage III) Thyroid Disease: Yes Tetanus Vaccination: > 5 Years Influenza Vaccination: Yes Past Surgical History Abdominal Surgery: Yes (PD CATHETER PLACEMENT) AICD: No Body Medical Devices: peritoneal dialysis port Cardiac Surgery: No Ear Surgery: No Endocrine Surgery: No Eye Surgery: No Genitourinary Surgery: No Gynecologic Surgery: No Joint Replacement: No Neurologic Surgery: No Oral Surgery: Yes (WISDOM TEETH) Pacemaker: No Thoracic Surgery: No Other Surgery: Yes Social History Alcohol Use: Yes ("ONCE OR TWICE A MONTH") Tobacco Use: No (QUIT FIVE YEARS AGO (2 PACK YEARS)) Substance Use: No Allergies-Medications (Allergen,Severity, Reaction): Coded Allergies: Keflex (Verified Allergy, Unknown, UNKNOWN- A CHILD, 06/20/17) Reported Meds & Prescriptions Reported Meds & Active Scripts Active Minoxidil 2.5 Mg Tab 2.5 Mg PO BID Hydralazine (Hydralazine HCl) 100 Mg Tab 100 Mg PO TID Catapres (Clonidine) 0.1 Mg Tab 0.1 Mg PO Q8HR Reported Percocet (Oxycodone-Acetaminophen) 7.5-325 mg Tab 1 Tab PO Q4H PRN Amlodipine (Amlodipine Besylate) 10 Mg Tab 10 Mg PO DAILY Testosterone Cypionate Inj (Testosterone Cypionate) 100 Mg/Ml Inj 200 Mg IM WEEKLY Losartan (Losartan Potassium) 100 Mg Tab 100 Mg PO DAILY Fosrenol (Lanthanum Carbonate) 1,000 Mg Tab 1,000 Mg PO TIDPC Renvela (Sevelamer Carbonate) 800 Mg Tab 3,200 Mg PO TID Pravastatin 10 Mg Tab 10 Mg PO HS Levothyroxine (Levothyroxine Sodium) 50 Mcg Tab 50 Mcg PO DAILY Labetalol (Labetalol HCl) 300 Mg Tab 300 Mg PO TID Review of Systems Except as stated in HPI: all other systems reviewed are Neg General / Constitutional: No: Fever, Chills HENT: No: Headaches, Lightheadedness Cardiovascular: No: Chest Pain or Discomfort Respiratory: No: Cough, Shortness of Breath Gastrointestinal: No: Nausea, Vomiting Genitourinary: No: Dysuria Musculoskeletal: No: Myalgias, Edema Skin: No Rash, No Change in Pigmentation Neurologic: No: Weakness, Dizziness Physical Exam Narrative GENERAL: Awake and alert, in no acute distress. SKIN: Focused skin assessment warm/dry. No erythema near the dialysis port. No swelling or signs of infection around the dialysis port HEAD: Atraumatic. Normocephalic. EYES: Pupils equal and round. No scleral icterus. ENT: No nasal bleeding or discharge. Mucous membranes pink and moist. NECK: Trachea midline. No JVD. CARDIOVASCULAR: Regular rate and rhythm. No murmur appreciated. RESPIRATORY: No accessory muscle use. Clear to auscultation. Breath sounds equal bilaterally. MUSCULOSKELETAL: No obvious deformities. No clubbing. No cyanosis. No edema. NEUROLOGICAL: Awake and alert. No obvious cranial nerve deficits. Motor grossly within normal limits. Normal speech. PSYCHIATRIC: Appropriate mood and affect; insight and judgment normal. Data Data Last Documented VS Vital Signs Date Time Temp Pulse Resp B/P Pulse Ox O2 Delivery O2 Flow Rate FiO2 06/20/17 05:33 69 18 191/117 96 Room Air 06/20/17 04:05 99.3 Orders Complete Blood Count With Diff (06/20/17 03:40) Comprehensive Metabolic Panel (06/20/17 03:40) Iv Access Insert/Monitor (06/20/17 03:40) Chest, Pa & Lat (06/20/17 ) Morphine Inj (Morphine Inj) (06/20/17 03:45) Hydromorphone Pf Inj (Dilaudid Pf Inj) (06/20/17 05:00) Labs Laboratory Tests Test 06/20/17 04:00 White Blood Count 7.1 TH/MM3 Red Blood Count 2.98 MIL/MM3 Hemoglobin 8.6 GM/DL Hematocrit 26.4 % Mean Corpuscular Volume 88.7 FL Mean Corpuscular Hemoglobin 29.0 PG Mean Corpuscular Hemoglobin 32.6 % Concent Red Cell Distribution Width 19.5 % Platelet Count 530 TH/MM3 Mean Platelet Volume 7.0 FL Neutrophils (%) (Auto) 68.2 % Lymphocytes (%) (Auto) 17.3 % Monocytes (%) (Auto) 12.1 % Eosinophils (%) (Auto) 1.7 % Basophils (%) (Auto) 0.7 % Neutrophils # (Auto) 4.9 TH/MM3 Lymphocytes # (Auto) 1.2 TH/MM3 Monocytes # (Auto) 0.9 TH/MM3 Eosinophils # (Auto) 0.1 TH/MM3 Basophils # (Auto) 0.0 TH/MM3 CBC Comment DIFF FINAL Differential Comment Sodium Level 140 MEQ/L Potassium Level 3.7 MEQ/L Chloride Level 104 MEQ/L Carbon Dioxide Level 27.3 MEQ/L Anion Gap 9 MEQ/L Blood Urea Nitrogen 9 MG/DL Creatinine 4.40 MG/DL Estimat Glomerular Filtration 17 ML/MIN Rate Random Glucose 99 MG/DL Calcium Level 9.0 MG/DL Total Bilirubin 0.4 MG/DL Aspartate Amino Transf 27 U/L (AST/SGOT) Alanine Aminotransferase 18 U/L (ALT/SGPT) Alkaline Phosphatase 66 U/L Total Protein 6.9 GM/DL Albumin 3.4 GM/DL [facility] Medical Decision Making Medical Screen Exam Complete: Yes Emergency Medical Condition: Yes Medical Record Reviewed: Yes Differential Diagnosis Cellulitis versus chronic pain versus port malfunction Narrative Course Patient is a 26-year-old male comes in complaining of pain from his dialysis port. Exam shows no acute abnormalities. Patient is afebrile, there are no signs of infection. IV established, labs sent. Labs show no acute abnormalities. Chest x-ray performed shows the port is in place and it was used after the pain started, suggesting that it is functioning properly. Patient given pain medicine. He is advised to call his doctor osteopathic today and tell him about the pain. Advised to follow-up with his doctors. Advised to return to the emergency department as needed for any worsening symptoms. Diagnosis Primary Impression: Pain Patient Instructions: General Instructions, Narcotic Pain Management (ED) Additional Instructions: Follow-up with your doctor osteopathic. Take your pain medicine as needed. Return to the emergency department as needed for any worsening symptoms. Scripts Oxycodone-Acetaminophen (Percocet)5-325 mg Tab1 Tab PO Q6H PRN (PAIN) #10 TAB Ref 0 Prov:Kiah Moffett MD 06/20/17 Disposition: 01 DISCHARGE HOME Condition: Stable Kiah Moffett MD Jun 20, 2017 05:51
[2017-06-20] MEDS ORDERED: PERC5TAB12 PO (05:56)
== END 2017-06-20 06:37 | disposition home or self-care (01) ==
LOC: PHED 02:56
DX: T82.848A Pain due to vascular prosthetic devices, implants and grafts, initial encounter (principal)
CPT/HCPCS: 71020; 80053; 85025; 96374; 96375; 99284; J1170; J2270